=== PATIENT | female | born 1995 | race Caucasian/White ===

== ENCOUNTER 2023-02-27 15:23 | Outpatient (OUT) | payer OTHER, SELFPAY ==
[2023-02-27 17:21] LABS: HCG Quantitative 100415 mIU/mL
== END 2023-02-27 15:24 | disposition home or self-care (01) ==
LOC: LAB 15:23
PROVIDERS: Visit Provider Obstetrics & Gynecology
DX: N92.6 Irregular menstruation, unspecified (principal)
CPT/HCPCS: 36415; 84702

== ENCOUNTER 2023-03-01 12:06 | Outpatient (OUT) | payer OTHER, SELFPAY | END 2023-03-01 12:07 | disposition home or self-care (01) | PROVIDERS: Visit Provider Obstetrics & Gynecology | DX: N92.6 Irregular menstruation, unspecified (principal) | CPT/HCPCS: 36415; 84702 ==

== ENCOUNTER 2023-03-31 10:05 | Outpatient (OUT) | payer OTHER, SELFPAY ==
--- NOTE | 2023-03-31 10:06 | US_ITS ---
[address] [address] Patient Name: ALIN YOUNG MRN: [id number] date: 1995 Sex: F Assigned Patient Location: US Current Patient Location: LAB Accession/Order Number: [id number] Exam Date: 03/31/2023 10:06 Report Date: 03/31/2023 15:33 At the request of: TEAGAN KAISER Procedure: US OB transvaginal EXAMINATION: US OB transvaginal HISTORY: MISSED MENSES COMPARISON: No relevant comparison available. FINDINGS: GESTATIONAL SAC: Present and normal appearing. YOLK SAC: Present and normal appearing. POLE: Present and normal appearing. CARDIAC: Present. UTERUS: Normal size and appearance. OVARIES: Right: Not seen. Left: Not seen. CERVIX: 4.9 cm in length and closed. CUL-DE-SAC: Normal. OTHER: None. AGE BY LMP: Unknown LMP AYDE BY LMP: AGE BY US CRL: 12 weeks 0 days AYDE BY US CRL: 10/13/2023 US/US OB transvaginal IMPRESSION: 1. Single live intrauterine 12 weeks 0 days by today's ultrasound. Electronically authenticated by: CHRISTINA MIRAMONTES Date: 03/31/2023 15:33
== END 2023-03-31 10:06 | disposition home or self-care (01) ==
LOC: US 10:05
PROVIDERS: Visit Provider Obstetrics & Gynecology
DX: Z34.91 Encounter for supervision of normal pregnancy, unspecified, first trimester (principal); Z3A.12 12 weeks gestation of pregnancy
CPT/HCPCS: 36415; 76817; 83036; 84443; 85025; 86592; 86762; 86803; 86850; 86900; 86901; 87086; 87340; 87389; 87522

== ENCOUNTER 2023-03-31 11:22 | Outpatient (OUT) | payer OTHER, SELFPAY ==
[2023-03-31 12:08] LABS: Basophils Absolute Auto 0.1 10^3/uL (0.0-0.1); Basophils Percent Auto 0.7 % (0.2-2.0); Eosinophils Absolute Auto 0.1 10^3/uL (0.0-0.7); Eosinophils Percent Auto 1.9 % (0.9-7.0); Hematocrit 37.4 % (36.0-48.0); Hemoglobin 12.2 g/dL (12.0-16.0); Immature Granulocytes Abs Auto 0.02 10^3/uL (0.00-0.03); Immature Granulocytes Pct Auto 0.3 % (0.0-0.5); Lymphocytes Absolute Auto 1.7 10^3/uL (1.2-3.8); Lymphocytes Percent Auto 23.1 % (20.5-60.0); Mean Corpuscular HGB Conc 32.6 g/dL (29.9-35.2); Mean Corpuscular Hemoglobin 27.1 pg (26.7-34.0); Mean Corpuscular Volume 83.1 fL (81.0-99.0); Mean Platelet Volume 11.5 fL (9.5-13.5); Monocytes Absolute Auto 0.4 10^3/uL (0.3-0.8); Monocytes Percent Auto 5.1 % (1.7-12.0); Neutrophils Percent Auto 68.9 % (43.0-75.0); Platelet Count 202 10^3/uL (150-450); Red Cell Distribution Width 13.3 % (11.0-15.0); White Blood Count 7.2 10^3/uL (4.0-11.0)
[2023-03-31 12:29] LABS: Estimated Average Glucose 111 mg/dL; Glycohemoglobin A1C 5.5 % (4.5-6.2)
[2023-03-31 12:44] LABS: Thyroid Stimulating Hormone 2.407 uIU/mL (0.358-3.740)
[2023-04-01 06:09] LABS: HBsAg Screen Negative (Negative); Rubella Antibodies, IgG 1.83 index (Immune >0.99)
[2023-04-01 10:11] LABS: Rapid Plasma Reagin, Quant Non Reactive titer (NonRea<1:1)
[2023-04-03 14:08] LABS: HCV Ab Reactive (Non Reactive); HCV RNA (International Units) 11700000 IU/mL (.)
[2023-04-03 16:06] LABS: HIV Antigen NON-REACTIVE (NONREACTIVE)
== END 2023-03-31 11:23 | disposition home or self-care (01) ==
LOC: LAB 11:24
PROVIDERS: Visit Provider Obstetrics & Gynecology
DX: Z34.80 Encounter for supervision of other normal pregnancy, unspecified trimester (principal)
CPT/HCPCS: 36415; 83036; 84443; 85025; 86592; 86762; 86803; 86850; 86900; 86901; 87086; 87340; 87389

== ENCOUNTER 2023-06-01 10:47 | Outpatient (OUT) | payer OTHER, SELFPAY ==
--- NOTE | 2023-06-01 10:49 | US_ITS ---
[address] [address] Patient Name: ALIN YOUNG MRN: [id number] date: 1995 Sex: F Assigned Patient Location: [facility] Current Patient Location: [facility] Accession/Order Number: [id number] Exam Date: 06/01/2023 10:50 Report Date: 06/01/2023 12:33 At the request of: TEAGAN KAISER Procedure: US OB cervical length EXAMINATION: US OB anatomy, US OB cervical length HISTORY: ANATOMY COMPARISON: Ultrasound OB transvaginal 03/31/2023 TECHNIQUE: Transabdominal sonographic examination was performed for obstetrical and evaluation. FINDINGS: Number: 1 Heart Rate: 142.0 bpm H.B. /min Amniotic Fluid Volume: Subjectively normal Placental Location: ANTERIOR with lower margin 4.9 cm from os. Incidental venous dewitt within the placenta. Cervix Length: 4.1 cm; closed. ANATOMY: Normal Structures -cerebellum, choroid plexus, cisterna magna, lateral cerebral ventricles, orbits, midline falx, hard palate, four-chamber heart, RVOT, LVOT, stomach, kidneys, bladder, umbilical cord insertion into abdomen, three-vessel cord, cervical spine, thoracic spine, lumbar spine, sacral spine, right upper extremity, left upper extremity, right lower extremity, left lower extremity. SUBOPTIMALLY SEEN: None ABNORMALITIES: None BIOMETRY: BPD: 5.0 cm 21 weeks 1 days HC: 18.7 cm 21 weeks 0 days AC: 16.1 cm 21 weeks 1 days FL: 3.6 cm 21 weeks 3 days EFW:411.5 grams; 68% FL/AC: 22.3 FL/BPD: 72.3 HC/AC: 1.2 GESTATIONAL AGE: Age by EDC: 20 weeks 6 days AYDE by EDC: 10/13/2023 Age by current US: 21 weeks 1 days AYDE by current US: 10/11/2023 US/US OB cervical length IMPRESSION: 1. Single live intrauterine with growth detailed above. 2. Slightly limited examination due to maternal body habitus. Electronically authenticated by: CHRISTINA MIRAMONTES Date: 06/01/2023 12:33
--- NOTE | 2023-06-01 10:49 | US_ITS ---
[address] [address] Patient Name: ALIN YOUNG MRN: [id number] date: 1995 Sex: F Assigned Patient Location: [facility] Current Patient Location: [facility] Accession/Order Number: [id number] Exam Date: 06/01/2023 10:50 Report Date: 06/01/2023 12:33 At the request of: TEAGAN KAISER Procedure: US OB anatomy EXAMINATION: US OB anatomy, US OB cervical length HISTORY: ANATOMY COMPARISON: Ultrasound OB transvaginal 03/31/2023 TECHNIQUE: Transabdominal sonographic examination was performed for obstetrical and evaluation. FINDINGS: Number: 1 Heart Rate: 142.0 bpm H.B. /min Amniotic Fluid Volume: Subjectively normal Placental Location: ANTERIOR with lower margin 4.9 cm from os. Incidental venous dewitt within the placenta. Cervix Length: 4.1 cm; closed. ANATOMY: Normal Structures -cerebellum, choroid plexus, cisterna magna, lateral cerebral ventricles, orbits, midline falx, hard palate, four-chamber heart, RVOT, LVOT, stomach, kidneys, bladder, umbilical cord insertion into abdomen, three-vessel cord, cervical spine, thoracic spine, lumbar spine, sacral spine, right upper extremity, left upper extremity, right lower extremity, left lower extremity. SUBOPTIMALLY SEEN: None ABNORMALITIES: None BIOMETRY: BPD: 5.0 cm 21 weeks 1 days HC: 18.7 cm 21 weeks 0 days AC: 16.1 cm 21 weeks 1 days FL: 3.6 cm 21 weeks 3 days EFW:411.5 grams; 68% FL/AC: 22.3 FL/BPD: 72.3 HC/AC: 1.2 GESTATIONAL AGE: Age by EDC: 20 weeks 6 days AYDE by EDC: 10/13/2023 Age by current US: 21 weeks 1 days AYDE by current US: 10/11/2023 US/US OB anatomy IMPRESSION: 1. Single live intrauterine with growth detailed above. 2. Slightly limited examination due to maternal body habitus. Electronically authenticated by: CHRISTINA MIRAMONTES Date: 06/01/2023 12:33
== END 2023-06-01 10:48 | disposition home or self-care (01) ==
LOC: NOMS 10:47
PROVIDERS: Visit Provider Obstetrics & Gynecology
DX: Z36.89 Encounter for other specified antenatal screening (principal); Z3A.20 20 weeks gestation of pregnancy
CPT/HCPCS: 76805; 76817

== ENCOUNTER 2023-08-02 14:36 | Outpatient (OUT) | payer OTHER, SELFPAY ==
[2023-08-02 15:48] LABS: Basophils Percent Auto 0.2 % (0.2-2.0); Eosinophils Absolute Auto 0.2 10^3/uL (0.0-0.7); Hemoglobin 9.3 g/dL (12.0-16.0); Immature Granulocytes Abs Auto 0.09 10^3/uL (0.00-0.03); Lymphocytes Absolute Auto 1.2 10^3/uL (1.2-3.8); Lymphocytes Percent Auto 13.2 % (20.5-60.0); Mean Corpuscular Hemoglobin 24.3 pg (26.7-34.0); Mean Corpuscular Volume 78.3 fL (81.0-99.0); Mean Platelet Volume 12.5 fL (9.5-13.5); Monocytes Absolute Auto 0.5 10^3/uL (0.3-0.8); Monocytes Percent Auto 4.9 % (1.7-12.0); Neutrophils Absolute Auto 7.2 10^3/uL (1.4-6.5); Neutrophils Percent Auto 78.7 % (43.0-75.0); Platelet Count 185 10^3/uL (150-450); Red Blood Count 3.83 10^6/uL (4.20-5.40); Red Cell Distribution Width 15.7 % (11.0-15.0); White Blood Count 9.1 10^3/uL (4.0-11.0)
[2023-08-02 16:22] LABS: Glucose 1 Hour 136 mg/dL (<130)
== END 2023-08-02 14:37 | disposition home or self-care (01) ==
LOC: LAB 14:37
PROVIDERS: Visit Provider Obstetrics & Gynecology
DX: Z13.1 Encounter for screening for diabetes mellitus (principal)
CPT/HCPCS: 36415; 82950; 85025

== ENCOUNTER 2023-08-17 08:21 | Outpatient (OUT) | payer OTHER, SELFPAY ==
--- NOTE | 2023-08-17 08:23 | US_ITS ---
[address] [address] Patient Name: ALIN YOUNG MRN: [id number] date: 1995 Sex: F Assigned Patient Location: [facility] Current Patient Location: [facility] Accession/Order Number: [id number] Exam Date: 08/17/2023 08:24 Report Date: 08/17/2023 09:06 At the request of: TEAGAN KAISER Procedure: US OB growth EXAMINATION: US OB growth HISTORY: LGA ; large for gestational age COMPARISON: Ultrasound OB anatomy 06/01/2023 FINDINGS: Heart Rate: 141.0 bpm Number: 1.0 Position: TRANSVERSE Amniotic Fluid Volume: 16.4 cm Maximum Vertical Pocket: 5.3 cm BIOMETRY: BPD: 8.4 cm cm; 33 weeks 5 days; 88% HC: 30.4 cmcm; 33 weeks 6 days ; 67% AC: 31.0 cm cm; 34 weeks 6 days; >97% FL: 6.7 cm cm; 34 weeks 3 days; 93% EFW: 2451.6 grams; >97% FL/AC: 21.6 FL/BPD: 80.0 HC/AC: 1.0 GESTATIONAL AGE: Age by EDC: 31 weeks 6 days AYDE by EDC: 10/13/2023 Age by US: 34 weeks 2 days AYDE by US: 09/26/2023 US/US OB growth IMPRESSION: 1. Single live intrauterine with growth detailed above. 2. Estimated weight is greater than 97th percentile. Electronically authenticated by: CHRISTINA MIRAMONTES Date: 08/17/2023 09:06
== END 2023-08-17 08:22 | disposition home or self-care (01) ==
LOC: NOMS 08:21
PROVIDERS: Visit Provider Obstetrics & Gynecology
DX: O36.63X0 Maternal care for excessive fetal growth, third trimester, not applicable or unspecified (principal); Z3A.31 31 weeks gestation of pregnancy
CPT/HCPCS: 76816

== ENCOUNTER 2023-08-28 21:21 | Emergency (ER) | payer OTHER, SELFPAY ==
[2023-08-28 21:23] VITALS: BP 147/73; PULSE 116; TEMP 36.7; O2SAT 98; BMI 44.6
--- OUTSIDE RECORDS SUMMARY | 2023-08-28 21:29 | XMS_ITS | CCD ---
Author Organization [facility] Care Team Providers Care Address Change Clerk Name Role Phone Unavailable Primary Care Provider UnavailJOHN Trinidad Attending Unavailable James Rodriguez III Primary Care Physician [phone] NONE, XXXX Primary Care Physician Unavailab Aliin Lockett Primary Care Physician [phone] REQUEST, DR JJ LISTED Primary Care Unavaila ble YAMILEX, DR PINEDA Consulting Unavailable KARASIK, DR PINEDA Attending Unavailable KARASIK, DR PINEDA Admitting Unavailable AWILDA, DR CANDELARIA Consulting Unavailable MISC, DR FONSECA Primary Care Unavailable AWILDA, DR CANDELARIA Attending Unavailable AWILDA, DR CANDELARIA Admitting Unavailable MISC, DR FONSECA Primary Care Unavailable AWILDA, DR CANDELARIA Attending Unavailable AWILDA, DR CANDELARIA Admitting Unavailable MISC, DR FONSECA Primary Care Unavailable AWILDA, DR CANDELARIA Attending Unavailable AWILDA, DR CANDELARIA Admitting Unavailable AWILDA, DR CANDELARIA Consulting Unavailable MISC, DR FONSECA Primary Care Unavailable AWILDA, DR CANDELARIA Attending Unavailable AWILDA, DR CANDELARIA Admitting Unavailable KARASIK, DR PINEDA Consulting Unavailable MISC, DR FONSECA Primary Care Unavailable KARCORNELIA, DR IPNEDA Attending Unavailable YAMILEX, DR PINEDA Admitting Unavailable KARCORNELIA, DR PINEDA Consulting Unavailable MISC, DR FONSECA Primary Care Unavailable KARASILindsay, DR PINEDA Attending Unavailable KARASILindsay, DR PINEDA Admitting Unavailable KARCORNELIA, DR PINEDA Consulting Unavailable REQUEST, DR JJ LISTED Primary Care Unavaila ble AWILDA, DR CANDELARIA Attending Unavailable AWILDA, DR CANDELARIA Admitting Unavailable AWILDA, DR CANDELARIA Consulting Unavailable CHRISTINA NELSON Consulting Unavailable AWILDA, DR CANDELARIA Procedure Practitioner Unavailab le AWILDA, DR CANDELARIA Consulting Unavailable REQUEST, DR NONE LISTED Primary Care Unavaila ble AWILDA, DR CANDELARIA Attending Unavailable AWILDA, DR CANDELARIA Admitting Unavailable AWILDA, DR CANDELARIA Consulting Unavailable MISC, DR FONSECA Primary Care Unavailable AWILDA, DR CANDELARIA Attending Unavailable AWILDA, DR CANDELARIA Admitting Unavailable ZIEBER, DR CHRISTINA Webster Consulting Unavailable AWILDA, DR CANDELARIA Consulting Unavailable REQUEST, DR NONE LISTED Primary Care Unavaila ble AWILDA, DR CANDELARIA Attending Unavailable AWILDA, DR CANDELARIA Admitting Unavailable WEST, DR LEONIDES Sawyer Consulting Unavailable REQUEST, NONE LISTED Primary Care Unavaila ble AWILDA, DR CANDELARIA Attending Unavailable AWILDA, DR CANDELARIA Admitting Unavailable AWILDA, DR CANDELARIA Consulting Unavailable KARASIK, DR PINEDA Consulting Unavailable REQUEST, DR NONE LISTED Primary Care Unavaila ble KARASIK, DR PINEDA Attending Unavailable KARASIK, DR PINEDA Admitting Unavailable WEST, DR LEONIDES Sawyer Consulting Unavailable REQUEST, DR NONE LISTED Primary Care Unavaila ble AWILDA, DR CANDELARIA Attending Unavailable AWILDA, DR CANDELARIA Admitting Unavailable AWILDA, DR CANDELARIA Consulting Unavailable AWILDA, DR CANDELARIA Consulting Unavailable REQUEST, DR NONE LISTED Primary Care Unavaila ble AWILDA, DR CANDELARIA Attending Unavailable AWILDA, DR CANDELARIA Admitting Unavailable Unavailable Primary Care Provider UnavailAmie Kat DO Primary Care Provider Zbigniew La Primary Care Physician [phone] Amie Rosas DO Primary Care Provider Bronson [employer]EFIT[employer].CANDELARIO [facility] Primary Care Provider LORNA DOBSON Referring Unavailable BRONSON LORNA Primary Care Unavailable KEY CASAS Attending Unavailable BRONSON LORNA Primary Care Unavailable KELSI FREEDMAN Referring Unavailable LORNA DOBSON Attending Unavailable AMIE ROSAS Primary Care Unavailable CHRISTIAN, KELSI Attending Unavailable AMIE ROSAS Primary Care Unavailable Unavailable Primary Care Provider UnavailAMIE Kat Primary Care Unavailable PAT TEIXEIRA Attending Unavailable AMIE ROSAS Primary Care Unavailable PA CELIS Attending Unavailable PAT TEIXEIRA S Attending Unavailable PAT TEIXEIRA Attending Unavailable AMIE ROSAS Primary Care Unavailable O'MELISA, KATHERINE R Admitting Unavailable O'MELISA, KATHERINE R Attending Unavailable BOWEN, AMIE Attending Unavailable AIWLDA, CASH Attending Unavailable BOWEN, AMIE Attending Unavailable CASH BOYD Attending Unavailable BOWEN, AMIE Attending Unavailable CASH BOYD Attending Unavailable Harris Simms Attending Unavailable DO Sarita Packer Attending Unavaila DO Sarita Redmond Admitting Unavaila ble Zbigniew La Attending Unavailable Gera Nelson Attending Unavailable Gera Nelson Admitting Unavailable Gera Nelson Admitting Unavailable Gera Nelson Attending Unavailable DO Yuniel Ware Attending Unavailable Allergies Allergy Classification Reported Allergen(s) Allergy Type Date of Onset Reaction(s) Facility (8 sources) Contrast media; Translations: [Red Dye] Propensity to adverse reactions to drug 1 [facility] (20 sources) traMADol; Translations: [tramadol] Drug Allergy 1 Swelling, Other: See Comments, GI Upset, Shortness of Breath [facility] [employer] Work Phone: (8 sources) Red Dye 1 Allergy to substance [facility] Comment on above: Hives (1 source) traMADol; Translations: [Ultram] Drug Allergy [facility] Rep[facility] (1 source) Unable to obtain; Translations: [Unable to obtain] Propensity to adverse reactions (disorder) [facility] Medications Current Medications Medication Drug Class(es) Dates Sig (Normalized) Sig (Original) Tylenol (7 sources) Start: 10-20-2021 Tylenol Refill s(s) 0 Start Date: 10/20/21 Status: Ordered take 2 tablets by [facility] every six hours as needed for pain acetaminophen (TYLENOL) 325 MG tablet Ta ke 2 tablets by mouth every 6 hours as needed for Pain 0 Active acetaminophen 325 mg / HYDROcodone bitartrate 5 mg oral tablet (3 sources) Opioid Agonist Start: 09-22-2022 [place] 325 mg-5 mg oral tablet 1 tab(s), Oral, q6hr for pain, 5 tab(s), Refill(s) 0, [facility] #[id number], 162, cm, 09/22/22 21:14:00 EDT, Height/Length Dosing, 107, kg, 09/22/22 21:14:00 EDT, Weight Dosing Start Date: 09/22/22 Status: Ordered acetaminophen 325 mg / oxyCODONE hydrochloride 5 mg oral tablet (2 sources) Opioid Agonist Start: 10-24-2021 End: 10-27-2021 oxyCODONE-acetaminophen (PERCOCET) 5-325 MG per tablet Indications: Acute appendicitis, unspecified acute appendicitis type Take 1 tablet by mouth every 6 hours as needed for Pain for up to 3 days. Intended supply: 3 days. Take lowest dose possible to manage pain 12 tablet 0 10/24/2021 10/27/2021 Active Start: 10-24-2021 oxyCODONE-acet aminophen (PERCOCET) 5-325 MG per tablet 1 tablet Albuterol (Eqv-ProAir HFA) 90 mcg/inh inhalation aerosol (8 sources) Start: 04-11-2021 take 2 puff(s) by inhalation every six hours Albuterol (Eqv-ProAir HFA) 90 mcg/inh inhalation aerosol 2 puff(s), Inhalation, q6hr Cough and Congestion, 18 gm, Refill(s) 0, [facility] [facility], 163, cm, 04/11/21 13:02:00 EST, Height/Length Dosing, 95, kg, 04/11/21 13:02:00 EST, Weight Dosing Start Date: 04/11/21 Status: Ordered busPIRone hydrochloride 5 mg oral tablet (8 sources) Start: 06-17-2020 take 1 tablet by mouth twice daily busPIRone 5 mg Tab 5 mg = 1 tab(s), Oral, BID, # 60 tab(s), Refills(s) 0, [facility], 162.5, cm, 05/10/20 15:42:00 EST, Height/Length Dosing, 83.4, kg, 05/10/20 15:42:00 EST, Weight Dosing Start Date: 06/17/20 Status: Ordered cetirizine hydrochloride 10 mg oral tablet (2 sources) Histamine-1 Receptor Antagonist Start: 11-05-2022 End: 11-12-2022 take 1 tablet by mouth once daily cetirizine 10 mg Tab 10 mg = 1 tab(s), Oral, Daily, X 7 day(s), # 7 tab(s), Refills(s) 0, [facility]: [facility] #[id number], 162, cm, 11/05/22 9:56:00 EDT, Height/Length Dosing, 105, kg, 11/05/22 9:56:00 EDT, Weight Dosing Start Date: 11/05/22 Stop Date: 11/12/22 Status: Ordered citalopram 10 mg oral tablet (1 source) Serotonin Reuptake Inhibitor Start: 08-27-2021 citalopram 10 mg Tab Refills(s) 0 Start Date: 08/27/21 Status: Ordered dexamethasone 4 mg oral tablet (3 sources) Corticosteroid Start: 10-30-2022 End: 11-09-2022 take 1 tablet by mouth twice daily at mealtime dexamethasone (DECADRON) 4 MG tablet Take 1 tablet by mouth 2 times daily (with meals) for 10 days 20 tablet 0 10/30/2022 10/30/2022 Discontinued (REORDER) Start: 10-30-2022 End: 10-30-2022 dexamethasone (PF) (DECADRON ) injection 10 mg diphenhydrAMINE hydrochloride 25 mg oral capsule (4 sources) Histamine-1 Receptor Antagonist Start: 07-28-2023 End: 08-07-2023 take 1 capsule by mouth every six hours as needed diphenhydrAMINE (BENADRYL ALLERGY) 25 MG capsule Take 1 capsule by mouth every 6 hours as needed for Itching 30 capsule 0 07/28/2023 08/07/2023 Active Start: 10-30-2022 End: 11-09-2022 take 1 capsule by mouth every six hours as needed diphenhydrAMINE (BENADRYL) 25 MG capsule Take 1 capsule by mouth every 6 hours as needed for Itching 30 capsule 0 10/30/2022 10/30/2022 Discontinued (REORDER) Start: 10-30-2022 End: 10-30-2022 diphenhydrAMINE (BENADRYL) c apsule 50 mg etonogestrel 68 mg drug implant (2 sources) Progestin Start: 12-23-2013 inject 68 mg by subcutaneous injection once Implanon 68 mg subcutaneous implant 68 mg, SubCutaneous, Once, # 1 EA, Refills(s) 0 Start Date: 12/23/13 Status: Ordered famotidine 40 mg oral tablet (2 sources) Histamine-2 Receptor Antagonist Start: 11-05-2022 End: 11-12-2022 take 1 tablet by mouth once daily at bedtime Pepcid 40 mg Tab 40 mg = 1 tab(s), Oral, Once a day (at bedtime), X 7 day(s), # 7 tab(s), Refills(s) 0, [facility]: [id number], 162, cm, 11/05/22 9:56:00 EDT, Height/Length Dosing, 105, kg, 11/05/22 9:56:00 EDT, Weight Dosing Start Date: 11/05/22 Stop Date: 11/12/22 Status: Ordered ferrous sulfate (7 sources) Start: 08-26-2021 ferrous sulfate Oral, Refills(s) 0 Start Date: 08/26/21 Status: Ordered HYDROmorphone (DILAUDID) injection 0.5 mg (1 source) Start: 10-24-2021 HYDROmorphone (DILAUDID) injection 0.5 mg ibuprofen 800 mg oral tablet (3 sources) Nonsteroidal Anti-inflammatory Drug take 1 tablet by mouth every six hours as needed for pain ibuprofen (ADVIL;MOTRIN) 800 MG tablet Take 1 tablet by mouth every 6 hours as needed for Pain 0 Active Multi Vitamin+ (7 sources) Start: 08-26-2021 Multi Vitamin+ Refill(s) 0 Start Date: 08/26/21 Status: Ordered Naltrexone (2 sources) Opioid Antagonist Start: 07-21-2019 Vivitrol Refills(s) 0 Start Date: 07/21/19 Status: Ordered naproxen 500 mg oral tablet (3 sources) Nonsteroidal Anti-inflammatory Drug Start: 09-22-2022 take 1 tablet by mouth twice daily as needed for pain Naprosyn 500 mg Tab 500 mg = 1 tab(s), Oral, BID, PRN for pain, # 20 tab(s), Refills(s) 0, [facility]acy: [id number], 162, cm, 09/22/22 21:14:00 EDT, Height/Length Dosing, 107, kg, 09/22/22 21:14:00 EDT, Weight Dosing Start Date: 09/22/22 Status: Ordered piperacillin-tazob actam (ZOSYN) 3,375 mg in dextrose 5 % 50 mL IVPB (mini-bag) (1 source) Start: 10-23-2021 piperacillin-tazob actam (ZOSYN) 3,375 mg in dextrose 5 % 50 mL IVPB (mini-bag) predniSONE 20 mg oral tablet (2 sources) Start: 11-05-2022 End: 11-12-2022 take 3 tablets by mouth once daily predniSONE 20 mg Tab 3, Oral, Daily, X 7 day(s), # 21 tab(s), Refills(s) 0, Pharmacy: [facility] #[id number], 162, cm, 11/05/22 9:56:00 EDT, Height/Length Dosing, 105, kg, 11/05/22 9:56:00 EDT, Weight Dosing Start Date: 11/05/22 Stop Date: 11/12/22 Status: Ordered MV-Min-Fe Fum-FA-DHA ( 1 PO) (7 sources) MV-Min- Fe Fum-FA-DHA ( 1 PO) Take by mouth 0 Active sertraline 25 mg oral tablet (6 sources) Serotonin Reuptake Inhibitor Start: 02-17-2023 End: 03-19-2023 take 1 tablet by mouth once daily sertraline (ZOLOFT) 25 mg tablet Indications: Anxiety and depression Take 1 tablet by mouth once daily. 30 tablet 0 02/17/2023 03/19/2023 Active Comment on above: Take 1 tablet by keenan once daily. sodium chloride 0.111 meq/ml nasal solution (3 sources) Start: 08-03-2023 sodium chloride (OCEAN) 0.65 % nasal spray 1 spray by Nasal route as needed for Congestion 1 each 0 08/03/2023 Active Start: 10-23-2021 End: 10-24-2021 IntraVENous, at 50 mL/hr, CO NTINUOUS, Starting on 10/24/21 at 1215 Completed/Discontinued Medications Medication Drug Class(es) Dates Sig (Normalized) Sig (Original) amoxicillin 875 mg / clavulanate 125 mg oral tablet (2 sources) Penicillin-class Antibacterial Start: 04-25-2022 End: 04-25-2022 amoxicillin-clavu lanate (AUGMENTIN) 875-125 MG per tablet 1 tablet Start: 04-25-2022 End: 05-05-2022 take 1 tablet by mouth twice daily amoxicillin-clavulanate (AUGMENTIN) 875-125 MG per tablet Take 1 tablet by mouth 2 times daily for 10 days 20 tablet 0 04/25/2022 05/05/2022 Active escitalopram 5 mg oral tablet (16 sources) Serotonin Reuptake Inhibitor Start: 02-17-2023 take 1 tablet by mouth once daily escitalopram oxalate (LEXAPRO) 5 mg tablet Indications: Anxiety and depression Take 1 tablet by mouth once daily. 30 tablet 0 02/17/2023 Active Start: 06-02-2020 End: 02-17-2023 take 1 tablet by mouth once daily escitalopram oxalate (LEXAPRO) 10 mg tablet Indications: Anxiety and depression Take 1 tablet by mouth once daily. 30 tablet 1 01/09/2023 02/17/2023 Discontinued Comment on above: Take 1 tablet by keenan th once daily. 2 ml fentaNYL 0.05 mg/ml injection (1 source) Opioid Agonist Start: 10-24-2021 End: 10-24-2021 fentaNYL (SUBLIMAZE) injection 50 mcg gentamicin 3 mg/ml ophthalmic solution (1 source) Start: 08-19-2022 End: 08-19-2022 gentamicin (GARAMYCIN) 0.3 % ophthalmic solution 2 drop iopamidol (ISOVUE-370) 76 % injection 100 mL (1 source) Start: 10-23-2021 End: 10-23-2021 iopamidol (ISOVUE-370) 76 % injection 100 mL 1 ml ketorolac tromethamine 30 mg/ml cartridge (1 source) Nonsteroidal Anti-inflammatory Drug, Cyclooxygenase Inhibitor Start: 10-23-2021 End: 10-23-2021 ketorolac (TORADOL) injection 30 mg 2 ml ondansetron 2 mg/ml injection (10 sources) Serotonin-3 Receptor Antagonist Start: 10-23-2021 End: 10-24-2021 ondansetron (ZOFRAN) injection 4 mg take 1 tablet by keenan th every eight hours as needed for nausea ondansetron (ZOFRAN) 4 MG tablet Take 4 mg by mouth every 8 hours as needed for Nausea or Vomiting 0 Active Problems Active Problems Problem Classification Problem Date Documented Date Episodic/Chronic Anxiety disorders (17 sources) Mixed anxiety and depressive disorder; Translations: [Anxiety disorder, unspecified] Onset: 3 03-25-2019 Chronic Disorders of lipid metabolism (8 sources) Hypercholesterolemia 07-28-2018 Chronic Disorders of teeth and jaw (8 sources) Dental caries 07-12-2013 Episodic E Codes: Fall (1 source) Unspecified fall, initial encounter; Translations: [Unspecified fall, initial encounter] Onset: 4 Episodic Early or threatened labor (4 sources) False labor at or after 37 completed weeks of gestation; Translations: [FALSE LABOR AT/AFTR 37 CMPL WK GEST] Onset: 2 Episodic Endometriosis (8 sources) Endometriosis (clinical) 07-13-2014 Chronic Genitourinary symptoms and ill-defined conditions (8 sources) H/O: kidney infection 02-13-2015 Episodic Hepatitis (11 sources) Viral hepatitis C; Translations: [Unspecified viral hepatitis C without hepatic coma] Onset: 3 01-09-2023 Episodic Immunizations and screening for infectious disease (17 sources) Encounter for screening for infections with a predominantly sexual mode of transmission; Translations: [Contact with and (suspected) exposure to infections with a predominantly sexual mode of transmission] Onset: 1 Episodic Menstrual disorders (5 sources) Irregular menstruation, unspecified; Translations: [IRREGULAR MENSTRUATION UNSPECIFIED] Onset: 1 Chronic Miscellaneous mental health disorders (8 sources) Psychophysiologic insomnia; Translations: [Psychophysiologic insomnia] Onset: 3 01-09-2023 Chronic Nutritional deficiencies (2 sources) Vitamin D deficiency; Translations: [Vitamin D deficiency, unspecified] Onset: 3 01-09-2023 Chronic OB-related trauma to perineum and vulva (1 source) Second degree perineal laceration during delivery; Translations: [SECOND DEG PERINEAL LAC DUR DELIV] Onset: 2 Episodic Other complications of ; puerperium affecting management of mother (1 source) Smoking (tobacco) complicating childbirth; Translations: [SMOKING TOBACCO COMP CHILDBIRTH] Onset: 2 Episodic Other complications of (4 sources) Maternal care for excessive growth, third trimester, not applicable or unspecified; Translations: [MAT CARE EXCSS FTL GRTH 3RD TRI UNS] Onset: 2 Episodic Other complications of (4 sources) Decreased movements, third trimester, not applicable or unspecified; Translations: [DECR MOVEMENTS 3RD TRI NA/UNS] Onset: 2 Episodic Other complications of (4 sources) Other specified related conditions, third trimester; Translations: [OTH SPEC PREG RELATED COND 3RD TRI] Onset: 2 Episodic Other diseases of kidney and ureters (8 sources) Infectious disorder of kidney 03-25-2019 Chronic Other female genital disorders (5 sources) Other specified noninflammatory disorders of vagina; Translations: [OTH SPEC NONINFLAMMATORY D/O VAGINA] Onset: 2 Episodic Other hereditary and degenerative nervous system conditions (8 sources) Restless legs; Translations: [Restless legs syndrome] Onset: 3 01-09-2023 Chronic Other hereditary and degenerative nervous system conditions (2 sources) Restless legs syndrome; Translations: [Restless leg] Onset: 3 Chronic Other infections; including parasitic (1 source) Personal history of other infectious and parasitic diseases; Translations: [PERSONAL HX OTH INF AND PARASITIC DZ] Onset: 2 Episodic Other nervous system disorders (1 source) Paresthesia of skin; Translations: [PARESTHESIA OF SKIN] Onset: 2 Episodic Other nutritional; endocrine; and metabolic disorders (8 sources) Body mass index 30+ - obesity; Translations: [Obesity, unspecified] Onset: 3 01-09-2023 Chronic Other nutritional; endocrine; and metabolic disorders (1 source) Obesity, unspecified; Translations: [Obesity (BMI 30-39.9)] Onset: 3 Chronic Other and delivery including normal (14 sources) Teenage ; Translations: [Single live ] Onset: 1 05-06-2013 Episodic Other screening for suspected conditions (not mental disorders or infectious disease) (14 sources) Encounter for screening for Streptococcus B; Translations: [Encounter for screening for diabetes mellitus] Onset: 1 Episodic Other skin disorders (1 source) Localized swelling, mass and lump, unspecified lower limb; Translations: [LOC SWELL MASS LUMP UNS LOWER LIMB] Onset: 2 Episodic Other skin disorders (1 source) Localized swelling, mass and lump, unspecified upper limb; Translations: [LOC SWELL MASS LUMP UNS UPPER LIMB] Onset: 2 Episodic Other upper respiratory infections (4 sources) Acute upper respiratory infection; Translations: [Acute upper respiratory infection, unspecified] Onset: 2 Episodic Ovarian cyst (8 sources) Cyst of ovary 06-05-2016 Episodic Residual codes; unclassified (8 sources) Chronic back pain 02-19-2017 Episodic Residual codes; unclassified (1 source) 39 weeks gestation of ; Translations: [39 WEEKS GESTATION OF ] Onset: 2 Episodic Residual codes; unclassified (1 source) Personal history of other specified conditions; Translations: [PERSONAL HISTORY OTH SPEC CONDITION] Onset: 2 Episodic Residual codes; unclassified (1 source) 38 weeks gestation of ; Translations: [38 WEEKS GESTATION OF ] Onset: 2 Episodic Residual codes; unclassified (1 source) 37 weeks gestation of ; Translations: [37 WEEKS GESTATION OF ] Onset: 2 Episodic Residual codes; unclassified (1 source) 36 weeks gestation of ; Translations: [36 WEEKS GESTATION OF ] Onset: 2 Episodic Residual codes; unclassified (1 source) 28 weeks gestation of ; Translations: [28 WEEKS GESTATION OF ] Onset: 2 Episodic Residual codes; unclassified (1 source) Left against medical advice; Translations: [Procedure and treatment not carried out because of patient's decision for other reasons] 08-06-2023 Episodic Residual codes; unclassified (1 source) Procedure and treatment not carried out because of patient's decision for other reasons; Translations: [Procedure and treatment not carried out because of patient's decision for other reasons] Onset: 4 Episodic Schizophrenia and other psychotic disorders (8 sources) Schizophrenia 03-25-2019 Chronic Skin and subcutaneous tissue infections (1 source) Boils of multiple sites; Translations: [Furuncle, unspecified] 02-17-2023 Episodic Substance-related disorders (20 sources) Smoker; Translations: [Nicotine dependence, cigarettes, uncomplicated] Onset: 2 12-07-2013 Chronic Comment on above: Added secondary to d ocumentation in Social History. Suicide and intentional self-inflicted injury (8 sources) Suicidal thoughts 03-25-2019 Episodic Superficial injury; contusion (1 source) Contusion of right knee, initial encounter; Translations: [Contusion of right knee, initial encounter] Onset: 4 Episodic Umbilical cord complication (1 source) Labor and delivery complicated by cord around neck, without compression, not applicable or unspecified; Translations: [L AND D COMP CORD NECK NO COMPRS NA/UNS] Onset: 2 Episodic Unclassified (8 sources) Bipolar (qualifier value) 03-25-2019 Unclassified (16 sources) Onset: 3 Resolved: 2 11-06-2014 Unclassified (5 sources) Tobacco use during ( Confirmed ) 04-28-2013 Unclassified (3 sources) Tobacco use during 04-28-2013 Unclassified (1 source) History of intravenous drug use in remission; Translations: [History of intravenous drug use in remission] Onset: 3 Unclassified (1 source) NO SHOW 03-06-2023 Urinary tract infections (16 sources) Acute pyelonephritis; Translations: [Lower urinary tract infectious disease] 07-12-2013 Episodic Viral infection (1 source) Disease caused by 2019-nCoV; Translations: [COVID-19] Episodic Past or Other Problems Problem Classification Problem Date Documented Da te Episodic/Chronic Allergic reactions (3 sources) Urticaria; Translations: [Urticaria, unspecified] Onset: 10-30-2022 Episodic Appendicitis and other appendiceal conditions (7 sources) Acute appendicitis; Translations: [Other acute appendicitis without perforation or gangrene] Onset: 10-24-2021 Episodic Inflammation; infection of eye (except that caused by tuberculosis or sexually transmitteddisease) (2 sources) Acute infectious conjunctivitis; Translations: [Unspecified acute conjunctivitis, right eye] Onset: 08-19-2022 Episodic Results Test Name Value Interpretation Reference Range Facility Nursing Assessmenton 024 Nursing Assessment [id number] Normal [facility] Auth for Release of Medical Recordson 08-23-2023 Auth for Release of Medical Records [id number] 0TIFF Normal [facility] Consent for Treatmenton 07-31 Consent for Treatment [id number] 0TIFF Normal [facility] Discharge Instructionson Discharge Instructions [id number] 0TIFF Normal [facility] Inpatient Clinical Summaryon 08-23-2023 Inpatient Clinical Summary [place] [id number] Clinical Summary Person Information Name: CHRISTIANA YOUNG [facility] Age: 27 Years : 1995 Sex: Female PCP: NONE, XXXX Marital Status: Single Phone: [phone] Race: White Ethnicity: Non- or Language: Citizen Of [place] Visit Id: Visit Reason: ABD PAIN & BACK PAIN Speciality: Acuity: Obs Enc Type: OB Triage Med Service: Obstetrics Arrival: 08/22/2023 23:43:59 Discharge: 08/23/2023 01:08:00 Dispo Type: Home (Routine DC) Address: [address] [place] [id number] Provider Notes: Diagnosis: Problems Active (08/22/2023) Schizophrenia Anxiety depression Bipolar Chronic back pain Smoker 31-OCT-2013 12:37:00<$> Acute pyelonephritis Teenage Smoking Status: Never Smoker Functional Status: Sensory Deficits: History of Falls: Mobility Assistance Prior to Admission: ADLs: Current Level of Assistance for Self-Care/Mobility: Cognitive Status: Allergies Red Dye Ultram (nausea) (SOB) (dizziness) Laboratory or Other Results This Visit (last charted value for your 08/22/2023 visit) Urinalysis 08/23/2023 0:07 AM UA Bili: Negative mg/dL UA Color: Light-Yellow UA Glucose: Negative mg/dL UA Ketones: Negative mg/dL UA Leuk Est: Negative Giovanni/uL UA Nitrite: Negative mg/dL UA Protein: Negative mg/dL UA Urobilinogen: Negative mg/dL UA Spec Desc: Clean Catch UA Blood: Negative mg/dL UA Clarity: Clear UA pH: 6.0 -- Normal range between ( 5.0 and 9.0 ) UA Spec Grav: 1.018 -- Normal range between ( 1.005 and 1.030 ) Measurements: Height: 162.5 cm Weight: 118.2 kg Blood Pressure: 128 mmHg / 72 mmHg BMI: 44.76 kg/m2 Procedures No Procedures Documented Immunizations No Immunizations Documented This Visit Final Med List: acetaminophen (Tylenol) acetaminophen-hydrocod one ([place]ucson 325 mg-5 mg oral tablet) 1 Tablets By Mouth every 6 hours as needed for pain. Refills: 0. albuterol (Albuterol (Eqv-ProAir HFA) 90 mcg/inh inhalation aerosol) 2 Puffs Inhalation every 6 hours as needed Cough and Congestion. Refills: 0. busPIRone (busPIRone 5 mg Tab) 1 Tablets By Mouth 2 times a day. Refills: 0. escitalopram (escitalopram 10 mg Tab) 1 Tablets By Mouth every day. Refills: 0. ferrous sulfate By Mouth. multivitamin (Multi Vitamin+) naproxen (Naprosyn 500 mg Tab) 1 Tablets By Mouth 2 times a day as needed for pain. Refills: 0. Care Team Members: Attending Physician: Sarita Packer DO Consulting Physician: Referring Physician: Follow up: With: Address: When: [facility], [address] [place] [address] [place] [address] Business (1) In 8 days 08/31/2023 Comments: Appointment has already been scheduled Call for severe abdominal pain Call physician for heavy vaginal bleeding Call physician if symptoms worsen Return for contractions closer, longer, stronger Return for decreased movement Return if ruptured membranes or vaginal bleeding Patient Education Information: Normal [facility] Inpatient Patient Summaryon 08-23-2023 Inpatient Patient Summary [address] [address] Patient Discharge Instructions PERSON INFORMATION Name: CHRISTIANA YOUNG Date of : 1995 Current Date: 08/23/2023 01:35:54 PHYSICIANS Admitting Physician: Sarita Packer DO Primary Care Physician: NONE, XXXX PCP Phone Number: Comment: Discharge Diagnosis: Condition at Discharge: CHRISTIANA YOUNG has been given the following list of follow-up instructions, prescriptions, and patient education materials: PATIENT FOLLOW-UP INFORMATION Diet: Activity: Wound Care Instructions: Remove Your Dressing IN: Days Call Your Doctor For: IF UNABLE TO CONTACT YOUR PHYSICIAN AND YOU FEEL IT IS AN EMERGENCY, GO TO THE NEAREST EMERGENCY ROOM OR CALL 911 Home Treatment: Devices/Equipment: Special Services: Additional Instructions: Physician to provide the following pending test results: Follow up: With: Address: When: [facility], [address] [place] [address] , [place], [place] [id number] Business (1) In 8 days 08/31/2023 Comments: Appointment has already been scheduled Call for severe abdominal pain Call physician for heavy vaginal bleeding Call physician if symptoms worsen Return for contractions closer, longer, stronger Return for decreased movement Return if ruptured membranes or vaginal bleeding In the event that this physician does not participate in your insurance network, please consult with your insurance company to find a nearby participating provider. Comment: I, CHRISTIANA YOUNG, have received the attached patient education materials/instructions and have verbalized understanding. Patient Signature Date Clinican/Nurse Signature ___ Date MEDICATION LIST Medications to Continue with No Changes Other Medications acetaminophen (Tylenol) Last Dose: ___Next Dose: ___ acetaminophen-hydrocod one (Tucson 325 mg-5 mg oral tablet) 1 Tablets By Mouth every 6 hours as needed for pain. Refills: 0. Last Dose: ___Next Dose: ___ albuterol (Albuterol (Eqv-ProAir HFA) 90 mcg/inh inhalation aerosol) 2 Puffs Inhalation every 6 hours as needed Cough and Congestion. Refills: 0. Last Dose: ___Next Dose: ___ busPIRone (busPIRone 5 mg Tab) 1 Tablets By Mouth 2 times a day. Refills: 0. Last Dose: ___Next Dose: ___ escitalopram (escitalopram 10 mg Tab) 1 Tablets By Mouth every day. Refills: 0. Last Dose: ___Next Dose: ___ ferrous sulfate By Mouth. Last Dose: ___Next Dose: ___ multivitamin (Multi Vitamin+) Last Dose: ___Next Dose: ___ naproxen (Naprosyn 500 mg Tab) 1 Tablets By Mouth 2 times a day as needed for pain. Refills: 0. Last Dose: ___Next Dose: ___ Pharmacy Information: PATIENT EDUCATION INFORMATION Instructions: Medication Leaflets: You may receive a survey from [employer] asking you to rate your care experience. Your feedback is important and will help us understand what we do well and how we can improve the quality of care we provide to you, your loved ones and our community. It?s an honor to serve you. Patient Portal You may access all of your results and other medical record information on our secure patient portal. If you are not signed up for this yet, please contact [employer] at [phone] to get signed up today. ELVIS Award Nomination The ELVIS (Diseases Attacking the Immune SYstem) Award is an international recognition program that honors and celebrates the skillful, compassionate care nurses provide every day. Anyone who experiences or observes amazing care being provided by a nurse is encouraged to submit a nomination. To nominate your nurse, use your smart phone to scan the QR code below. Thank you for choosing [facility] Normal [facility] Insurance Correspondenceon 0 08-23-2023 Insurance Correspondence [id number]#[id number] 0TIFF Normal [facility] Recordson Records [id number]#1.0 0TIFF Normal [facility] UA with Cult Rflxon 08-23-19 24 Bilirubin Ql (U) Negative Normal Negative [facility] Comment on above: Performed By: #### 4 [id number] ####[facility] [address] [place] [address] Clarity (U) Clear Normal Clear [facility] Comment on above: Performed By: #### 4 [id number] ####[facility] [address] [facility] [place] [address] Color (U) Light-Yellow Normal Yellow [facility] Comment on above: Result Comment: Micr oscopic readings are only performed on those samples that meet specific criteria set forth by [facility]. Performed By: #### 4 [id number] ####[facility] [address] [place] [address] Glucose Ql (U) Negative Normal Negative [facility] Comment on above: Performed By: #### 4 [id number] ####[facility] [address] [place] [address] Hemoglobin Auto test strip (U) [Mass/Vol] Negative Normal Negative [facility] Comment on above: Performed By: #### 4 [id number] ####[facility] [address] [place] [address] Ketones Auto test strip Ql (U) Negative Normal Negative [facility] Comment on above: Performed By: #### 4 [id number] ####[facility] [address] [place] [address] Leukocyte esterase Auto test strip Ql (U) Negative Normal Negative [facility] Comment on above: Performed By: #### 4 [id number] ####[facility] [address] [place] [address] Nitrite Auto test strip Ql (U) Negative Normal Negative [facility] Comment on above: Performed By: #### 4 [id number] ####[facility] [address] [place] [address] pH (U) 6.0 [pH] Invalid Interpretation Code 5.0-9.0 [facility] Comment on above: Performed By: #### 4 [id number] ####[facility] [address] [facility] [place] [address] Protein Ql (U) Negative Normal Negative [facility] Comment on above: Performed By: #### 4 [id number] ####[facility] [address] [facility] [place] [address] Specific gravity (U) [Rel density] 1.018 Invalid Interpretation Code 1.005-1.030 [facility] Comment on above: Performed By: #### 4 [id number] ####[facility] [address] [place] [id number] Urobilinogen (U) [Mass/Vol] Negative Normal Negative [facility] Comment on above: Performed By: #### 4 [id number] ####[facility] [address] [place] [id number] Type of Urine collection method Clean Catch Normal [facility] Comment on above: Performed By: #### 4 [id number] ####[facility] [address] [place] [id number] URINALYSISOrdered By: SYSTEM SYSTEM on 08-23-2023 Bilirubin Ql (U) Negative Normal Negativemg/dL [facility] UA Auto SS Clarity (U) Clear (08/23/23 12:07 AM) Normal Clear [facility] UA Auto SS Color (U) Light-Yellow 1 (08/23/23 12:07 AM) Normal Yellow [facility] UA Auto SS Comment on above: Interpretive Data: M icroscopic readings are only performed on those samples that meet specific criteria set forth by [facility]. Glucose Ql (U) Negative Normal Negativemg/dL FT UA Auto SS Hemoglobin Auto test strip (U) [Mass/Vol] Negative Normal Negativemg/dL FT UA Auto SS Ketones Auto test strip Ql (U) Negative Normal Negativemg/dL FT UA Auto SS Leukocyte esterase Auto test strip Ql (U) Negative Normal NegativeLeu/u L [facility] UA Auto SS Nitrite Auto test strip Ql (U) Negative Normal Negativemg/dL [facility] UA Auto SS pH (U) 6.0 *NA* (08/23/23 12:07 AM) Invalid Interpretation Code 5.0 - 9.0 FT UA Auto SS Protein Ql (U) Negative Normal Negativemg/dL [facility] UA Auto SS Specific gravity (U) [Rel density] 1.018 *NA* (08/23/23 12:07 AM) Invalid Interpretation Code 1.005 - 1.030 [facility] UA Auto SS Urobilinogen (U) [Mass/Vol] Negative Normal Negativemg/dL [facility] UA Auto SS URINALYSISOrdered By: [place] on 08-23-2023 UA Spec Desc Clean Catch (08/23/23 12:07 AM) Normal [facility] UA Auto SS Rupture of Membraneon 08-07-2023 Placenta alpha microglobulin-1 Negative Normal Negative [facility] Comment on above: Performed By: #### R OM #### [facility] [address] [place] [address] Urinalysis with Reflex to Cu ltureon 08-06-2023 Bilirubin Ql (U) Negative Negative [facility] Clarity (U) Clear Clear [facility] Color (U) Yellow Straw/Yellow [facility] Glucose Test strip (U) [Mass/Vol] Negative Negative mg/dL [facility] Hemoglobin Ql (U) Negative Negative [facility] Ketones (U) [Mass/Vol] Trace Negat aura mg/dL [facility] Leukocyte esterase Test strip Ql (U) Negative Negative [facility] Nitrite Ql (U) Negative Negative [facility] pH (U) 5.5 [pH] 5.0 - 9.0 [facility] Protein (U) [Mass/Vol] Trace Negat aura mg/dL [facility] Specific gravity (U) [Rel density] 1.005 - 1.030 [facility] Urine Reflex to Culture Not Indicated [facility] Urobilinogen Qn (U) 0.2 NINF [facility] Urinalysis, reflex to cultur josé 08-06-2023 Bilirubin Ql (U) Negative Normal Negative [facility] Comment on above: Performed By: #### U AR #### [facility] [address] [place] [address] Clarity (U) Clear Normal Clear [facility] Comment on above: Performed By: #### U AR #### [facility] [address] [place] [address] Color (U) Yellow Normal Straw/[place] [facility] Comment on above: Performed By: #### U AR #### [facility] [address] [place] [address] Glucose Ql (U) Negative Normal Negative [facility] Comment on above: Performed By: #### U AR #### [facility] [address] [place] [address] Hemoglobin Ql (U) Negative Normal Negative [facility] Comment on above: Performed By: #### U AR #### [facility] [address] [place] [address] Ketones Ql (U) Trace Normal Negative [facility] Comment on above: Performed By: #### U AR #### [facility] [address] [place] [address] Leukocyte esterase Test strip Ql (U) Negative Normal Negative [facility] Comment on above: Performed By: #### U AR #### [facility] [address] [place] [address] Nitrite Ql (U) Negative Normal Negative [facility] Comment on above: Performed By: #### U AR #### [facility] [address] [place] [address] pH (U) 5.5 [pH] Normal 5.0-9.0 [facility] Comment on above: Performed By: #### U AR #### [facility] [address] [place] [address] Protein Ql (U) Trace Normal Negative [facility] Comment on above: Performed By: #### U AR #### [facility] [address] [place] [address] Specific gravity (U) [Rel density] >=1.030 Normal 1.005-1.03 [facility] Comment on above: Performed By: #### U AR #### [facility] [address] [place] [address] Urine Reflexed to Culture Not Indicated Normal [facility] Comment on above: Performed By: #### U AR #### [facility] [address] [place] [address] Urobilinogen Qn (U) 0.2 {Venus'U}/dL Normal < 2.0 [facility] Comment on above: Performed By: #### U AR #### [facility] [address] [place] [address] COVID-19on 08-03-2023 SARS-CoV-2 (COVID-19) RNA JAYDE+probe Ql (Unsp spec) Not detected Normal Not Detect [facility] Comment on above: Result Comment: Rapi d NAAT: Negative results should be treated as presumptive and, if inconsistent with clinical signs and symptoms or necessary for patient management, should be tested with an alternative molecular assay. Negative results do not preclude SARS-CoV-2 infection and should not be used as the sole basis for patient management decisions. This test has been authorized by the FDA under an Emergency Use Authorization (EUA) for use by authorized laboratories. Fact sheet for Healthcare Providers: https://www.fda.gov/media/376689/download Fact sheet for Patients: https://www.fda.gov/media/986704/download METHODOLOGY: Isothermal Nucleic Acid Amplification Performed By: #### C OVRG #### [facility] [address] [place] [address] Influenza A and Bon 08-03-19 Influenza A by PCR Negative Normal [facility] Comment on above: Performed By: #### F LUAB #### [facility] [address] [place] [address] Influenza B by PCR Negative Normal [facility] Comment on above: Performed By: #### F LUAB #### [facility] [address] [place] [address] Urinalysis, reflex to cultur josé 05-18-2023 Urine Reflexed to Culture Not Indicated Normal [facility] Comment on above: Performed By: #### U AR #### [facility] [address] [place] [address] Bilirubin Ql (U) Negative Normal Negative [facility] Comment on above: Performed By: #### U AR #### [facility] [address] [place] [address] Clarity (U) SLCLOUDY Normal Clear [facility] Comment on above: Performed By: #### U AR #### [facility] [address] [place] [address] Color (U) Yellow Normal [place] [facility] Comment on above: Performed By: #### U AR #### [facility] [address] [place] [address] Glucose Ql (U) Negative Normal Negative [facility] Comment on above: Performed By: #### U AR #### [facility] [address] [place] [address] Hemoglobin Ql (U) Negative Normal Negative [facility] Comment on above: Performed By: #### U AR #### [facility] [address] [place] [address] Ketones Ql (U) Trace Normal Negative [facility] Comment on above: Performed By: #### U AR #### [facility] [address] [place] [address] Leukocyte esterase Test strip Ql (U) Trace Normal Negative [facility] Comment on above: Performed By: #### U AR #### [facility] [address] [place] [address] Nitrite Ql (U) Negative Normal Negative [facility] Comment on above: Performed By: #### U AR #### [facility] [address] [place] [address] pH (U) 5.5 [pH] Normal 5.0-9.0 [facility] Comment on above: Performed By: #### U AR #### [facility] [address] [place] [address] Protein Ql (U) Trace Normal Negative [facility] Comment on above: Performed By: #### U AR #### [facility] [address] [place] [address] Specific gravity (U) [Rel density] >=1.030 Normal 1.005-1.03 [facility] Comment on above: Performed By: #### U AR #### [facility] [address] [place] [address] Urobilinogen Qn (U) 1.0 {Venus'U}/dL Normal < 2.0 [facility] Comment on above: Performed By: #### U AR #### [facility] [address] [place] [address] Urine Microscopicon 05-18-19 24 Epithelial cells LM Ql (Urine sed) 20-50 Normal [facility] Comment on above: Performed By: #### U TIGIST #### [facility] [address] [place] [address] Urine Bacteria FEW Abnormal Negative [facility] Comment on above: Performed By: #### U TIGIST #### [facility] [address] [place] [address] Urine RBC 0-2 Normal 0-2 [facility] Comment on above: Performed By: #### U TIGIST #### [facility] [address] [place] [address] Urine WBC 3-5 Normal 0-5 [facility] Comment on above: Performed By: #### U TIGIST #### [facility] [address] [place] [address] XR KNEE RIGHT (MIN 4 VIEWS)o n 05-18-2023 XR KNEE RIGHT (MIN 4 VIEWS) EXAMINATION: FOUR XRAY VIEWS OF THE RIGHT KNEE 05/18/2023 7:46 pm COMPARISON: None. HISTORY: ORDERING SYSTEM PROVIDED HISTORY: fall TECHNOLOGIST PROVIDED HISTORY: Reason for exam:->fall What reading provider will be dictating this exam?->CRC FINDINGS: No evidence of acute fracture or dislocation. No focal osseous lesion. No evidence of joint effusion. No focal soft tissue abnormality. IMPRESSION: No acute abnormality of the knee. Interpreted by: Leonides Waters MD Signed by: Leonides Waters MD 05/18/23 Final result Normal [facility] PAP [id number] 04-02-2023 Cytology report Cyto stain Doc (Cvx/Vag) Note Invalid Interpretation Code [facility] Comment on above: Result Comment: TEST S RESULT FLAG UNITS REF RANGE LAB Clinician Provided Cytology Information Source.............Endocervix No. of containers..01 ThinPrep Vial DIAGNOSIS: 01 NEGATIVE FOR INTRAEPITHELIAL LESION OR MALIGNANCY. Specimen adequacy: 01 Satisfactory for evaluation. Endocervical and/or squamous metaplastic cells (endocervical component) are present. Performed by: Leslie Porter, Tafe Registrar ([facility]) . 01 Note: Note 02 The Pap smear is a screening test designed to aid in the detection of premalignant and malignant conditions of the uterine cervix. It is not a diagnostic procedure and should not be used as the sole means of detecting cervical cancer. Both false-positive and false-negative reports do occur. Test Methodology: Note 02 This liquid based ThinPrep(R) pap test was screened with the use of an image guided system. . 01 The HPV DNA reflex criteria were not met with this specimen result therefore, no HPV testing was performed. FLAG LEGEND: L-Low Normal,H-High Normal,LL-Alert Low,HH-Alert High <-Panic Low,>-Panic High,A-Abnormal,AA-Critical Abnormal Performed at: 01 [facility] [address] [address] [place] [address] Dorian Rubin MD, 02 [facility] [place] [id number] Fernanda Marmolejo MD, Performed at: [facility] [address] [address] [place], [place] [id number] MD Caryn Alarcon Performed By: #### 3 [id number] ####[facility] [address] [place] [address] C Urineon 03-30-2023 Bacteria identified Cx Nom (U) Microbiology PROCEDURE: Urine Culture [R1] SOURCE: U CleanCatch BODY SITE: COLLECTED DATE/TIME: 03/27/2023 16:00 EST RECEIVED DATE/TIME: 03/28/2023 21:04 EST START DATE/TIME: 03/28/2023 21:04 EST FREE TEXT SOURCE: Leslie FLOYD, Gera Nelson MD, Gera Vasquez FINAL REPORTS Final Report [] Verified Date/Time: 03/30/2023 10:58 EST 2,000 cfu/ml Mixed skin contaminants Performing Locations R1: This test was performed at: [facility], [address] [place] [address], [address] , , Normal [facility] Comment on above: Performed By: #### 2 [id number] ####[facility] [address] [place] [address] HIV Screen 4th Generation wR fxon 03-29-2023 HIV 1+2 Ab+HIV1 p24 Ag IA Ql Non-Reactive Invalid Interpretation Code Non Reactive [facility] Comment on above: Result Comment: HIV Negative HIV-1/HIV-2 antibodies and HIV-1 p24 antigen were NOT detected. There is no laboratory evidence of HIV infection. Performed at: [facility] [address] [place], [place] [id number] PhD Kwaku Hartmann Performed By: #### 2 [id number], [id number], [id number], [id number], [id number], [id number] ####[facility] [address] [place] [address] Hep Bs Agon 03-29-2023 HBV surface Ag IA Ql Negative Invalid Interpretation Code Negative [facility] Comment on above: Result Comment: Perf ormed at: [address] [id number] PhD Kwaku Hartmann Performed By: #### 2 [id number], [id number], [id number], [id number], [id number], [id number] ####[facility] [address] [place] [address] RPR with Conf Rfxon 03-29-20 Reagin Ab RPR Ql (S) Non-Reactive Invalid Interpretation Code Non Reactive [facility] Comment on above: Result Comment: Perf ormed at: [address] [id number] PhD Kwaku Hartmann Performed By: #### 2 [id number], [id number], [id number], [id number], [id number], [id number] ####[facility] [address] [place] [address] Rubella IgGon 03-29-2023 Rubella virus IgG Qn (S) 1.81 [IU]/mL Invalid Interpretation Code Immune >0.99 [facility] Comment on above: Result Comment: Non- immune <0.90 Equivocal 0.90 - 0.99 Immune >0.99 Performed at: [address] [id number] PhD Kwaku Hartmann Performed By: #### 2 [id number], [id number], [id number], [id number], [id number], [id number] ####[facility] [address] [place] [address] PAP [id number] 03-28-2023 Collection Technique BRUSH-SPATULA Normal [facility] Comment on above: Performed By: #### 3 [id number] ####[place] [address] [place] [address] Gynecological Body Site ENDOCERVIX Normal [facility] Comment on above: Performed By: #### 3 [id number] ####[facility] [address] [place] [address] Physician Orderon 03-28-2023 Physician Order [id number]#1. 00TIFF Normal [facility] ABO/Rhon 03-27-2023 ABO/Rh Positive Invalid Interpretation Code [facility] Comment on above: Performed By: #### 1 [id number], [id number] ####[facility] [address] [place] [address] ABSCon 03-27-2023 ABSC Gel Interp Negative Normal [facility] Comment on above: Performed By: #### 1 6477387, 9609869 ####[facility] [address] [place] [address] CBC w/Indiceson 03-27-2023 Erythrocyte distribution width (RBC) [Ratio] 14.1 % Normal 10.9-14.2 [facility] Comment on above: Performed By: #### 2 439017, 854956106, 13294678, 089153622, 3050891, 7123723 ####[facility] [address] [place] [address] Hematocrit (Bld) [Volume fraction] 38.5 % Normal 34.0-46.0 [facility] Comment on above: Performed By: #### 2 032505, 748294606, 99820651, 168747142, 1837964, 2154986 ####[facility] [address] [place] [address] Hemoglobin (Bld) [Mass/Vol] 12.6 g/dL Normal 12.0-16.0 [facility] Comment on above: Performed By: #### 2 843062, 705235685, 10857542, 825067145, 3936105, 4087057 ####[facility] [address] [place] [address] MCH (RBC) [Entitic mass] 26.4 pg Low 27.0-34.0 [facility] Comment on above: Performed By: #### 2 914230, 258838882, 17296947, 506618262, 9251303, 6017917 ####[facility] [address] [place] [address] MCHC (RBC) [Mass/Vol] 32.6 g/dL Normal 31.4-36.0 [facility] Comment on above: Performed By: #### 2 846475, 778765071, 27963015, 910843382, 6133253, 7819203 ####[place] [place] [address] MCV (RBC) [Entitic vol] 81.1 fL Normal 80.0-100.0 F [facility] Comment on above: Performed By: #### 2 209440, 763831470, 17078076, 158941835, 5523566, 8441920 ####[address] [address] Platelet mean volume (Bld) [Entitic vol] 9.7 fL Normal 6.4-10.8 [facility] Comment on above: Performed By: #### 2 081873, 000854032, 59282271, 174104665, 8184396, 3849289 ####[address] [address] Platelets (Bld) [#/Vol] 211.0 E9/L Normal 150.0-500.0 [facility] Comment on above: Performed By: #### 2 153636, 477025059, 28923496, 137898044, 8656828, 1716483 ####[address] [place] [address] RBC (Bld) [#/Vol] 4.8 E12/L Normal 4.3-5.9 [facility] Comment on above: Performed By: #### 2 398968, 436957291, 18590461, 903668220, 7515732, 3859381 ####[address] [address] WBC corrected for nucl RBC Auto (Bld) [#/Vol] 6.5 E9/L Normal 4.0-11.0 [facility] Comment on above: Performed By: #### 2 236078, 211514522, 35130494, 980400694, 1227174, 8198606 ####[facility] [address] [place] [address] Consent for Treatmenton 03-02 Consent for Treatment [id number] [id number]#1.0 0TIFF Normal [facility] Hep Func Panelon 03-27-2023 Albumin [Mass/Vol] 3.7 g/dL Normal 3.3-5.0 [facility] Comment on above: Performed By: #### 2 528708, 353921830, 59669605, 057161154, 3095240, 3502081 ####[facility] [address] [place] [address] Albumin/Globulin (S) [Mass conc ratio] 0.8 Low 1.1-2.2 [facility] Comment on above: Performed By: #### 2 105575, 716248766, 64652579, 167386534, 3973595, 1786363 ####[facility] [address] [place] [address] ALP [Catalytic activity/Vol] 58 Int._Unit/L Normal 21-98 [facility] Comment on above: Performed By: #### 2 786059, 006627004, 62241027, 856423389, 7377277, 0506644 ####[facility] [address] [place] [address] ALT No additional P-5'-P [Catalytic activity/Vol] 148 Int._Unit/L High 6-46 [facility] Comment on above: Performed By: #### 2 992168, 134741189, 85278782, 786046180, 8114262, 1140755 ####[facility] [address] [place] [address] AST [Catalytic activity/Vol] 67 Int._Unit/L High 5-43 [facility] Comment on above: Performed By: #### 2 773375, 565680005, 46701997, 893633047, 5940132, 2782672 ####[facility] [address] [place] [address] Bilirubin [Mass/Vol] 1.0 mg/dL Normal 0.0-1.1 [facility] Comment on above: Performed By: #### 2 191979, 233067523, 33138804, 944575650, 1940246, 0166301 ####[address] [place] [address] Bilirubin.direct [Mass/Vol] 0.2 mg/dL Normal 0.1-0.4 [facility] Comment on above: Performed By: #### 2 567541, 279665783, 10021818, 623109953, 1173786, 4713690 ####[place] [address] Bilirubin.indirect [Mass or moles/Vol] 0.8 mg/dL Normal 0.1-0.9 [facility] Comment on above: Performed By: #### 2 475132, 863436595, 93159847, 465447057, 5738727, 4904589 ####[address] [place] [address] Globulin (S) [Mass/Vol] 4.6 g/dL High 1.4-4.0 F [facility] Comment on above: Performed By: #### 2 300953, 161496545, 90689431, 346177913, 6245577, 2014337 ####[address] [place] [address] Protein [Mass/Vol] 8.3 g/dL High 6.0-7.8 [facility] Comment on above: Performed By: #### 2 546013, 403947983, 15003464, 663313343, 0051504, 1419900 ####Juan C [facility] [address] [place] [address] Physician Orderon 03-27-2023 Physician Order [id number] 10 [id number]#1 .00TIFF Genny [facility] CNPNon 02-24-2023 CNPN Telephone ([facility]) CHRISTIANA YOUNG ([id number]) 1995 F Date Time Provider Department 02/24/23 LORNA DOBSON [facility] During your visit today, we recorded the following information about you: Emeli Penn MA 02/24/2023 4:29 PM Signed ----- Message from Lorna Dobson APRN.AUTOMOBILE MECHANIC sent at 02/24/2023 4:18 PM EDT ----- Vit D is low - please take 2000 units of vitamin D3 daily - available over the counter Tox screen showing cannabinoid use HCV Quant, Hep C antibody both indicating positive hep C infection - continue to follow gastroenterology recommendations for treatment Liver enzymes elevated - continue to follow with gastroenterology - most likely expected due to hep C infection HIV negative Folate normal Vitamin B12 normal Cholesterol normal Iron normal No diabetes CBC normal [facility] Allergies As of Date: 02/24/2023 Noted Allergy Reaction TRAMADOL 04/10/2021 14 - Other: See Comments 8 - GI Upset 12 - Shortness of Breath 7 - Swelling Date Reviewed: 02/17/2023 Reviewed by: Emeli Penn MA - Fully Assessed Reason for Visit: Results [95] Prescriptions as of 02/24/2023 - escitalopram oxalate (LEXAPRO) 5 mg tablet Take 1 tablet by mouth once daily. - sertraline (ZOLOFT) 25 mg tablet Take 1 tablet by mouth once daily. Problem List As Of Date 02/24/2023 Noted Resolved Obesity (BMI 30-39.9) [E66.9] 01/09/2023 Hepatitis C virus infection without hepatic com*01/09/2023 Anxiety and depression [F41.9, F32.A] 01/09/2023 Psychophysiological insomnia [F51.04] 01/09/2023 History of intravenous drug use in remission [F*01/09/2023 Restless leg [G25.81] 01/09/2023 Special screening examination for viral disease*01/09/2023 Encounter Status:Closed by EMELI PENN on 02/24/23 [facility] CNSWon 02-21-2023 [facility] Social Work (FLORI) CHRISTIANA YOUNG ([id number]) 1995 F Date Time Provider Department 02/21/23 LIEN CANDELARIA During your visit today, we recorded the following information about you: Lien Candelaria LSW 02/21/2023 9:28 AM Signed Primary Care Social Work Provider Action / FYI PCP Action Date of Service: 02/21/2023 Patient identified by name and date of : No Referral Source: Pursue Patient Outreach: Initial Mode of Out[facility] Response Time: SDOH outreach Narrative: Pt completed SDOH questionnaire indicating that there are social determinates such as food insecurity, financial concerns, or transportation issues potentially influencing the patient's healthcare. SW will be available as needed. Interventions: Advocacy Education MARY Barahona February 21, 2023 9:25 AM Allergies As of Date: 02/21/2023 Noted Allergy Reaction TRAMADOL 04/10/2021 14 - Other: See Comments 8 - GI Upset 12 - Shortness of Breath 7 - Swelling Date Reviewed: 02/17/2023 Reviewed by: Emeli Penn MA - Fully Assessed Reason for Visit: Ambulatory Social Work [4191] Cmt: SDMS Primary Visit Diagnosis:Encounter for screening involving social determinants of health (SDoH) [Z13.9] Prescriptions as of 02/21/2023 - escitalopram oxalate (LEXAPRO) 5 mg tablet Take 1 tablet by mouth once daily. - sertraline (ZOLOFT) 25 mg tablet Take 1 tablet by mouth once daily. Problem List As Of Date 02/21/2023 Noted Resolved Obesity (BMI 30-39.9) [E66.9] 01/09/2023 Hepatitis C virus infection without hepatic com*01/09/2023 Anxiety and depression [F41.9, F32.A] 01/09/2023 Psychophysiological insomnia [F51.04] 01/09/2023 History of intravenous drug use in remission [F*01/09/2023 Restless leg [G25.81] 01/09/2023 Special screening examination for viral disease*01/09/2023 Encounter Status:Closed by LIEN [facility]DELAR[facility] Telephone (PSYLME) CHRISTIANA YOUNG ([id number]) 1995 F Date Time Provider Department 02/20/23 BRIGITTE SCHAFER PSYLME During your visit today, we recorded the following information about you: Brigitte Schafer LPCC 02/20/2023 10:32 AM Signed Behavioral Health Social Work Progress Note Patient identified for [facility] from: PCP Reason for referral: Resources Behavioral Health Resources: Psychiatry med management SW encounter type: Telephone Encounter Attempts to Outreach: 1 attempt Referral made: Psychiatry - Internal Psychiatry-Internal referral type: Medication Management Final Disposition: Care established with Patient Discharged?: No Patient reported that caregiver was able to meet their needs today?: Yes therapist spoke with patient to assess needs. Patient reports that she would like to keep her providers in [facility], is ok with wait time to see psychiatry. Patient is scheduled for her [facility] assessment on 03/06 at 1:00pm. KERRIE Jensen February 20, 2023 Allergies As of Date: 02/20/2023 Noted Allergy Reaction TRAMADOL 04/10/2021 14 - Other: See Comments 8 - GI Upset 12 - Shortness of Breath 7 - Swelling Date Reviewed: 02/17/2023 Reviewed by: Emeli Penn MA - Fully Assessed Reason for Visit: consult [Other] Prescriptions as of 02/20/2023 - escitalopram oxalate (LEXAPRO) 5 mg tablet Take 1 tablet by mouth once daily. - sertraline (ZOLOFT) 25 mg tablet Take 1 tablet by mouth once daily. Problem List As Of Date 02/20/2023 Noted Resolved Obesity (BMI 30-39.9) [E66.9] 01/09/2023 Hepatitis C virus infection without hepatic com*01/09/2023 Anxiety and depression [F41.9, F32.A] 01/09/2023 Psychophysiological insomnia [F51.04] 01/09/2023 History of intravenous drug use in remission [F*01/09/2023 Restless leg [G25.81] 01/09/2023 Special screening examination for viral disease*01/09/2023 Encounter Status:Closed by BRIGITTE SCHAFER on 02/20/23 Normal [facility] 25([place])D3 [facility] 25-hydroxyvitamin D3 [Mass/Vol] 22.5 ng/mL Low 31.0-80.0 [facility] Comment on above: Order Comment: Speci men Type: BLOOD SPECIMENOrdering Facility: [facility] Address: [address] [place] [address] Result Comment: Clas sification of 25 [place] Vitamin D status: Deficiency/Insufficiency: < or = 30 ng/ml. Sufficiency/Optimal Levels: 31-80 ng/mL Toxicity: > 100 ng/mL. Test performed by chemiluminescent immunoassay. Performed By: #### 1 989-3 ####[facility] LABCLIA [id number] [facility] [id number] [place] [address] [place] CBC W Auto Differential pane l (Bld)on 02-18-2023 Basophils (Bld) [#/Vol] 0.05 10*3/uL Normal <0.11 [facility] Comment on above: Order Comment: Speci men Type: BLOOD SPECIMENOrdering Facility: [facility] Address: [address] [place] [address] Performed By: #### 5 7021-8 ####[facility] LABCL[facility] [id number] [place] [id number] [place] [facility] Basophils/100 WBC (Bld) 1.0 % Normal [facility] Comment on above: Order Comment: Speci men Type: BLOOD SPECIMENOrdering Facility: [facility] Address: [address] [place] [address] Performed By: #### 5 7021-8 ####[facility] LABCL[facility] [id number] [place] [address] [facility] Differential cell count method Nom (Bld) Auto Normal [facility] Comment on above: Order Comment: Speci men Type: BLOOD SPECIMENOrdering Facility: [facility] Address: [address] [place] [address] Performed By: #### 5 7021-8 ####[facility] LABIA [id number] [place] [address] [place] [facility] Eosinophils (Bld) [#/Vol] 0.18 10*3/uL Normal <0.46 [facility] Comment on above: Order Comment: Speci men Type: BLOOD SPECIMENOrdering Facility: [facility] Address: [address] [place] [address] Performed By: #### 5 7021-8 ####[facility] LABIA [id number] [place] [address] [place] [facility] Eosinophils/100 WBC (Bld) 3.6 % Normal [facility] Comment on above: Order Comment: Speci men Type: BLOOD SPECIMENOrdering Facility: [facility] Address: [address] [place] [address] Performed By: #### 5 7021-8 ####[facility] LABCLIA [id number] [place] [address] [place] Erythrocyte distribution width (RBC) [Ratio] 14.6 % Normal 11.5-15.0 [facility] Comment on above: Order Comment: Speci men Type: BLOOD SPECIMENOrdering Facility: [facility] Address: [address] [place] [address] Performed By: #### 5 7021-8 ####[facility] LABIA [id number] [place] [address] [place] Hematocrit (Bld) [Volume fraction] 39.7 % Normal 36.0-46.0 [facility] Comment on above: Order Comment: Speci men Type: BLOOD SPECIMENOrdering Facility: [facility] Address: [address] [place] [address] Performed By: #### 5 7021-8 ####[facility] LABIA [id number] [place] [id number] [place] Hemoglobin (Bld) [Mass/Vol] 12.9 g/dL Normal 11.5-15.5 [facility] Comment on above: Order Comment: Speci men Type: BLOOD SPECIMENOrdering Facility: [facility] Address: [address] [place] [address] Performed By: #### 5 7021-8 ####[facility] LABIA [id number] [place] [address] [place] Immature granulocytes (Bld) [#/Vol] 10*3/uL Normal <0.10 [facility] Comment on above: Order Comment: Speci men Type: BLOOD SPECIMENOrdering Facility: [facility] Address: [address] [place] [address] Performed By: #### 5 7021-8 ####[facility] LABIA [id number] [place] [address] [place] Immature granulocytes/100 WBC (Bld) 0.2 % Normal [facility] Comment on above: Order Comment: Speci men Type: BLOOD SPECIMENOrdering Facility: [facility] Address: [address] [place] [address] Performed By: #### 5 7021-8 ####[facility] LABCLIA [id number] [place] [phone] [place] Lymphocytes (Bld) [#/Vol] 1.69 10*3/uL Normal 1.00-4.00 [facility] Comment on above: Order Comment: Speci men Type: BLOOD SPECIMENOrdering Facility: [facility] Address: [address] [place] [address] Performed By: #### 5 7021-8 ####[facility] LABIA [id number] [place] [address] [place] Lymphocytes/100 WBC (Bld) 33.7 % Normal [facility] Comment on above: Order Comment: Speci men Type: BLOOD SPECIMENOrdering Facility: [facility] Address: [address] [place] [address] Performed By: #### 5 7021-8 ####[facility] LABIA [id number] [place] [address] [place] MCH (RBC) [Entitic mass] 27.3 pg Normal 26.0-34.0 [facility] Comment on above: Order Comment: Speci men Type: BLOOD SPECIMENOrdering Facility: [facility] Address: [address] [place] [address] Performed By: #### 5 7021-8 ####[facility] LABIA [id number] [place] [phone] [place] MCHC (RBC) [Mass/Vol] 32.5 g/dL Normal 30.5-36.0 [facility] Comment on above: Order Comment: Speci men Type: BLOOD SPECIMENOrdering Facility: [facility] Address: [address] [place] [address] Performed By: #### 5 7021-8 ####[facility] LABCLIA [id number] [place] [id number] [place] MCV (RBC) [Entitic vol] 84.1 fL Normal 80.0-100.0 [facility] Comment on above: Order Comment: Speci men Type: BLOOD SPECIMENOrdering Facility: [facility] Address: [address] [place] [address] Performed By: #### 5 7021-8 ####[facility] LABCLIA [id number] [place] [address] [place] Monocytes (Bld) [#/Vol] 0.31 10*3/uL Normal <0.87 [facility] Comment on above: Order Comment: Speci men Type: BLOOD SPECIMENOrdering Facility: [facility] Address: [address] [place] [address] Performed By: #### 5 7021-8 ####[facility] LABIA [id number] [place] [address] [place] Monocytes/100 WBC (Bld) 6.2 % Normal [facility] Comment on above: Order Comment: Speci men Type: BLOOD SPECIMENOrdering Facility: [facility] Address: [address] [place] [address] Performed By: #### 5 7021-8 ####[facility] LABIA [id number] [place] [address] [place] Neutrophils (Bld) [#/Vol] 2.78 10*3/uL Normal 1.45-7.50 [facility] Comment on above: Order Comment: Speci men Type: BLOOD SPECIMENOrdering Facility: [facility] Address: [address] [place] [address] Performed By: #### 5 7021-8 ####[facility]IA [id number] [place] [id number] [place] Neutrophils/100 WBC (Bld) 55.3 % Normal [facility] Comment on above: Order Comment: Speci men Type: BLOOD SPECIMENOrdering Facility: [facility] Address: [address] [place] [address] Performed By: #### 5 7021-8 ####[facility] LABCLIA [id number] [place] [address] [place] Nucleated RBC (Bld) [#/Vol] 10*3/uL Normal <0.01 [facility] Comment on above: Order Comment: Speci men Type: BLOOD SPECIMENOrdering Facility: [facility] Address: [address] [place] [address] Performed By: #### 5 7021-8 ####[facility]ERSGaye [facility] LABIA [id number] [place] [address] [place] Nucleated RBC/100 WBC (Bld) [Ratio] 0.0 /100 WBC Normal [facility] Comment on above: Order Comment: Speci men Type: BLOOD SPECIMENOrdering Facility: [facility] Address: [address] [place] [address] Performed By: #### 5 7021-8 ####[facility] LABIA [id number] [place] [id number] [place] Platelet mean volume (Bld) [Entitic vol] 11.8 fL Normal 9.0-12.7 [facility] Comment on above: Order Comment: Speci men Type: BLOOD SPECIMENOrdering Facility: [facility] Address: [address] [place] [address] Performed By: #### 5 7021-8 ####AMHERSGaye [facility] LABIA [id number] [place] [address] [place] Platelets (Bld) [#/Vol] 215 10*3/uL Normal 150-400 [facility] Comment on above: Order Comment: Speci men Type: BLOOD SPECIMENOrdering Facility: [facility] Address: [address] [place] [address] Performed By: #### 5 7021-8 ####[facility]HCROWNPOINT [facility] F[facility]ILITYT [facility] LABIA [id number] [place] [address] [place] RBC (Bld) [#/Vol] 4.72 10*6/uL Normal 3.90-5.20 [facility] Comment on above: Order Comment: Speci men Type: BLOOD SPECIMENOrdering Facility: [facility] Address: [address] [place] [address] Performed By: #### 5 7021-8 ####[facility] LABCLIA [id number] [place] [address] [place] WBC (Bld) [#/Vol] 5.02 10*3/uL Normal 3.70-11.00 [facility] Comment on above: Order Comment: Speci men Type: BLOOD SPECIMENOrdering Facility: [facility] Address: [address] [place] [address] Performed By: #### 5 7021-8 ####AMHGOSIA [facility] LABCL[facility] [id number] [place] [address] [place] [facility] Comprehensive metabolic 2000 panelon 02-18-2023 Albumin [Mass/Vol] 4.0 g/dL Normal 3.9-4.9 [facility] Comment on above: Order Comment: Speci men Type: BLOOD SPECIMENOrdering Facility: [facility] Address: [address] [place] [address] Performed By: #### 2 276-4, 00871-9, 17430-4, 72760-6 ####[facility] LABIA [id number] [place] [address] [place] ALP [Catalytic activity/Vol] 56 U/L Normal 34-123 [facility] Comment on above: Order Comment: Speci men Type: BLOOD SPECIMENOrdering Facility: [facility] Address: [address] [place] [address] Performed By: #### 2 276-4, 26168-0, 57325-4, 21627-4 ####[facility] LABCLIA [id number] [place] [address] [place] ALT [Catalytic activity/Vol] 293 U/L High 7-38 [facility] Comment on above: Order Comment: Speci men Type: BLOOD SPECIMENOrdering Facility: [facility] Address: [address] [place] [address] Performed By: #### 2 276-4, 62000-4, 27664-2, 13530-4 ####[facility] LABCLIA [id number] [place] [address] [place] Anion gap [Moles/Vol] 8 mmol/L Low 9-18 [facility] Comment on above: Order Comment: Speci men Type: BLOOD SPECIMENOrdering Facility: [facility] Address: [address] [place] [address] Performed By: #### 2 276-4, 41445-8, 55021-2, 28825-4 ####[facility] LABCLIA [id number] [place] [address] [place] AST [Catalytic activity/Vol] 120 U/L High 13-35 [facility] Comment on above: Order Comment: Speci men Type: BLOOD SPECIMENOrdering Facility: [facility] Address: [address] [place] [address] Performed By: #### 2 276-4, 58808-1, 61942-9, 40219-9 ####[facility] LABCLIA [id number] [place] [address] [place] Bilirubin [Mass/Vol] 1.2 mg/dL Normal 0.2-1.3 [facility] Comment on above: Order Comment: Speci men Type: BLOOD SPECIMENOrdering Facility: [facility] Address: [address] [place] [address] Performed By: #### 2 276-4, 31499-8, 05054-7, 41122-0 ####[facility] LABCL[facility] [id number] [place] [address] [place] Calcium [Mass/Vol] 9.3 mg/dL Normal 8.5-10.2 [facility] Comment on above: Order Comment: Speci men Type: BLOOD SPECIMENOrdering Facility: [facility] Address: [address] [place] [address] Performed By: #### 2 276-4, 71895-6, 73337-2, 33465-8 ####[facility]CL[facility] [id number] [place], [place] [address] [place] Chloride [Moles/Vol] 105 mmol/L Normal 97-105 [facility] Comment on above: Order Comment: Speci men Type: BLOOD SPECIMENOrdering Facility: [facility] Address: [address] [place] [address] Performed By: #### 2 276-4, 72797-8, 32485-0, 78495-3 ####[facility] [id number] [place] [address] [place] CO2 [Moles/Vol] 22 mmol/L Normal 22-30 [facility] Comment on above: Order Comment: Speci men Type: BLOOD SPECIMENOrdering Facility: [facility] Address: [address] [place] [address] Performed By: #### 2 276-4, 63285-3, 54814-5, 35733-9 ####[facility] [id number] [place] [address] [place] Creatinine [Mass/Vol] 0.59 mg/dL Normal 0.58-0.96 [facility] Comment on above: Order Comment: Speci men Type: BLOOD SPECIMENOrdering Facility: [facility] Address: [address] [place] [address] Performed By: #### 2 276-4, 31019-1, 16150-8, 85889-3 ####[facility] [id number] [place] [address] [place] Creatinine and Glomerular filtration rate.predicted panel (S/P/Bld) 127 mL/min/1.73m??? Normal >=60 [facility] Comment on above: Order Comment: Speci men Type: BLOOD SPECIMENOrdering Facility: [facility] Address: [address] [place] [address] Result Comment: Queenie mated Glomerular Filtration Rate (eGFR) is calculated using the 2020 CKD-EPI creatinine equation. This equation utilizes serum creatinine, sex, and age as parameters. The creatinine assay has traceable calibration to isotope dilution-mass spectrometry. Refer to KDIGO guidelines for clinical interpretation. In patients with unstable renal function, e.g. those with acute kidney injury, the eGFR may not accurately reflect actual GFR. Performed By: #### 2 276-4, 37440-5, 66332-8, 20008-6 ####[facility] [id number] [place] [address] [place] Glucose [Mass/Vol] 90 mg/dL Normal 74-99 [facility] Comment on above: Order Comment: Speci men Type: BLOOD SPECIMENOrdering Facility: [facility] Address: [address] [place] [address] Result Comment: The [place] Diabetes Association (ADA) provides guidance for cutoff values for fasting glucose and random glucose. The ADA defines fasting as no caloric intake for at least 8 hours. Fasting plasma glucose results between 100 to 125 mg/dL indicate increased risk for diabetes (prediabetes). Fasting plasma glucose results greater than or equal to 126 mg/dL meet the criteria for diagnosis of diabetes. In the absence of unequivocal hyperglycemia, results should be confirmed by repeat testing. In a patient with classic symptoms of hyperglycemia or hyperglycemic crisis, random plasma glucose results greater than or equal to 200 mg/dL meet the criteria for diagnosis of diabetes. Reference: Standards of Medical Care in Diabetes 2016, [place] Diabetes Association. Diabetes Care. 2016.39(Suppl 1). Performed By: #### 2 276-4, 85770-7, 63562-7, ####[facility] [id number] [place] [address] [place] Potassium [Moles/Vol] 3.9 mmol/L Normal 3.7-5.1 [facility] Comment on above: Order Comment: [place] men Type: BLOOD SPECIMENOrdering Facility: [facility] Address: [address] [place] [address] Performed By: #### 2 276-4, 90575-8, 80682-6, 77526-3 ####[facility] [id number] [place] [address] [place] Protein [Mass/Vol] 7.5 g/dL Normal 6.3-8.0 [facility] Comment on above: Order Comment: Speci men Type: BLOOD SPECIMENOrdering Facility: [facility] Address: [address] [place] [address] Performed By: #### 2 276-4, 58505-2, 45138-4, 43243-7 ####[facility] [id number] [place] [address] [place] Sodium [Moles/Vol] 135 mmol/L Low 136-144 [facility] Comment on above: Order Comment: Speci men Type: BLOOD SPECIMENOrdering Facility: [facility] Address: [address] [place] [address] Performed By: #### 2 276-4, 49966-6, 98884-5, 35371-2 ####[facility] [id number] [place] [address] [place] Urea nitrogen [Mass/Vol] 6 mg/dL Low 7-21 [facility] Comment on above: Order Comment: Speci men Type: BLOOD SPECIMENOrdering Facility: [facility] Address: [address] [place] [address] Performed By: #### 2 276-4, 97277-9, 26081-6, 40314-1 ####[facility] [id number] [place] [address] [place] Ferritin SerPl-mCncon 2022 Ferritin [Mass/Vol] 19.0 ng/mL Normal 14.7-205.1 [facility] Comment on above: Order Comment: Speci men Type: BLOOD SPECIMENOrdering Facility: [facility] Address: [address] [place] [address] Performed By: #### 2 276-4, 48869-9, 36148-3, 27241-3 ####[facility] [id number] [place] [address] [place] Folate SerPl-mCncon 02-19-20 23 Folate [Mass/Vol] 13.9 ng/mL Normal >4.7 [facility] [place] Comment on above: Order Comment: Speci men Type: BLOOD SPECIMENOrdering Facility: [facility] Address: [address] [place] [address] Performed By: #### 2 284-8, 2132-9 ####[facility] [id number] [place] [address] [place] HCV Ab Ser Qlon 02-18-2023 HCV Ab Ql (S) Positive Abnormal Negative [facility] Comment on above: Order Comment: Speci men Type: BLOOD SPECIMENOrdering Facility: [facility] Address: [address] [place] [address] Performed By: #### 1 6128-1, 26912-7 ####[facility] [id number] [place] [address] [place] HCV RNA SerPl JAYDE+probe-aCnc on 02-18-2023 HCV RNA JAYDE+probe Qn Abnormal HCV RNA not detected by PCR. [facility] Comment on above: Order Comment: Speci men Type: BLOOD SPECIMENOrdering Facility: [facility] Address: [address] [place] [address] Result Comment: HCV RNA detected by PCR. [id number] 6.46 Performed By: #### 1 6128-1, 66853-9 ####[facility] [id number] [place] [address] [place] HIV 1+2 Ab IA Qlon 3 HIV 1 and 2 Ab IA.rapid Nom Normal [facility] Comment on above: Order Comment: Speci men Type: BLOOD SPECIMENOrdering Facility: [facility] Address: [address] [place] [address] Result Comment: Test not indicated. Performed By: #### 3 1201-7 ####[facility] [id number] [place] [address] [place] HIV 1+2 Ab+HIV1 p24 Ag IA Ql Non-Reactive Normal Nonreactive [facility] Comment on above: Order Comment: Speci men Type: BLOOD SPECIMENOrdering Facility: [facility] Address: [address] [place] [address] Performed By: #### 3 1201-7 ####[facility] [id number] [place] [address] [place] HIV immunoassay testing algorithm interpretation (S/P/Bld) [Interp] Normal [facility] Comment on above: Order Comment: Speci men Type: BLOOD SPECIMENOrdering Facility: [facility] Address: [address] [place] [address] Result Comment: No e vidence of HIV-1 or HIV-2 infection. Should recent infection be suspected, repeat testing may be considered 2-3 weeks after this draw. [place] Rev. Code 3701.243(E): This information has been disclosed to you from confidential records protected from disclosure by state law. ???You shall make no further disclosure of this information without the specific, written, and informed release of the individual to whom it pertains or as otherwise permitted by state law. A general authorization for the release of medical or other information is not sufficient for the purpose of the release of HIV test results or diagnoses. Performed By: #### 3 1201-7 ####[facility] [id number] [place] [address] [place] HbA1c (Bld)on 02-18-2023 Average glucose Estimated from glycated hemoglobin (Bld) [Mass/Vol] 103 mg/dL Normal [facility] Comment on above: Order Comment: Speci men Type: BLOOD SPECIMENOrdering Facility: [facility] Address: [address] [place] [address] Result Comment: eAG: (Estimated average glucose) is a calculated value from HgbA1c and is district representative of the average blood glucose level in the last 2-3 month period. Performed By: #### 5 5454-3 ####[facility] [id number] [place] [address] [place] HbA1c (Bld) [Mass fraction] 5.2 % Normal 4.3-5.6 [facility] Comment on above: Order Comment: Speci men Type: BLOOD SPECIMENOrdering Facility: [facility] Address: [address] [place] [address] Result Comment: Amer [place] Diabetes Association guidelines indicate that patients with HgbA1c in the range 5.7-6.4% are at increased risk for development of diabetes, and intervention by lifestyle modification may be beneficial. HgbA1c greater or equal to 6.5% is considered diagnostic of diabetes. Performed By: #### 5 5454-3 ####[facility] [id number] [place] [address] [place] Iron and Iron binding capaci ty panelon 02-18-2023 Iron [Mass/Vol] 88 ug/dL Normal 41-186 [facility] Comment on above: Order Comment: Speci men Type: BLOOD SPECIMENOrdering Facility: [facility] Address: [address] [place] [address] Performed By: #### 2 276-4, 00684-4, 51638-5, 23078-7 ####[facility] [id number] [place] [address] [place] Iron binding capacity [Mass/Vol] 569 ug/dL High 232-386 [facility] Comment on above: Order Comment: Speci men Type: BLOOD SPECIMENOrdering Facility: [facility] Address: [address] [place] [address] Performed By: #### 2 276-4, 65160-5, 74126-3, 82836-5 ####[facility] [id number] [place] [address] [place] Iron/TIBC [Molar ratio] 15.5 % Normal 15.0-57.0 [facility] Comment on above: Order Comment: Speci men Type: BLOOD SPECIMENOrdering Facility: [facility] Address: [address] [place] [address] Performed By: #### 2 276-4, 29664-9, 80277-0, ####[facility] [id number] [place] [address] [place] [facility] [place] Lipid 1996 panelon 3 Cholesterol [Mass/Vol] 172 mg/dL Normal <200 [facility] Comment on above: Order Comment: Speci men Type: BLOOD SPECIMENOrdering Facility: [facility] Address: [address] [place] [address] Result Comment: <200 mg/dL, Desirable 200-239 mg/dL, Borderline high >239 mg/dL, High Performed By: #### 2 276-4, 80565-2, 22459-1, ####[facility] [id number] [place] [address] [facility] Cholesterol in HDL [Mass/Vol] 55 mg/dL Normal >39 [facility] Comment on above: Order Comment: Speci men Type: BLOOD SPECIMENOrdering Facility: [facility] Address: [address] [place] [address] Result Comment: 40-5 9 mg/dL, Acceptable >59 mg/dL, High: Negative risk factor for coronary heart disease <40 mg/dL, Low: Positive risk factor for coronary heart disease Performed By: #### 2 276-4, 86880-2, 17507-4, ####[facility] [id number] [place] [address] [facility] Cholesterol in LDL [Mass/Vol] 94 mg/dL Normal <100 [facility] Comment on above: Order Comment: Speci men Type: BLOOD SPECIMENOrdering Facility: [facility] Address: [address] [place] [address] Result Comment: <100 mg/dL, Optimal 100-129 mg/dL, Near optimal/above optimal 130-159 mg/dL, Borderline high 160-189 mg/dL, High >189 mg/dL, Very high Secondary prevention optimal LDL Cholesterol levels are recommended to be < 70 mg/dL Performed By: #### 2 276-4, 92018-7, 31965-5, ####[facility] [id number] [place] [address] [facility] Cholesterol in LDL/Cholesterol in HDL [Mass ratio] 1.71 {ratio} Normal <2.54 [facility] Comment on above: Order Comment: Speci men Type: BLOOD SPECIMENOrdering Facility: [facility] Address: [address] [place] [address] Result Comment: Refe rence: 1. National Cholesterol Education Program ATP III Guideline At-A-Glance Quick Desk Reference: National Heart, Lung, and Blood [place]. National Institutes of Health. 2001: NIH Publication No. 01-3305. 2. An International Atherosclerosis Society position paper: global recommendations for the management of dyslipidemia: executive summary, Atherosclerosis. 2014: 232(2):410-413. Performed By: #### 2 276-4, 39064-2, 50943-2, ####[facility] [id number] [place] [address] [place] [facility] Cholesterol in VLDL [Mass/Vol] 23 mg/dL Normal <30 [facility] Comment on above: Order Comment: Speci men Type: BLOOD SPECIMENOrdering Facility: [facility] Address: [address] [place] [address] Performed By: #### 2 276-4, 26053-5, 94149-0, 70904-8 ####[facility] [id number] [place] [address] [place] Cholesterol non HDL [Mass/Vol] 117 mg/dL Normal <130 [facility] Comment on above: Order Comment: Speci men Type: BLOOD SPECIMENOrdering Facility: [facility] Address: [address] [place] [address] Result Comment: <130 mg/dL, Optimal 130-159 mg/dL, Near optimal/above optimal 160-189 mg/dL, Borderline high 190-219 mg/dL, High >219 mg/dL, Very high Secondary prevention optimal non HDL Cholesterol levels are recommended to be <100 mg/dL Performed By: #### 2 276-4, 90338-7, 48419-3, 34101-4 ####[facility] [id number] [place] [address] [place] [facility] Cholesterol.total/Rosie sterol in HDL [Mass ratio] 3.13 {ratio} Normal <5.10 [facility] Comment on above: Order Comment: Speci men Type: BLOOD SPECIMENOrdering Facility: [facility] Address: [address] [place] [address] Performed By: #### 2 276-4, 62756-6, 73619-5, 69352-1 ####[facility] [id number] [place] [id number] [facility] FASTING TIME 10 hrs Normal [facility] Comment on above: Order Comment: Speci men Type: BLOOD SPECIMENOrdering Facility: [facility] Address: [address] [place] [address] Performed By: #### 2 276-4, 15644-0, 74974-7, 03172-1 ####[facility] [id number] [place] [address] [place] Triglyceride [Mass/Vol] 113 mg/dL Normal <150 [facility] Comment on above: Order Comment: Speci men Type: BLOOD SPECIMENOrdering Facility: [facility] Address: [address] [place] [address] Result Comment: <150 mg/dL, Normal 150-199 mg/dL, Borderline high 200-499 mg/dL, High >499 mg/dL, Very high Performed By: #### 2 276-4, 63508-5, 38216-0, 40936-3 ####[facility] [id number] [place] [address] [place] TOX SCREEN ROUT URon 10-21-2 023 Amphetamines Confirm (U) [Mass/Vol] Negative Normal Negative [facility] Comment on above: Order Comment: Speci men Type: URINE SPECIMENOrdering Facility: [facility] Address: [address] [place] [address] Result Comment: Cuto ff threshold at 1000 ng/mL. Performed By: #### U TOX2 ####[facility]IA [id number] [place] [address] [place] BARBITURATES, URINE Negative Normal Negative [facility] Comment on above: Order Comment: Speci men Type: URINE SPECIMENOrdering Facility: [facility] Address: [address] [place] [address] Result Comment: Cuto ff threshold at 200 ng/mL. Performed By: #### U TOX2 ####[facility] [id number] [place] [address] [place] BENZODIAZEPINES, UR Negative Normal Negative [facility] Comment on above: Order Comment: Speci men Type: URINE SPECIMENOrdering Facility: [facility] Address: [address] [place] [address] Result Comment: Cuto ff threshold at 200 ng/mL. Performed By: #### U TOX2 ####[facility] [id number] [place] [address] [place] Cannabinoids Screen Ql (U) Positive Abnormal Negative [facility] Comment on above: Order Comment: Speci men Type: URINE SPECIMENOrdering Facility: [facility] Address: [address] [place] [address] Result Comment: Cuto ff threshold at 50 ng/mL. Performed By: #### U TOX2 ####[facility] [id number] [place] [address] [place] Cocaine Ql (U) Negative Normal Negative [facility] Comment on above: Order Comment: Speci men Type: URINE SPECIMENOrdering Facility: [facility] Address: [address] [place] [address] Result Comment: Cuto ff threshold at 300 ng/mL. Performed By: #### U TOX2 ####[facility] [id number] [place] [address] [place] Ethanol (U) [Mass/Vol] <11 Normal <11 [facility] Comment on above: Order Comment: Speci men Type: URINE SPECIMENOrdering Facility: [facility] Address: [address] [place] [address] Performed By: #### U TOX2 ####[facility] [id number] [place] [address] [place] Opiates Screen Ql (U) Negative Normal Negative [facility] Comment on above: Order Comment: Speci men Type: URINE SPECIMENOrdering Facility: [facility] Address: [address] [place] [address] Result Comment: Cuto ff threshold at 300 ng/mL. Performed By: #### U TOX2 ####[facility]IA [id number] [place] [address] [place] oxyCODONE cutoff Screen (U) [Mass/Vol] Negative Normal Negative [facility] Comment on above: Order Comment: Speci men Type: URINE SPECIMENOrdering Facility: [facility] Address: [address] [place] [address] Result Comment: Cuto ff threshold at 100 ng/mL. Performed By: #### U TOX2 ####[facility]IA [id number] [place] [address] [place] Phencyclidine Ql (U) Negative Normal Negative [facility] Comment on above: Order Comment: Speci men Type: URINE SPECIMENOrdering Facility: [facility] Address: [address] [place] [address] Result Comment: Cuto ff threshold at 25 ng/mL. Performed By: #### U TOX2 ####[facility] [id number] [place] [address] [place] Vit B12 SerPl-mCncon 10-21-2 023 Cobalamin (Vitamin B12) [Mass/Vol] 644 pg/mL Normal 232-1245 [facility] Comment on above: Order Comment: Speci men Type: BLOOD SPECIMEN [facility] Address: [address] [place] [address] Performed By: #### 2 284-8, 2132-9 #### [facility] CLIA [id number] [address] [facility] [address] [id number] [id number] [place] CNOVon 02-17-2023 CNOV Office Visit ([facility] ) CHRISTIANA YOUNG ([id number]) 1995 F Date Time Provider Department 02/17/23 3:00 PM LORNA DOBSON [facility] During your visit today, we recorded the following information about you: Pulse Blood pressure Weight Height 97/minute 127/82 111 kg 1.676 m Lorna Dobson APRN.[employer] 02/17/2023 4:15 PM Signed This note was created using [employer]OCKIter. Subjective Christiana Young is a 27 year old female. HPI 27 year old female presents to clinic today to establish care. PMH: Hep C virus - waiting for lab results and will consult GI Obese - BMI 39.5 - reports she struggles with her weight - has an appointment with endo weight management coming up Anxiety and depression - did not like the 10 mg of lexapro - she got a euphoric feeling and felt like it was too much. She is only taking 5 mg of lexapro daily. She's vivid dreams. Still worrying all the time. She feels like the lexapro is not doing anything, or making things worse. She feels she is not on top of things as much anymore. 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 Respiratory: Negative for cough and shortness of breath. Cardiovascular: Negative for chest pain and palpitations. Musculoskeletal: Negative for gait problem. Psychiatric/Behavioral : Negative for suicidal ideas. The patient is nervous/anxious. Objective LMP 12/19/2022 Physical Exam Constitutional: Appearance: Normal appearance. HENT: Head: Normocephalic. Eyes: Extraocular Movements: Extraocular movements intact. Cardiovascular: Rate and Rhythm: Normal rate and regular rhythm. Heart sounds: Normal heart sounds. Pulmonary: Effort: Pulmonary effort is normal. Breath sounds: Normal breath sounds. Musculoskeletal: General: Normal range of motion. Cervical back: Normal range of motion. Skin: General: Skin is warm. Neurological: Mental Status: She is alert and oriented to person, place, and time. Psychiatric: Mood and Affect: Mood normal. Behavior: Behavior normal. Assessment and Plan ASSESSMENT/PLAN: 1. Anxiety and depression - ICD9: 300.00, 311, ICD10: F41.9, F32.A (primary diagnosis) - Stop lexapro and start zoloft 25 mg daily - When you have been zoloft consitently for 1 month please follow up with me - Make appt with psych - ESCITALOPRAM 5 MG TABLET - SERTRALINE 25 MG TABLET - CONSULT TO PSYCHIATRY - CONSULT TO [facility] 2. History of substance abuse (HCC) - ICD9: 305.93, ICD10: F19.11 Has a strong support group - getting her life in order - Psych appt - CONSULT TO PSYCHIATRY - CONSULT TO [facility] - CONSULT TO GASTROENTEROLOGY 3. Hepatitis C virus infection without hepatic coma, unspecified chronicity - ICD9: 070.70, ICD10: B19.20 - Needs to complete labs - Make an appt with GI - CONSULT TO GASTROENTEROLOGY 4. Boils of multiple sites - ICD9: 680.9, ICD10: L02.92 Possible HS - CONSULT TO DERMATOLOGY Follow up after 1 month of zoloft I spent a total of 30 minutes on the date of the service which included preparing to see the patient, [id number] patient care, completing clinical documentation, obtaining and/or reviewing separately obtained history, performing a medically appropriate examination, counseling and educating the patient/family/caregiv er, and ordering medications, tests, or procedures. ENRICO Edge Meaghan, APRN.CNP 02/17/2023 3:52 PM Addendum Slowly taper off lexapro - once off, start 25 mg of zoloft Make an appt with psych Make an appt with GI Make appt with derm Get labs done Follow up 1 month after starting zoloft to let me know how it's going - can be virtual Allergies As of Date: 02/17/2023 Noted Allergy Reaction TRAMADOL 04/10/2021 14 - Other: See Comments 8 - GI Upset 12 - Shortness of Breath 7 - Swelling Date Reviewed: 02/17/2023 Reviewed by: Emeli Penn MA - Fully Assessed Reason for Visit: Establish Care [42] Primary Visit Diagnosis:Anxiety and depression [F41.9, F32.A] Other Visit Diagnoses:History of substance abuse (HCC) [F19.11] Hepatitis C virus infection without hepatic coma, unspecified chronicity [B19.20] Boils of multiple sites [L02.92] Order(s):escitalopram oxalate (LEXAPRO) 5 mg tabletTake 1 tablet by mouth once daily.Disp: 30 tabletRfl: 0 sertraline (ZOLO (more content not included)... Normal [facility] CNOVon 01-09-2023 CNOV Office Visit ([facility] ) CHRISTIANA YOUNG ([id number]) 1995 F Date Time Provider Department 01/09/23 2:20 PM KELSI FREEDMAN [facility] During your visit today, we recorded the following information about you: Pulse Blood pressure Weight Height 83/minute 117/80 110.7 kg 1.676 m Last Period 12/19/22 Kelsi Freedman, MARINE PIPEFITTER HELPER.AUTOMOBILE MECHANIC 01/09/2023 4:04 PM Signed This note was created using NoteWriter. Subjective Christiana Young is a 27 year old female. 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 Some PPD in past. GI: hepatitis C-not treated, found out when incarcerated. Will need tx. Will order test to confirm. DRUG USE: Former IV use of heroin and meth. Sober x 3 years after going through treatment program. Pt congratulated and encouraged for continued cessation. -admits to still using marijuana SLEEP: has a hard time sleeping -uses marijuana to help sleep -tried melatonin -feels her legs have a rhythm and can't turn mind off MH: took buspar and lexapro for anxiety and depression in past. Took herself off it during WEIGHT: unhappy with weight. Took adipex in past with good results. She wants to use an injectable and states he sister buys it from a compound pharmacy for cheap and she could qualify for it if she has HLD. She feels she has HLD because she has HAs sometimes. Will obtain labs and meet with endo weight management. SOC: partner son's father Son age 1 First born son is with her mother. Denies chest pain, pressure, palpitations, SOB, WILL, dizziness, syncope, dependent edema. Denies changes to bowel or bladder or blood in stool. Denies si/hi/plans. HISTORIES No family history on file. No past medical history on file. No past surgical history on file. Social History Tobacco Use Smoking status: Every Day Types: Cigarettes Smokeless tobacco: Never Review of Systems Objective BP 117/80 Pulse 83 Ht 167.6 cm (5' 6 ) Wt 110.7 kg (244 lb) LMP 12/19/2022 SpO2 100% BMI 39.38 kg/m? Physical Exam Assessment and Plan ASSESSMENT/PLAN: 1. Obesity (BMI 30-39.9) - ICD9: 278.00, ICD10: E66.9 (primary diagnosis) Newly diagnosed-discussed in detail lifestyle changes to assist in weight loss. - Behavioral intervention - ENDOCRINE MEDICAL WEIGHT MANAGEMENT - HGB A1C - COMP METABOLIC PANEL 2. Hepatitis C virus infection without hepatic coma, unspecified chronicity - ICD9: 070.70, ICD10: B19.20 Will obtain lab to confirm-will need tx. 3. Anxiety and depression - ICD9: 300.00, 311, ICD10: F41.9, F32.A Denies si/hi/plans. - DEPRESSION SCREENING/ASSESSMENT - ESCITALOPRAM 10 MG TABLET 4. Psychophysiological insomnia - ICD9: 307.42, ICD10: F51.04 Obtain labs; tx anxiety; f/up 1 mo 5. History of intravenous drug use in remission - ICD9: 305.93, ICD10: F19.91 - TOX SCREEN ROUT UR - ENDOCRINE MEDICAL WEIGHT MANAGEMENT 6. Restless leg - ICD9: 333.94, ICD10: G25.81 - VITAMIN B12 BLOOD - FOLATE SERUM - IRON + TIBC - FERRITIN BLD - CBC + DIFF 7. Special screening examination for viral disease - ICD9: V73.99, ICD10: Z11.59 - HEPATITIS C ANTIBODY IA WITH CONFIRMATION 8. Screening for HIV (human immunodeficiency virus) - ICD9: V73.89, ICD10: Z11.4 - HIV 1 2 COMBO(AG/AB),WITH REFLEX TO DIFFERENTIATION 9. Lipid screening - ICD9: V77.91, ICD10: Z13.220 - LIPID PANEL BASIC 10. Vitamin D deficiency - ICD9: 268.9, ICD10: E55.9 - VITAMIN D 25 HYDROXY 11. Encounter for immunization - ICD9: V03.89, ICD10: Z23 - INFLUENZA VACCINE, AGE 6 MO - 64 YR, QUADRIVALENT (AFLURIA, FLULAVAL, FLUZONE) Kelsi Freedman APRN.AUTOMOBILE MECHANIC Referring Provider: SELF [200] Allergies As of Date: 01/09/2023 (Not on File) Date Reviewed: 01/09/2023 Reviewed by: Rosalee Solomon MA - Fully Assessed Reason for Visit: Physical [83] Weight Problem [121] Primary Visit Diagnosis:Obesity (BMI 30-39.9) [E66.9] Other Visit Diagnoses:Hepatitis C virus infection without hepatic coma, unspecified chronicity [B19.20] Anxiety and depression [F41.9, F32.A] Psychophysiological insomnia [F51.04] History of intravenous drug use in remission [F19.91] Restless leg [G25.81] Special screening examination for viral disease [Z11.59] Screening for HIV (human immunodeficiency virus) [Z11.4] Lipid screening [Z13.220] Vitamin D deficiency [E55.9] Encounter for immunization [Z23] Order(s):DEPRESSION SCREENING/ASSESSMENT [1239527] Order #: [id number]: 1 INFLUENZA VACCINE, AGE 6 MO - 64 YR, QUADRIVALENT (AFLURIA, FLULAVAL, FLUZONE) [[id number]] Order #: [id number] HEPATITIS C ANTIBODY IA WITH CONFIRMATION [KNZHJH2Z] Order #: [id number] FUTURE TOX SCREEN ROUT UR [SQUTOX2] Order #: [id number] FUTURE HIV 1 2 COMBO(AG/AB),WITH REFLEX TO DIFFERENTIATION [SQHIV12] Order #: [id number] FUTURE VITAMIN B12 BLOOD [SQB12] Order #: [id number] FUTURE FOLATE SER (more content not included)... Normal [facility] Consent for Treatmenton Consent for Treatment [id number] 0CD:127 Normal [facility] Discharge Instructionson Discharge Instructions [id number]. 00CD:127 Normal [facility] ED Clinical Summaryon 2022 ED Clinical Summary [place] [id number] ED Clinical Summary Person Information Name: CHRISTIANA YOUNG [facility] Age: 27 Years : 1995 Sex: Female Language: Citizen Of [place] PCP: Zbigniew La MD Marital Status: Single Phone: [phone] Visit Id: Visit Reason: Allergic reaction - minor; HIVES OVER BODY, SORE THROAT Speciality: Acuity: 3 Enc Type: Emergency Med Service: Emergency Arrival: 11/05/2022 09:48:45 Discharge: 11/05/2022 11:18:54 LOS: 000 01:30 Checkin: 11/05/2022 09:48:45 Checkout: 11/05/2022 11:18:54 Dispo Type: Home (Routine DC) EVENTS: Event Name Event Status Request Date/Time Start Date/Time Complete Date/Time Arrive Complete 11/05/2022 09:48:45 11/05/2022 09:48:45 11/05/2022 09:48:45 Document Home Meds Request 11/05/2022 09:48:45 Triage Complete 11/05/2022 09:48:45 11/05/2022 09:56:34 11/05/2022 09:56:34 Bed Assign Complete 11/05/2022 09:50:54 11/05/2022 09:50:54 11/05/2022 09:50:54 Dr Exam Complete 11/05/2022 09:50:54 11/05/2022 09:54:17 11/05/2022 09:54:17 RN Exam Complete 11/05/2022 09:50:54 11/05/2022 10:37:49 11/05/2022 10:37:49 Registration Complete 11/05/2022 09:54:17 11/05/2022 10:16:48 11/05/2022 10:16:48 Pending Labs Complete 11/05/2022 10:02:39 11/05/2022 10:54:36 Lab Complete 11/05/2022 10:02:39 11/05/2022 10:54:36 Urine Collect Complete 11/05/2022 10:02:39 11/05/2022 10:43:15 Reg Complete Request 11/05/2022 10:16:48 Reg Bed Request Complete 11/05/2022 10:16:48 11/05/2022 10:16:48 11/05/2022 10:16:48 Pending Labs Inlab 11/05/2022 10:48:13 11/05/2022 10:48:13 Discharge Complete 11/05/2022 11:00:26 11/05/2022 11:26:05 11/05/2022 11:26:05 Transfer Complete 11/05/2022 11:26:05 11/05/2022 11:26:05 11/05/2022 11:26:05 ADDRESS: [address] [place] [address] [address] [facility] [phone] PHYS DOC NOTES: MEDICAL INFORMATION: Prescriptions Given: New Medications [id number], [address] [place], [place] [id number], [phone] cetirizine (cetirizine 10 mg Tab) 1 Tablets By Mouth every day for 7 Days. Refills: 0. famotidine (Pepcid 40 mg Tab) 1 Tablets By Mouth once a day (at bedtime) for 7 Days. Refills: 0. predniSONE (predniSONE 20 mg Tab) 3 By Mouth every day for 7 Days. Refills: 0. Medications to Continue with No Changes Other Medications acetaminophen (Tylenol) acetaminophen-hydrocod one ([place] 325 mg-5 mg oral tablet) 1 Tablets By Mouth every 6 hours as needed for pain. Refills: 0. albuterol (Albuterol (Eqv-ProAir HFA) 90 mcg/inh inhalation aerosol) 2 Puffs Inhalation every 6 hours as needed Cough and Congestion. Refills: 0. busPIRone (busPIRone 5 mg Tab) 1 Tablets By Mouth 2 times a day. Refills: 0. escitalopram (escitalopram 10 mg Tab) 1 Tablets By Mouth every day. Refills: 0. ferrous sulfate By Mouth. multivitamin (Multi Vitamin+) naproxen (Naprosyn 500 mg Tab) 1 Tablets By Mouth 2 times a day as needed for pain. Refills: 0. PATIENT EDUCATION INFORMATION: Instructions: Follow up: With: Address: When: Zbigniew La [address] [place], [place] [phone] Business (1) In 3 days DIAGNOSIS: Acute URI; Urticaria Normal [facility] ED Note-Physicianon 11-06-19 ED Note-Physician Basic Information Time Seen: Harris Simms DO 11/05/2022 09:54 History of Present Illness 27 female presents emergency department with hives and sore throat. Patient states that she has been dealing with hives for the last week. On October 30 she was seen at another hospital and believes that she received injection of steroids also received steroid and Benadryl. She states the symptoms improved but never really went away. She continues to have the symptoms. Patient also states that over the last 24 hours she has developed a cough and body aches as well as a sore throat. She has a family member with very similar symptoms. She denies any shortness of breath no abdominal pain nausea vomiting or diarrhea. She cannot identify anything that may be new that is causing the urticaria. She does state there is chance of although she took a test 1 week ago that was negative. She did wonder if her symptoms were related to stress that she has been under a lot of stress recently. She has follow-up appointment on Monday for her urticaria. No other aggravating or relieving factors no other associated symptoms no other prior treatments or complaints. Family: Reviewed and noncontributory Social: lives at home Review of systems negative unless otherwise specified in the HPI. Physical Exam Vitals & Measurements T: 36.9 ?C(Oral) HR: 89(Peripheral) RR: 18 BP: 113/60 SpO2: 99% HT: 162 cm WT: 105 kg BMI: 40.01 General: The patient appears well and in no apparent distress. Patient is resting comfortably on cart. Skin: Diffuse urticarial type rash located over the entire body consistent with urticaria. Head: Normocephalic, atraumatic Neck: No JVD Eye: PERRLA, EOMI ENT: Moist mucus membranes minimal posterior pharyngeal erythema no asymmetry uvula is midline there is no swelling shift or mass no trismus no stridor. Tympanic membranes are unremarkable bilaterally. Cardiovascular: Regular rate normal peripheral perfusion Respiratory: No respiratory distress no accessory muscle use no obvious audible wheezing Chest Wall: no deformity Musculoskeletal: normal ROM, no deformity, no swelling GI: Soft no obvious distention. No rebound or rigidity. No guarding. No tenderness. Neurological: A&O moves all extremities equal strength and symmetry Psychiatric: Cooperative and appropriate Medical Decision Making MEDICAL DECISION MAKING Number and Complexity of Problems Differential Diagnosis: MDM Data External documents reviewed: My EKG interpretation: in chart if applicable My CT interpretation: in chart if applicable My X-ray interpretation: in chart if applicable My Ultrasound interpretation: Decision rules/scores evaluated: Discussed with: Treatment and Disposition ED Course: Initial swabs are negative test per her request is negative as well. Patient is encouraged to discontinue the Decadron we will start her on 60 mg of prednisone for 7 days for stronger dosage. She will also be given Claritin daily Benadryl to be used as needed and started on Pepcid as well. She has follow-up on Monday and she was educated she may need to see an manager risk. Shared decision making: Code status: [ x] The patient was diagnosed with upper respiratory infection and was not prescribed an antibiotic. [SATISFIES MIPS PERFORMANCE] [ ] The patient has competing comorbid condition within the last 12 months. The comorbid condition was [] (e.g., neutropenia, cystic fibrosis, chronic bronchitis, pulmonary edema, respiratory failure, rheumatoid lung disease). [MIPS PERFORMANCE EXCEPTION/EXCLUSION [ ] The patient is already on antibiotics, or has taken them within the last 30 days. [MIPS PERFORMANCE EXCEPTION/EXCLUSION] [ ] The patient had a competing diagnosis of [] (e.g. acute otitis media, chronic sinusitis, UTI, etc.) [MIPS PERFORMANCE EXCEPTION/EXCLUSION] [ ] The patient was diagnosed with upper respiratory infection and was prescribed or dispensed an antibiotic. [DOES NOT SATISFY MIPS PERFORMANCE] Assessment/Plan Acute URI (J06.9: Acute upper respiratory infection, unspecified) Urticaria (L50.9: Urticaria, unspecified) Orders: cetirizine, 10 mg = 1 tab(s), Oral, Daily, X 7 day(s), # 7 tab(s), Refills(s) 0, Pharmacy: [id number], 162, cm, 11/05/22 9:56:00 EDT, Height/Length Dosing, 105, kg, 11/05/22 9:56:00 EDT, Weight Dosing famotidine, 40 mg = 1 tab(s), Oral, Once a day (at bedtime), X 7 day(s), # 7 tab(s), Refills(s) 0, Pharmacy: [id number], 162, cm, 11/05/22 9:56:00 EDT, Height/Length Dosing, 105, kg, 11/05/22 9:56:00 EDT, Weight Dosing predniSONE, 3, Oral, Daily, X 7 day(s), # 21 tab(s), Refills(s) 0, Pharmacy: [facility] #[id number], 162, cm, 11/05/22 9:56:00 EDT, Height/Length Dosing, 105, kg, 11/05/22 9:56:00 EDT, Weight Dosing Group A Strep by PCR Rapid COVID Antigen ([facility]) Rapid Strep w/rfx U Beta Hcg Qual Disposition Plan Discharge Prescription List Prescriptions cetirizine 10 mg Tab, 10 mg= 1 tab(s), Oral, D (more content not included)... Normal [facility] Comment on above: Result Comment: Elec tronically Signed By: Harris Simms DO\.br\Date and Time Signed: 11/05/22 11:00 EDT ED Patient Education Noteon 11-05-2022 ED Patient Education Note Normal [facility] ED Patient Summaryon 023 ED Patient Summary [place] [id number] Patient Discharge Instructions Person Information Name: CHRISTIANA YOUNG Age: 27 Years Arrival Date: 11/05/2022 09:48:45 Discharge Diagnosis: Acute URI; Urticaria Primary Care Physician: Zbigniew La MD Provider Information Primary Provider: Harris Simms DO Advanced Wave Soldering Machine Operator:None The exam and treatment you received in the Emergency Department were for an urgent problem and are not intended as complete care. It is important that you follow up with a doctor, nurse practitioner, or physician?s certified surgical first assistant for ongoing care. If your symptoms become worse or you do not improve as expected and you are unable to reach your usual health care provider, you should return to the Emergency Department. We are available 24 hours a day. CHRISTIANA YOUNG has been given the following list of patient education materials, prescriptions and follow-up instructions: Follow-up Instructions: With: Address: When: Zbigniew La [address] [place], [place] [id number] [phone] Business (1) In 3 days In the event that this physician does not participate in your insurance network, please consult with your insurance company to find a nearby participating provider. Patient Education Materials: A MESSAGE TO ALL PATIENTS REGARDING OPIOIDS PRESCRIPTION OPIOIDS: WHAT YOU NEED TO KNOW Prescription opioids can be used to help relieve ecrshpwp-bh-qmhkzv pain and are often prescribed following a surgery or injury, or for certain health conditions. These medications can be an important part of the treatment but also come with serious risks. It is important to work with your healthcare provider to make sure you are getting the safest, most effective care. WHAT ARE THE RISKS AND SIDE EFFECTS OF OPIOID USE? Prescription opioids carry serious risks of addiction and overdose, especially with prolonged use. An opioid overdose, often marked by slowed breathing, can cause sudden . The use of prescription opioids can have a number of side effects as well, even when taken as directed: ? Tolerance?meaning you might need to take more of the medication for the same pain relief ? Physical dependence?meaning you have symptoms of withdrawal when a medication is stopped ? Increased sensitivity to pain ? Constipation ? Nausea, vomiting, and dry mouth ? Sleepiness and dizziness ? Confusion ? Depression ? Low levels of testosterone that can result in lower sex drive, energy, and strength ? Itching and sweating RISKS ARE GREATER WITH: ? History of drug misuse, substance use disorder, or overdose ? Mental health conditions (such as depression or anxiety) ? Sleep apnea ? Older age (65 years and older) ? Avoid alcohol while taking prescription opioids. Also, unless specifically advised by your health care provider, medications to avoid include: ? Benzodiazepines (such as Xanax or Valium) ? Muscle relaxants (such as Soma or Flexeril) ? Hypnotics (such as Ambien or Lunesta) ? Other prescription opioids KNOW YOUR OPTIONS Talk to your health care provider about ways to manage your pain that don?t involve prescription opioids. Some of these options may actually work better and have fewer risks and side effects. Options may include: ? Pain relievers such as acetaminophen, ibuprofen, and naproxen ? Some medication that are also used for depression or seizures ? Physical therapy and exercise ? Cognitive behavioral therapy, a psychological, goal-directed approach, in which patients learn how to modify physical, behavioral, and emotional triggers of pain and stress. IF YOU ARE PRESCRIBED OPIOIDS FOR PAIN: ? Never take opioids in greater amounts or more often than prescribed. ? Follow up with your primary health care provider. o Work together to create a plan on how to manage your pain. o Talk about ways to help manage your pain that don?t involve prescription opioids. o Talk about any and all concerns and side effects. ? Help prevent misuse and abuse o Never sell or share prescription opioids. o Never use another person?s prescription opioids. ? Store prescription opioids in a secure place and out of reach of others (this may include visitors, children, friends, and family). ? Safely dispose of unused prescription opioids: Find your community drug take-back program or your pharmacy mail-back program, or flush them down the toilet, following guidance from the Food and Drug Administration (www.fda.gov/Drugs/Res ourcesForYou). ? Visit www.cdc.gov/drugoverdo se to learn about the risks of opioids abuse and overdose. ? If you believe you may be struggling with addiction, tell your health healthcare receptionist and ask for guidance or call [facility]?S National Helpline at 9-254-447-ZEZY. m Source: US Department of Health and Human Services/Center for Disease Control (more content not included)... Normal [facility] Grp A Strp PCRon 11-05-2022 Group A Strep Negative Normal [facility] Comment on above: Order Comment: Order Added on by Discern Rule. Result Comment: Test ing performed using DNA amplification. Performed By: #### 2 [id number], [id number] ####[facility] [address] [place] [address] Grp A Strp Intrl Ctrl Pass Normal [facility] Comment on above: Order Comment: Order Added on by Discern Rule. Performed By: #### 2 [id number] ####[facility] [address] [place] [address] MICRO OTHER TESTSOrdered By: Nyla Simpson on 11-05-2022 Rapid COV Int NEG Ctl Pass (11/05/22 10:21 AM) Normal [facility] Man Sero Rapid COV Int POS Ctl Pass (11/05/22 10:21 AM) Normal [facility] Sero S. pyogenes Ag IA.rapid Ql (Throat) Negative (11/05/22 10:21 AM) Normal Negative [facility] Sero SARS-CoV+SARS-CoV-2 (COVID-19) Ag IA.rapid Ql (Resp) Not Detected (11/05/22 10:21 AM) Normal Not Detected FT Man Sero Rapid COVID Antigen ([facility])on 11-05-2022 Rapid COV Int NEG Ctl Pass Normal [facility] Comment on above: Performed By: #### 2 [id number] ####[facility] [address] [place] [address] Rapid COV Int POS Ctl Pass Normal Fis her [facility] Comment on above: Performed By: #### 2 [id number] ####Juan C [facility] [address] [place] [address] SARS-CoV+SARS-CoV-2 (COVID-19) Ag IA.rapid Ql (Resp) Not detected Normal Not Detected [facility] Comment on above: Result Comment: [employer]? System for Rapid Detection of SARS-CoV-2 is a chromatographic digital immunoassay intended for the direct and qualitative detection of SARS-CoV-2 nucleocapsid antigens in nasal swabs from individuals who are suspected of COVID-19 by their healthcare provider within the first five days of the onset of symptoms. Negative results should be treated as presumptive, do not rule out SARS-CoV-2 infection and should not be used as the sole basis for treatment or patient management decisions, including infection control decisions. Negative results should be considered in the context of a patient?s recent exposures, history and the presence of clinical signs and symptoms consistent with COVID-19, and confirmed with a molecular assay, if necessary, for patient management. For in vitro diagnostic use. In the [place], only for use under an Emergency Use Authorization. In the [place], this test has not been FDA cleared or approved; this test has been authorized by FDA under an EUA for use by authorized laboratories; use by laboratories certified under the CLIA, 42 U.S.C. ?263a, that meet requirements to perform moderate, high, or waived complexity tests and at the Point of Care (POC), i.e., in patient care settings operating under a CLIA Certificate of Waiver, Certificate of Compliance, or Certificate of Accreditation. This test has been authorized only for the detection of proteins from SARS-CoV-2, not for any other viruses or pathogens; and, in the [place], this test is only authorized for the duration of the declaration that circumstances exist justifying the authorization of emergency use of in vitro diagnostics for detection and/or diagnosis of the virus that causes COVID-19 under Section 564(b)(1) of the Act, 21 U.S.C. ? 360bbb-3(b)(1), unless the authorization is terminated or revoked sooner. Performed By: #### 2 [id number], [id number], [id number] ####[place] [address] ADMITTED TO INTENSIVE CARE UNIT FOR CONDITION OF INTEREST:FIND:PT: NO Normal [facility] Comment on above: Performed By: #### 2 [id number], [id number], [id number] ####[place] [address] EMPLOYED IN A HEALTHCARE SETTING:FIND:PT: NO Normal [facility] Comment on above: Performed By: #### 2 [id number], [id number], [id number] ####[place] [address] FIRST TEST FOR CONDITION OF INTEREST:FIND:PT: NO Normal [facility] Comment on above: Performed By: #### 2 [id number], [id number], [id number] ####[place] [address] HAS SYMPTOMS RELATED TO CONDITION OF INTEREST:FIND:PT: YES Normal [facility] Comment on above: Performed By: #### 2 [id number], [id number], [id number] ####[place] [address] HOSPITALIZED FOR CONDITION OF INTEREST:FIND:PT: NO Normal [facility] Comment on above: Performed By: #### 2 [id number], [id number], [id number] ####[place] [address] STATUS:FIND:PT: NO Normal [facility] Comment on above: Performed By: #### 2 [id number], [id number], [id number] ####[place] [address] [facility]:FIND:PT: NO Normal [facility] Comment on above: Performed By: #### 2 [id number], [id number], [id number] ####[place] [address] [place] [address] Rapid Strep w/rfxon 11-06-19 23 S. pyogenes Ag IA.rapid Ql (Throat) Negative Normal Negative [facility] Comment on above: Performed By: #### 2 [id number], [id number], [id number] ####[id number] [place] [address] SEROLOGYOrdered By: yNla Simpson on 11-05-2022 HCG.beta subunit (U) [Moles/Vol] Negative Normal [facility] Man Sero U BetaHcg Qualon 11-05-2022 HCG.beta subunit (U) [Moles/Vol] Negative Normal [facility] Comment on above: Performed By: #### 2 [id number] ####[facility] [address] [place] [address] Discharge Instructionson Discharge Instructions [id number]:127 Normal [facility] ED Clinical Summaryon 2022 ED Clinical Summary [address] [address] ED Clinical Summary Person Information Name: CHRISTIANA YOUNG [facility] Age: 26 Years : 1995 Sex: Female Language: Citizen Of [place] PCP: Dimitry MONTES MD Marital Status: Single Phone: [phone] Visit Id: Visit Reason: Dental pain; Mouth pain; CONTINUED PAIN FROM TOOTH SURGERY Speciality: Acuity: 4 Enc Type: Emergency Med Service: Emergency Arrival: 09/22/2022 21:04:05 Discharge: 09/22/2022 22:38:56 LOS: 000 01:34 Checkin: 09/22/2022 21:04:05 Checkout: 09/22/2022 22:38:56 Dispo Type: Home (Routine DC) EVENTS: Event Name Event Status Request Date/Time Start Date/Time Complete Date/Time Arrive Complete 09/22/2022 21:04:05 09/22/2022 21:04:05 09/22/2022 21:04:05 Document Home Meds Request 09/22/2022 21:04:05 Triage Complete 09/22/2022 21:04:05 09/22/2022 21:14:15 09/22/2022 21:14:15 Registration Complete 09/22/2022 21:09:39 09/22/2022 21:09:39 09/22/2022 21:09:39 Reg Complete Request 09/22/2022 21:09:39 Reg Bed Request Complete 09/22/2022 21:09:39 09/22/2022 21:09:39 09/22/2022 21:09:39 Bed Assign Complete 09/22/2022 21:14:25 09/22/2022 21:14:25 09/22/2022 21:14:25 Dr Exam Complete 09/22/2022 21:14:25 09/22/2022 21:26:31 09/22/2022 21:26:31 RN Exam Complete 09/22/2022 21:14:25 09/22/2022 21:22:56 09/22/2022 21:22:56 Registration Request 09/22/2022 21:26:31 Meds Admin Complete 09/22/2022 22:24:20 09/22/2022 22:38:15 Meds Admin Complete 09/22/2022 22:25:08 09/22/2022 22:38:15 Discharge Complete 09/22/2022 22:27:04 09/22/2022 22:39:00 09/22/2022 22:39:00 Transfer Complete 09/22/2022 22:39:00 09/22/2022 22:39:00 09/22/2022 22:39:00 ADDRESS: [address] [place] [address] [address] [facility] [id number] [facility] DOC NOTES: MEDICAL INFORMATION: Prescriptions Given: New Medications [id number], [address] [place], [place] [id number], [phone] acetaminophen-hydrocod one ([place] 325 mg-5 mg oral tablet) 1 Tablets By Mouth every 6 hours as needed for pain. Refills: 0. naproxen (Naprosyn 500 mg Tab) 1 Tablets By Mouth 2 times a day as needed for pain. Refills: 0. Medications to Continue with No Changes Other Medications acetaminophen (Tylenol) albuterol (Albuterol (Eqv-ProAir HFA) 90 mcg/inh inhalation aerosol) 2 Puffs Inhalation every 6 hours as needed Cough and Congestion. Refills: 0. ferrous sulfate By Mouth. multivitamin (Multi Vitamin+) PATIENT EDUCATION INFORMATION: Instructions: Dental Pain, Qzxl-qn-Rood Follow up: With: Address: When: Dental: [facility] [phone] In 3 days 09/25/2022 Comments: You can use the pain medication every 6 hours as needed for pain. Continue taking your antibiotics as prescribed. Please follow-up with your primary care doctor in the next 2 to 3 days. Please return return to your dentist for further evaluation and management With: Address: When: Dental: [facility] [phone] In 3 days 09/25/2022 With: Address: When: Dental: [place] [facility] [phone] In 3 days 09/25/2022 With: Address: When: Dimitry MONTES [address] [place], [place] [id number] [facility] () In 3 days 09/25/2022 DIAGNOSIS: Pain, dental Normal [facility] ED Note-Physicianon 09-24-19 ED Note-Physician Basic Information Time Seen: Yuniel Ware DO 09/22/2022 21:26 Chief Complaint pt complains of increasing mouth pain since having upper and lower teeth removed 3 days ago History of Present Illness Patient is a 26-year-old female presenting to the ED for evaluation of dental pain and mouth pain. Patient had her upper and lower teeth removed 3 days ago at a dental clinic in [place]. Patient states she is not taking her antibiotics in addition to her pain medication, Tylenol as prescribed however has been having increasing pain. Patient denies any fevers, chills, nausea or vomiting. Review of Systems A 10 point review of systems is negative except as noted above. Medical and Surgical History: Reviewed and noted Social history: Lives at home Tobacco: Denies Physical Exam Vitals & Measurements T: 37 ?C(Oral) HR: 74(Peripheral) RR: 20 BP: 117/59 SpO2: 99% HT: 162 cm WT: 107 kg BMI: 40.77 General: Well developed, non toxic appearing, no acute distress HEENT: Head atraumatic, Mucosa moist, hearing grossly normal, edentulous in the upper gumline, no signs of infection, sutures are in place extensive dental caries noted along the lower teeth Neck: No JVD, tracheal deviation Cardiac: Regular rate, rhythm, no murmurs, or gallops, 2+ radial pulses Respiratory: Lungs clear to auscultation B/L, normal respiratory effort Extremities: No edema noted in the LE B/L, no tenderness to palpation Neurologic: Alert and oriented, speech clear Skin: No rashes or lesions Psych: Appropriate mood and behavior Medical Decision Making MEDICAL DECISION MAKING Number and Complexity of Problems Differential Diagnosis: [] [facility] Data External documents reviewed: [] My EKG interpretation: [] My CT interpretation: [] My X-ray interpretation: [] My Ultrasound interpretation: [] Decision rules/scores evaluated: [] Discussed with: [] Treatment and Disposition ED Course: Patient is a 26-year-old female presenting to the ED for evaluation of mouth pain after extensive dental extractions. Patient nontoxic-appearing on arrival, no acute distress. Multiple dental extractions noted on examination. No signs of infection. Topical benzocaine is a given patient is also given naproxen, short course of pain medication. She is to follow-up with her primary care doctor in addition to her dentist. Should return to the ED for any new or worsening symptoms. Shared decision making: [] Code status: [] Assessment/Plan Pain, dental (K08.89: Other specified disorders of teeth and supporting structures) Orders: acetaminophen-hydrocod one, 1 EA, Tab, Oral, Once, Stop date 09/22/22 22:24:00 EDT, STAT, Start date 09/22/22 22:24:00 EDT acetaminophen-hydrocod one, 1 tab(s), Oral, q6hr for pain, 5 tab(s), Refill(s) 0, [id number], 162, cm, 09/22/22 21:14:00 EDT, Height/Length Dosing, 107, kg, 09/22/22 21:14:00 EDT, Weight Dosing acetaminophen-hydrocod one, 1 tab(s), Tab, Oral, Once, Stop date 09/22/22 22:23:00 EDT, STAT, Start date 09/22/22 22:23:00 EDT benzocaine topical, 1 doc, Gel, Topical, Once, Stop date 09/22/22 22:24:00 EDT, STAT, Start date 09/22/22 22:24:00 EDT naproxen, 500 mg = 2 tab(s), Tab, Oral, Once, Stop date 09/22/22 22:23:00 EDT, STAT, Start date 09/22/22 22:23:00 EDT, 09/22/22 22:23:00 EDT naproxen, 500 mg = 1 tab(s), Oral, BID, PRN for pain, # 20 tab(s), Refills(s) 0, Pharmacy: [facility] #[id number], 162, cm, 09/22/22 21:14:00 EDT, Height/Length Dosing, 107, kg, 09/22/22 21:14:00 EDT, Weight Dosing Medications Administered Given benzocaine topical 20% gel, 1 doc, Topical naproxen 250 mg Tab, 500 mg, Oral [place] 5/325 Tab, 1 tab(s), Oral TO GO acetaminophen-hydrocod one 325 mg - 5 mg, 1 EA, Oral Disposition Plan Discharge Prescription List Prescriptions Naprosyn 500 mg Tab, 500 mg= 1 tab(s), Oral, BID, PRN [place] 325 mg-5 mg oral tablet, 1 tab(s), Oral, q6hr, PRN Follow-up With When Contact Information Dental: [facility] [phone] In 3 days 09/25/2022 EDT Additional Instructions: You can use the pain medication every 6 hours as needed for pain. Continue taking your antibiotics as prescribed. Please follow-up with your primary care doctor in the next 2 to 3 days. Please return return to your dentist for further evaluation and management Dental: [facility] [phone] In 3 days 09/25/2022 EDT Additional Instructions: Dental: [place] [facility] [phone] In 3 days 09/25/2022 EDT Additional Instructions: Dimitry MONTES In 3 days 09/25/2022 EDT [address] [place] [id number] [facility] (1) Additional Instructions: Patient Education Dental Pain, Osmi-hn-Uwrf Problem List/Past Medical History Ongoing Acute pyelonephritis Anxiety depression Bipolar Chronic back pain Schizophrenia Smoker 31-OCT-2013 12:37:00<$> Suicidal thoughts Teenage Historical Dental caries Endometriosis History (more content not included)... Normal [facility] Comment on above: Result Comment: Elec tronically Signed By: Yuniel Ware DO\.br\Date and Time Signed: 09/23/22 01:16 EDT ED Patient Education Noteon 09-23-2022 ED Patient Education Note Dentistry Dental Pain Dental pain is often a sign that something is wrong with your teeth or gums. You can also have pain after a dental treatment. If you have dental pain, it is important to contact your dentist, especially if the cause of the pain is not known. Dental pain may hurt a lot or a little and can be caused by many things, including: ? Tooth decay (cavities or caries). ? Infection. ? The inner part of the tooth being filled with pus (an abscess). ? Injury. ? A crack in the tooth. ? Gums that move back and expose the root of a tooth. ? Gum disease. ? Abnormal grinding or clenching of teeth. ? Not taking good care of your teeth. Sometimes the cause of pain is not known. You may have pain all the time, or it may happen only when you are: ? Chewing. ? Exposed to hot or cold temperatures. ? Eating or drinking foods or drinks that have a lot of sugar in them, such as soda or candy. Follow these instructions at home: Medicines ? Take zznt-ugn-zrgmrrq and prescription medicines only as told by your dentist. ? If you were prescribed an antibiotic medicine, take it as told by your dentist. Do not stop taking it even if you start to feel better. Eating and drinking Do not eat foods or drinks that cause you pain. These include: ? Very hot or very cold foods or drinks. ? Sweet or sugary foods or drinks. Managing pain and swelling ? If told, put ice on the painful area of your face. To do this: ? Put ice in a plastic bag. ? Place a towel between your skin and the bag. ? Leave the ice on for 20 minutes, 2?3 times a day. ? Take off the ice if your skin turns bright red. This is very important. If you cannot feel pain, heat, or cold, you have a greater risk of damage to the area. Brushing your teeth ? [place] your teeth twice a day using a fluoride toothpaste. ? Use a toothpaste made for sensitive teeth as told by your dentist. ? Use a soft toothbrush. General instructions ? Floss your teeth at least once a day. ? Do not put heat on the outside of your face. ? Rinse your mouth often with salt water. To make salt water, dissolve ??1 tsp (3?6 g) of salt in 1 cup (237 mL) of warm water. ? Watch your dental pain. Let your dentist know if there are any changes. ? Keep all follow-up visits. Contact a dentist if: ? You have dental pain and you do not know why. ? Medicine does not help your pain. ? Your symptoms get worse. ? You have new symptoms. Get help right away if: ? You cannot open your mouth. ? You are having trouble breathing or swallowing. ? You have a fever. ? Your face, neck, or jaw is swollen. These symptoms may be an emergency. Get help right away. Call your local emergency services (911 in the [place] ? Do not wait to see if the symptoms will go away. ? Do not drive yourself to the hospital. Summary ? Dental pain may be caused by many things, including tooth decay, injury, or infection. In some cases, the cause is not known. ? Dental pain may hurt a lot or very little. You may have pain all the time, or you may have it only when you eat or drink. ? Take nayo-ese-epgloul and prescription medicines only as told by your dentist. ? Watch your dental pain for any changes. Let your dentist know if symptoms get worse. This information is not intended to replace advice given to you by your health care provider. Make sure you discuss any questions you have with your health care provider. Document Revised: 01/20/2021 Document Reviewed: 01/20/2021 Elsevier Patient Education ? 2022 [employer] Normal [facility] ED Patient Summaryon 023 ED Patient Summary [address] [address] Patient Discharge Instructions Person Information Name: CHRISTIANA YOUNG Age: 26 Years Arrival Date: 09/22/2022 21:04:05 Discharge Diagnosis: Pain, dental Primary Care Physician: Dimitry MONTES MD Provider Information Primary Provider: Yuniel Ware DO Advanced Wave Soldering Machine Operator:None The exam and treatment you received in the Emergency Department were for an urgent problem and are not intended as complete care. It is important that you follow up with a doctor, nurse practitioner, or physician?s certified surgical first assistant for ongoing care. If your symptoms become worse or you do not improve as expected and you are unable to reach your usual health care provider, you should return to the Emergency Department. We are available 24 hours a day. CHRISTIANA YOUNG has been given the following list of patient education materials, prescriptions and follow-up instructions: Follow-up Instructions: With: Address: When: Dental: [facility] [phone] In 3 days 09/25/2022 Comments: You can use the pain medication every 6 hours as needed for pain. Continue taking your antibiotics as prescribed. Please follow-up with your primary care doctor in the next 2 to 3 days. Please return return to your dentist for further evaluation and management With: Address: When: Dental: [facility] [phone] In 3 days 09/25/2022 With: Address: When: Dental: [facility] [phone] In 3 days 09/25/2022 With: Address: When: Dimitry MONTES [address] [place], [place] [id number] [facility] () In 3 days 09/25/2022 In the event that this physician does not participate in your insurance network, please consult with your insurance company to find a nearby participating provider. Patient Education Materials: Dental Pain, Qmbh-ex-Ccaj A MESSAGE TO ALL PATIENTS REGARDING OPIOIDS PRESCRIPTION OPIOIDS: WHAT YOU NEED TO KNOW Prescription opioids can be used to help relieve jpgwfkjm-zh-rkxcfy pain and are often prescribed following a surgery or injury, or for certain health conditions. These medications can be an important part of the treatment but also come with serious risks. It is important to work with your healthcare provider to make sure you are getting the safest, most effective care. WHAT ARE THE RISKS AND SIDE EFFECTS OF OPIOID USE? Prescription opioids carry serious risks of addiction and overdose, especially with prolonged use. An opioid overdose, often marked by slowed breathing, can cause sudden . The use of prescription opioids can have a number of side effects as well, even when taken as directed: ? Tolerance?meaning you might need to take more of the medication for the same pain relief ? Physical dependence?meaning you have symptoms of withdrawal when a medication is stopped ? Increased sensitivity to pain ? Constipation ? Nausea, vomiting, and dry mouth ? Sleepiness and dizziness ? Confusion ? Depression ? Low levels of testosterone that can result in lower sex drive, energy, and strength ? Itching and sweating RISKS ARE GREATER WITH: ? History of drug misuse, substance use disorder, or overdose ? Mental health conditions (such as depression or anxiety) ? Sleep apnea ? Older age (65 years and older) ? Avoid alcohol while taking prescription opioids. Also, unless specifically advised by your health care provider, medications to avoid include: ? Benzodiazepines (such as Xanax or Valium) ? Muscle relaxants (such as Soma or Flexeril) ? Hypnotics (such as Ambien or Lunesta) ? Other prescription opioids KNOW YOUR OPTIONS Talk to your health care provider about ways to manage your pain that don?t involve prescription opioids. Some of these options may actually work better and have fewer risks and side effects. Options may include: ? Pain relievers such as acetaminophen, ibuprofen, and naproxen ? Some medication that are also used for depression or seizures ? Physical therapy and exercise ? Cognitive behavioral therapy, a psychological, goal-directed approach, in which patients learn how to modify physical, behavioral, and emotional triggers of pain and stress. IF YOU ARE PRESCRIBED OPIOIDS FOR PAIN: ? Never take opioids in greater amounts or more often than prescribed. ? Follow up with your primary health care provider. o Work together to create a plan on how to manage your pain. o Talk about ways to help manage your pain that don?t involve prescription opioids. o Talk about any and all concerns and side effects. ? Help prevent misuse and abuse o Never sell or share prescription opioids. o Never use another person?s prescription opioids. ? Store prescription opioids in a secure place and out of reach of others (this may include visitors, children, friends, and family (more content not included)... Normal [facility] Consent for Treatmenton 08-30 Consent for Treatment [id number] 0CD:127 Normal [facility] COVID-19, Rapidon 04-25-2022 SARS-CoV-2 (COVID-19) RNA JAYDE+probe Ql (Unsp spec) Not detected Not Detected [facility] Comment on above: Rapid NAAT: Negative results should be treated as presumptive and, if inconsistent with clinical signs and symptoms or necessary for patient management, should be tested with an alternative molecular assay. Negative results do not preclude SARS-CoV-2 infection and should not be used as the sole basis for patient management decisions. This test has been authorized by the FDA under an Emergency Use Authorization (EUA) for use by authorized laboratories. Fact sheet for Healthcare Providers: https://www.fda.gov/media/815168/download Fact sheet for Patients: https://www.fda.gov/media/946400/download METHODOLOGY: Isothermal Nucleic Acid Amplification [facility] Rapid Influenza A/B Antigens on 04-25-2022 Influenza A by PCR Negative [facility] Influenza B by PCR Negative [facility] Rapid Strep Screenon 022 Strep Grp A PCR Negative [facility] Comment on above: Negative for Strep A nucleic acid. [facility] CBC with Auto Differentialon 10-23-2021 Basophils (Bld) [#/Vol] 0.1 10*3/uL 0.0 - 0.1 K/uL [facility] Basophils/100 WBC (Bld) 0.4 % 0.1 - 1.2 % [facility] Eosinophils (Bld) [#/Vol] 0.2 10*3/uL 0.0 - 0.4 K/uL [facility] Eosinophils/100 WBC (Bld) 1.2 % 0.7 - 5.8 % [facility] Hematocrit (Bld) [Volume fraction] 30.5 % Low 37.0 - 47.0 % [facility] Hemoglobin (Bld) [Mass/Vol] 9.2 g/dL Low 11.2 - 15.7 g/dL [facility] Immature granulocytes (Bld) [#/Vol] 0.2 10*3/uL [facility] Immature granulocytes/100 WBC (Bld) 1.3 % [facility] Interpretation and review of laboratory results Abnormal [facility] Lymphocytes (Bld) [#/Vol] 1.3 10*3/uL 1.2 - 3.7 K/uL [facility] Lymphocytes/100 WBC (Bld) 8.4 % [facility] MCH (RBC) [Entitic mass] 23.0 pg Low 25.6 - 32.2 pg [facility] MCHC (RBC) [Mass/Vol] 30.2 % Low 32.2 - 35.5 % [facility] MCV (RBC) [Entitic vol] 76.3 fL Low 79.4 - 94.8 fL [facility] Monocytes (Bld) [#/Vol] 0.6 10*3/uL 0.2 - 0.9 K/uL [facility] Monocytes/100 WBC (Bld) 3.9 % Low 4.7 - 12.5 % [facility] Neutrophils Absolute 12.7 K/uL High 1.6 - 6 .1 K/uL [facility] Neutrophils/100 WBC (Bld) 84.8 % High 34.0 - 71.1 % [facility] Platelet distribution width (Bld) [Ratio] 16.8 % High 11.7 - 14.4 % [facility] Platelets (Bld) [#/Vol] 405 10*3/uL High 182 - 369 K/uL [facility] RBC (Bld) [#/Vol] 4.00 10*6/uL [facility] WBC (Bld) [#/Vol] 15.0 10*3/uL High 4.0 - 10.0 K/uL [facility] CT ABDOMEN PELVIS W IV CONTR AST Additional Contrast? Noneon 06-25-2022 MILDLY DILATED APPENDIX WITH QUESTIONABLE SURROUNDING INFLAMMATION, WHICH MAY BE EARLY UNCOMPLICATED APPENDICITIS. ENLARGED UTERUS CONSISTENT WITH RECENT STATE. [facility] RADIOLOGY CT ABDOMEN PELVIS W IV CONTRAST: 10/23/2021 CLINICAL HISTORY: Right lower quadrant abdominal pain, nausea, vomiting, s/p normal vaginal delivery 1 week ago . COMPARISON: None available. TECHNIQUE: Spiral images were obtained of the abdomen and pelvis after the uneventful intravenous administration of approximately 100 mL of Isovue-[address] scans at this facility use dose modulation, iterative reconstruction, and/or weight based dosing when appropriate to reduce radiation dose to as low as reasonably achievable. FINDINGS: The appendix measures approximately 1 cm in caliber, with questionable mild surrounding inflammation. There is no other abnormal bowel or biliary dilatation, abscess, ascites, significant lymphadenopathy, hernias, or other acute findings identified elsewhere. The uterus is moderately enlarged, consistent with a recent state. The liver, gallbladder, spleen, pancreas, adrenal glands, kidneys, great vessels, unopacified bowel loops, adnexa, urinary bladder, and additional images of the pelvis are unremarkable. [facility] RADIOLOGY Christina Skinner MD - 10/23/2021 CT ABDOMEN PELVIS W IV CONTRAST: 10/23/2021 CLINICAL HISTORY: Right lower quadrant abdominal pain, nausea, vomiting, s/p normal vaginal delivery 1 week ago . COMPARISON: None available. TECHNIQUE: Spiral images were obtained of the abdomen and pelvis after the uneventful intravenous administration of approximately 100 mL of Isovue-[address] scans at this facility use dose modulation, iterative reconstruction, and/or weight based dosing when appropriate to reduce radiation dose to as low as reasonably achievable. FINDINGS: The appendix measures approximately 1 cm in caliber, with questionable mild surrounding inflammation. There is no other abnormal bowel or biliary dilatation, abscess, ascites, significant lymphadenopathy, hernias, or other acute findings identified elsewhere. The uterus is moderately enlarged, consistent with a recent state. The liver, gallbladder, spleen, pancreas, adrenal glands, kidneys, great vessels, unopacified bowel loops, adnexa, urinary bladder, and additional images of the pelvis are unremarkable. IMPRESSION: MILDLY DILATED APPENDIX WITH QUESTIONABLE SURROUNDING INFLAMMATION, WHICH MAY BE EARLY UNCOMPLICATED APPENDICITIS. ENLARGED UTERUS CONSISTENT WITH RECENT STATE. [facility] [email or web address] Work Phone: Radiology Study observation (narrative) JUSTIN THOMAS [employer] Work Phone: CT ABDOMEN PELVIS W IV CONTR AST Additional Contrast? NoneOrdered By: Christina Skinner on 10-23-2021 [facility] [employer] ([email or web address] Work Phone: Comprehensive Metabolic Pane epifanio 10-23-2021 Albumin [Mass/Vol] 3.8 g/dL 3.5 - 4.6 g/dL [facility] [employer] ALP (Bld) [Catalytic activity/Vol] 127 U/L 40 - 130 U/L [facility] [employer] ALT [Catalytic activity/Vol] 28 U/L 0 - 33 U/L [facility] [employer] Anion gap [Moles/Vol] 12 mmol/L [facility] [employer] AST [Catalytic activity/Vol] 23 U/L 0 - 35 U/L [facility] [facility] [employer] Bilirubin [Mass/Vol] 0.6 mg/dL 0.2 - 0 .7 mg/dL [facility] [employer] Calcium [Mass/Vol] 9.3 mg/dL 8.5 - 9.9 mg/dL [facility] [employer] Chloride [Moles/Vol] 102 mmol/L [facility] [employer] CO2 [Moles/Vol] 23 mmol/L [facility] [employer] Creatinine [Mass/Vol] 0.6 mg/dL 0.50 - 0.90 mg/dL [facility] [employer] Free PSA/Total PSA [Mass fraction] 7.8 g/dL 6.3 - 8.0 g/dL [facility] [employer] GFR >60.0 >60 [facility] [employer] Comment on above: >60 mL/min/1.73m2 EG FR, calc. for ages 18 and older using the MDRD formula (not corrected for weight), is valid for stable renal function. GFR Non- >60.0 >60 [facility] [email or web address] Comment on above: >60 mL/min/1.73m2 EG FR, calc. for ages 18 and older using the MDRD formula (not corrected for weight), is valid for stable renal function. Globulin (S) [Mass/Vol] 4 g/dL High 2.3 - 3.5 g/dL [facility] Glucose [Mass/Vol] 116 mg/dL High 70 - 99 mg/dL [facility] Interpretation and review of laboratory results Abnormal [facility] Potassium [Moles/Vol] 4.1 mmol/L [facility] Sodium [Moles/Vol] 137 mmol/L [facility] Urea nitrogen (BldV) [Mass/Vol] 14 mg/dL 6 - 20 mg/dL [facility] Lipaseon 10-23-2021 Lipase [Catalytic activity/Vol] 14 U/L 12 - 95 U/L [facility] Magnesiumon 10-23-2021 Magnesium [Mass/Vol] 1.8 mg/dL 1.7 - 2 .4 mg/dL [facility] Microscopic Urinalysison Bacteria, UA FEW Abnormal Negative /HPF [facility] Epithelial Cells, UA 0-2 /HPF [facility] RBC, UA 10-20 Abnormal [facility] WBC, UA 6-9 [facility] No Panel Informationon 10-23 Interpretation and review of laboratory results Abnormal [facility] Urinalysis with Reflex to Cu ltureon 10-23-2021 Bilirubin Urine Negative Negative [facility] Blood, Urine LARGE Abnormal Negative [facility] Clarity, UA Clear Clear [facility] Color, UA Yellow Straw/Yellow [facility] Glucose, Ur Negative Negative mg/dL [facility] Ketones Ql (U) Negative Negative mg/dL [facility] Leukocyte esterase Test strip Ql (U) MODERATE Abnormal Negative [facility] Nitrite, Urine Negative Negative [facility] pH, UA 6.5 [facility] Protein, UA TRACE Abnormal Negative mg/dL [facility] Specific [place], UA 1.010 [facility] Urine Reflex to Culture Not Indicated [facility] Urobilinogen, Urine 0.2 <2.0 E.U./dL [facility] URINALYSISOrdered By: Marcelo perez on 10-20-2021 Bacteria LM Ql (Urine sed) 1+ /HPF Invalid Interpretation Code Trace/HPF [facility] UA Auto SS Bilirubin Ql (U) Negative (10/20/21 9:00 PM) Normal Negative [facility] UA Auto SS Clarity (U) SL CLOUDY Invalid Interpretation Code [facility] UA Auto SS Color (U) [place] *ABN* (10/20/21 9:00 PM) Invalid Interpretation Code Yellow [facility] UA Auto SS Crystals LM Ql (Urine sed) Present (10/20/21 9:00 PM) Normal [facility] UA Auto SS Epithelial cells.squamous LM.HPF (Urine sed) [#/Area] 3-4 /HPF Normal 0-2/HPF [facility] UA Auto SS Glucose Test strip (U) [Mass/Vol] Negative (10/20/21 9:00 PM) Normal Negative [facility] UA Auto SS Hemoglobin Ql (U) 3+ *ABN* (10/20/21 9:00 PM) Invalid Interpretation Code Negative [facility] UA Auto SS Ketones (U) [Mass/Vol] Negative (10/20/21 9:00 PM) Normal Negative [facility] UA Auto SS Hoople.plasma/[place]. RBC (Bld) [Mass ratio] >30 /HPF Invalid Interpretation Code 0-3/HPF [facility] UA Auto SS Mucus Ql (Urine sed) 1+ (10/20/21 9:00 PM) Normal [facility] UA Auto SS Nitrite Ql (U) Negative (10/20/21 9:00 PM) Normal Negative [facility] UA Auto SS pH (U) 6.0 *NA* (10/20/21 9:00 PM) Invalid Interpretation Code 5.0 - 9.0 [facility] UA Auto SS Protein (U) [Mass/Vol] 1+ *ABN* (10/20/21 9:00 PM) Invalid Interpretation Code Negative [facility] UA Auto SS Specific gravity (U) [Rel density] 1.020 *NA* (10/20/21 9:00 PM) Invalid Interpretation Code 1.005 - 1.030 [facility] UA Auto SS UA Spec Desc Clean Catch (10/20/21 9:00 PM) Normal [facility] UA Auto SS Urobilinogen Qn (U) [id number] {Venus'U}/dL Normal 0.0 - 1.0 EU/dL [facility] UA Auto SS WBC Auto Ql (U) 1+ *ABN* (10/20/21 9:00 PM) Invalid Interpretation Code Negative [facility] UA Auto SS WBC LM.HPF (Urine sed) [#/Area] 6-15 /HPF Invalid Interpretation Code 0-5/HPF [facility] UA Auto SS CBC AUTO DIFFon 10-17-2021 BASO # 0.1 103/ul Normal 0.0-0.1 [facility] Comment on above: Performed By: #### N BOX #### [facility] [address] [place] [address] Dr. Dillan Power Basophils/100 WBC (Bld) 0.5 % Normal 0.2-2.0 [facility] Comment on above: Performed By: #### N BOX #### [facility] [address] [place] [address] Dr. Dillan Power EO # 0.2 103/ul Normal 0.0-0.7 [facility] Comment on above: Performed By: #### N BOX #### [facility] [address] [place] [address] Dr. Dillan Power Eosinophils/100 WBC (Bld) 1.9 % Normal 0.9-7.0 [facility] Comment on above: Performed By: #### N BOX #### [facility] [address] [place] [address] Dr. Dillan Power Erythrocyte distribution width (RBC) [Ratio] 16.8 % Critically high 11.0-15.0 [facility] Comment on above: Performed By: #### N BOX #### [facility] [address] [place] [address] Dr. Dillan Power Hematocrit (Bld) [Volume fraction] 24.7 % Critically low 36.0-48.0 [facility] Comment on above: Performed By: #### N BOX #### [facility] [address] [place] [address] Dr. Dillan Power Hemoglobin (Bld) [Mass/Vol] 7.4 g/dL Critically low 12.0-16.0 [facility] Comment on above: Performed By: #### N BOX #### [facility] [address] [place] [address] Dr. Dillan Power IG # 0.15 10e3/ul Critically high 0.00-0.03 [facility] Comment on above: Performed By: #### N BOX #### [facility] [address] [place] [address] Dr. Dillan Power IG % 1.4 % Critically high 0.0-0.5 [facility] Comment on above: Performed By: #### N BOX #### [facility] [address] [place] [address] Dr. Dillan Power LYMPH # 2.2 103/ul Normal 1.2-3.8 [facility] Comment on above: Performed By: #### N BOX #### [facility] [address] [place] [address] Dr. Dillan Power Lymphocytes/100 WBC (Bld) 20.7 % Normal 20.5-60.0 [facility] Comment on above: Performed By: #### N BOX #### [facility] [address] [place] [address] Dr. Dillan Power MANUAL DIFF REQ NO Normal [facility] Comment on above: Performed By: #### N BOX #### [facility] [address] [place] [address] Dr. Dillan Power MCH (RBC) [Entitic mass] 23.2 pg Critically low 26.7-34.0 [facility] Comment on above: Performed By: #### N BOX #### [facility] [address] [place] [address] Dr. Dillan Power MCHC (RBC) [Mass/Vol] 30.0 g/dL Normal 29.9-35.2 [facility] Comment on above: Performed By: #### N BOX #### [facility] [address] [place] [address] Dr. Dillan Power MCV (RBC) [Entitic vol] 77.4 fL Critically low 81.0-99. 0 [facility] Comment on above: Performed By: #### N BOX #### [facility] [address] [place] [address] Dr. Dillan Power MONO # 0.5 103/ul Normal 0.3-0.8 [facility] Comment on above: Performed By: #### N BOX #### [facility] [address] [address] [address] Dillan Power Monocytes/100 WBC (Bld) 4.6 % Normal 1.7-12.0 [facility] Comment on above: Performed By: #### N BOX #### [facility] [address] [address] [address] Dillan Power NEUT # 7.4 103/ul Critically high 1.4-6.5 [facility] Comment on above: Performed By: #### N BOX #### [facility] [address] [place] [address] Dr. Dillan Power Neutrophils/100 WBC (Bld) 70.9 % Normal 43.0-75.0 [facility] Comment on above: Performed By: #### N BOX #### [facility] [address] [place] [address] Dr. Dillan Power Platelet mean volume (Bld) [Entitic vol] 13.2 fL Normal 9.5-13.5 [facility] Comment on above: Performed By: #### N BOX #### [facility] [address] [place] [address] Dr. Dillan Power PLT 169 103/ul Normal 150-450 [facility] Comment on above: Performed By: #### N BOX #### [facility] [address] [place] [address] Dr. Dillan Power RBC 3.19 106/ul Critically low 4.20-5.40 [facility] Comment on above: Performed By: #### N BOX #### [facility] [address] [place] [address] Dr. Dillan Power WBC 10.4 103/ul Normal 4.0-11.0 [facility] Comment on above: Performed By: #### N BOX #### [facility] [address] [place] [address] Dr. Dillan Power CBC AUTO DIFFon 10-15-2021 BASO # 0.0 103/ul Normal 0.0-0.1 [facility] Comment on above: Performed By: #### R PRQ #### [facility] [address] [place] [address] Dr. Dillan Power Basophils/100 WBC (Bld) 0.4 % Normal 0.2-2.0 [facility] Comment on above: Performed By: #### R PRQ #### [facility] [address] [place] [address] Dr. Dillan Poewr EO # 0.1 103/ul Normal 0.0-0.7 [facility] Comment on above: Performed By: #### R PRQ #### [facility] [address] [place] [address] Dr. Dillan Power Eosinophils/100 WBC (Bld) 1.3 % Normal 0.9-7.0 [facility] Comment on above: Performed By: #### R PRQ #### [facility] [address] [place] [address] Dr. Dillan Power Erythrocyte distribution width (RBC) [Ratio] 16.4 % Critically high 11.0-15.0 [facility] Comment on above: Performed By: #### R PRQ #### [facility] [address] [place] [address] Dr. Dillan Power Hematocrit (Bld) [Volume fraction] 30.7 % Critically low 36.0-48.0 [facility] Comment on above: Performed By: #### R PRQ #### [facility] [address] [place] [address] Dr. Dillan Power Hemoglobin (Bld) [Mass/Vol] 9.4 g/dL Critically low 12.0-16.0 [facility] Comment on above: Performed By: #### R PRQ #### [facility] [address] [place] [address] Dr. Dillan Power IG # 0.17 10e3/ul Critically high 0.00-0.03 [facility] Comment on above: Performed By: #### R PRQ #### [facility] [address] [place] [address] Dr. Dillan Power IG % 1.7 % Critically high 0.0-0.5 [facility] Comment on above: Performed By: #### R PRQ #### [facility] [address] [place] [address] Dr. Dillan Power LYMPH # 1.6 103/ul Normal 1.2-3.8 [facility] Comment on above: Performed By: #### R PRQ #### [facility] [address] [place] [address] Dr. Dillan Power Lymphocytes/100 WBC (Bld) 15.4 % Critically low 20.5-60.0 [facility] Comment on above: Performed By: #### R PRQ #### [facility] [address] [place] [address] Dr. Dillan oPwer MANUAL DIFF REQ NO Normal [facility] Comment on above: Performed By: #### R PRQ #### [facility] [address] [place] [address] Dr. Dillan Power MCH (RBC) [Entitic mass] 23.2 pg Critically low 26.7-34.0 [facility] Comment on above: Performed By: #### R PRQ #### [facility] [address] [place] [address] Dr. Dillan Power MCHC (RBC) [Mass/Vol] 30.6 g/dL Normal 29.9-35.2 [facility] Comment on above: Performed By: #### R PRQ #### [facility] [address] [place] [address] Dr. Dillan Power MCV (RBC) [Entitic vol] 75.6 fL Critically low 81.0-99. 0 [facility] Comment on above: Performed By: #### R PRQ #### [facility] [address] [place] [address] Dr. Dillan Power MONO # 0.5 103/ul Normal 0.3-0.8 [facility] Comment on above: Performed By: #### R PRQ #### [facility] [address] [place] [address] Dr. Dillan Power Monocytes/100 WBC (Bld) 5.1 % Normal 1.7-12.0 [facility] Comment on above: Performed By: #### R PRQ #### [facility] [address] [place] [address] Dr. Dillan Power NEUT # 7.7 103/ul Critically high 1.4-6.5 [facility] Comment on above: Performed By: #### R PRQ #### [facility] [address] [place] [address] Dr. Dillan Power Neutrophils/100 WBC (Bld) 76.1 % Critically high 43.0-75.0 [facility] Comment on above: Performed By: #### R PRQ #### [facility] [address] [place] [address] Dr. Dillan Power Platelet mean volume (Bld) [Entitic vol] 12.4 fL Normal 9.5-13.5 [facility] Comment on above: Performed By: #### R PRQ #### [facility] [address] [place] [address] Dr. Dillan Power PLT 172 103/ul Normal 150-450 [facility] Comment on above: Performed By: #### R PRQ #### [facility] [address] [place] [address] Dr. Dillan Power RBC 4.06 106/ul Critically low 4.20-5.40 [facility] Comment on above: Performed By: #### R PRQ #### [facility] [address] [place] [address] Dr. Dillan Power WBC 10.1 103/ul Normal 4.0-11.0 [facility] Comment on above: Performed By: #### R PRQ #### [facility] [address] [place] [address] Dr. Dillan Power Covid-19 PCR ([facility])on 09-29 SARS-CoV-2 (COVID-19) RNA JAYDE+probe Ql (Unsp spec) Not detected Normal NOT DETECTED [facility] Comment on above: Result Comment: When diagnostic testing is negative, the possibility of a false negative should be considered in the context of a patient's recent exposures and the presence of clinical signs and symptoms consistent with SARS-CoV-2. This test is not yet approved or cleared by the [place] FDA. When there are no FDA-approved or cleared tests available, and other criteria are met, FDA can make tests available under an emergency access mechanism called an Emergency Use Authorization (EUA). The EUA for this test is supported by the Pattern Technician of Health and Human Service's declaration that circumstances exist to justify the emergency use of in vitro diagnostics for the detection and/or diagnosis of the virus that causes COVID-19. This EUA will remain in effect for the duration of the COVID-19 declaration justifying emergency of IVDs, unless it is terminated or revoked by the FDA (after which the test may no longer be used). Performed By: #### C VDTBH #### [facility] [address] [place] [address] Dr. Dillan Power DRUG SCREEN RAPID (URINE)on 10-15-2021 AMP Negative Normal NEGATIVE [facility] Comment on above: Performed By: #### R PRQ #### [facility] [address] [place] [address] Dr. Dillan Power BAR Negative Normal NEGATIVE [facility] Comment on above: Performed By: #### R PRQ #### [facility] [address] [place] [address] Dr. Dillan Power BUP Negative Normal NEGATIVE [facility] Comment on above: Performed By: #### R PRQ #### [facility] [address] [place] [address] Dr. Dillan Power BZO Negative Normal NEGATIVE [facility] Comment on above: Performed By: #### R PRQ #### [facility] [address] [place] [address] Dr. Dillan Power DAVE Negative Normal NEGATIVE [facility] Comment on above: Performed By: #### R PRQ #### [facility] [address] [place] [address] Dr. Dillan Power CUT-OFFS SEE BELOW Normal [facility] Comment on above: Result Comment: AMP (Amphetamine): 500ng/mL, BAR (Barbituates): 200 ng/mL, BZO (Benzodiazepines): 150 ng/mL, BUP (Buprenorphine): 10 ng/mL, DAVE (Cocaine): 150 ng/mL, mAMP (Methamphetamine): 500 ng/mL, MTD (Methadone): 200 ng/mL, OPI (Opiates): 100 ng/mL, OXY (Oxycodone): 100 ng/mL, PCP (Phencyclidine): 25 ng/mL, PPX (Propoxyphene): 300 ng/mL, THC (Cannabinoids): 50 ng/mL, TCA (Trycyclic Antidepressants): 300 ng/mL Performed By: #### R PRQ #### [facility] [address] [place] [address] Dr. Dillan Power DRUG CUT HEADER DRUG CLASS TEST SYST EM CUT-OFF CONCENTRATIONS ARE FOLLOWS: Normal [facility] Comment on above: Performed By: #### R PRQ #### [facility] [address] [place] [address] Dr. Dillan Power mAMP Negative Normal NEGATIVE [facility] Comment on above: Performed By: #### R PRQ #### [facility] [address] [place] [address] Dr. Dillan Power MTD Negative Normal NEGATIVE [facility] Comment on above: Performed By: #### R PRQ #### [facility] [address] [place] [address] Dr. Dillan Power OPI Negative Normal NEGATIVE [facility] Comment on above: Performed By: #### R PRQ #### [facility] [address] [place] [address] Dr. Dillan Power OXY Negative Normal NEGATIVE [facility] Comment on above: Performed By: #### R PRQ #### [facility] [address] [place] [address] Dr. Dillan Power PCP Negative Normal NEGATIVE [facility] Comment on above: Performed By: #### R PRQ #### [facility] [address] [place] [address] Dr. Dillan Power PPX Negative Normal NEGATIVE [facility] Comment on above: Performed By: #### R PRQ #### [facility] [address] [place] [address] Dr. Dillan Power TCA Negative Normal NEGATIVE [facility] Comment on above: Performed By: #### R PRQ #### [facility] [address] [place] [address] Dr. Dillan Power THC Negative Normal NEGATIVE [facility] Comment on above: Performed By: #### R PRQ #### [facility] [address] [place] [address] Dr. Dillan Power TYPE AND SCREENon 10-15-2021 TYPE AND SCREEN Negative Normal [facility] Comment on above: Performed By: #### N BOX #### [facility] [address] [place] [address] Dr. Dillan Power UA (CLEAN/CATCH) DIRECTOR HOSPICE OPERATIONS/MICRO I F IND.on 10-12-2021 Bilirubin Ql (U) Negative Normal NEGATIVE [facility] Comment on above: Performed By: #### R PRQ #### [facility] [address] [place] [address] Dr. Dillan Power Clarity (U) CLEAR Normal CLEAR [facility] Comment on above: Performed By: #### R PRQ #### [facility] [address] [place] [address] Dr. Dillan Power Color (U) LT. YELLOW Normal YELLOW [facility] Comment on above: Performed By: #### R PRQ #### [facility] [address] [place] [address] Dr. Dillan Power Glucose Ql (U) Negative Normal NEGATIVE [facility] Comment on above: Performed By: #### R PRQ #### [facility] [address] [place] [address] Dr. Dillan Power Hemoglobin Ql (U) Negative Normal NEGATIVE [facility] Comment on above: Performed By: #### R PRQ #### [facility] [address] [place] [address] Dr. Dillan Power Ketones Ql (U) Negative Normal NEGATIVE [facility] Comment on above: Performed By: #### R PRQ #### [facility] [address] [place] [address] Dr. Dillan Power LEUKOCYTES Negative Normal NEGATIVE [facility] Comment on above: Performed By: #### R PRQ #### [facility] [address] [place] [address] Dr. Dillan Power Nitrite Ql (U) Negative Normal NEGATIVE [facility] Comment on above: Performed By: #### R PRQ #### [facility] [address] [place] [address] Dr. Dillan Power pH (U) 6.5 [pH] Normal 5-9 [facility] Comment on above: Performed By: #### R PRQ #### [facility] [address] [place] [address] Dr. Dillan Power SPEC GRAVITY 1.010 Normal 1.005-<=1.025 [facility] Comment on above: Performed By: #### R PRQ #### [facility] [address] [place] [address] Dr. Dillan Power UA PROTEIN Negative Normal NEGATIVE/ TRACE [facility] Comment on above: Performed By: #### R PRQ #### [facility] [address] [place] [address] Dr. Dillan Power UR MICRO IND NOT INDICATED Normal [facility] Comment on above: Performed By: #### R PRQ #### [facility] [address] [place] [address] Dr. Dillan Power Urobilinogen Qn (U) 0.2 {Venus'U}/dL Normal 0.2 - 1. 0 [facility] Comment on above: Performed By: #### R PRQ #### [facility] [address] [place] [address] Dr. Dillan Power UA (CLEAN/CATCH) DIRECTOR HOSPICE OPERATIONS/MICRO I F IND.on 10-04-2021 Bilirubin Ql (U) Negative Normal NEGATIVE [facility] Comment on above: Performed By: #### N BOX #### [facility] [address] [place] [address] Dr. Dillan Power Clarity (U) SL CLOUDY Abnormal CLEAR [facility] Comment on above: Performed By: #### N BOX #### [facility] [address] [place] [address] Dr. Dillan Power Color (U) YELLOW Normal YELLOW [facility] Comment on above: Performed By: #### N BOX #### [facility] [address] [place] [address] Dr. Dillan Power Glucose Ql (U) Negative Normal NEGATIVE [facility] Comment on above: Performed By: #### N BOX #### [facility] [address] [place] [address] Dr. Dillan Power Hemoglobin Ql (U) Negative Normal NEGATIVE [facility] Comment on above: Performed By: #### N BOX #### [facility] [facility] [address] [place] [address] Dr. Dillan Power Ketones Ql (U) Negative Normal NEGATIVE [facility] Comment on above: Performed By: #### N BOX #### [facility] [address] [place] [address] Dr. Dillan Power LEUKOCYTES Negative Normal NEGATIVE [facility] Comment on above: Performed By: #### N BOX #### [facility] [address] [place] [address] Dr. Dillan Power Nitrite Ql (U) Negative Normal NEGATIVE [facility] Comment on above: Performed By: #### N BOX #### [facility] [address] [place] [address] Dr. Dillan Power pH (U) 6.0 [pH] Normal 5-9 [facility] Comment on above: Performed By: #### N BOX #### [facility] [address] [place] [address] Dr. Dillan Power SPEC GRAVITY >=1.030 Abnormal 1.005-<=1.025 [facility] Comment on above: Performed By: #### N BOX #### [facility] [address] [place] [address] Dr. Dillan Power UA PROTEIN Negative Normal NEGATIVE/ TRACE [facility] Comment on above: Performed By: #### N BOX #### [facility] [address] [place] [address] Dr. Dillan Power UR MICRO IND NOT INDICATED Normal [facility] Comment on above: Performed By: #### N BOX #### [facility] [address] [place] [address] Dr. Dillan Power Urobilinogen Qn (U) 0.2 {Venus'U}/dL Normal 0.2 - 1. 0 [facility] Comment on above: Performed By: #### N BOX #### [facility] [address] [place] [address] Dr. Dillan Power CHLAMYDIA/GONOCOCCUS JAYDE ( AB/URINE/PAPon 10-03-2021 Chlamydia trachomatis, JAYDE Negative Normal Negative [facility] Comment on above: Performed By: #### C T/NGNA #### [facility] [address] [place] [address] Dr. Dillan Power Neisseria gonorrhoeae, JAYDE Negative Normal Negative [facility] Comment on above: Performed By: #### C T/NGNA #### [facility] [address] [place] [address] Dr. Dillan Power VAGINITIS/VAGINOSIS DNA PROB José 10-03-2021 Kailee species Negative Normal Negative [facility] Comment on above: Performed By: #### V AGINT #### [facility] [address] [place] [address] Dr. Dillan Power Gardnerella vaginalis Positive Abnormal Negative [facility] Comment on above: Performed By: #### V AGINT #### [facility] [address] [place] [address] Dr. Dillan Power Trichomonas vaginalis Negative Normal Negative [facility] Comment on above: Performed By: #### V AGINT #### [facility] [address] [place] [address] Dr. Dillan Power GROUP B STREP CULTUREon S. agalactiae Ag Ql (Unsp spec) Culture Observations: NEGATIVE FOR GROUP B STREPTOCOCCUS. Normal [facility] Comment on above: Performed By: #### N BOX #### [facility] [address] [place] [address] Dr. Dillan Power US PREG GROWTHon 09-30-2021 US PREG GROWTH EXAMINATION: US PREG GROWTH HISTORY: Excessive growth affecting management of mother COMPARISON: Ultrasound growth 08/05/2021 FINDINGS: Heart Rate: 133.0 bpm Number: 1.0 Position: Cephalic Amniotic Fluid Volume: 21.1 cm Maximum Vertical Pocket: 9.0 cm BIOMETRY: BPD: 9.6 cm cm; 39 weeks 2 days; > 97% HC: 34.0 cmcm; 39 weeks 1 days; 77% AC: 34.0 cm cm; 37 weeks 6 days; 87% FL: 7.1 cm cm; 36 weeks 4 days; 39% EFW: 3335.6 grams; 81% FL/AC: 21.0 FL/BPD: 74.2 HC/AC: 1.0 GESTATIONAL AGE: Age by EDC: 36 weeks 6 days AYDE by EDC: 10/22/2021 Age by US: 38 weeks, 2 days AYDE by US: 10/12/2021 IMPRESSION: 1. Single live intrauterine with growth detailed above. 2. Biparietal diameter is greater than 97th percentile. Electronically authenticated by: CHRISTINA MIRAMONTES Date: 2021-09-30 17:17 Normal [facility] CULTURE URINEon 09-25-2021 CULTURE URINE Culture Observations : MODERATE GROWTH OF MIXED GENITAL LAUREANO. NO POTENTIAL PATHOGENS SEEN. Normal [facility] Comment on above: Performed By: #### U RCX #### [facility] [address] [place] [address] Dr. Dillan Power UA (CLEAN/CATCH) DIRECTOR HOSPICE OPERATIONS/MICRO I F IND.on 09-25-2021 Bilirubin Ql (U) Negative Normal NEGATIVE [facility] Comment on above: Performed By: #### U ACSWILL UMICRO #### [facility] [address] [place] [address] Dr. Dillan Power Clarity (U) CLEAR Normal CLEAR [facility] Comment on above: Performed By: #### U ACSWILL UMICRO #### [facility] [address] [place] [address] Dr. Dillan Power Color (U) YELLOW Normal YELLOW [facility] Comment on above: Performed By: #### U ACSIND UMICRO #### [facility] [address] [place] [address] Dr. Dillan Power Glucose Ql (U) Negative Normal NEGATIVE [facility] Comment on above: Performed By: #### U ACSIND, UMICRO #### [facility] [address] [address] [address] Dillan Power Hemoglobin Ql (U) Negative Normal NEGATIVE [facility] Comment on above: Performed By: #### U ACSIND, UMICRO #### [facility] [address] [address] [address] Dillan Power Ketones Ql (U) TRACE Abnormal NEGATIVE [facility] Comment on above: Performed By: #### U ACSIND, UMICRO #### [facility] [address] [address] [address] Dillan Power LEUKOCYTES Negative Normal NEGATIVE [facility] Comment on above: Performed By: #### U ACSIND, UMICRO #### [facility] [address] [place] [address] Dr. Dillan Power Nitrite Ql (U) Negative Normal NEGATIVE [facility] Comment on above: Performed By: #### U ACSIND, ICRO #### [facility] [address] [place] [address] Dr. Dlilan Power pH (U) 6.0 [pH] Normal 5-9 [facility] Comment on above: Performed By: #### U ACSIND, ICRO #### [facility] [address] [place] [address] Dr. Dillan Power SPEC GRAVITY >=1.030 Abnormal 1.005-<=1.025 [facility] Comment on above: Performed By: #### U ACSIND, UMICRO #### [facility] [address] [place] [address] Dr. Dillan Power UA PROTEIN TRACE Normal NEGATIVE/ TRACE [facility] Comment on above: Performed By: #### U ACSIND, UMICRO #### [facility] [address] [place] [address] Dr. Dillan Power UR MICRO IND INDICATED Normal [facility] Comment on above: Performed By: #### U ACSIND, UMICRO #### [facility] [address] [place] [address] Dr. Dillan Power Urobilinogen Qn (U) 0.2 {Venus'U}/dL Normal 0.2 - 1. 0 [facility] Comment on above: Performed By: #### U ACSWILL, UMICRO #### [facility] [address] [place] [address] Dr. Dillan Power URINE MICROSCOPIC ONLYon BACTERIA TRACE Abnormal NONE SEEN [facility] Comment on above: Performed By: #### U ACSWILL, UMICRO #### [facility] [address] [place] [address] Dr. Dillan Power Bacteria identified Cx Nom (U) INDICATED Normal [facility] Comment on above: Performed By: #### U ACSWILL, UMICRO #### [facility] [address] [place] [address] Dr. Dillan Power CAST NONE SEEN Normal NONE SEEN [facility] Comment on above: Performed By: #### U ACSWILL, UMICRO #### [facility] [address] [place] [address] Dr. Dillan Power Crystals LM Nom (Urine sed) NONE SEEN Normal NONE SEEN [facility] Comment on above: Performed By: #### U ACSWILL, UMICRO #### [facility] [address] [place] [address] Dr. Dillan Power Epithelial cells LM Ql (Urine sed) MODERATE Abnormal NONE SEEN /RARE [facility] Comment on above: Performed By: #### U ACSWILL UMICRO #### [facility] [address] [place] [address] Dr. Dillan Power MUCOUS MODERATE Abnormal NONE SEEN [facility] Comment on above: Performed By: #### U ACSWILL, UMICRO #### [facility] [address] [place] [address] Dr. Dillan Power RBC 0-2 Normal 0-2 [facility] Comment on above: Performed By: #### U ACSWILL, UMICRO #### [facility] [address] [place] [address] Dr. Dillan Power WBC 0-2 Abnormal NONE SEEN [facility] Comment on above: Performed By: #### U ACSIND, UMICRO #### [facility] [address] [place] [address] Dr. Dillan Power URINALYSISOrdered By: Wale Maynard on 09-17-2021 Bacteria LM Ql (Urine sed) 1+ /HPF Invalid Interpretation Code Trace/HPF [facility] UA Auto SS Bilirubin Ql (U) Negative (09/17/21 11:29 PM) Normal Negative [facility] UA Auto SS Clarity (U) Slightly Cloudy *ABN* (09/17/21 11:29 PM) Invalid Interpretation Code Clear [facility] UA Auto SS Color (U) Yellow (09/17/21 11:29 PM) Normal Yellow [facility] UA Auto SS Epithelial cells.squamous LM.HPF (Urine sed) [#/Area] 9-10 /HPF Normal 0-2/HPF [facility] UA Auto SS Glucose Test strip (U) [Mass/Vol] Negative (09/17/21 11:29 PM) Normal Negative [facility] UA Auto SS Hemoglobin Ql (U) Negative (09/17/21 11:29 PM) Normal Negative [facility] UA Auto SS Ketones (U) [Mass/Vol] Trace *ABN* (09/17/21 11:29 PM) Invalid Interpretation Code Negative [facility] UA Auto SS Hoople.plasma/Hoople. RBC (Bld) [Mass ratio] 0-3 /HPF Normal 0-3/HPF [facility] UA Auto SS Nitrite Ql (U) Negative (09/17/21 11:29 PM) Normal Negative [facility] UA Auto SS pH (U) 6.0 *NA* (09/17/21 11:29 PM) Invalid Interpretation Code 5.0 - 9.0 [facility] UA Auto SS Protein (U) [Mass/Vol] Trace *ABN* (09/17/21 11:29 PM) Invalid Interpretation Code Negative [facility] UA Auto SS Specific gravity (U) [Rel density] >=1.030 *NA* (09/17/21 11:29 PM) Invalid Interpretation Code 1.005 - 1.030 [facility] UA Auto SS UA Spec Desc Clean Catch (09/17/21 11:29 PM) Normal [facility] UA Auto SS Urobilinogen Qn (U) 0.3237461 {Venus'U}/dL Normal 0.0 - 1.0 EU/dL [facility] UA Auto SS WBC Auto Ql (U) Negative (09/17/21 11:29 PM) Normal Negative [facility] UA Auto SS WBC LM.HPF (Urine sed) [#/Area] 0-5 /HPF Normal 0-5/HPF [facility] UA Auto SS CHEMISTRYOrdered By: SYSTEM SYSTEM on 08-26-2021 Amphetamines Screen method >1000 ng/mL Ql (U) Negative (08/26/21 11:00 PM) Normal Negative [facility] Remisol Barbiturates Screen Ql (U) Negative (08/26/21 11:00 PM) Normal Negative [facility]isol Benzodiazepines Ql (U) Negative (08/26/21 11:00 PM) Normal Negative [facility] Buprenorphine Ql (U) Negative (08/26/21 11:00 PM) Normal Negative [facility] Cocaine Ql (U) Negative (08/26/21 11:00 PM) Normal Negative [facility] Opiates Screen Ql (U) Negative (08/26/21 11:00 PM) Normal Negative [facility] Phencyclidine Screen method >25 ng/mL Ql (U) Negative (08/26/21 11:00 PM) Normal Negative [facility]isol Tetrahydrocannabinol Screen method >50 ng/mL Ql (U) Negative (08/26/21 11:00 PM) Normal Negative [facility] Remisol URINALYSISOrdered By: Summer drake on 08-26-2021 Bacteria LM Ql (Urine sed) Trace /HPF Normal Trace/HPF [facility] UA Auto SS Bilirubin Ql (U) Negative (08/26/21 11:00 PM) Normal Negative [facility] UA Auto SS Clarity (U) Clear (08/26/21 11:00 PM) Normal Clear [facility] UA Auto SS Color (U) Yellow (08/26/21 11:00 PM) Normal Yellow [facility] UA Auto SS Epithelial cells.squamous LM.HPF (Urine sed) [#/Area] 3-4 /HPF Normal 0-2/HPF [facility] UA Auto SS Glucose Test strip (U) [Mass/Vol] Negative (08/26/21 11:00 PM) Normal Negative [facility] UA Auto SS Hemoglobin Ql (U) Negative (08/26/21 11:00 PM) Normal Negative [facility] UA Auto SS Ketones (U) [Mass/Vol] Negative (08/26/21 11:00 PM) Normal Negative [facility] UA Auto SS Hoople.plasma/Hoople. RBC (Bld) [Mass ratio] 0-3 /HPF Normal 0-3/HPF [facility] UA Auto SS Nitrite Ql (U) Negative (08/26/21 11:00 PM) Normal Negative [facility] UA Auto SS pH (U) 6.0 *NA* (08/26/21 11:00 PM) Invalid Interpretation Code 5.0 - 9.0 [facility] UA Auto SS Protein (U) [Mass/Vol] Negative (08/26/21 11:00 PM) Normal Negative [facility] UA Auto SS Specific gravity (U) [Rel density] 1.020 *NA* (08/26/21 11:00 PM) Invalid Interpretation Code 1.005 - 1.030 [facility] UA Auto SS UA Spec Desc Clean Catch (08/26/21 11:00 PM) Normal [facility] UA Auto SS Urobilinogen Qn (U) 0.6323633 {Venus'U}/dL Normal 0.0 - 1.0 EU/dL [facility] UA Auto SS WBC Auto Ql (U) Negative (08/26/21 11:00 PM) Normal Negative [facility] UA Auto SS WBC LM.HPF (Urine sed) [#/Area] 0-5 /HPF Normal 0-5/HPF [facility] UA Auto SS US PREG GROWTHon 08-05-2021 US PREG GROWTH EXAMINATION: US PREG GROWTH HISTORY: Large for gestation age fetus COMPARISON: No relevant comparison available. FINDINGS: Heart Rate: 138.0 bpm Amniotic Fluid Volume: 20.4 cm Number: 1.0 Position: Cephalic presentation, longitudinal lie Maximum Vertical Pocket: 5.2 cm cm 5.6 cm cm 6.4 cm cm 3.3 cm cm BIOMETRY: BPD: 7.7 cm cm; 31 weeks 0 days; 93% HC: 28.9 cmcm; 31 weeks 5 days, 93% AC: 27.6 cm cm; 31 weeks 5 days, greater than 97% FL: 5.7 cm cm; 30 weeks 1 days; 70.3 % % EFW: 1708.0 grams, 3 lbs. 12 oz., greater than 97% FL/AC: 20.8 FL/BPD: 74.3 HC/AC: 1.1 GESTATIONAL AGE: Age by EDC: 28 weeks 6 days AYDE by EDC: 10/22/2021 Age by US: 31 weeks 1 day AYDE by US: 10/06/2021 IMPRESSION: Large for gestational age. Estimated weight greater than the 97th percentile Electronically authenticated by: LEONIDES SWARTZ Date: 2021-08-05 12:05 Normal [facility] HEMOGRAM AND PLATELon 2021 Hematocrit (Bld) [Volume fraction] 31.4 % Critically low 36.0-48.0 [facility] Comment on above: Performed By: #### N BOX #### [facility] [address] [place] [address] Dr. Dillan Power Hemoglobin (Bld) [Mass/Vol] 10.0 g/dL Critically low 12.0-16.0 [facility] Comment on above: Performed By: #### N BOX #### [facility] [address] [place] [address] Dr. Dillan Power MCH (RBC) [Entitic mass] 26.0 pg Critically low 26.7-34.0 [facility] Comment on above: Performed By: #### N BOX #### [facility] [address] [place] [address] Dr. Dillan Power MCHC (RBC) [Mass/Vol] 31.8 g/dL Normal 29.9-35.2 [facility] Comment on above: Performed By: #### N BOX #### [facility] [address] [place] [address] Dr. Dillan Power MCV (RBC) [Entitic vol] 81.8 fL Normal 81.0-99.0 [facility] Comment on above: Performed By: #### N BOX #### [facility] [address] [place] [address] Dr. Dillan Power PLT 226 103/ul Normal 150-450 [facility] Comment on above: Performed By: #### N BOX #### [facility] [address] [place] [address] Dr. Dillan Power RBC 3.84 106/ul Critically low 4.20-5.40 [facility] Comment on above: Performed By: #### N BOX #### [facility] [address] [address] [address] Dillan Power WBC 9.8 103/ul Normal 4.0-11.0 [facility] Comment on above: Performed By: #### N BOX #### [facility] [address] [address] [address] Dillan Power MICRO OTHER TESTSOrdered By: Wale Maynard on 07-24-2021 Influenzae A Ag Negative (07/24/21 1:25 AM) Normal Negative [facility] S[facility] Influenzae B Ag Negative (07/24/21 1:25 AM) Normal Negative [facility] Rapid COV Int NEG [place] (07/24/21 1:25 AM) Normal [facility] Rapid COV Int POS [place] (07/24/21 1:25 AM) Normal [facility] SARS-CoV+SARS-CoV-2 (COVID-19) Ag IA.rapid Ql (Resp) Not Detected (07/24/21 1:25 AM) Normal Not Detected [facility] COVID-19, Rapidon 04-10-2021 Interpretation and review of laboratory results Abnormal [facility] SARS-CoV-2 (COVID-19) RNA JAYDE+probe Ql (Unsp spec) Detected Abnormal Not Detected [facility] Comment on above: Rapid NAAT: The specimen is POSITIVE for SARS-Cov-2, the novel coronavirus associated with COVID-19. This test has been authorized by the FDA under an Emergency Use Authorization (EUA) for use by authorized laboratories. The ID NOW COVID-19 assay is designed to detect the virus that causes COVID-19 in patients with signs and symptoms of infection who are suspected of COVID-19. An individual without symptoms of COVID-19 and who is not shedding SARS-CoV-2 virus would expect to have a negative (not detected) result in this assay. Fact sheet for Healthcare Providers: https://www.fda.gov/media/411015/download Fact sheet for Patients: https://www.fda.gov/media/946343/download Methodology: Isothermal Nucleic Acid Amplification Results reported to the appropriate Health Department Specimen Description .NASOPHARYNGEAL SWAB [facility] [id number] 04-10-2021 SARS-CoV-2 (COVID-19) RNA JAYDE+probe Ql (Unsp spec) Detected Abnormal NOTDET [facility] Comment on above: Result Comment: Rapid NAAT: The specimen is POSITIVE for SARS-Cov-2, the novel coronavirus associated with COVID-19. This test has been authorized by the FDA under an Emergency Use Authorization (EUA) for use by authorized laboratories. The ID NOW COVID-19 assay is designed to detect the virus that causes COVID-19 in patients with signs and symptoms of infection who are suspected of COVID-19. An individual without symptoms of COVID-19 and who is not shedding SARS-CoV-2 virus would expect to have a negative (not detected) result in this assay. Fact sheet for Healthcare Providers: https://www.fda.gov/media/799178/download Fact sheet for Patients: https://www.fda.gov/media/711591/download Methodology: Isothermal Nucleic Acid Amplification Results reported to the appropriate Health Department Performed By: #### C OVRB #### [facility] [address] [place] [address] Productivity Engineer: Leonides Rodrigues MD Strep Gr A Direct Agon 04-10 Strep Gr A Direct Ag Specimen Descriptio n .THROAT Special Requests NOT REPORTED Direct Exam Rapid Strep A negative. A negative Rapid Group A Strep Screen result does not rule out the possibility of Group A Streptococci in the specimen. A Group A Strep DNA test is available upon request. Report Status FINAL 04/10/2021 Normal [facility] Comment on above: Performed By: #### S GPA #### [facility] [address] [place] [address] Productivity Engineer: Leonides Rodrigues MD Strep Screen Group A Throato n 04-10-2021 S. pyogenes Ag IA Ql (Unsp spec) Rapid Strep A negative. A negative Rapid Group A Strep Screen result does not rule out the possibility of Group A Streptococci in the specimen. A Group A Strep DNA test is available upon request. [facility] Special Requests NOT REPORTED [facility] Specimen Description .THROAT [facility][note 2] HEPATITIS C VIRUS AB W/ REFL EX QUANTon 04-06-2021 HCV AB >11.0 Critically high 0.0-0.9 [facility] Comment on above: Result Comment: . Performed By: #### R PRQ #### [facility] [address] [place] [address] Dr. Dillan Power HCV log10 6.777 log10 IU/mL Normal [facility] Comment on above: Performed By: #### R PRQ #### [facility] [address] [place] [address] Dr. Dillan Power Hep C Quantitation [id number] IU/mL Normal [facility] Comment on above: Performed By: #### R PRQ #### [facility] [address] [place] [address] Dr. Dillan Power Interpretation Comment Normal [facility] Comment on above: Result Comment: Posi tive HCV antibody screen with the presence of HCV RNA is consistent with active infection. Performed By: #### R PRQ #### [facility] [address] [place] [address] Dr. Dillan Power Test Information: Comment Normal [facility] Comment on above: Result Comment: The quantitative range of this assay is 15 IU/mL to 100 million IU/mL. Performed By: #### R PRQ #### [facility] [address] [place] [address] Dr. Dillan Power RUBELLA AB IGGon 04-05-2021 Rubella Antibodies, IgG 1.46 index Normal Immune >0.99 [facility] Comment on above: Result Comment: Non- immune <0.90 Equivocal 0.90 - 0.99 Immune >0.99 Performed By: #### R UBIGG #### [facility] [address] [place] [address] Dr. Dillan Power HEP B SURFACE ANTIGEN SCREEN on 04-04-2021 HBsAg Screen Negative Normal Negative [facility] Comment on above: Performed By: #### R PRQ #### [facility] [address] [place] [address] Dr. Dillan Power HIV 1 AND 2 WITH REFLEXon HIV Screen 4th Generation wRfx Non-Reactive Normal Non Reactive [facility] Comment on above: Performed By: #### R PRQ #### [facility] [address] [place] [address] Dr. Dillan Power RPR QUANTon 04-04-2021 Rapid Plasma Reagin, Quant Non-Reactive Normal NonRea<1:1 [facility] Comment on above: Performed By: #### R PRQ #### [facility] [address] [place] [address] Dr. Dillan Power CBC AUTO DIFFon 04-02-2021 BASO # 0.0 103/ul Normal 0.0-0.1 [facility] Comment on above: Performed By: #### R PRQ #### [facility] [address] [place] [address] Dr. Dillan Power Basophils/100 WBC (Bld) 0.4 % Normal 0.2-2.0 [facility] Comment on above: Performed By: #### R PRQ #### [facility] [address] [place] [address] Dr. Dillan Power EO # 0.2 103/ul Normal 0.0-0.7 [facility] Comment on above: Performed By: #### R PRQ #### [facility] [address] [place] [address] Dr. Dillan Power Eosinophils/100 WBC (Bld) 2.8 % Normal 0.9-7.0 [facility] Comment on above: Performed By: #### R PRQ #### [facility] [address] [place] [address] Dr. Dillan Power Erythrocyte distribution width (RBC) [Ratio] 13.2 % Normal 11.0-15.0 [facility] Comment on above: Performed By: #### R PRQ #### [facility] [address] [place] [address] Dr. Dillan Power Hematocrit (Bld) [Volume fraction] 36.3 % Normal 36.0-48.0 [facility] Comment on above: Performed By: #### R PRQ #### [facility] [address] [place] [address] Dr. Dillan Power Hemoglobin (Bld) [Mass/Vol] 11.6 g/dL Critically low 12.0-16.0 [facility] Comment on above: Performed By: #### R PRQ #### [facility] [address] [place] [address] Dr. Dillan Power IG # 0.01 10e3/ul Normal 0.00-0.03 [facility] Comment on above: Performed By: #### R PRQ #### [facility] [address] [place] [address] Dr. Dillan Power IG % 0.1 % Normal 0.0-0.5 [facility] Comment on above: Performed By: #### R PRQ #### [facility] [address] [place] [address] Dr. Dillan Power LYMPH # 1.9 103/ul Normal 1.2-3.8 [facility] Comment on above: Performed By: #### R PRQ #### [facility] [address] [place] [address] Dr. Dillan Power Lymphocytes/100 WBC (Bld) 25.9 % Normal 20.5-60.0 [facility] Comment on above: Performed By: #### R PRQ #### [facility] [address] [place] [address] Dr. Dillan Power MANUAL DIFF REQ NO Normal [facility] Comment on above: Performed By: #### R PRQ #### [facility] [address] [place] [address] Dr. Dillan Power MCH (RBC) [Entitic mass] 27.3 pg Normal 26.7-34.0 [facility] Comment on above: Performed By: #### R PRQ #### [facility] [address] [place] [address] Dr. Dillan Power MCHC (RBC) [Mass/Vol] 32.0 g/dL Normal 29.9-35.2 [facility] Comment on above: Performed By: #### R PRQ #### [facility] [address] [place] [address] Dr. Dillan Power MCV (RBC) [Entitic vol] 85.4 fL Normal 81.0-99.0 [facility] Comment on above: Performed By: #### R PRQ #### [facility] [address] [place] [address] Dr. Dillan Power MONO # 0.4 103/ul Normal 0.3-0.8 [facility] Comment on above: Performed By: #### R PRQ #### [facility] [address] [place] [address] Dr. Dillan Power Monocytes/100 WBC (Bld) 5.7 % Normal 1.7-12.0 [facility] Comment on above: Performed By: #### R PRQ #### [facility] [address] [place] [address] Dr. Dillan Power NEUT # 4.7 103/ul Normal 1.4-6.5 [facility] Comment on above: Performed By: #### R PRQ #### [facility] [address] [place] [address] Dr. Dillan Power Neutrophils/100 WBC (Bld) 65.1 % Normal 43.0-75.0 [facility] Comment on above: Performed By: #### R PRQ #### [facility] [address] [place] [address] Dr. Dillan Power Platelet mean volume (Bld) [Entitic vol] 11.0 fL Normal 9.5-13.5 [facility] Comment on above: Performed By: #### R PRQ #### [facility] [address] [place] [address] Dr. Dillan Power PLT 264 103/ul Normal 150-450 [facility] Comment on above: Performed By: #### R PRQ #### [facility] [address] [place] [address] Dr. Dillan Power RBC 4.25 106/ul Normal 4.20-5.40 [facility] Comment on above: Performed By: #### R PRQ #### [facility] [address] [place] [address] Dr. Dillan Power WBC 7.3 103/ul Normal 4.0-11.0 [facility] Comment on above: Performed By: #### R PRQ #### [facility] [address] [place] [address] Dr. Dillan Power CULTURE URINEon 04-02-2021 CULTURE URINE Culture Observations : MODERATE GROWTH OF MIXED GENITAL LAUREANO. NO POTENTIAL PATHOGENS SEEN. Normal [facility] Comment on above: Performed By: #### U RCX #### [facility] [address] [place] [address] Dr. Dillan Power GLYCOHEMOGLOBIN A1Con 2020 ADA RECOMMENDATION ADA THERAPEUTIC TARG ET 6.0 - 7.0 ACTION SUGGESTED > 7.0 Normal [facility] Comment on above: Performed By: #### N BOX #### [facility] [address] [place] [address] Dr. Dillan Power Glucose [Mass/Vol] 111 mg/dL Normal [facility] Comment on above: Performed By: #### N BOX #### [facility] [address] [place] [address] Dr. Dillan Power HbA1c (Bld) [Mass fraction] 5.5 % Normal <=6.0 [facility] Comment on above: Performed By: #### N BOX #### [facility] [address] [place] [address] Dr. Dillan Power TONY BOX TEST PT SEND OUTo n 04-02-2021 SENT TO REF LAB 04/02/2021 Normal [facility] Comment on above: Performed By: #### N BOX #### [facility] [address] [place] [address] Dr. Dillan Power TYPE AND SCREENon 04-02-2021 TYPE AND SCREEN Negative Normal [facility] Comment on above: Performed By: #### N BOX #### [facility] [address] [place] [address] Dr. Dillan Power US PREG TVon 03-19-2021 US PREG TV EXAMINATION: US PREG TV HISTORY: Missed period COMPARISON: No relevant comparison available. FINDINGS: Transvaginal images Christianson intrauterine gestation MSD: 4.51 cm, 10 weeks 1 day CRL: 2.2 cm, 9 weeks 0 days Yolk sac: 0.363 cm Heart rate: 162 bpm Cervix: Closed, 4.2 cm The uterus is normal in appearance, anteverted, anteflexed The right ovary is normal in appearance measuring 4.2 x 2.3 x 2.3 cm. Left ovary is not visualized Clinical age: 8 weeks 1 day Clinical AYDE: 10/28/2021 Ultrasound age: 9 weeks 0 days Ultrasound AYDE: 10/22/2021 IMPRESSION: Viable christianson intrauterine gestation measuring 9 weeks 0 days Electronically authenticated by: LEONIDES SWARTZ Date: 2021-03-19 17:08 Normal [facility] PREG QUANT HCGon 02-23-2021 HCG QUANT 07074 mIU/mL [facility] Comment on above: Performed By: #### R PRQ #### [facility] [address] [place] [address] Dr. Dillan Power HCG RANGE SEE BELOW [facility] Comment on above: Result Comment: 5-50 0-1 WEEK 40-300 1-2 WEEKS 100-1,000 2-3 WEEKS 500-6,000 3-4 WEEKS 5,000-200,000 1-2 MONTHS 10,000-100,000 2-3 MONTHS 3,000-50,000 2ND TRIMESTER 1,000-50,000 3RD TRIMESTER Performed By: #### R PRQ #### [facility] [address] [place] [address] Dr. Dillan Power PAP ACOG PANEL 2: 21 to 29on 02-09-2021 . . [facility] Comment on above: Performed By: #### R PRQ #### [facility] [address] [place] [address] Dr. Dillan Power Age Gdln ACOG Testing 21-29 Normal [facility] Comment on above: Performed By: #### R PRQ #### [facility] [address] [place] [address] Dr. Dillan Power DIAGNOSIS: Comment [facility] Comment on above: Result Comment: NEGA TIVE FOR INTRAEPITHELIAL LESION OR MALIGNANCY. Performed By: #### R PRQ #### [facility] [address] [place] [address] Dr. Dillan Power Methodology: Comment Normal [facility] Comment on above: Result Comment: This liquid based ThinPrep(R) pap test was screened with the use of an image guided system. Performed By: #### R PRQ #### [facility] [address] [place] [address] Dr. Dillan Power Note: Comment Normal [facility] Comment on above: Result Comment: The Pap smear is a screening test designed to aid in the detection of premalignant and malignant conditions of the uterine cervix. It is not a diagnostic procedure and should not be used as the sole means of detecting cervical cancer. Both false-positive and false-negative reports do occur. . Performed By: #### R PRQ #### [facility] [address] [place] [address] Dr. Dillan Power Performed by: Comment Normal [facility] Comment on above: Result Comment: Claudia Portillo, Tafe Registrar (ASCP) Performed By: #### R PRQ #### [facility] [address] [place] [address] Dr. Dillan Power Reflex Criteria: Comment Normal [facility] Comment on above: Result Comment: The HPV DNA reflex criteria were not met with this specimen result therefore, no HPV testing was performed. . Performed By: #### R PRQ #### [facility] [address] [place] [address] Dr. Dillan Power Specimen adequacy: Comment Normal [facility] Comment on above: Result Comment: Sati sfactory for evaluation. Endocervical and/or squamous metaplastic cells (endocervical component) are present. Performed By: #### R PRQ #### [facility] [address] [place] [address] Dr. Dillan Power Vital Signs Date Time Vital Sign Value Performing Clinician Facility 08-23-2023 01:08-0400 Hourly Rounding Sarita Packer [facility] Comment on above: Result Comment: Patient discharged to pr ivate vehicle. No s/s of distress at the time of discharge. 08-23-2023 01:01-0400 Hourly Rounding Sarita Packer [facility] Comment on above: Result Comment: Discharge instructions rosanna pacheco. Appropriate questions answered. patient up to the bathroom to change. 08-23-2023 00:50-0400 Hourly Rounding Sarita Proctorra [facility] Comment on above: Result Comment: Patient state she isnt h aving any more abdominal pain but still has some right sided back pain. 08-23-2023 00:13-0400 Blood Pressure Location Sarita Nataprawira [facility] 08-23-2023 00:13-0400 Body temperature 98.06 [degF] Sarita Nataprawira [facility] 08-23-2023 00:13-0400 Diastolic blood pressure 72 mm[Hg] Sarita Nataprawira [facility] 08-23-2023 00:13-0400 Heart rate 96 /min Sarita Nataprawira [facility] 08-23-2023 00:13-0400 Mean blood pressure 91 mm[Hg] Sarita Nataprawira [facility] 08-23-2023 00:13-0400 Respiratory rate 16 /min Sarita Nataprawira [facility] 08-23-2023 00:13-0400 Systolic blood pressure 128 mm[Hg] Sarita Nataprawira [facility] 08-06-2023 20:45-0400 Body height 162.6 cm Pat Teixeira DO [facility] [employer] [facility] 08-06-2023 20:45-0400 Body mass index (BMI) [Ratio] 42.91 kg/m2 Pat [facility] 08-06-2023 20:45-0400 Body temperature 98.01 [degF] Pat Teixeira DO [facility] [employer] [facility] 08-06-2023 20:45-0400 Body weight 113.4 kg Pat Teixeira DO [facility] 08-06-2023 20:45-0400 Diastolic blood pressure 87 mm[Hg] Pat Teixeira DO [facility] 08-06-2023 20:45-0400 Heart rate 115 /min Pat Teixeira DO [facility] 08-06-2023 20:45-0400 Respiratory rate 18 /min Pat Teixeira DO [facility] 08-06-2023 20:45-0400 SaO2% (BldA) [Mass fraction] 98 % Pat Teixeira DO [facility] 08-06-2023 20:45-0400 Systolic blood pressure 160 mm[Hg] Pat Teixeira DO [facility] 02-17-2023 15:04-0400 Body height 167.6 cm Lorna Dobson MARINE PIPEFITTER HELPER.AUTOMOBILE MECHANIC Work Phone: [facility] 02-17-2023 15:04-0400 Body weight 111.04 kg Lorna Dobson MARINE PIPEFITTER HELPER.AUTOMOBILE MECHANIC Work Phone: [facility] 02-17-2023 15:04-0400 Diastolic blood pressure 82 mm[Hg] Lorna Dobson MARINE PIPEFITTER HELPER.AUTOMOBILE MECHANIC Work Phone: [facility] 02-17-2023 15:04-0400 Heart rate 97 /min Lorna Dobson MARINE PIPEFITTER HELPER.AUTOMOBILE MECHANIC Work Phone: [facility] 02-17-2023 15:04-0400 SaO2% (BldA) [Mass fraction] 96 % Lorna Dobson APRN.AUTOMOBILE MECHANIC Work Phone: [facility] 02-17-2023 15:04-0400 Systolic blood pressure 127 mm[Hg] Lorna Dobson MARINE PIPEFITTER HELPER.AUTOMOBILE MECHANIC Work Phone: [facility] 01-09-2023 14:08-0400 Body height 167.6 cm Kelsi Freedman MARINE PIPEFITTER HELPER.AUTOMOBILE MECHANIC Work Phone: [facility] 01-09-2023 14:08-0400 Body weight 110.68 kg Kelsi Freedman MARINE PIPEFITTER HELPER.AUTOMOBILE MECHANIC Work Phone: [facility] 01-09-2023 14:08-0400 Diastolic blood pressure 80 mm[Hg] Kelsi Freedman MARINE PIPEFITTER HELPER.AUTOMOBILE MECHANIC Work Phone: [facility] 01-09-2023 14:08-0400 Heart rate 83 /min Kelsi Freedman MARINE PIPEFITTER HELPER.AUTOMOBILE MECHANIC Work Phone: [facility] 01-09-2023 14:08-0400 SaO2% (BldA) [Mass fraction] 100 % Kelsi Freedman MARINE PIPEFITTER HELPER.AUTOMOBILE MECHANIC Work Phone: [facility] 01-09-2023 14:08-0400 Systolic blood pressure 117 mm[Hg] Kelsi Freedman MARINE PIPEFITTER HELPER.AUTOMOBILE MECHANIC Work Phone: [facility] 11-05-2022 09:53-0400 Body temperature 98.42 [degF] Harris Simms [facility] 11-05-2022 09:53-0400 Diastolic blood pressure 60 mm[Hg] Harris Simms [facility] 11-05-2022 09:53-0400 Heart rate 89 /min Harris Simms [facility] 11-05-2022 09:53-0400 Respiratory rate 18 /min Harris Simms [facility] 11-05-2022 09:53-0400 SaO2% (BldA) [Mass fraction] 99 % Harris Simms [facility] 11-05-2022 09:53-0400 Systolic blood pressure 113 mm[Hg] Harris Simms [facility] 10-30-2022 03:40-0400 Body height 162.6 cm Pa Celis MD [facility] 10-30-2022 03:40-0400 Body mass index (BMI) [Ratio] 37.76 kg/m2 Pa Celis MD [facility] Phone[facility] 10-30-2022 03:40-0400 Body temperature 97 [degF] Pa Celis MD [facility] Phone[facility] [employer] 10-30-2022 03:40-0400 Body weight 99.79 kg Pa Celis MD Work Phone: [facility] 10-30-2022 03:40-0400 Diastolic blood pressure 83 mm[Hg] Pa Celis MD [facility] Phone[facility] 10-30-2022 03:40-0400 Heart rate 90 /min Pa Celis MD Work Phone[facility] [employer] 10-30-2022 03:40-0400 Respiratory rate 16 /min Pa Celis MD Work Phone: [facility] 10-30-2022 03:40-0400 SaO2% (BldA) [Mass fraction] 97 % Pa Celis MD Work Phone[facility] 10-30-2022 03:40-0400 Systolic blood pressure 133 mm[Hg] Pa Celis MD Work Phone: [facility] 08-19-2022 21:16-0400 Body mass index (BMI) [Ratio] 37.76 kg/m2 Pat Teixeira DO [facility] 08-19-2022 21:16-0400 Body weight 99.79 kg Pat Teixeira DO [facility] 08-19-2022 21:10-0400 Body height 162.6 cm Pat Teixeira DO [facility] 08-19-2022 21:10-0400 Body temperature 97.59 [degF] Pat [facility] [employer] 08-19-2022 21:10-0400 Diastolic blood pressure 88 mm[Hg] Pat Teixeira DO [facility] 08-19-2022 21:10-0400 Heart rate 89 /min Pat Teixeira DO [facility] [employer] 08-19-2022 21:10-0400 Respiratory rate 16 /min Pat Teixeira DO [facility] 08-19-2022 21:10-0400 SaO2% (BldA) [Mass fraction] 98 % Pat Teixeira DO [facility] 08-19-2022 21:10-0400 Systolic blood pressure 145 mm[Hg] Pat Teixeira DO [facility] 04-25-2022 19:39-0500 Body height 162.6 cm Pa Celis MD Work Phone: [facility] 04-25-2022 19:39-0500 Body mass index (BMI) [Ratio] 37.76 kg/m2 Pa Celis MD Work Phone: [facility] 04-25-2022 19:39-0500 Body temperature 98.8 [degF] Pa Celis MD Work Phone: [facility] 04-25-2022 19:39-0500 Body weight 99.79 kg Pa Celis MD Work Phone: [facility] 04-25-2022 19:39-0500 Diastolic blood pressure 93 mm[Hg] Pa Celis MD Work Phone: [facility] 04-25-2022 19:39-0500 Heart rate 94 /min Pa Celis MD Work Phone: [facility] 04-25-2022 19:39-0500 Respiratory rate 17 /min Pa Celis MD Work Phone: [facility] 04-25-2022 19:39-0500 SaO2% (BldA) [Mass fraction] 96 % Pa Celis MD Work Phone: [facility] 04-25-2022 19:39-0500 Systolic blood pressure 140 mm[Hg] Pa Celis MD Work Phone: [facility] 10-24-2021 17:29-0400 Heart rate 78 /min Cisco Stallings MD Work Phone: [facility] [email or web address] 10-24-2021 12:30-0400 Diastolic blood pressure 56 mm[Hg] Cisco Stallings MD Work Phone: [facility] [email or web address] 10-24-2021 12:30-0400 Respiratory rate 13 /min Cisco Stallings MD Work Phone: [facility] [email or web address] 10-24-2021 12:30-0400 SaO2% (BldA) [Mass fraction] 96 % Cisco Stallings MD Work Phone: [facility] [email or web address] 10-24-2021 12:30-0400 Systolic blood pressure 113 mm[Hg] Cisco Stallings MD Work Phone: [facility] [email or web address] 10-24-2021 11:25-0400 Body temperature 98.29 [degF] Cisco Stallings MD Work Phone: [facility] [email or web address] 10-23-2021 18:33-0400 Body temperature 99 [degF] Pa Celis MD Work Phone: [facility] [email or web address] 10-23-2021 18:33-0400 Diastolic blood pressure 51 mm[Hg] Pa Celis MD Work Phone: [facility] [email or web address] 10-23-2021 18:33-0400 Heart rate 86 /min Pa Celis MD Work Phone: [facility] [email or web address] 10-23-2021 18:33-0400 Respiratory rate 16 /min Pa Celis MD Work Phone: [facility] [email or web address] 10-23-2021 18:33-0400 SaO2% (BldA) [Mass fraction] 97 % Pa Cleis MD Work Phone: [facility] [email or web address] 10-23-2021 18:33-0400 Systolic blood pressure 126 mm[Hg] Pa Celis MD Work Phone: [facility] [email or web address] 10-23-2021 15:55-0400 Body height 162.6 cm Pa Celis MD Work Phone: [facility] 10-23-2021 15:55-0400 Body mass index (BMI) [Ratio] 39.99 kg/m2 Pa Celis MD Work Phone: [facility] 10-23-2021 15:55-0400 Body weight 105.69 kg Pa Celis MD Work Phone: [facility] 10-20-2021 22:08-0400 Hourly Rounding [facility] Comment on above: Result Comment: Nurse gives d/c instruct ions to pt with significant other present. Both state understanding. Pt encouraged to pump frequently q2-3 hours, use warm compresses, breast massage, increase fluid intake and rest as much as possible. If no improvement to breast by tomorrow pt encouraged to call Dr. Boyd's office. All needs met. Pt request to feed prior to d/c. 10-20-2021 21:54-0400 Blood Pressure Location [facility] 10-20-2021 21:54-0400 Diastolic blood pressure 68 mm[Hg] [facility] 10-20-2021 21:54-0400 Heart rate 102 /min [facility] 10-20-2021 21:54-0400 Hourly Rounding Roscoe Han [facility] Comment on above: Result Comment: pt only pumped less than 2 oz of breastmilk. sent home w ith pt for next feeding. pts breast softer and pain lessened. red spot still noted wiht warness. encouraged to call dr boyd tomorrow if pain/redness/warmed does not improve or any fever. verb understanding. 10-20-2021 21:54-0400 Mean blood pressure 86 mm[Hg] [facility] 10-20-2021 21:54-0400 Respiratory rate 18 /min [facility] 10-20-2021 21:54-0400 SaO2% (BldA) [Mass fraction] 97 % [facility] [employer] [facility] 10-20-2021 21:54-0400 Systolic blood pressure 122 mm[Hg] [facility] [employer] [facility] 10-20-2021 21:30-0400 Hourly Rounding [facility] Comment on above: Result Comment: staff @ [facility]. pump set up and assisted with breast massage while hot washcloth applied. pt had only been pumping 2x a day since delivery on 10/15 and supplementing with formula. set up pumping and feeding scheduled POC and pt and sig ot her both agree. answered all questoins/concerns. pt has appt with WI[facility]/lact configuration management consultant on monday and encouraged to keep appt. or schedule with our lact configuration management consultant if that works better. 10-20-2021 21:16-0400 Heart rate 100 /min [facility] [employer] [facility] 10-20-2021 21:16-0400 SaO2% (BldA) [Mass fraction] 97 % [facility] 10-20-2021 21:08-0400 Blood Pressure Location [facility] [employer] [facility] 10-20-2021 21:08-0400 Diastolic blood pressure 63 mm[Hg] Ros[facility] [employer] [facility] 10-20-2021 21:08-0400 Heart rate 97 /min Roscoe [employer] [facility] 10-20-2021 21:08-0400 Mean blood pressure 81 mm[Hg] Roscoe [employer] [facility] 10-20-2021 21:08-0400 Respiratory rate 18 /min Ros[facility] Han [facility] 10-20-2021 21:08-0400 SaO2% (BldA) [Mass fraction] 96 % Ros[facility] [employer] [facility] 10-20-2021 21:08-0400 Systolic blood pressure 117 mm[Hg] [facility]coenarayan [employer] [facility] 10-20-2021 20:51-0400 Blood Pressure Location [facility] 10-20-2021 20:51-0400 Body temperature 98.42 [degF] [facility] [employer] [facility] 10-20-2021 20:51-0400 Diastolic blood pressure 76 mm[Hg] Roscoenarayan [employer] 10-20-2021 20:51-0400 Mean blood pressure 94 mm[Hg] Ros[facility] Han [facility] 10-20-2021 20:51-0400 Respiratory rate 18 /min [facility] Han [facility] 10-20-2021 20:51-0400 Systolic blood pressure 131 mm[Hg] [facility] Han [facility] 09-18-2021 00:15-0400 Hourly Rounding Gera Nelson [facility] Comment on above: Result Comment: pt walks off unit w/ lasha reynaldo gait. 09-18-2021 00:10-0400 Hourly Rounding Gera Nelson [facility] Comment on above: Result Comment: discharge instructions g iven to pt at this time. this nurse educates pt on premature labor signs/symtpoms and includes material regarding preeclampsia d/t pt concerns reagrding this. pt asks appropriate questions and answers provided by this nurse. 09-17-2021 23:58-0400 Hourly Rounding Gera Nelson [facility] Comment on above: Result Comment: pt updated on POC and fam linda 09-17-2021 23:46-0400 Blood Pressure Location Gera Parmarten [facility] 09-17-2021 23:46-0400 Diastolic blood pressure 59 mm[Hg] Gera Parmarten [facility] 09-17-2021 23:46-0400 Heart rate 91 /min Gera Parmarten [facility] 09-17-2021 23:46-0400 Mean blood pressure 76 mm[Hg] Gera Parmarten [facility] 09-17-2021 23:46-0400 Respiratory rate 18 /min Gera Parmarten [facility] 09-17-2021 23:46-0400 Systolic blood pressure 109 mm[Hg] Gera Leslie [facility] 09-17-2021 23:19-0400 Blood Pressure Location Gera Parmarten [facility] 09-17-2021 23:19-0400 Diastolic blood pressure 67 mm[Hg] Gera Parmarten [facility] 09-17-2021 23:19-0400 Heart rate 101 /min Gera Parmarten [facility] 09-17-2021 23:19-0400 Mean blood pressure 89 mm[Hg] Gera Leslie [facility] 09-17-2021 23:19-0400 Respiratory rate 20 /min Gera Parmarten [facility] 09-17-2021 23:19-0400 Systolic blood pressure 134 mm[Hg] Gera Leslie [facility] 09-17-2021 23:01-0400 Blood Pressure Location Gera Nelson [facility] 09-17-2021 23:01-0400 Body temperature 98.24 [degF] Gera Nelson [facility] 09-17-2021 23:01-0400 Diastolic blood pressure 79 mm[Hg] Gera Nelson [facility] 09-17-2021 23:01-0400 Heart rate 102 /min Gera Nelson [facility] 09-17-2021 23:01-0400 Mean blood pressure 98 mm[Hg] Gera Nelson [facility] 09-17-2021 23:01-0400 Respiratory rate 20 /min Gera Nelson [facility] 09-17-2021 23:01-0400 Systolic blood pressure 137 mm[Hg] Gera Nelson [facility] 08-27-2021 03:08-0400 Hourly Rounding Gera Nelson [facility] Comment on above: Result Comment: Patient sleeping in bed. Call light within reach. Result Comment: Pt d ischarged to private vehicle. No s/s of distress. Pt ambulatory. 08-27-2021 01:45-0400 Blood Pressure Location Gera Nelson [facility] 08-27-2021 01:45-0400 Diastolic blood pressure 51 mm[Hg] Gera Nelson [facility] 08-27-2021 01:45-0400 Heart rate 109 /min Gera Nelson [facility] 08-27-2021 01:45-0400 Mean blood pressure 72 mm[Hg] Gera Nelson [facility] 08-27-2021 01:45-0400 Respiratory rate 16 /min Gera Nelson [facility] 08-27-2021 01:45-0400 Systolic blood pressure 114 mm[Hg] Gera Nelson [facility] 08-27-2021 00:01-0400 Hourly Rounding Gera Nelson [facility] Comment on above: Result Comment: SVE performed. Pt denied any additional needs. Call light within reach. 08-26-2021 23:15-0400 Blood Pressure Location Gera Nelson [facility] [facility] 08-26-2021 23:15-0400 Diastolic blood pressure 76 mm[Hg] [facility] 08-26-2021 23:15-0400 Heart rate 88 /min [facility] 08-26-2021 23:15-0400 Mean blood pressure 90 mm[Hg] [facility] 08-26-2021 23:15-0400 Respiratory rate 18 /min [facility] 08-26-2021 23:15-0400 Systolic blood pressure 117 mm[Hg] [facility] 08-26-2021 23:08-0400 Body temperature 98.06 [degF] [facility] 07-24-2021 02:12-0400 Diastolic blood pressure 71 mm[Hg] [facility] 07-24-2021 02:12-0400 Heart rate 78 /min [facility] 07-24-2021 02:12-0400 Mean blood pressure 90 mm[Hg] [facility] 07-24-2021 02:12-0400 Respiratory rate 18 /min [facility] 07-24-2021 02:12-0400 SaO2% (BldA) [Mass fraction] 97 % [facility] 07-24-2021 02:12-0400 Systolic blood pressure 127 mm[Hg] [facility] 07-24-2021 00:35-0400 Body temperature 98.06 [degF] [facility] 07-24-2021 00:35-0400 Diastolic blood pressure 84 mm[Hg] [facility] 07-24-2021 00:35-0400 Heart rate 98 /min [facility] 07-24-2021 00:35-0400 Respiratory rate 16 /min [facility] 07-24-2021 00:35-0400 SaO2% (BldA) [Mass fraction] 98 % [facility] 07-24-2021 00:35-0400 Systolic blood pressure 133 mm[Hg] [facility] 04-10-2021 00:50-0500 Body height 162.6 cm John Fernandes MD Work Phone: [facility] 04-10-2021 00:50-0500 Body mass index (BMI) [Ratio] 40.42 kg/m2 John Fernandes MD Work Phone: [facility] 04-10-2021 00:50-0500 Body temperature 98.8 [degF] John Fernandes MD Work Phone: [facility] 04-10-2021 00:50-0500 Body weight 106.82 kg John Fernandes MD Work Phone: [facility] 04-10-2021 00:50-0500 Diastolic blood pressure 60 mm[Hg] John Fernandes MD Work Phone: [facility] 12-11-2021 00:50-0500 Heart rate 105 /min John Fernandes MD Work Phone: [facility] 04-10-2021 00:50-0500 Respiratory rate 20 /min John Fernandes MD Work Phone: [facility] 04-10-2021 00:50-0500 SaO2% (BldA) [Mass fraction] 97 % John Fernandes MD Work Phone: [facility] 04-10-2021 00:50-0500 Systolic blood pressure 111 mm[Hg] John Fernandes MD Work Phone: [facility] Encounters Encounter Date Encounter Type Care Provider Facility Start: 08-23-2023 End: 08-23-2023 ambulatory DO Sarita Packer Facility:[facility] Start: 08-22-2023 End: 08-23-2023 OB Triage Sarita [facility] Start: 08-17-2023 End: 08-17-2023 ambulatory AMIE WISEMAN Not Available Start: 08-07-2023 End: 08-07-2023 ambulatory [facility] Start: 08-06-2023 End: 08-06-2023 Emergency department patient visit [facility] Start: 08-06-2023 End: 08-06-2023 Emergency department patient visit [facility] ED Comment on above: Left against medical advice (Primary Dx) Start: 08-03-2023 End: 08-03-2023 Emergency department patient visit [facility] Start: 08-02-2023 End: 08-02-2023 ambulatory CASH AWILDA Not Available Start: 07-28-2023 End: 07-28-2023 Emergency department patient visit [facility] Start: 07-19-2023 End: 07-19-2023 ambulatory AMIE WISEMAN Not Available Start: 06-22-2023 End: 06-22-2023 ambulatory CASH AWILDA Not Available Start: 05-25-2023 End: 05-25-2023 ambulatory AMIE WISEMAN Not Available Start: 05-18-2023 End: 05-18-2023 Emergency department patient visit AMIE ROSAS [facility] Start: 04-20-2023 End: 04-20-2023 ambulatory CASH BOYD Not Available Start: 03-31-2023 End: 03-31-2023 ambulatory AMIE WISEMAN Not Available Start: 03-27-2023 End: 03-28-2023 ambulatory Gera Vasquez Leslie Facility:[facility] Start: 03-27-2023 End: 03-28-2023 ambulatory Gera Vasquez Leslie Facility:[facility] Start: 03-06-2023 End: 03-06-2023 ambulatory Brigitte Jaydalindsay [facility] Work Phone: Psychology Comment on above: NO SHOW (Primary Dx) Start: 03-06-2023 End: 03-06-2023 Telemedicine consultation with patient Brigitte Schafer [facility] Work Phone: [facility] Start: 02-24-2023 Telephone encounter Lorna womack MARINE PIPEFITTER HELPER.AUTOMOBILE MECHANIC Work Phone: [facility] [place] Comment on above: Results Start: 02-24-2023 End: 02-24-2023 ambulatory Key Dariusz MARINE PIPEFITTER HELPER.AUTOMOBILE MECHANIC Work Phone: Gastroenterology Comment on above: Hepatitis C virus in fection without hepatic coma, unspecified chronicity (Primary Dx); History of substance abuse (HCC) Start: 02-24-2023 End: 02-24-2023 Telemedicine consultation with patient Key Casas MARINE PIPEFITTER HELPER.AUTOMOBILE MECHANIC Work Phone: [facility] Start: 02-21-2023 Social Work Lien Candelaria [employer] [facility] Social Work Comment on above: Encounter for screen ing involving social determinants of health (SDoH) (Primary Dx) Start: 02-20-2023 Telephone encounter Brigitte martinez [facility] Work Phone: Psychology Comment on above: bh consult Start: 02-18-2023 End: 02-19-2023 ambulatory LORNA DOBSON Facility:[facility] Start: 02-17-2023 End: 02-17-2023 ambulatory LORNA DOBSON Facility:[facility] Start: 02-17-2023 End: 02-17-2023 Patient encounter procedure Lorna Dobson SUSU.AUTOMOBILE MECHANIC Work Phone: [facility] [place] Comment on above: Anxiety and depressi on (Primary Dx); History of substance abuse (HCC); Hepatitis C virus infection without hepatic coma, unspecified chronicity; Boils of multiple sites Start: 01-09-2023 End: 01-09-2023 ambulatory KELSI FREEDMAN Facility:[facility] Start: 01-09-2023 End: 01-09-2023 Patient encounter procedure Kelsi Freedman MARINE PIPEFITTER HELPER.AUTOMOBILE MECHANIC Work Phone: [facility] [place] Comment on above: Obesity (BMI 30-39.9 ) (Primary Dx); Hepatitis C virus infection without hepatic coma, unspecified chronicity; Anxiety and depression; Psychophysiological insomnia; History of intravenous drug use in remission; Restless leg; Special screening examination for viral disease; Screening for HIV (human immunodeficiency virus); Lipid screening; Vitamin D deficiency; Encounter for immunization Start: 11-09-2022 End: 11-10-2022 ambulatory Zbigniew La Facility:[facility] Start: 11-09-2022 End: 11-09-2022 Patient encounter procedure Zbigniewgal La [facility] Start: 11-05-2022 End: 11-05-2022 Emergency department patient visit Harris Simms Facility:[facility] Start: 11-05-2022 End: 11-05-2022 Emergency department patient visit Harris Simms [facility] Start: 11-02-2022 ambulatory Harris Simms Facility:[facility] Start: 10-30-2022 End: 10-30-2022 Emergency department patient visit AMIE ROSAS [facility] Start: 10-30-2022 End: 10-30-2022 Emergency department patient visit Pa Celis MD Work Phone: [facility] Comment on above: Urticaria (Primary D x) Start: 09-22-2022 End: 09-23-2022 Emergency department patient visit DO Yuniel Ware Facility:[facility] Start: 08-19-2022 End: 08-20-2022 Emergency department patient visit PAT Triplett TEIXEIRA [facility] Start: 08-19-2022 End: 08-19-2022 Emergency department patient visit [facility] ED Comment on above: Acute bacterial conj unctivitis of right eye (Primary Dx) Start: 04-25-2022 End: 04-25-2022 Emergency department patient visit Pa Celis MD Work Phone: [facility] ED Comment on above: Acute pharyngitis, u nspecified etiology (Primary Dx) Start: 10-23-2021 End: 10-24-2021 Evaluation and management of inpatient Cisco Stallings MD Work Phone: [facility] Comment on above: Acute appendicitis, unspecified acute appendicitis type Start: 10-23-2021 End: 10-23-2021 Emergency department patient visit Pa Cleis MD Work Phone: [facility] ED Comment on above: Other acute appendic itis (Primary Dx) Start: 10-20-2021 End: 10-20-2021 OB Triage Roscoe [facility] Start: 10-20-[address] DOCTOR LEONARD Facility :[facility] Start: 10-15-2021 End: 10-18-2021 Evaluation and management of inpatient DR EDWIN KAMINSKI Facility:[facility] Start: 10-12-2021 End: 10-12-[address] CASH BOYD Facility:[facility] Start: 10-04-2021 End: 10-05-[address] EDWIN KAMINSKI Facility:[facility] Start: 10-04-2021 Evaluation and management of inpatient DR DOCTOR LEONADR Facility:[facility] Start: 09-30-2021 End: 09-30-[address] CASH BOYD Facility:[facility] Start: 09-30-2021 End: 10-01-[address] CASH BOYD Facility:[facility] Start: 09-25-2021 End: 09-26-[address] EDWIN KAMINSKI Facility:[facility] Start: 09-17-2021 End: 09-18-2021 OB Triage [facility] Start: 08-28-2021 End: 09-29-2021 Pre-admission assessment [facility] Start: 08-26-2021 End: 08-27-2021 OB Triage [facility] Start: 08-05-2021 End: 08-06-[address] LEONIDES SWARTZ Facility:[facility] Start: 07-29-2021 End: 07-30-[address] CASH BOYD Facility:[facility] Start: 07-24-2021 End: 07-24-2021 Emergency department patient visit Hayley [facility] Start: 04-10-2021 Emergency department patient visit [facility] Start: 04-10-2021 End: 04-10-2021 Emergency department patient visit John Fernandes MD Work Phone: [facility] ED Comment on above: COVID-19 (Primary Dx ) Start: 04-02-2021 End: 04-03-[address] CASH BOYD Facility:[facility] Start: 03-19-2021 End: 03-20-[address] LEONIDES SWARTZ Facility:[facility] Start: 02-23-2021 End: 02-24-[address] EDWIN KAMINSKI Facility:[facility] Start: 02-04-2021 End: 02-04-[address] JJ LISTED REQUEST Facility:[facility] Procedures Date Procedure Procedure Detail Performing Clinician Start: 08-06-2023 Urnls dip stick/tabl et rgnt auto w/o microscopy Pat S Puneet DO Start: 01-09-2023 INFLUENZA VACCINE, A GE 6 MO - 64 YR, QUADRIVALENT (AFLURIA, FLULAVAL, FLUZONE) Kelsi Freedman AUTOMOBILE MECHANIC Work Phone: Start: 04-25-2022 COVID-19, RAPID Pa Celis MD Work Phone: Start: 04-25-2022 End: 04-25-2022 Iaad ia streptococcus group a Shamika Abreu FOLDING MACHINE OPERATOR-C Work Phone: Start: 10-23-2021 Urinalysis microscopic only Pa Celis MD Work Phone: Start: 10-23-2021 Urnls dip stick/tabl et rgnt auto w/o microscopy Pa Celis MD Work Phone: Start: 10-23-2021 Ct abdomen & pelvis w/contrast material Pa Celis MD Work Phone: Start: 10-23-2021 Comprehensive metabo lic panel Pa Celis MD Work Phone: Start: 10-15-2021 Delivery of Products of Conception, External Approach NONE LISTED REQUEST Start: 10-15-2021 Drainage of Amniotic Fluid, Therapeutic from Products of Conception, Via Natural or Artificial Opening NONE LISTED REQUEST Start: 10-15-2021 Introduction of Othe r Hormone into Peripheral Vein, Percutaneous Approach NONE LISTED REQUEST Start: 10-15-2021 Repair Perineum Musc le, Open Approach NONE LISTED REQUEST Start: 04-10-2021 COVID-19, RAPID John mcclure MD Work Phone: Start: 04-10-2021 Iaadiadoo streptococ cus group a John Fernandes MD Work Phone: Root canal obturation Hayley [facility] Plan of Treatment Date Care Activity Detail Author Start: 07-14-2023 Tdap Vaccine during Tdap Vaccine during [facility] Start: 02-24-2023 End: 05-26-2023 ADENOVIRUS ANTIBODY ADENOVIRUS ANTIBODY Lab Routine Hepatitis C virus infection without hepatic coma, unspecified chronicity Expected: 02/24/2023, Expires: 05/26/2023 [facility] Work Phone: Comment on above: Expected: 02/24/2023, Expires: Start: 02-24-2023 End: 05-26-2023 Alpha 1 antitrypsin [Mass/volume] in Serum or Plasma [id number]-ATGHYELIT BL Lab Routine Hepatitis C virus infection without hepatic coma, unspecified chronicity Expected: 02/24/2023, Expires: 05/26/2023 [facility] Work Phone: Comment on above: Expected: 02/24/2023, Expires: Start: 02-24-2023 End: 05-26-2023 Hyrex-5-Omctmygerck [Mass/volume] in Serum or Plasma ALPHA FETOPROTEIN BL Lab Routine Hepatitis C virus infection without hepatic coma, unspecified chronicity Expected: 02/24/2023, Expires: 05/26/2023 [facility] Work Phone: Comment on above: Expected: 02/24/2023, Expires: 4 Start: 02-24-2023 End: 05-26-2023 Basic metabolic 2000 panel - Serum or Plasma BASIC METABOLIC PNL Lab Routine Hepatitis C virus infection without hepatic coma, unspecified chronicity Expected: 02/24/2023, Expires: 05/26/2023 [facility] Work Phone: Comment on above: Expected: 02/24/2023, Expires: Start: 02-24-2023 End: 05-26-2023 Ceruloplasmin [Mass/volume] in Serum or Plasma CERULOPLASMIN BLD Lab Routine Hepatitis C virus infection without hepatic coma, unspecified chronicity Expected: 02/24/2023, Expires: 05/26/2023 [facility] Work Phone: Comment on above: Expected: 02/24/2023, Expires: Start: 02-24-2023 End: 05-26-2023 CYTOMEGALOVIRUS (CMV) DNA, QUANTITATIVE PCR, PLASMA CYTOMEGALOVIRUS (CMV) DNA, QUANTITATIVE PCR, PLASMA Lab Routine Hepatitis C virus infection without hepatic coma, unspecified chronicity Expected: 02/24/2023, Expires: 05/26/2023 [facility] Work Phone: Comment on above: Expected: 02/24/2023, Expires: Start: 02-24-2023 End: 05-26-2023 Cytomegalovirus IgG Ab [Units/volume] in Serum or Plasma CMV IGG ANTIBODY BL Lab Routine Hepatitis C virus infection without hepatic coma, unspecified chronicity Expected: 02/24/2023, Expires: 05/26/2023 [facility] Work Phone: Comment on above: Expected: 02/24/2023, Expires: Start: 02-24-2023 End: 05-26-2023 Cytomegalovirus IgM Ab [Units/volume] in Serum or Plasma CMV IGM AB Lab Routine Hepatitis C virus infection without hepatic coma, unspecified chronicity Expected: 02/24/2023, Expires: 05/26/2023 [facility] Work Phone: Comment on above: Expected: 02/24/2023, Expires: Start: 02-24-2023 End: 05-26-2023 Sotero Rosas virus capsid IgM Ab [Units/volume] in Serum SOTERO-ROSAS VCA IGM Lab Routine Hepatitis C virus infection without hepatic coma, unspecified chronicity Expected: 02/24/2023, Expires: 05/26/2023 [facility] Work Phone: Comment on above: Expected: 02/24/2023, Expires: 4 Start: 02-24-2023 End: 05-26-2023 Sotero Rosas virus DNA [#/volume] (viral load) in Blood by JAYDE with probe detection SOTERO-ROSAS DNA QNT Lab Routine Hepatitis C virus infection without hepatic coma, unspecified chronicity Expected: 02/24/2023, Expires: 05/26/2023 [facility] Work Phone: Comment on above: Expected: 02/24/2023, Expires: Start: 02-24-2023 End: 05-26-2023 Ferritin [Mass/volume] in Serum or Plasma FERRITIN BLD Lab Routine Hepatitis C virus infection without hepatic coma, unspecified chronicity Expected: 02/24/2023, Expires: 05/26/2023 [facility] Work Phone: Comment on above: Expected: 02/24/2023, Expires: Start: 02-24-2023 End: 05-26-2023 Hepatic function 2000 panel - Serum or Plasma HEPATIC FUNCTION PNL Lab Routine Hepatitis C virus infection without hepatic coma, unspecified chronicity Expected: 02/24/2023, Expires: 05/26/2023 [facility] Work Phone: Comment on above: Expected: 02/24/2023, Expires: Start: 02-24-2023 End: 05-26-2023 HEPATITIS A ANTIBODY, IGG HEPATITIS A ANTIBODY, IGG Lab Routine Hepatitis C virus infection without hepatic coma, unspecified chronicity Expected: 02/24/2023, Expires: 05/26/2023 [facility] Work Phone: Comment on above: Expected: 02/24/2023, Expires: Start: 02-24-2023 End: 05-26-2023 Hepatitis B virus core Ab [Presence] in Serum HEP B CORE AB TOTAL Lab Routine Hepatitis C virus infection without hepatic coma, unspecified chronicity Expected: 02/24/2023, Expires: 05/26/2023 [facility] Work Phone: Comment on above: Expected: 02/24/2023, Expires: Start: 02-24-2023 End: 05-26-2023 Hepatitis B virus surface Ab [Presence] in Serum HEP B SURF AB Lab Routine Hepatitis C virus infection without hepatic coma, unspecified chronicity Expected: 02/24/2023, Expires: 05/26/2023 [facility] Work Phone: Comment on above: Expected: 02/24/2023, Expires: Start: 02-24-2023 End: 05-26-2023 Hepatitis B virus surface Ag [Presence] in Serum HEP B SURF AG SCRN Lab Routine Hepatitis C virus infection without hepatic coma, unspecified chronicity Expected: 02/24/2023, Expires: 05/26/2023 [facility] Work Phone: Comment on above: Expected: 02/24/2023, Expires: 4 Start: 02-24-2023 End: 05-26-2023 Hepatitis C virus genotype [Identifier] in Serum or Plasma by JAYDE with probe detection HEPATITIS C GENOTYPE Lab Routine Hepatitis C virus infection without hepatic coma, unspecified chronicity Expected: 02/24/2023, Expires: 05/26/2023 [facility] Work Phone: Comment on above: Expected: 02/24/2023, Expires: 4 Start: 02-24-2023 End: 05-26-2023 HFE gene targeted mutation analysis in Blood or Tissue by Molecular genetics method HFE (HEMOCHROMATOSIS) Lab Routine Hepatitis C virus infection without hepatic coma, unspecified chronicity Expected: 02/24/2023, Expires: 05/26/2023 [facility] Work Phone: Comment on above: Expected: 02/24/2023, Expires: 4 Start: 02-24-2023 End: 05-26-2023 HIV 1+2 Ab [Presence] in Serum or Plasma by Immunoassay HIV 1 2 COMBO(AG/AB),WITH REFLEX TO DIFFERENTIATION Lab Routine Hepatitis C virus infection without hepatic coma, unspecified chronicity Expected: 02/24/2023, Expires: 05/26/2023 [facility] Work Phone: Comment on above: Expected: 02/24/2023, Expires: 4 Start: 02-24-2023 End: 05-26-2023 IgG [Mass/volume] in Serum or Plasma IGG Lab Routine Hepatitis C virus infection without hepatic coma, unspecified chronicity Expected: 02/24/2023, Expires: 05/26/2023 [facility] Work Phone: Comment on above: Expected: 02/24/2023, Expires: 4 Start: 02-24-2023 End: 05-26-2023 IgM [Mass/volume] in Serum or Plasma IGM Lab Routine Hepatitis C virus infection without hepatic coma, unspecified chronicity Expected: 02/24/2023, Expires: 05/26/2023 [facility] Work Phone: Comment on above: Expected: 02/24/2023, Expires: Start: 02-24-2023 End: 05-26-2023 Iron and Iron binding capacity panel - Serum or Plasma IRON + TIBC Lab Routine Hepatitis C virus infection without hepatic coma, unspecified chronicity Expected: 02/24/2023, Expires: 05/26/2023 [facility] Work Phone: Comment on above: Expected: 02/24/2023, Expires: Start: 02-24-2023 End: 05-26-2023 Liver kidney microsomal Ab [Titer] in Serum by Immunofluorescence LKM AB Lab Routine Hepatitis C virus infection without hepatic coma, unspecified chronicity Expected: 02/24/2023, Expires: 05/26/2023 [facility] Work Phone: Comment on above: Expected: 02/24/2023, Expires: 4 Start: 02-24-2023 End: 05-26-2023 Mitochondria Ab [Presence] in Serum by Immunofluorescence MITOCHONDRIAL M2 IGG SERUM Lab Routine Hepatitis C virus infection without hepatic coma, unspecified chronicity Expected: 02/24/2023, Expires: 05/26/2023 [facility] Work Phone: Comment on above: Expected: 02/24/2023, Expires: 4 Start: 02-24-2023 End: 05-26-2023 Nuclear Ab [Presence] in Serum by Immunoassay MORE BLOOD Lab Routine Hepatitis C virus infection without hepatic coma, unspecified chronicity Expected: 02/24/2023, Expires: 05/26/2023 [facility] Work Phone: Comment on above: Expected: 02/24/2023, Expires: 4 Start: 02-24-2023 End: 05-26-2023 PT panel - Platelet poor plasma by Coagulation assay PROTHROMBIN TIME/PT Lab Routine Hepatitis C virus infection without hepatic coma, unspecified chronicity Expected: 02/24/2023, Expires: 05/26/2023 [facility] Work Phone: Comment on above: Expected: 02/24/2023, Expires: 4 Start: 02-24-2023 End: 05-26-2023 Smooth muscle Ab [Presence] in Serum SMOOTH MUSCLE AB SCR Lab Routine Hepatitis C virus infection without hepatic coma, unspecified chronicity Expected: 02/24/2023, Expires: 05/26/2023 [facility] Work Phone: Comment on above: Expected: 02/24/2023, Expires: 4 Start: 01-09-2023 End: 03-11-2023 25-hydroxyvitamin D3 [Mass/volume] in Serum or Plasma VITAMIN D 25 HYDROXY Lab Routine Vitamin D deficiency Expected: 01/09/2023, Expires: 03/11/2023 [facility] Work Phone: Comment on above: Expected: 01/09/2023, Expires: 3 Start: 01-09-2023 End: 03-11-2023 CBC W Auto Differential panel - Blood CBC + DIFF Lab Routine Restless leg Expected: 01/09/2023, Expires: 03/11/2023 [facility] Work Phone: Comment on above: Expected: 01/09/2023, Expires: 3 Start: 01-09-2023 End: 03-11-2023 Cobalamin (Vitamin B12) [Mass/volume] in Serum or Plasma VITAMIN B12 BLOOD Lab Routine Restless leg Expected: 01/09/2023, Expires: 03/11/2023 [facility] Work Phone: Comment on above: Expected: 01/09/2023, Expires: 3 Start: 01-09-2023 End: 03-11-2023 Comprehensive metabolic 2000 panel - Serum or Plasma COMP METABOLIC PANEL Lab Routine Obesity (BMI 30-39.9) Expected: 01/09/2023, Expires: 03/11/2023 [facility] Work Phone: Comment on above: Expected: 01/09/2023, Expires: 3 Start: 01-09-2023 End: 03-11-2023 Ferritin [Mass/volume] in Serum or Plasma FERRITIN BLD Lab Routine Restless leg Expected: 01/09/2023, Expires: 03/11/2023 [facility] Work Phone: Comment on above: Expected: 01/09/2023, Expires: 3 Start: 01-09-2023 End: 03-11-2023 Folate [Mass/volume] in Serum or Plasma FOLATE SERUM Lab Routine Restless leg Expected: 01/09/2023, Expires: 03/11/2023 [facility] Work Phone: Comment on above: Expected: 01/09/2023, Expires: 3 Start: 01-09-2023 End: 03-11-2023 Hemoglobin A1c in Blood HGB A1C Lab Routine Obesity (BMI 30-39.9) Expected: 01/09/2023, Expires: 03/11/2023 [facility] Work Phone: Comment on above: Expected: 01/09/2023, Expires: 3 Start: 01-09-2023 End: 03-11-2023 Hepatitis C virus Ab [Presence] in Serum HEPATITIS C ANTIBODY IA WITH CONFIRMATION Lab Routine Special screening examination for viral disease Expected: 01/09/2023, Expires: 03/11/2023 [facility] Work Phone: Comment on above: Expected: 01/09/2023, Expires: 3 Start: 01-09-2023 End: 03-11-2023 HIV 1+2 Ab [Presence] in Serum or Plasma by Immunoassay HIV 1 2 COMBO(AG/AB),WITH REFLEX TO DIFFERENTIATION Lab Routine Screening for HIV (human immunodeficiency virus) Expected: 01/09/2023, Expires: 03/11/2023 [facility] Work Phone: Comment on above: Expected: 01/09/2023, Expires: 3 Start: 01-09-2023 End: 03-11-2023 Iron and Iron binding capacity panel - Serum or Plasma IRON + TIBC Lab Routine Restless leg Expected: 01/09/2023, Expires: 03/11/2023 [facility] Work Phone: Comment on above: Expected: 01/09/2023, Expires: 3 Start: 01-09-2023 End: 03-11-2023 Lipid 1996 panel - Serum or Plasma LIPID PANEL BASIC Lab Routine Lipid screening Expected: 01/09/2023, Expires: 03/11/2023 [facility] Work Phone: Comment on above: Expected: 01/09/2023, Expires: 3 Start: 01-09-2023 End: 03-11-2023 TOX SCREEN ROUT UR TOX SCREEN ROUT UR Lab Routine History of intravenous drug use in remission Expected: 01/09/2023 (Approximate), Expires: 03/11/2023 [facility] Work Phone: Comment on above: Expected: 01/09/2023 (Approximate), Expi res: 03/11/2023 Start: 12-30-2022 Covid-19 Vaccine ( season) Covid-19 Vaccine ( season) [place] [facility] Start: 11-29-2022 Influenza vaccination [facility] Start: 12-30-2021 Influenza vaccination Flu vaccine (Season Ended) [facility] Start: 11-29-2021 Influenza vaccination Flu vaccine (#1) [facility] Start: 10-24-2021 End: 10-24-2021 Laparoscopic appendectomy APPENDECTOMY LAPAROSCOPIC Acute appendicitis, unspecified acute appendicitis type 10/24/2021 10:30 AM EDT [facility] Start: 12-30-2020 Influenza vaccination Flu vaccine (#1) [facility] Start: 10-10-2020 COVID-19 VACCINE (3 - Moderna series) COVID-19 VACCINE (3 - Moderna series) [facility] Start: 06-03-2020 DTaP/Tdap/Td vaccine (6 - Td or Tdap) DTaP/Tdap/Td vaccine (6 - Td or Tdap) [facility] Start: 06-03-2020 Urine microalbumin profile DTaP,Tdap,Td Vaccine (6 - Td or Tdap) [facility] Start: 10-06-2016 PAP TESTING PAP TESTING [facility] Start: 10-06-2016 Screening for malignant neoplasm of cervix Pap smear [facility] Start: 10-06-2014 DTaP/Tdap/Td vaccine (1 - Tdap) DTaP/Tdap/Td vaccine (1 - Tdap) [facility] Start: 10-06-2014 Urine microalbumin profile DTAP,TDAP,TD (1 - Tdap) [facility] Start: 10-06-2013 Hepatitis C screening Hepatitis C screen [facility] Start: 10-06-2013 HIV SCREENING HIV SCREENING [facility] Start: 12-01-2010 HPV Vaccine (2 - 2-dose series) HPV Vaccine (2 - 2-dose series) [facility] Start: 10-06-2010 HIV screening HIV screen [facility] Start: 2007 COVID-19 Vaccine (1) COVID-19 Vaccine (1) [facility] Start: 2007 Depression Screen Depression Screen [facility] Start: 10-06-2006 HPV vaccine (1 - 2-dose series) HPV vaccine (1 - 2-dose series) [facility] Start: 10-06-2001 PNEUMOCOCCAL (1 - PCV) PNEUMOCOCCAL (1 - PCV) [facility] Start: 10-06-2001 Pneumococcal vaccination Pneumococcal Vaccine (1 - PCV) [facility] Start: 12-13-2000 Polio vaccine (2 of 3 - 4-dose series) Polio vaccine (2 of 3 - 4-dose series) [facility] Start: 10-06-2000 COVID-19 Vaccine (1) COVID-19 Vaccine (1) [facility] Start: 10-06-1996 Varicella vaccine (1 of 2 - 2-dose childhood series) Varicella vaccine (1 of 2 - 2-dose childhood series) [facility] Start: 04-07-1996 COVID-19 Vaccine (#1) COVID-19 Vaccine (#1) [facility] Start: 1995 HEPATITIS B (1 of 3 - 3-dose series) HEPATITIS B (1 of 3 - 3-dose series) [facility] Start: 1995 Hepatitis B vaccine (1 of 3 - 3-dose series) Hepatitis B vaccine (1 of 3 - 3-dose series) [facility] DDI VIBRATION CONTRO LLED TRANSIENT ELASTOGRAPHY (VCTE) DDI VIBRATION CONTROLLED TRANSIENT ELASTOGRAPHY (VCTE) Endoscopy Routine Hepatitis C virus infection without hepatic coma, unspecified chronicity Ordered: 02/24/2023 [facility] Work Phone: Comment on above: Ordered: 02/24/2023 Surgical Pathology Surgical Path ology Lab Routine Acute appendicitis, unspecified acute appendicitis type Release Upon Ordering for 1 Occurrences starting 10/24/2021 [facility] Work Phone: Comment on above: Release Upon Ordering for 1 Occurrences starting 10/24/2021 End: 03-25-2024 US ABD RIGHT UPPER QUADRANT US ABD RIGHT UPPER QUADRANT Radiology Routine Hepatitis C virus infection without hepatic coma, unspecified chronicity 1 Occurrences starting 02/24/2023 until 03/25/2024 [facility] Work Phone: Comment on above: 1 Occurrences starting 02/24/2023 until 03/25/2024 End: 03-25-2024 Us abdominal real time w/image limited US ABD SPLEEN Radiology Routine Hepatitis C virus infection without hepatic coma, unspecified chronicity 1 Occurrences starting 02/24/2023 until 03/25/2024 [facility] Work Phone: Comment on above: 1 Occurrences starting 02/24/2023 until 03/25/2024 [facility] Immunizations Immunization Date Immunization Notes Care Provider Salbador moore 01-09-2023 influenza, injectabl e, quadrivalent, contains preservative Kelsi Freedman APRN.CNP Work Phone: [facility] 06-03-2010 HPV, unspecified formulation Lorna Dobson APRN.CNP Work Phone: [facility] 06-03-2010 influenza, seasonal, injectable Lorna Bronson MARINE PIPEFITTER HELPER.AUTOMOBILE MECHANIC Work Phone: [facility] 06-03-2010 meningococcal polysaccharide (groups A, C, Y and W-135) diphtheria toxoid conjugate vaccine (MCV4P) Lorna Bronson MARINE PIPEFITTER HELPER.AUTOMOBILE MECHANIC Work Phone: [facility] 06-03-2010 tetanus toxoid, redu radha diphtheria toxoid, and acellular pertussis vaccine, adsorbed Lorna Bronson MARINE PIPEFITTER HELPER.AUTOMOBILE MECHANIC Work Phone: [facility] 11-15-2000 diphtheria, tetanus toxoids and acellular pertussis vaccine, unspecified formulation Lorna Bronson MARINE PIPEFITTER HELPER.AUTOMOBILE MECHANIC Work Phone: [facility] 11-15-2000 measles, mumps and rubella virus vaccine Lorna Bronson MARINE PIPEFITTER HELPER.AUTOMOBILE MECHANIC Work Phone: [facility] 11-15-2000 poliovirus vaccine, inactivated Lorna Bronson MARINE PIPEFITTER HELPER.AUTOMOBILE MECHANIC Work Phone: [facility] 08-04-1999 diphtheria, tetanus toxoids and acellular pertussis vaccine, unspecified formulation Lorna Bronson MARINE PIPEFITTER HELPER.AUTOMOBILE MECHANIC Work Phone: [facility] 08-04-1999 trivalent poliovirus vaccine, live, oral Lorna Bronson MARINE PIPEFITTER HELPER.AUTOMOBILE MECHANIC Work Phone: [facility] 07-07-1999 diphtheria, tetanus toxoids and acellular pertussis vaccine, unspecified formulation Lorna Bronson MARINE PIPEFITTER HELPER.AUTOMOBILE MECHANIC Work Phone: [facility] 07-07-1999 hepatitis B vaccine, pediatric or pediatric/adolescent dosage Lorna Bronson MARINE PIPEFITTER HELPER.AUTOMOBILE MECHANIC Work Phone: [facility] 07-07-1999 trivalent poliovirus vaccine, live, oral Lorna Bronson MARINE PIPEFITTER HELPER.AUTOMOBILE MECHANIC Work Phone: [facility] 02-19-1997 diphtheria, tetanus toxoids and acellular pertussis vaccine, unspecified formulation Lorna Bronson MARINE PIPEFITTER HELPER.AUTOMOBILE MECHANIC Work Phone: [facility] 02-19-1997 haemophilus influenz ae type b vaccine, conjugate unspecified formulation Lorna Bronson MARINE PIPEFITTER HELPER.AUTOMOBILE MECHANIC Work Phone: [facility] 02-19-1997 hepatitis B vaccine, pediatric or pediatric/adolescent dosage oLrna Bronson MARINE PIPEFITTER HELPER.AUTOMOBILE MECHANIC Work Phone: [facility] 02-19-1997 measles, mumps and rubella virus vaccine Lorna Bronson MARINE PIPEFITTER HELPER.AUTOMOBILE MECHANIC Work Phone: [facility] 02-19-1997 trivalent poliovirus vaccine, live, oral Lorna Bronson MARINE PIPEFITTER HELPER.AUTOMOBILE MECHANIC Work Phone: [facility] 1995 hepatitis B vaccine, pediatric or pediatric/adolescent dosage Lorna Bronson MARINE PIPEFITTER HELPER.AUTOMOBILE MECHANIC Work Phone: [facility] Payers Date Payer Category Payer Medicaid [employer] [facility] MEDICA[facility] [id number] 2022-Present [phone] [address] [place] [address] Medicaid [id number] 2014 Unknown [id number] [id number].3. [id number] 1995 Unknown [id number] 2.840.1.647692.3.579.2.174 1995 Unknown [id number] 2.840.1.774745.3.579.2.593 1995 Unknown [id number] 2.840.1.840498.3.579.2.593 1995 Unknown [id number] 2.16.840.1.754786.3.579.2.593 1995 Unknown [id number] 2.16.840.1.624937.3.579.2.593 1995 Unknown [id number] 2.16840.1.985041.3.579.2.593 1995 Unknown [id number] 2.16.840.1.512399.3.579.2.593 1995 Unknown [id number] 2.16.840.1.135016.3.579.2.593 1995 Unknown [id number] 2.16.840.1.547116.3.579.2.593 1995 Unknown [id number] 2.16.840.1.274302.3.579.2.593 1995 Unknown [id number] 2.16.840.1.844217.3.579.2.593 1995 Unknown [id number] 2.16.840.1.605477.3.579.2.593 1995 Unknown [id number] 2.16.840.1.942616.3.579.2.593 1995 Unknown [id number] 2.16840.1.243094.3.579.2.593 1995 Unknown [id number] 2.16840.1.328531.3.579.2.593 1995 Unknown [id number] 2.16.840.1.870816.3.579.2.185 1995 Unknown [id number] 2.16.840.1.307401.3.579.2.185 1995 Unknown [id number] 2.16840.1.748536.3.579.2.185 1995 Unknown [id number] 2.16840.1.368566.3.579.2.185 1995 Unknown [id number] 2.16.840.1.496307.3.579.2.185 1995 Unknown [id number] 2.16.840.1.121610.3.579.2.185 1995 Unknown [id number] 2.16.840.1.170157.3.579.2.182 1995 Unknown [id number] 2.16.840.1.307328.3.579.2.1259 1995 Unknown [id number] 2.16.840.1.024064.3.579.2.1259 1995 Unknown [id number] 2.16.840.1.512708.3.579.2.9 1995 Unknown [id number] 2.16.840.1.009689.3.579.2.1259 1995 Unknown [id number] 2.16.840.1.508996.3.579.2.9 1995 Unknown [id number] 2.16.840.1.804489.3.579.2.1259 1995 Unknown [id number] 2.16.840.1.770104.3.579.2.9 1995 Unknown [id number] 2.16.840.1.832647.3.579.2.7 1995 Unknown [id number] 2.16.840.1.079945.3.579.2.7 1995 Unknown [id number] 2.16.840.1.237896.3.579.2.727 1995 Unknown [id number] 2.16.840.1.556997.3.579.2. 1995 Unknown [id number] 2.16.840.1.187858.3.579.2.7 1995 Unknown [id number] 2.16.840.1.880904.3.579.2. 1995 Unknown [id number] 2.16.840.1.576466.3.579.2.727 1959 Self-pay 1959 Unknown [id number] 1.2.840.323320.1.13.239.2.7.3. [id number] Unknown [id number] 2.16.840.1.545059.3.579.2.593 Social History Date Type Detail Facility Start: 04-10-2021 Tobacco smoking status PRIS Ex-smoker [employer] Work Phone: Start: 04-10-2021 End: 01-09-2023 Tobacco use and exposure Smokeless tobacco non-user [employer] Phone: Start: 1995 Sex Assigned At Not on file [employer] Phone: Start: 10-13-2021 End: 08-19-2022 Exposure to SARS-CoV-2 (event) Not sure [employer] Phone: Start: 04-11-2021 Tobacco smoking status Former smokeless tobacco user, quit more than 30 days ago [facility] Start: 01-09-2023 End: 08-03-2023 Sex Assigned At Female [facility] Start: 10-23-2021 End: 08-06-2023 Alcohol intake Ex-drinker (finding) [employer] Phone: Start: 10-23-2021 End: 08-20-2022 History SDOH Alcohol Frequency 1 [employer] Phone: History of tobacco use Current smoker [employer] Phone: Start: 08-20-2022 History SDOH Alcohol Std Drinks 0 [employer] Phone: Start: 01-09-2023 Tobacco smoking status PRIS Smokes tobacco daily [facility] History of tobacco use Cigarette Smoker C [facility] Start: 01-09-2023 End: 08-03-2023 History of Social function [facility] Work Phone: Has the [facility], or [facility] threatened to shut off services in your home in past 12Mo Yes [facility] Do you belong to any clubs or organizations such as adventist groups, unions, fraternal or athletic groups, or school groups? No [facility] Are you now , , , , never or living with a partner? Never [facility] How often to you hav e a drink containing alcohol? Never [facility] Do you feel stress - tense, restless, nervous, or anxious, or unable to sleep at night because your mind is troubled all the time - these days [OSQ] Very much [facility] (I/We) worried yuki er (my/our) food would run out before (I/we) got money to buy more. Sometimes true [facility] The food that (I/we) bought just didn't last, and (I/we) didn't have money to get more. Never true [facility] Start: 1995 Sex Assigned At Female [facility] Start: 02-16-2023 Gender identity Identifies as female gender (finding) [facility] Start: 02-16-2023 Sexual orientation Heterosexual (finding) [facility] Start: 01-20-2023 [facility] Functional Status Date Assessment Result Facility 08-23-2023 Functional Status N/A [facility] 11-05-2022 Functional Status N/A [facility] 10-20-2021 Functional Status N/A [facility] Clinical Notes 07-24-2021 to 08-23-2023 Brigitte Schafer LPCC - 03/06/2023 3:20 PM ESTTelephone Encounter - Emeli Penn MA - 02/24/2023 4:29 PM EDTPatient Key Benedict APRN.CNP - 02/24/2023 1:10 PM EDT Note Date & Type Note Facility 08-23-2023 Note The following Patien t Education Materials have been given to the patient: EducationMaterial [facility] 08-23-2023 Hospital Discharge instructions Follow Up Care 08/22/2023 23:46:41 With:Cash BOYD Address: [address] , [place] [address]- Business (1) When:08/31/2023 Comments:Appointment has already been scheduledCall for severe abdominal painCall physician for heavy vaginal bleedingCall physician if symptoms worsenReturn for contractions closer, longer, strongerReturn for decreased movementReturn if ruptured membranes or vaginal bleeding [facility] 03-06-2023 Note HNO ID: [id number] Author: Brigitte Schafer LPCC Service: ? Author Type: Therapist Type: Progress Notes Filed: 03/06/2023 3:23 PM Note Text: BEHAVIORAL HEALTH SOCIAL WORK QUICK NOTE Provider Action/FYI No show Patient identified for [facility] from: PCP Reason for referral: [facility] Assessment Behavioral Health Resources: Psychiatry med management [facility] encounter type: Office Visit, Virtual Visit Attempts to Outreach: 2 attempts Referral made: Psychiatry - Internal Psychiatry-Internal referral type: Medication Management Final Disposition: Care established with Patient Discharged?: Yes Patient reported that caregiver was able to meet their needs today?: N/A Pt identified by name and . Patient no showed, no called to her initial assessment. DANNY Jensen-S [facility] 03-06-2023 History of Present illness Narrative BEHAVIORAL HEALTH SOCIAL WORK QUICK NOTE Provider Action/FYI No show Patient identified for [facility] from: PCP Reason for referral: [facility] Assessment Behavioral Health Resources: Psychiatry med management [facility] encounter type: Office Visit, Virtual Visit Attempts to Outreach: 2 attempts Referral made: Psychiatry - Internal Psychiatry-Internal referral type: Medication Management Final Disposition: Care established with Patient Discharged?: Yes Patient reported that caregiver was able to meet their needs today?: N/A Pt identified by name and . Patient no showed, no called to her initial assessment. KERRIE Jensen documented in this encounter [facility] 02-24-2023 Miscellaneous Notes ----- Message from Lorna Dobson APRN.AUTOMOBILE MECHANIC sent at 02/24/2023 4:18 PM EDT ----- Vit D is low - please take 2000 units of vitamin D3 daily - available over the counter Tox screen showing cannabinoid use HCV Quant, Hep C antibody both indicating positive hep C infection - continue to follow gastroenterology recommendations for treatment Liver enzymes elevated - continue to follow with gastroenterology - most likely expected due to hep C infection HIV negative Folate normal Vitamin B12 normal Cholesterol normal Iron normal No diabetes CBC normal Lorna documented in this encounter [facility] 02-24-2023 Note HNO ID: [id number] Author: Key Casas APRN.AUTOMOBILE MECHANIC Service: ? Author Type: Nurse Practitioner Type: Progress Notes Filed: 02/24/2023 2:24 PM Note Text: VIRTUAL VISIT PROGRESS NOTE This is a virtual visit using [employer] Video Visit. It required patient-provider interaction for the medical decision making as documented below. I have communicated my name and active licensure. The patient's identity and physical location were verified at the time of this visit. Either the patient or their legal district representative has been informed of the risks and benefits of -- and alternatives to -- treatment through a remote evaluation and consents to proceed with the evaluation remotely. Christiana Young is a 27 year old female seen for chronic hepatitis C. Last Quant on 02/18 noted to be 2,890,000, treatment naive. She is doing well No issue or complaints States that she was diagnosed around 4 years ago. Previous IVDU, sober for almost 3 years Feels bloated at times Liver enzymes AST 120 and ALT 293 Started lexapro about a month ago Pt currently denies jaundice, confusion/disorientation, ascites, hematemesis, dark/tarry stools, suad colored stools, or dark urine. All other systems reviewed and are negative Metabolic Syndrome Risk factors: 05/05 1) Diabetes/ Abnormal FBS >100mg/dL: no 2) Hypertension : no 3)Triglycerides more then 150 : no 4) HDL (<50 female and <40 male): no 5) Central obesity ( Waist >102 men and >88 female) - Yes, Body mass index is 39.51 kg/(m2) Risk Factors for Liver Disease: 1. Blood transfusions before 1991: NA 2. IVDA: Yes, previously 3. Intranasal coccaine use: No 4. Tattoos: Not professionally done 5. Service: No 6. High risk sexual behavior: No 7. Alcohol: No 8. Obesity: No 9. Hyperlipidemia: Yes 10. Prolonged exposure to hepatotoxic meds: No 11. Other autoimmune disorders No HISTORY REVIEWED (electronic chart updated): No past medical history on file. No past surgical history on file. No family history on file. Social History Tobacco Use Smoking status: Every Day Types: Cigarettes Smokeless tobacco: Never Current Outpatient Medications Medication Sig escitalopram oxalate (LEXAPRO) 5 mg tablet Take 1 tablet by mouth once daily. sertraline (ZOLOFT) 25 mg tablet Take 1 tablet by mouth once daily. No current facility-administered medications for this visit. ALLERGIES Allergen Reactions Tramadol Other: See Comments, GI Upset, Shortness of Breath, Swelling REVIEW OF SYSTEMS: GENERAL: feeling well without fatigue, no recent change in weight PHYSICAL EXAMINATION: VIDEO EXAM: (if completed, performed via video enabled technology) GENERAL: alert and appropriate, in no distress, well-hydrated, well nourished, and happy, smiling, interactive ASSESSMENT: (B19.20) Hepatitis C virus infection without hepatic coma, unspecified chronicity (primary encounter diagnosis) (F19.11) History of substance abuse (HCC) Christiana Young is a very pleasant 27 year old female seen for chronic hepatitis C 2/ to IVDU (sober for almost 3 years). Last Quant on 02/18 noted to be 2,890,000, treatment naive. No other known liver disease but labs show AST 120 and ALT 293; will evaluate for chronic liver disease as well as viral etiology as labs had been normal last year. -Discussed liver disease and it's progression -Discussed personal risk factors for the development of liver disease/cirrhosis -Discussed sx of worsening liver disease -Discussed need to avoid alcohol intake -Discussed maintaining a healthy, Mediterranean diet PLAN: HIV, HCV Genotype, Serological evaluation: A1AT, MORE, AMA, Ceruloplasmin, Smooth Muscle, Iron/TIBC, Ferritin, Hep Remote, HFE, IgM, IgG, LKM Viral panel: EBV, CMV, Fibroscan for noninvasive fibrosis/steatosis assessment RUQ US same day as fibroscan Check immunity to HAV/HBV HFP, INR, CBC, BMP Follow up in 4 months Key Casas APRN.AUTOMOBILE MECHANIC Patient Instructions Blood work to be completed at [facility] Schedule ultrasound and Fibroscan in office today: [phone] Once all testing completed, I will submit prescription to our specialty pharmacy who will work with your insurance company. Once approved through insurance, medication will be mailed to your house (this may take a few weeks); Call office to notify us when you start medication I spent a total of 30 minutes on the date of the service which included preparing to see the patient, [id number] patient care, completing clinical documentation, obtaining and/or reviewing separately obtained history, counseling and educating the patient/family/caregiver, ordering medications, tests, or procedures, and communicating results to the patient/family/caregiver Key Casas APRN.CNP [facility] 02-24-2023 Instructions Key Casas APRN.CNP - 02/24/2023 1:20 PM EDT Blood work to be completed at [facility] Schedule ultrasound and Fibroscan in office today: [phone] Once all testing completed, I will submit prescription to our specialty pharmacy who will work with your insurance company. Once approved through insurance, medication will be mailed to your house (this may take a few weeks); Call office to notify us when you start medication documented in this encounter [facility] 02-24-2023 History of Present illness Narrative VIRTUAL VISIT PROGRESS NOTE This is a virtual visit using [employer] Video Visit. It required patient-provider interaction for the medical decision making as documented below. I have communicated my name and active licensure. The patient's identity and physical location were verified at the time of this visit. Either the patient or their legal district representative has been informed of the risks and benefits of -- and alternatives to -- treatment through a remote evaluation and consents to proceed with the evaluation remotely. Christiana Young is a 27 year old female seen for chronic hepatitis C. Last Quant on 02/18 noted to be 2,890,000, treatment naive. She is doing well No issue or complaints States that she was diagnosed around 4 years ago. Previous IVDU, sober for almost 3 years Feels bloated at times Liver enzymes AST 120 and ALT 293 Started lexapro about a month ago Pt currently denies jaundice, confusion/disorientation, ascites, hematemesis, dark/tarry stools, suad colored stools, or dark urine. All other systems reviewed and are negative Metabolic Syndrome Risk factors: 05/05 1) Diabetes/ Abnormal FBS >100mg/dL: no 2) Hypertension : no 3)Triglycerides more then 150 : no 4) HDL (<50 female and <40 male): no 5) Central obesity ( Waist >102 men and >88 female) - Yes, Body mass index is 39.51 kg/(m^2) Risk Factors for Liver Disease: 1. Blood transfusions before 1991: NA 2. IVDA: Yes, previously 3. Intranasal coccaine use: No 4. Tattoos: Not professionally done 5. Service: No 6. High risk sexual behavior: No 7. Alcohol: No 8. Obesity: No 9. Hyperlipidemia: Yes 10. Prolonged exposure to hepatotoxic meds: No 11. Other autoimmune disorders No HISTORY REVIEWED (electronic chart updated): No past medical history on file. No past surgical history on file. No family history on file. Social History Tobacco Use Smoking status: Every Day Types: Cigarettes Smokeless tobacco: Never Current Outpatient Medications Medication Sig escitalopram oxalate (LEXAPRO) 5 mg tablet Take 1 tablet by mouth once daily. sertraline (ZOLOFT) 25 mg tablet Take 1 tablet by mouth once daily. No current facility-administered medications for this visit. ALLERGIES Allergen Reactions Tramadol Other: See Comments, GI Upset, Shortness of Breath, Swelling REVIEW OF SYSTEMS: GENERAL: feeling well without fatigue, no recent change in weight PHYSICAL EXAMINATION: VIDEO EXAM: (if completed, performed via video enabled technology) GENERAL: alert and appropriate, in no distress, well-hydrated, well nourished, and happy, smiling, interactive ASSESSMENT: (B19.20) Hepatitis C virus infection without hepatic coma, unspecified chronicity (primary encounter diagnosis) (F19.11) History of substance abuse (HCC) Christiana Young is a very pleasant 27 year old female seen for chronic hepatitis C 2/2 to IVDU (sober for almost 3 years). Last Quant on 02/18 noted to be 2,890,000, treatment naive. No other known liver disease but labs show AST 120 and ALT 293; will evaluate for chronic liver disease as well as viral etiology as labs had been normal last year. -Discussed liver disease and it's progression -Discussed personal risk factors for the development of liver disease/cirrhosis -Discussed sx of worsening liver disease -Discussed need to avoid alcohol intake -Discussed maintaining a healthy, Mediterranean diet PLAN: HIV, HCV Genotype, Serological evaluation: A1AT, MORE, AMA, Ceruloplasmin, Smooth Muscle, Iron/TIBC, Ferritin, Hep Remote, HFE, IgM, IgG, LKM Viral panel: EBV, CMV, Fibroscan for noninvasive fibrosis/steatosis assessment RUQ US same day as fibroscan Check immunity to HAV/HBV HFP, INR, CBC, BMP Follow up in 4 months Key Casas APRN.CANDELARIO Patient Instructions Blood work to be completed at [facility] Schedule ultrasound and Fibroscan in office today: [phone] Once all testing completed, I will submit prescription to our specialty pharmacy who will work with your insurance company. Once approved through insurance, medication will be mailed to your house (this may take a few weeks); Call office to notify us when you start medication I spent a total of 30 minutes on the date of the service which included preparing to see the patient, [id number] patient care, completing clinical documentation, obtaining and/or reviewing separately obtained history, counseling and educating the patient/family/caregiver, ordering medications, tests, or procedures, and communicating results to the patient/family/caregiver Key Casas APRN.AUTOMOBILE MECHANIC documented in this encounter [facility] 02-21-2023 Note HNO ID: [id number] Author: Lien Candelaria LSW Service: ? Author Type: Reports Analyst Type: Progress Notes Filed: 02/21/2023 9:28 AM Note Text: Primary Care Social Work Provider Action / FYI PCP Action Date of Service: 02/21/2023 Patient identified by name and date of : No Referral Source: Pursue Patient Outreach: Initial Mode of Outreach: MyChart Response Time: SDOH outreach Narrative: Pt completed SDOH questionnaire indicating that there are social determinates such as food insecurity, financial concerns, or transportation issues potentially influencing the patient's healthcare. SW will be available as needed. Interventions: Advocacy Education MARY Barahona February 21, 2023 9:25 AM [facility] 02-21-2023 History of Present illness Narrative Primary Care Social Work Provider Action / FYI PCP Action Date of Service: 02/21/2023 Patient identified by name and date of : No Referral Source: Pursue Patient Outreach: Initial Mode of Outreach: MyChart Response Time: SDOH outreach Narrative: Pt completed SDOH questionnaire indicating that there are social determinates such as food insecurity, financial concerns, or transportation issues potentially influencing the patient's healthcare. SW will be available as needed. Interventions: Advocacy Education MARY Barahona February 21, 2023 9:25 AM documented in this encounter [facility] 02-20-2023 Miscellaneous Notes Behavioral Health Social Work Progress Note Patient identified for [facility] from: PCP Reason for referral: Resources Behavioral Health Resources: Psychiatry med management [facility] encounter type: Telephone Encounter Attempts to Outreach: 1 attempt Referral made: Psychiatry - Internal Psychiatry-Internal referral type: Medication Management Final Disposition: Care established with Patient Discharged?: No Patient reported that caregiver was able to meet their needs today?: Yes therapist spoke with patient to assess needs. Patient reports that she would like to keep her providers in [facility], is ok with wait time to see psychiatry. Patient is scheduled for her [facility] assessment on 03/06 at 1:00pm. KERRIE Jensen February 20, 2023 documented in this encounter [facility] 02-17-2023 Note HNO ID: [id number] Author: Lorna Dobson APRN.AUTOMOBILE MECHANIC Service: ? Author Type: Nurse Practitioner Type: Progress Notes Filed: 02/17/2023 4:15 PM Note Text: This note was created using NoteWriter. Subjective Christiana Young is a 27 year old female. HPI 27 year old female presents to clinic today to establish care. PMH: Hep C virus - waiting for lab results and will consult GI Obese - BMI 39.5 - reports she struggles with her weight - has an appointment with endo weight management coming up Anxiety and depression - did not like the 10 mg of lexapro - she got a euphoric feeling and felt like it was too much. She is only taking 5 mg of lexapro daily. She's vivid dreams. Still worrying all the time. She feels like the lexapro is not doing anything, or making things worse. She feels she is not on top of things as much anymore. 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 Respiratory: Negative for cough and shortness of breath. Cardiovascular: Negative for chest pain and palpitations. Musculoskeletal: Negative for gait problem. Psychiatric/Behavioral: Negative for suicidal ideas. The patient is nervous/anxious. Objective LMP 12/19/2022 Physical Exam Constitutional: Appearance: Normal appearance. HENT: Head: Normocephalic. Eyes: Extraocular Movements: Extraocular movements intact. Cardiovascular: Rate and Rhythm: Normal rate and regular rhythm. Heart sounds: Normal heart sounds. Pulmonary: Effort: Pulmonary effort is normal. Breath sounds: Normal breath sounds. Musculoskeletal: General: Normal range of motion. Cervical back: Normal range of motion. Skin: General: Skin is warm. Neurological: Mental Status: She is alert and oriented to person, place, and time. Psychiatric: Mood and Affect: Mood normal. Behavior: Behavior normal. Assessment and Plan ASSESSMENT/PLAN: 1. Anxiety and depression - ICD9: 300.00, 311, ICD10: F41.9, F32.A (primary diagnosis) - Stop lexapro and start zoloft 25 mg daily - When you have been zoloft consitently for 1 month please follow up with me - Make appt with psych - ESCITALOPRAM 5 MG TABLET - SERTRALINE 25 MG TABLET - CONSULT TO PSYCHIATRY - CONSULT TO PRIMARY CARE BEHAVIORAL HEALTH ADULT 2. History of substance abuse (HCC) - ICD9: 305.93, ICD10: F19.11 Has a strong support group - getting her life in order - Psych appt - CONSULT TO PSYCHIATRY - CONSULT TO PRIMARY CARE BEHAVIORAL HEALTH ADULT - CONSULT TO GASTROENTEROLOGY 3. Hepatitis C virus infection without hepatic coma, unspecified chronicity - ICD9: 070.70, ICD10: B19.20 - Needs to complete labs - Make an appt with GI - CONSULT TO GASTROENTEROLOGY 4. Boils of multiple sites - ICD9: 680.9, ICD10: L02.92 Possible HS - CONSULT TO DERMATOLOGY Follow up after 1 month of zoloft I spent a total of 30 minutes on the date of the service which included preparing to see the patient, [id number] patient care, completing clinical documentation, obtaining and/or reviewing separately obtained history, performing a medically appropriate examination, counseling and educating the patient/family/caregiver, and ordering medications, tests, or procedures. Lorna Dobson APRN.CNP [facility] 02-17-2023 Instructions Lorna Dobson APRN.CNP - 02/17/2023 3:52 PM EDT Slowly taper off lexapro - once off, start 25 mg of zoloft Make an appt with psych Make an appt with GI Make appt with derm Get labs done Follow up 1 month after starting zoloft to let me know how it's going - can be virtual documented in this encounter [facility] 02-17-2023 History of Present illness Narrative This note was created using [employer]. Subjective Christiana Young is a 27 year old female. HPI 27 year old female presents to clinic today to establish care. PMH: Hep C virus - waiting for lab results and will consult GI Obese - BMI 39.5 - reports she struggles with her weight - has an appointment with endo weight management coming up Anxiety and depression - did not like the 10 mg of lexapro - she got a euphoric feeling and felt like it was too much. She is only taking 5 mg of lexapro daily. She's vivid dreams. Still worrying all the time. She feels like the lexapro is not doing anything, or making things worse. She feels she is not on top of things as much anymore. 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 Respiratory: Negative for cough and shortness of breath. Cardiovascular: Negative for chest pain and palpitations. Musculoskeletal: Negative for gait problem. Psychiatric/Behavioral: Negative for suicidal ideas. The patient is nervous/anxious. Objective LMP 12/19/2022 Physical Exam Constitutional: Appearance: Normal appearance. HENT: Head: Normocephalic. Eyes: Extraocular Movements: Extraocular movements intact. Cardiovascular: Rate and Rhythm: Normal rate and regular rhythm. Heart sounds: Normal heart sounds. Pulmonary: Effort: Pulmonary effort is normal. Breath sounds: Normal breath sounds. Musculoskeletal: General: Normal range of motion. Cervical back: Normal range of motion. Skin: General: Skin is warm. Neurological: Mental Status: She is alert and oriented to person, place, and time. Psychiatric: Mood and Affect: Mood normal. Behavior: Behavior normal. Assessment and Plan ASSESSMENT/PLAN: 1. Anxiety and depression - ICD9: 300.00, 311, ICD10: F41.9, F32.A (primary diagnosis) - Stop lexapro and start zoloft 25 mg daily - When you have been zoloft consitently for 1 month please follow up with me - Make appt with psych - ESCITALOPRAM 5 MG TABLET - SERTRALINE 25 MG TABLET - CONSULT TO PSYCHIATRY - CONSULT TO PRIMARY [facility]ARE BE[facility]IORAL [facility] ADULT 2. History of substance abuse (HCC) - ICD9: 305.93, ICD10: F19.11 Has a strong support group - getting her life in order - Psych appt - CONSULT TO PSYCHIATRY - CONSULT TO PRIMARY CARE BEHAVIORAL HEALTH ADULT - CONSULT TO GASTROENTEROLOGY 3. Hepatitis C virus infection without hepatic coma, unspecified chronicity - ICD9: 070.70, ICD10: B19.20 - Needs to complete labs - Make an appt with GI - CONSULT TO GASTROENTEROLOGY 4. Boils of multiple sites - ICD9: 680.9, ICD10: L02.92 Possible HS - CONSULT TO DERMATOLOGY Follow up after 1 month of zoloft I spent a total of 30 minutes on the date of the service which included preparing to see the patient, [id number] patient care, completing clinical documentation, obtaining and/or reviewing separately obtained history, performing a medically appropriate examination, counseling and educating the patient/family/caregiver, and ordering medications, tests, or procedures. Lorna Dobson APRN.CANDELARIO documented in this encounter [facility] 01-09-2023 Note HNO ID: [id number] Author: Kelsi Freedman APRN.CANDELARIO Service: ? Author Type: Nurse Practitioner Type: Progress Notes Filed: 01/09/2023 4:04 PM Note Text: This note was created using [employer]. Subjective Christiana Young is a 27 year old female. 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 Some PPD in past. GI: hepatitis C-not treated, found out when incarcerated. Will need tx. Will order test to confirm. DRUG USE: Former IV use of heroin and meth. Sober x 3 years after going through treatment program. Pt congratulated and encouraged for continued cessation. -admits to still using marijuana SLEEP: has a hard time sleeping -uses marijuana to help sleep -tried melatonin -feels her legs have a rhythm and can't turn mind off MH: took buspar and lexapro for anxiety and depression in past. Took herself off it during WEIGHT: unhappy with weight. Took adipex in past with good results. She wants to use an injectable and states he sister buys it from a compound pharmacy for cheap and she could qualify for it if she has HLD. She feels she has HLD because she has HAs sometimes. Will obtain labs and meet with endo weight management. SOC: partner son's father Son age 1 First born son is with her mother. Denies chest pain, pressure, palpitations, SOB, WILL, dizziness, syncope, dependent edema. Denies changes to bowel or bladder or blood in stool. Denies si/hi/plans. HISTORIES No family history on file. No past medical history on file. No past surgical history on file. Social History Tobacco Use Smoking status: Every Day Types: Cigarettes Smokeless tobacco: Never Review of Systems Objective BP 117/80 Pulse 83 Ht 167.6 cm (5' 6 ) Wt 110.7 kg (244 lb) LMP 12/19/2022 SpO2 100% BMI 39.38 kg/m? Physical Exam Assessment and Plan ASSESSMENT/PLAN: 1. Obesity (BMI 30-39.9) - ICD9: 278.00, ICD10: E66.9 (primary diagnosis) Newly diagnosed-discussed in detail lifestyle changes to assist in weight loss. - Behavioral intervention - ENDOCRINE MEDICAL WEIGHT MANAGEMENT - HGB A1C - COMP METABOLIC PANEL 2. Hepatitis C virus infection without hepatic coma, unspecified chronicity - ICD9: 070.70, ICD10: B19.20 Will obtain lab to confirm-will need tx. 3. Anxiety and depression - ICD9: 300.00, 311, ICD10: F41.9, F32.A Denies si/hi/plans. - DEPRESSION SCREENING/ASSESSMENT - ESCITALOPRAM 10 MG TABLET 4. Psychophysiological insomnia - ICD9: 307.42, ICD10: F51.04 Obtain labs; tx anxiety; f/up 1 mo 5. History of intravenous drug use in remission - ICD9: 305.93, ICD10: F19.91 - TOX SCREEN ROUT UR - ENDOCRINE MEDICAL WEIGHT MANAGEMENT 6. Restless leg - ICD9: 333.94, ICD10: G25.81 - VITAMIN B12 BLOOD - FOLATE SERUM - IRON + TIBC - FERRITIN BLD - CBC + DIFF 7. Special screening examination for viral disease - ICD9: V73.99, ICD10: Z11.59 - HEPATITIS C ANTIBODY IA WITH CONFIRMATION 8. Screening for HIV (human immunodeficiency virus) - ICD9: V73.89, ICD10: Z11.4 - HIV 1 2 COMBO(AG/AB),WITH REFLEX TO DIFFERENTIATION 9. Lipid screening - ICD9: V77.91, ICD10: Z13.220 - LIPID PANEL BASIC 10. Vitamin D deficiency - ICD9: 268.9, ICD10: E55.9 - VITAMIN D 25 HYDROXY 11. Encounter for immunization - ICD9: V03.89, ICD10: Z23 - INFLUENZA VACCINE, AGE 6 MO - 64 YR, QUADRIVALENT (AFLURIA, FLULAVAL, FLUZONE) Kelsi Freedman APRN.AUTOMOBILE MECHANIC [facility] 01-09-2023 History of Present illness Narrative This note was created using NoteWriter. Subjective Christiana Young is a 27 year old female. 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 Some PPD in past. GI: hepatitis C-not treated, found out when incarcerated. Will need tx. Will order test to confirm. DRUG USE: Former IV use of heroin and meth. Sober x 3 years after going through treatment program. Pt congratulated and encouraged for continued cessation. -admits to still using marijuana SLEEP: has a hard time sleeping -uses marijuana to help sleep -tried melatonin -feels her legs have a rhythm and can't turn mind off MH: took buspar and lexapro for anxiety and depression in past. Took herself off it during WEIGHT: unhappy with weight. Took adipex in past with good results. She wants to use an injectable and states he sister buys it from a [email or web address] pharmacy for cheap and she could qualify for it if she has HLD. She feels she has HLD because she has HAs sometimes. Will obtain labs and meet with endo weight management. SOC: partner son's father Son age 1 First born son is with her mother. Denies chest pain, pressure, palpitations, SOB, WILL, dizziness, syncope, dependent edema. Denies changes to bowel or bladder or blood in stool. Denies si/hi/plans. HISTORIES No family history on file. No past medical history on file. No past surgical history on file. Social History Tobacco Use Smoking status: Every Day Types: Cigarettes Smokeless tobacco: Never Review of Systems Objective BP 117/80 Pulse 83 Ht 167.6 cm (5' 6 ) Wt 110.7 kg (244 lb) LMP 12/19/2022 SpO2 100% BMI 39.38 kg/m Physical Exam Assessment and Plan ASSESSMENT/PLAN: 1. Obesity (BMI 30-39.9) - ICD9: 278.00, ICD10: E66.9 (primary diagnosis) Newly diagnosed-discussed in detail lifestyle changes to assist in weight loss. - Behavioral intervention - ENDOCRINE MEDICAL WEIGHT MANAGEMENT - HGB A1C - COMP METABOLIC PANEL 2. Hepatitis C virus infection without hepatic coma, unspecified chronicity - ICD9: 070.70, ICD10: B19.20 Will obtain lab to confirm-will need tx. 3. Anxiety and depression - ICD9: 300.00, 311, ICD10: F41.9, F32.A Denies si/hi/plans. - DEPRESSION SCREENING/ASSESSMENT - ESCITALOPRAM 10 MG TABLET 4. Psychophysiological insomnia - ICD9: 307.42, ICD10: F51.04 Obtain labs; tx anxiety; f/up 1 mo 5. History of intravenous drug use in remission - ICD9: 305.93, ICD10: F19.91 - TOX SCREEN ROUT UR - ENDOCRINE MEDICAL WEIGHT MANAGEMENT 6. Restless leg - ICD9: 333.94, ICD10: G25.81 - VITAMIN B12 BLOOD - FOLATE SERUM - IRON + TIBC - FERRITIN BLD - CBC + DIFF 7. Special screening examination for viral disease - ICD9: V73.99, ICD10: Z11.59 - HEPATITIS C ANTIBODY IA WITH CONFIRMATION 8. Screening for HIV (human immunodeficiency virus) - ICD9: V73.89, ICD10: Z11.4 - HIV 1 2 COMBO(AG/AB),WITH REFLEX TO DIFFERENTIATION 9. Lipid screening - ICD9: V77.91, ICD10: Z13.220 - LIPID PANEL BASIC 10. Vitamin D deficiency - ICD9: 268.9, ICD10: E55.9 - VITAMIN D 25 HYDROXY 11. Encounter for immunization - ICD9: V03.89, ICD10: Z23 - INFLUENZA VACCINE, AGE 6 MO - 64 YR, QUADRIVALENT (AFLURIA, FLULAVAL, FLUZONE) Kelsi Freedman APRN.AUTOMOBILE MECHANIC documented in this encounter [facility] 11-05-2022 Evaluation + Plan note Extrac oral from: Title:ED Note Author:Harris Simms DO Date:11/05 Acute URI (J06.9: Acute uppe r respiratory infection, unspecified) Urticaria (L50.9: Urticaria, unspecified) Orders: cetirizine, 10 mg = 1 tab(s), Oral, Daily, X 7 day(s), # 7 tab(s), Refills(s) 0, Pharmacy: [facility] #[id number], 162, cm, 11/05/22 9:56:00 EDT, Height/Length Dosing, 105, kg, 11/05/22 9:56:00 EDT, Weight Dosing famotidine, 40 mg = 1 tab(s), Oral, Once a day (at bedtime), X 7 day(s), # 7 tab(s), Refills(s) 0, Pharmacy: [facility] #[id number], 162, cm, 11/05/22 9:56:00 EDT, Height/Length Dosing, 105, kg, 11/05/22 9:56:00 EDT, Weight Dosing predniSONE, 3, Oral, Daily, X 7 day(s), # 21 tab(s), Refills(s) 0, Pharmacy: [facility] #[id number], 162, cm, 11/05/22 9:56:00 EDT, Height/Length Dosing, 105, kg, 11/05/22 9:56:00 EDT, Weight Dosing Group A Strep by PCR Rapid COVID Antigen ([facility]) Rapid Strep w/rfx U Beta Hcg Qual Future Appointments Appointment Date:11/09/2022 01:00:00 PM Scheduled Provider:Zbigniew La MD Location:[facility] Appointment Type: New Patient - Adult [facility]07-08-2023 Hospital Discharge instructions Follow Up Care 11/05/2022 09:50:08 With:Zbigniew La Address: [address] [place] [phone]- [phone] Business (1) When:Within 3 Day(s) [facility]06-26-2022 History of Present illness Narrative* Gisela Tolentino RN - 10/24/2021 5:58 PM EDT Pt A&Ox4. Pt stated she had pain of 7, Morphine was given. Assessment completed and VSS. Pt anticipating her appendectomy today. Pt denied any further needs and will continue to monitor. 1245- Pt retutned from surgery VSS and assessment completed. Pt having pain of 7, percocet was given for pain at 1320. Will continue to monitor. 1725- Patient stating she is feeling good enough to be discharged. Dr. Cox was perfect served at 1747 to review some medications for DC, he gave Zain (RN) permission to review them for the patients DC. * Suad Bond RN - 10/24/2021 3:30 PM EDT 26 YO FEMALE ADMITTED UNDER OBSERVATION. HAD AN APPENDECTOMY TODAY 10/24. * Gabrielle Puentes RN - 10/24/2021 6:05 AM EDT Spoke with Dr. Stallings, orders obtained for pain an nausea. tenitive time for surgery according to physician is 0900. Surgical bath complete and consent for laprosocpic appendectomy signed and in chart. No order for surgery yet only verbal conformation. Pt has been NPO since midnight and receivedtwo rounds of antibiotics last morphine given at 0337 2mg. Pt resting in bed. VS stable and call light in reach. * Gabrielle Puentes RN - 10/23/2021 8:16 PM EDT Pt received from [place] via transport. VS stable family at bedside. [facility] Phone: [phone]) 820-706106-26-2022 Hospital Discharge instructions* Instructions* Cisco Stallings MD - 10/24/2021 Bandaids X 48 hours May shower 48 hours Analgesia prescription given if needed No driving while on pain meds No lifting > 10 lbs for next week documented in this encounterB[facility] Phone: 1(576) 845-518106-22-2022 Hospital Discharge instructions Patient Education 10/20/2021 21:59:57 Choosing to breastfeed is one of the best decisions you can make for yourself and your baby. A change in hormones during causes your breasts to make breast milk in your milk-producing glands. Hormones prevent breast milk from being released before your baby is born. They also prompt milk flow after . Once has begun, thoughts of your baby, as well as his or her suckingor crying, can stimulate the release of milk from your milk-producing glands. Benefits of Research shows that offers many health benefits for infants and mothers. It also offers a cost-free and convenient way to feed your baby. For your baby Your first milk (colostrum) helps your baby's digestive system to function better. Special cells in your milk (antibodies) help your baby to fight off infections. Breastfed babies are less likely to develop asthma, allergies, obesity, or type 2 diabetes. They are also at lower risk for sudden infant syndrome (SIDS). Nutrients in breast milk are better able to meet your baby s needs compared to formula. Breast milk improves your baby's brain development. For you helps to create a very special dubose between you and your baby. is convenient. Breast milk costs nothing and is always available at the correct temperature. helps to burn calories. It helps you to lose the weight that you gained during . makes your uterus return faster to its size before . It also slows bleeding (lochia) after you give . helps to lower your risk of developing type 2 diabetes, osteoporosis, rheumatoid arthritis, cardiovascular disease, and breast, ovarian, uterine, and endometrial cancer later in life. basics Starting Find a comfortable place to sit or lie down, with your neck and back well-supported. Place a pillow or a rolled-up blanket under your baby to bring him or her to the level of your breast (if you are seated). Nursing pillows are specially designed to help support your arms and your baby while you breastfeed. Make sure that your baby's tummy (abdomen) is facing your abdomen. Gently massage your breast. With your fingertips, massage from the outer edges of your breast inward toward the nipple. This encourages milk flow. If your milk flows slowly, you may need to continue this action during the feeding. Support your breast with 4 fingers underneath and your thumb above your nipple (make the letter C with your hand). Make sure your fingers are well away from your nipple and your baby s mouth. Stroke your baby's lips gently with your finger or nipple. When your baby's mouth is open wide enough, quickly bring your baby to your breast, placing your entire nipple and as much of the areola as possible into your baby's mouth. The areola is the colored area around your nipple. ?More areola should be visible above your baby's upper lip than below the lower lip. ?Your baby's lips should be opened and extended outward (flanged) to ensure an adequate, comfortable latch. ?Your baby's tongue should be between his or her lower gum and your breast. Make sure that your baby's mouth is correctly positioned around your nipple (latched). Your baby's lips should create a seal on your breast and be turned out (everted). It is common for your baby to suck about 2 3 minutes in order to start the flow of breast milk. Latching Teaching your baby how to latch onto your breast properly is very important. An improper latch can cause nipple pain, decreased milk supply, and poor weight gain in your baby. Also, if your baby is not latched onto your nipple properly, he or she may swallow some air during feeding. This can make your baby fussy. Burping your baby when you switch breasts during the feeding can help to get rid of the air. However, teaching your baby to latch on properly is still the best way to prevent fussinessfrom swallowing air while . Signs that your baby has successfully latched onto your nipple Silent tugging or silent sucking, without causing you pain. Infant's lips should be extended outward (flanged). Swallowing heard between every 3 4 sucks once your milk has started to flow (after your let-down milk reflex occurs). Muscle movement above and in front of his or her ears while sucking. Signs that your baby has not successfully latched onto your nipple Sucking sounds or smacking sounds from your baby while . Nipple pain. If you think your baby has not latched on correctly, slip your finger into the corner of your baby s mouth to break the suction and place it between your baby's gums. Attempt to start again. Signs of successful Signs from your baby Your baby will gradually decrease the number of sucks or will completely stop sucking. Your baby will fall asleep. Your baby's body will relax. Your baby will retain a small amount of milk in his or her mouth. Your baby will let go of your breast by himself or herself. Signs from you Breasts that have increased in firmness, weight, and size 1 3 hours after feeding. Breasts that are softer immediately after . Increased milk volume, as well as a change in milk consistency and color by the fifth day of . Nipples that are not sore, cracked, or bleeding. Signs that your baby is getting enough milk Wetting at least 1 2 diapers during the first 24 hours after . Wetting at least 5 6 diapers every 24 hours for the first week after . The urine should be clear or pale yellow by the age of 5 days. Wetting 6 8 diapers every 24 hours as your baby continues to grow and develop. At least 3 stools in a 24-hour period by the age of 5 days. The stool should be soft and yellow. At least 3 stools in a 24-hour period by the age of 7 days. The stool should be seedy and yellow. No loss of weight greater than 10% of weight during the first 3 days of life. Average weight gain of 4 7 oz (113 198 g) per week after the age of 4 days. Consistent daily weight gain by the age of 5 days, without weight loss after the age of 2 weeks. After a feeding, your baby may spit up a small amount of milk. This is normal. frequency and duration Frequent feeding will help you make more milk and can prevent sore nipples and extremely full breasts (breast engorgement). Breastfeed when you feel the need to reduce the fullness of your breasts orwhen your baby shows signs of hunger. This is called on demand. Signs that your baby is hungry include: Increased alertness, activity, or restlessness. Movement of the head from side to side. Opening of the mouth when the corner of the mouth or cheek is stroked (rooting). Increased sucking sounds, smacking lips, cooing, sighing, or squeaking. Khub-iq-frfki movements and sucking on fingers or hands. Fussing or crying. Avoid introducing a pacifier to your baby in the first 4-6 weeks after your baby is born. After this time, you may choose to use a pacifier. Research has shown that pacifier use during the first yearof a baby's life decreases the risk of sudden infant syndrome (SIDS). Allow your baby to feed on each breast as long as he or she wants. When your baby unlatches or falls asleep while feeding from the first breast, offer the second breast. Because newborns are often sleepy in the first few weeks of life, you may need to awaken your baby to get him or her to feed. times will vary from baby to baby. However, the following rules can serve as a guide to help you make sure that your baby is properly fed: Newborns (babies 4 weeks of age or younger) may breastfeed every 1 3 hours. Newborns should not go without for longer than 3 hours during the day or 5 hours during the night. You should breastfeed your baby a minimum of 8 times in a 24-hour period. Breast milk pumping Pumping and storing breast milk allows you to make sure that your baby is exclusively fed your breast milk, even at times when you are unable to breastfeed. This is especially important if you go back to work while you are still , or if you are not able to be present during feedings. Your solutions sales consultant can help you find a method of pumping that works best for you and give you guidelines about how long it is safe to store breast milk. Caring for your breasts while you breastfeed Nipples can become dry, cracked, and sore while . The following recommendations can help keep your breasts moisturized and healthy: Avoid using soap on your nipples. Wear a supportive bra designed especially for nursing. Avoid wearing underwire- style bras or extremely tight bras (sports bras). Air-dry your nipples for 3 4 minutes after each feeding. Use only cotton bra pads to absorb leaked breast milk. Leaking of breast milk between feedings is normal. Use lanolin on your nipples after . Lanolin helps to maintain your skin's normal moisture barrier. Pure lanolin is not harmful (not toxic) to your baby. You may also hand express a few drops of breast milk and gently massage that milk into your nipples and allow the milk to air-dry. In the first few weeks after giving , some women experience breast engorgement. Engorgement can make your breasts feel heavy, warm, and tender to the touch. Engorgement peaks within 3 5 days after you give . The following recommendations can help to ease engorgement: Completely empty your breasts while or pumping. You may want to start by applying warm, moist heat (in the shower or with warm, water-soaked hand towels) just before feeding or pumping.This increases circulation and helps the milk flow. If your baby does not completely empty your breasts while , pump any extra milk after he or she is finished. Apply ice packs to your breasts immediately after or pumping, unless this is too uncomfortable for you. To do this: ?Put ice in a plastic bag. ?Place a towel between your skin and the bag. ?Leave the ice on for 20 minutes, 2 3 times a day. Make sure that your baby is latched on and positioned properly while . If engorgement persists after 48 hours of following these recommendations, contact your health careprovider or a solutions sales consultant. Overall health care recommendations while Eat 3 healthy meals and 3 snacks every day. Well-nourished mothers who are need an additional 450 500 calories a day. You can meet this requirement by increasing the amount of a balanced diet that you eat. Drink enough water to keep your urine pale yellow or clear. Rest often, relax, and continue to take your vitamins to prevent fatigue, stress, and low vitamin and mineral levels in your body (nutrient deficiencies). Do not use any products that contain nicotine or tobacco, such as cigarettes and e-cigarettes. Yourbaby may be harmed by chemicals from cigarettes that pass into breast milk and exposure to secondhand smoke. If you need help quitting, ask your health care provider. Avoid alcohol. Do not use illegal drugs or marijuana. Talk with your health care provider before taking any medicines. These include qgbd-yng-yzowxut andprescription medicines as well as vitamins and herbal supplements. Some medicines that may be harmful to your baby can pass through breast milk. It is possible to become while . If control is desired, ask your healthcare provider about options that will be safe while your baby. Where to find more information: [employer]: www.llli.org Contact a health care provider if: You feel like you want to stop or have become frustrated with . Your nipples are cracked or bleeding. Your breasts are red, tender, or warm. You have: ?Painful breasts or nipples. ?A swollen area on either breast. ?A fever or chills. ?Nausea or vomiting. ?Drainage other than breast milk from your nipples. Your breasts do not become full before feedings by the fifth day after you give . You feel sad and depressed. Your baby is: ?Too sleepy to eat well. ?Having trouble sleeping. ?More than 1 week old and wetting fewer than 6 diapers in a 24-hour period. ?Not gaining weight by 5 days of age. Your baby has fewer than 3 stools in a 24-hour period. Your baby's skin or the white parts of his or her eyes become yellow. Get help right away if: Your baby is overly tired (lethargic) and does not want to wake up and feed. Your baby develops an unexplained fever. Summary offers many health benefits for infant and mothers. Try to breastfeed your infant when he or she shows early signs of hunger. Gently tickle or stroke your baby's lips with your finger or nipple to allow the baby to open his or her mouth. Bring the baby to your breast. Make sure that much of the areola is in your baby's mouth. Offer one side and burp the baby before you offer the other side. Talk with your health care provider or solutions sales consultant if you have questions or you face problems as you breastfeed. This information is not intended to replace advice given to you by your health care provider. Make sure you discuss any questions you have with your health care provider. Document Released: 04/17/2006 Document Revised: 07/12/2018 Document Reviewed: 05/19/2017 [employer] Patient Education 2020 [employer] Follow Up Care 10/20/2021 21:07:31 With:[facility] Address:Unknown When:10/22/2021 Comments:Appointment has already been scheduled. Keep scheduled appointment for Monday With:Dr. Boyd Address:Unknown When:1 to 2 days Comments:IF SYMPTOMS CONTINUE TOMORROW PLEASE CALL DR. BOYD'S OFFICE.Call Dr if fever>100.5 F, heavy bleedingCall for any problems.Call physician if symptoms worsenLactation Support Group first Monday month [facility]06[facility] Evaluation + Plan note Diagnostic Tests Pending * Urine Culture 10/20/21 [facility]05-21-2022 Hospital Discharge instructions Patient Education 09/18/2021 00:02:46 Preeclampsia and Eclampsia Preeclampsia and Eclampsia Preeclampsia is a serious condition that may develop during . This condition causes high blood pressure and increased protein in your urine along with other symptoms, such as headaches and vision changes. These symptoms may develop as the condition gets worse. Preeclampsia may occur at 20 weeks of or later. Diagnosing and treating preeclampsia early is very important. If not treated early, it can cause serious problems for you and your baby. One problem it can lead to is eclampsia. Eclampsia is a condition that causes muscle jerking or shaking (convulsions or seizures) and other serious problems for the mother. During , delivering your baby may be the best treatment for preeclampsia or eclampsia. For most women, preeclampsia and eclampsia symptoms go away after giving . In rare cases, a woman may develop preeclampsia after giving ( preeclampsia). This usually occurs within 48 hours after childbirth but may occur up to 6 weeks after giving . What are the causes? The cause of preeclampsia is not known. What increases the risk? The following risk factors make you more likely to develop preeclampsia: Being for the first time. Having had preeclampsia during a past . Having a family history of preeclampsia. Having high blood pressure. Being with more than one baby. Being 35 or older. Being -Cypriot. Having kidney disease or diabetes. Having medical conditions such as lupus or blood diseases. Being very overweight (obese). What are the signs or symptoms? The most common symptoms are: Severe headaches. Vision problems, such as blurred or double vision. Abdominal pain, especially upper abdominal pain. Other symptoms that may develop as the condition gets worse include: Sudden weight gain. Sudden swelling of the hands, face, legs, and feet. Severe nausea and vomiting. Numbness in the face, arms, legs, and feet. Dizziness. Urinating less than usual. Slurred speech. Convulsions or seizures. How is this diagnosed? There are no screening tests for preeclampsia. Your health care provider will ask you about symptoms and check for signs of preeclampsia during your visits. You may also have tests that include: Checking your blood pressure. Urine tests to check for protein. Your health care provider will check for this at every visit. Blood tests. Monitoring your baby's heart rate. Ultrasound. How is this treated? You and your health care provider will determine the treatment approach that is best for you. Treatment may include: Having more frequent exams to check for signs of preeclampsia, if you have an increased risk for preeclampsia. Medicine to lower your blood pressure. Staying in the hospital, if your condition is severe. There, treatment will focus on controlling your blood pressure and the amount of fluids in your body (fluid retention). Taking medicine (magnesium sulfate) to prevent seizures. This may be given as an injection or through an IV. Taking a low-dose aspirin during your . Delivering your baby early. You may have your labor started with medicine (induced), or you may have a delivery. Follow these instructions at home: Eating and drinking Drink enough fluid to keep your urine pale yellow. Avoid caffeine. Lifestyle Do not use any products that contain nicotine or tobacco, such as cigarettes and e-cigarettes. If you need help quitting, ask your health care provider. Do not use alcohol or drugs. Avoid stress as much as possible. Rest and get plenty of sleep. General instructions Take ldoq-odq-xdmblyi and prescription medicines only as told by your health care provider. When lying down, lie on your left side. This keeps pressure off your major blood vessels. When sitting or lying down, raise (elevate) your feet. Try putting some pillows underneath your lower legs. Exercise regularly. Ask your health care provider what kinds of exercise are best for you. Keep all follow-up and visits as told by your health care provider. This is important. How is this prevented? There is no known way of preventing preeclampsia or eclampsia from developing. However, to lower your risk of complications and detect problems early: Get regular care. Your health care provider may be able to diagnose and treat the condition early. Maintain a healthy weight. Ask your health care provider for help managing weight gain during . Work with your health care provider to manage any long-term (chronic) health conditions you have, such as diabetes or kidney problems. You may have tests of your blood pressure and kidney function after giving . Your health care provider may have you take low-dose aspirin during your next . Contact a health care provider if: You have symptoms that your health care provider told you may require more treatment or monitoring,such as: ?Headaches. ?Nausea or vomiting. ?Abdominal pain. ?Dizziness. ?Light-headedness. Get help right away if: You have severe: ?Abdominal pain. ?Headaches that do not get better. ?Dizziness. ?Vision problems. ?Confusion. ?Nausea or vomiting. You have any of the following: ?A seizure. ?Sudden, rapid weight gain. ?Sudden swelling in your hands, ankles, or face. ?Trouble moving any part of your body. ?Numbness in any part of your body. ?Trouble speaking. ?Abnormal bleeding. You faint. Summary Preeclampsia is a serious condition that may develop during . This condition causes high blood pressure and increased protein in your urine along with other symptoms, such as headaches and vision changes. Diagnosing and treating preeclampsia early is very important. If not treated early, it can cause serious problems for you and your baby. Get help right away if you have symptoms that your health care provider told you to watch for. This information is not intended to replace advice given to you by your health care provider. Make sure you discuss any questions you have with your health care provider. Document Released: 04/14/2001 Document Revised: 12/18/2018 Document Reviewed: 11/21/2016 [employer] Patient Education 2020 [employer]. 09/18/2021 00:02:46 Third Trimester of , [id number] Third Trimester of The third trimester is from week 28 through week 40 (months 7 through 9). This trimester is when your unborn baby (fetus) is growing very fast. At the end of the ninth month, the unborn baby is about20 inches in length. It weighs about 6 10 pounds. Follow these instructions at home: Medicines Take aoni-oxc-xowyonh and prescription medicines only as told by your doctor. Some medicines are safe and some medicines are not safe during . Take a vitamin that contains at least 600 micrograms (mcg) of folic acid. If you have trouble pooping (constipation), take medicine that will make your stool soft (stool softener) if your doctor approves. Eating and drinking Eat regular, healthy meals. Avoid raw meat and uncooked cheese. If you get low calcium from the food you eat, talk to your doctor about taking a daily calcium supplement. Eat four or five small meals rather than three large meals a day. Avoid foods that are high in fat and sugars, such as fried and sweet foods. To prevent constipation: ?Eat foods that are high in fiber, like fresh fruits and vegetables, whole grains, and beans. ?Drink enough fluids to keep your pee (urine) clear or pale yellow. Activity Exercise only as told by your doctor. Stop exercising if you start to have cramps. Avoid heavy lifting, wear low heels, and sit up straight. Do not exercise if it is too hot, too humid, or if you are in a place of great height (high altitude). You may continue to have sex unless your doctor tells you not to. Relieving pain and discomfort Wear a good support bra if your breasts are tender. Take frequent breaks and rest with your legs raised if you have leg cramps or low back pain. Take warm water baths (sitz baths) to soothe pain or discomfort caused by hemorrhoids. Use hemorrhoid cream if your doctor approves. If you develop puffy, bulging veins (varicose veins) in your legs: ?Wear support hose or compression stockings as told by your doctor. ?Raise (elevate) your feet for 15 minutes, 3 4 times a day. ?Limit salt in your food. Safety Wear your seat belt when driving. Make a list of emergency phone numbers, including numbers for family, friends, the hospital, and police and fire departments. Preparing for your baby's arrival To prepare for the arrival of your baby: Take classes. Practice driving to the hospital. Visit the hospital and tour the maternity area. Talk to your work about taking leave once the baby comes. Pack your hospital bag. Prepare the baby's room. Go to your doctor visits. Buy a rear-facing car seat. Learn how to install it in your car. General instructions Do not use hot tubs, steam rooms, or saunas. Do not use any products that contain nicotine or tobacco, such as cigarettes and e-cigarettes. If you need help quitting, ask your doctor. Do not drink alcohol. Do not douche or use tampons or scented sanitary pads. Do not cross your legs for long periods of time. Do not travel for long distances unless you must. Only do so if your doctor says it is okay. Visit your dentist if you have not gone during your . Use a soft toothbrush to brush your teeth. Be gentle when you floss. Avoid cat litter boxes and soil used by cats. These carry germs that can cause defects in thebaby and can cause a loss of your baby (miscarriage) or stillbirth. Keep all your visits as told by your doctor. This is important. Contact a doctor if: You are not sure if you are in labor or if your water has broken. You are dizzy. You have mild cramps or pressure in your lower belly. You have a nagging pain in your belly area. You continue to feel sick to your stomach, you throw up, or you have watery poop. You have bad smelling fluid coming from your vagina. You have pain when you pee. Get help right away if: You have a fever. You are leaking fluid from your vagina. You are spotting or bleeding from your vagina. You have severe belly cramps or pain. You lose or gain weight quickly. You have trouble catching your breath and have chest pain. You notice sudden or extreme puffiness (swelling) of your face, hands, ankles, feet, or legs. You have not felt the baby move in over an hour. You have severe headaches that do not go away with medicine. You have trouble seeing. You are leaking, or you are having a gush of fluid, from your vagina before you are 37 weeks. You have regular belly spasms (contractions) before you are 37 weeks. Summary The third trimester is from week 28 through week 40 (months 7 through 9). This time is when your unborn baby is growing very fast. Follow your doctor's advice about medicine, food, and activity. Get ready for the arrival of your baby by taking classes, getting all the baby items ready, preparing the baby's room, and visiting your doctor to be checked. Get help right away if you are bleeding from your vagina, or you have chest pain and trouble catching your breath, or if you have not felt your baby move in over an hour. This information is not intended to replace advice given to you by your health care provider. Make sure you discuss any questions you have with your health care provider. Document Released: 07/12/2010 Document Revised: 08/08/2019 Document Reviewed: 05/23/2017 [employer] Patient Education 2019 [employer]. Follow Up Care 09/17/2021 22:45:27 With:Cash BOYD Address: [address] [place] [address]- Business (1) When:2 weeks Comments:Call for any problems.Call physician if symptoms worsenReturn for contractions closer, longer, harderReturn for decreased movementReturn if ruptured membranes or vaginal bleeding [facility]04-29-2022 Hospital Discharge instructions Patient Education 08/27/2021 03:01:30 Third Trimester of , [id number]-[id number] Third Trimester of The third trimester is from week 28 through week 40 (months 7 through 9). This trimester is when your unborn baby (fetus) is growing very fast. At the end of the ninth month, the unborn baby is about20 inches in length. It weighs about 6 10 pounds. Follow these instructions at home: Medicines Take zyoq-fgs-cpazope and prescription medicines only as told by your doctor. Some medicines are safe and some medicines are not safe during . Take a vitamin that contains at least 600 micrograms (mcg) of folic acid. If you have trouble pooping (constipation), take medicine that will make your stool soft (stool softener) if your doctor approves. Eating and drinking Eat regular, healthy meals. Avoid raw meat and uncooked cheese. If you get low calcium from the food you eat, talk to your doctor about taking a daily calcium supplement. Eat four or five small meals rather than three large meals a day. Avoid foods that are high in fat and sugars, such as fried and sweet foods. To prevent constipation: ?Eat foods that are high in fiber, like fresh fruits and vegetables, whole grains, and beans. ?Drink enough fluids to keep your pee (urine) clear or pale yellow. Activity Exercise only as told by your doctor. Stop exercising if you start to have cramps. Avoid heavy lifting, wear low heels, and sit up straight. Do not exercise if it is too hot, too humid, or if you are in a place of great height (high altitude). You may continue to have sex unless your doctor tells you not to. Relieving pain and discomfort Wear a good support bra if your breasts are tender. Take frequent breaks and rest with your legs raised if you have leg cramps or low back pain. Take warm water baths (sitz baths) to soothe pain or discomfort caused by hemorrhoids. Use hemorrhoid cream if your doctor approves. If you develop puffy, bulging veins (varicose veins) in your legs: ?Wear support hose or compression stockings as told by your doctor. ?Raise (elevate) your feet for 15 minutes, 3 4 times a day. ?Limit salt in your food. Safety Wear your seat belt when driving. Make a list of emergency phone numbers, including numbers for family, friends, the hospital, and police and fire departments. Preparing for your baby's arrival To prepare for the arrival of your baby: Take classes. Practice driving to the hospital. Visit the hospital and tour the maternity area. Talk to your work about taking leave once the baby comes. Pack your hospital bag. Prepare the baby's room. Go to your doctor visits. Buy a rear-facing car seat. Learn how to install it in your car. General instructions Do not use hot tubs, steam rooms, or saunas. Do not use any products that contain nicotine or tobacco, such as cigarettes and e-cigarettes. If you need help quitting, ask your doctor. Do not drink alcohol. Do not douche or use tampons or scented sanitary pads. Do not cross your legs for long periods of time. Do not travel for long distances unless you must. Only do so if your doctor says it is okay. Visit your dentist if you have not gone during your . Use a soft toothbrush to brush your teeth. Be gentle when you floss. Avoid cat litter boxes and soil used by cats. These carry germs that can cause defects in thebaby and can cause a loss of your baby (miscarriage) or stillbirth. Keep all your visits as told by your doctor. This is important. Contact a doctor if: You are not sure if you are in labor or if your water has broken. You are dizzy. You have mild cramps or pressure in your lower belly. You have a nagging pain in your belly area. You continue to feel sick to your stomach, you throw up, or you have watery poop. You have bad smelling fluid coming from your vagina. You have pain when you pee. Get help right away if: You have a fever. You are leaking fluid from your vagina. You are spotting or bleeding from your vagina. You have severe belly cramps or pain. You lose or gain weight quickly. You have trouble catching your breath and have chest pain. You notice sudden or extreme puffiness (swelling) of your face, hands, ankles, feet, or legs. You have not felt the baby move in over an hour. You have severe headaches that do not go away with medicine. You have trouble seeing. You are leaking, or you are having a gush of fluid, from your vagina before you are 37 weeks. You have regular belly spasms (contractions) before you are 37 weeks. Summary The third trimester is from week 28 through week 40 (months 7 through 9). This time is when your unborn baby is growing very fast. Follow your doctor's advice about medicine, food, and activity. Get ready for the arrival of your baby by taking classes, getting all the baby items ready, preparing the baby's room, and visiting your doctor to be checked. Get help right away if you are bleeding from your vagina, or you have chest pain and trouble catching your breath, or if you have not felt your baby move in over an hour. This information is not intended to replace advice given to you by your health care provider. Make sure you discuss any questions you have with your health care provider. Document Released: 07/12/2010 Document Revised: 08/08/2019 Document Reviewed: 05/23/2017 [employer] Patient Education 2020 Couple. 08/27/2021 03:01:30 Back Pain in Back Pain in Back pain during is common. Back pain may be caused by several factors that are related to changes during your . Follow these instructions at home: Managing pain, stiffness, and swelling If directed, for sudden (acute) back pain, put ice on the painful area. ?Put ice in a plastic bag. ?Place a towel between your skin and the bag. ?Leave the ice on for 20 minutes, 2 3 times per day. If directed, apply heat to the affected area before you exercise. Use the heat source that your health care provider recommends, such as a moist heat pack or a heating pad. ?Place a towel between your skin and the heat source. ?Leave the heat on for 20 30 minutes. ?Remove the heat if your skin turns bright red. This is especially important if you are unable to feel pain, heat, or cold. You may have a greater risk of getting burned. If directed, massage the affected area. Activity Exercise as told by your health care provider. Gentle exercise is the best way to prevent or manageback pain. Listen to your body when lifting. If lifting hurts, ask for help or bend your knees. This uses yourleg muscles instead of your back muscles. Squat down when picking up something from the floor. Do not bend over. Only use bed rest for short periods as told by your health care provider. Bed rest should only be used for the most severe episodes of back pain. Standing, sitting, and lying down Do not merchandise for resale purchasing agent one place for long periods of time. Use good posture when sitting. Make sure your head rests over your shoulders and is not hanging forward. Use a pillow on your lower back if necessary. Try sleeping on your side, preferably the left side, with a support pillow or 1 2 regularpillows between your legs. ?If you have back pain after a night's rest, your bed may be too soft. ?A firm mattress may provide more support for your back during . General instructions Do not wear high heels. Eat a healthy diet. Try to gain weight within your health care provider's recommendations. Use a maternity girdle, elastic sling, or back brace as told by your health care provider. Take mykp-mkq-dhzzlty and prescription medicines only as told by your health care provider. Work with a physical therapist or massage therapist to find ways to manage back pain. Acupuncture or massage therapy may be helpful. Keep all follow-up visits as told by your health care provider. This is important. Contact a health care provider if: Your back pain interferes with your daily activities. You have increasing pain in other parts of your body. Get help right away if: You develop numbness, tingling, weakness, or problems with the use of your arms or legs. You develop severe back pain that is not controlled with medicine. You have a change in bowel or bladder control. You develop shortness of breath, dizziness, or you faint. You develop nausea, vomiting, or sweating. You have back pain that is a rhythmic, cramping pain similar to labor pains. Labor pain is usually 1 2 minutes apart, lasts for about 1 minute, and involves a bearing down feeling or pressure in yourpelvis. You have back pain and your water breaks or you have vaginal bleeding. You have back pain or numbness that travels down your leg. Your back pain developed after you fell. You develop pain on one side of your back. You see blood in your urine. You develop skin blisters in the area of your back pain. Summary Back pain may be caused by several factors that are related to changes during your . Follow instructions as told by your health care provider for managing pain, stiffness, and swelling. Exercise as told by your health care provider. Gentle exercise is the best way to prevent or manageback pain. Take dlwi-ugj-ylgsrhl and prescription medicines only as told by your health care provider. Keep all follow-up visits as told by your health care provider. This is important. This information is not intended to replace advice given to you by your health care provider. Make sure you discuss any questions you have with your health care provider. Document Released: 07/26/2006 Document Revised: 08/06/2019 Document Reviewed: 10/03/2018 [employer] Patient Education 2020 Couple. Follow Up Care 08/26/2021 22:44:30 With:Cash BOYD Address: [address] [place] [address] [facility] (1) When:08/31/2021 Comments:Call Dr. BOYD office in morning Call for any problems.Call for severe abdominal painCall physicianfor heavy vaginal bleedinCall for fever > 100.5 FCall physician if symptoms worsenReturn for decreased movementReturn if ruptured membranes or vaginal [facility]03[facility] Evaluation + Plan noteExtracted from: Title:ED Note Author:Alan Jelly HOWARD III Date:07/24/21 1. Upper respiratory infecti on (J06.9: Acute upper respiratory infection, unspecified) Orders: Influenza A&B Ag Rapid COVID Antigen ([facility]) [facility]03-26[facility]22 Hospital Discharge instructions Patient Education 07/24/2021 02:14:42 Upper Respiratory Infection, Adult Upper Respiratory Infection, Adult An upper respiratory infection (URI) is a common viral infection of the nose, throat, and upper airpassages that lead to the lungs. The most common type of URI is the common cold. URIs usually get better on their own, without medical treatment. What are the causes? A URI is caused by a virus. You may catch a virus by: Breathing in droplets from an infected person's cough or sneeze. Touching something that has been exposed to the virus (contaminated) and then touching your mouth, nose, or eyes. What increases the risk? You are more likely to get a URI if: You are very young or very old. It is jeanne or winter. You have close contact with others, such as at a daycare, school, or health care facility. You smoke. You have long-term (chronic) heart or lung disease. You have a weakened disease-fighting (immune) system. You have nasal allergies or asthma. You are experiencing a lot of stress. You work in an area that has poor air circulation. You have poor nutrition. What are the signs or symptoms? A URI usually involves some of the following symptoms: Runny or stuffy (congested) nose. Sneezing. Cough. Sore throat. Headache. Fatigue. Fever. Loss of appetite. Pain in your forehead, behind your eyes, and over your cheekbones (sinus pain). Muscle aches. Redness or irritation of the eyes. Pressure in the ears or face. How is this diagnosed? This condition may be diagnosed based on your medical history and symptoms, and a physical exam. Your health care provider may use a cotton swab to take a mucus sample from your nose (nasal swab). This sample can be tested to determine what virus is causing the illness. How is this treated? URIs usually get better on their own within 7 10 days. You can take steps at home to relieve your symptoms. Medicines cannot cure URIs, but your health care provider may recommend certain medicines to help relieve symptoms, such as: Swdj-dhe-unnvypl cold medicines. Cough suppressants. Coughing is a type of defense against infection that helps to clear the respiratory system, so take these medicines only as recommended by your health care provider. Fever-reducing medicines. Follow these instructions at home: Activity Rest as needed. If you have a fever, stay home from work or school until your fever is gone or until your health care provider says you are no longer contagious. Your health care provider may have you wear a face mask to prevent your infection from spreading. Relieving symptoms Gargle with a salt-water mixture 3 4 times a day or as needed. To make a salt- water mixture, completely dissolve 1 tsp of salt in 1 cup of warm water. Use a cool-mist humidifier to add moisture to the air. This can help you breathe more easily. Eating and drinking Drink enough fluid to keep your urine pale yellow. Eat soups and other clear broths. General instructions Take oaee-spo-uydxcfj and prescription medicines only as told by your health care provider. These include cold medicines, fever reducers, and cough suppressants. Do not use any products that contain nicotine or tobacco, such as cigarettes and e-cigarettes. If you need help quitting, ask your health care provider. Stay away from secondhand smoke. Stay up to date on all immunizations, including the yearly (annual) flu vaccine. Keep all follow-up visits as told by your health care provider. This is important. How to prevent the spread of infection to others URIs can be passed from person to person (are contagious). To prevent the infection from spreading: ?Wash your hands often with soap and water. If soap and water are not available, use hand molasses feed mixer. ?Avoid touching your mouth, face, eyes, or nose. ?Cough or sneeze into a tissue or your sleeve or elbow instead of into your hand or into the air. Contact a health care provider if: You are getting worse instead of better. You have a fever or chills. Your mucus is brown or red. You have yellow or brown discharge coming from your nose. You have pain in your face, especially when you bend forward. You have swollen neck glands. You have pain while swallowing. You have white areas in the back of your throat. Get help right away if: You have shortness of breath that gets worse. You have severe or persistent: ?Headache. ?Ear pain. ?Sinus pain. ?Chest pain. You have chronic lung disease along with any of the following: ?Wheezing. ?Prolonged cough. ?Coughing up blood. ?A change in your usual mucus. You have a stiff neck. You have changes in your: ?Vision. ?Hearing. ?Thinking. ?Mood. Summary An upper respiratory infection (URI) is a common infection of the nose, throat, and upper air passages that lead to the lungs. A URI is caused by a virus. URIs usually get better on their own within 7 10 days. Medicines cannot cure URIs, but your health care provider may recommend certain medicines to help relieve symptoms. This information is not intended to replace advice given to you by your health care provider. Make sure you discuss any questions you have with your health care provider. Document Released: 10/11/2001 Document Revised: 04/25/2019 Document Reviewed: 12/01/2017 [employer] Patient Education [employer]. Follow Up Care 07/24/2021 00:30:11 With:James Rodriguez Address: [address] [place] [address] [place] [address] Business (1) When:07/27/2021 Comments:Return to the emergency room if your symptoms get worse or any new symptoms. [facility] Diagnosis COVID-19- Primary documented in this encounter [employer] Phone: evaluation note* Diagnosis Other acute appendicitis- Primary documented in this encounter [employer] Phone: evaluation note* Diagnosis Acute appendicitis, unspecified acute appendicitis type documented in this encounter [employer] Phone: evaluation note* Diagnosis Acute pharyngitis, unspecified etiology- Primary documented in this encounter [employer] Phone: evaluation note* Diagnosis Acute bacterial conjunctivitis of right eye- Primary documented in this encounter [employer] Phone: evalufndiw note* Diagnosis Urticaria- Primary Urticaria, unspecified documented in this encounter [employer] note* Diagnosis Obesity (BMI 30-39.9)- Primary Obesity, unspecified Hepatitis C virus infection without hepatic coma, unspecified chronicity Anxiety and depression Dysthymic disorder Psychophysiological insomnia Persistent disorder of initiating or maintaining sleep 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, mixed, or unspecified nondependent drug abuse, in remission Restless leg Restless legs syndrome (RLS) Special screening examination for viral disease Special screening examination for unspecified viral disease Screening for HIV (human immunodeficiency virus) Special screening examination for other specified viral diseases Lipid screening Screening for lipoid disorders Vitamin D deficiency Unspecified vitamin D deficiency Encounter for immunization Need for other specified prophylactic vaccination against single bacterial disease [facility]* Diagnosis Anxiety and depression- Primary Dysthymic disorder History of substance abuse (HCC) Other, mixed, or unspecified nondependent drug abuse, unspecified Hepatitis C virus infection without hepatic coma, unspecified chronicity Boils of multiple sites documented in this encounter [facility]* Diagnosis Encounter for screening involving social determinants of health (SDoH)- Primary documented in this encounter [facility]* Diagnosis Hepatitis C virus infection without hepatic coma, unspecified chronicity- Primary History of substance abuse (HCC) Other, mixed, or unspecified nondependent drug abuse, unspecified documented in this encounter [facility] note* Diagnosis NO SHOW- Primary documented in this encounter [facility] note* Diagnosis Left against medical advice- Primary Surgical or other procedure not carried out because of patient's decision documented in this encounter [facility] course Narrative No data available for this section [facility] Discharge instructions* Attachments The following attachments cannot be sent through Care Everywhere. * Coronavirus Disease (COVID-19): General Info (Citizen Of [place]) [facility] Discharge instructions No data available for this section [facility] Discharge instructions* Attachments The following attachments cannot be sent through Care Everywhere. * Sore Throat (Citizen Of [place]) [facility] Phone: [facility] Discharge instructions* Attachments The following attachments cannot be sent through Care Everywhere. * Conjunctivitis (Citizen Of [place]) documented [facility] Phone: [facility] Discharge instructions* Attachments The following attachments cannot be sent through Care Everywhere. * Urticaria (Citizen Of [place]) [facility] No data available for this section [facility])* Diagnostic Procedure Only (Routine) - Pending Review Specialty Diagnoses / Procedures Referred By Contac t Referred To Contact [facility] Diagnoses Hepatitis C virus infection without hepatic coma, unspecified chronicity Procedures US ABD SPLEEN US ABDOMINAL REAL TIME W/IMAGE LIMITED Key Casas APRN.AUTOMOBILE MECHANIC [address] [id number] Us Imaging [facility] Referral ID Status Reason Start Date Expiration Date Visits Requested Visits Authorized [id number] Pending Review Auto-Generat ed Referral 3 03/25/2024 1 1 * Diagnostic Procedure Only (Routine) - Pending Review Specialty Diagnoses / Procedures Referred By Sarah chua Referred To Contact [facility] Diagnoses Hepatitis C virus infection without hepatic coma, unspecified chronicity Procedures US ABD RIGHT UPPER QUADRANT US ABDOMINAL REAL TIME W/IMAGE LIMITED Key Casas APRN.AUTOMOBILE MECHANIC [address] [place] [address] Us Imaging [id number] Referral ID Status Reason Start Date Expiration Date Visits Requested Visits Authorized [id number] Pending Review Auto-Generat ed Referral 3 03/25/2024 1 1 * Outpatient Procedure (Routine) - Pending Review Specialty Diagnoses / Procedures Referred By Contac t Referred To Contact [facility] Diagnoses Hepatitis C virus infection without hepatic coma, unspecified chronicity Procedures DDI VIBRATION CONTROLLED TRANSIENT ELASTOGRAPHY (VCTE) LIVER ELASTOGRAPHY W/O IMAG W/I&R Key Casas APRN.AUTOMOBILE MECHANIC [address] [place] [address] [facility] [address] [place] [address] Referral ID Status Reason Start Date Expiration Date Visits Requested Visits Authorized [id number] Pending Review Auto-Generat ed Referral 3 02/25/2024 1 1 [facility] Advance Directives No Advanced Directives Records FoundDocuments on File Type Date Recorded 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 60-74 MINUTES Lorna Dobson APRN.CANDELARIO [address] [place] [address] Referral ID Status Reason Start Date Expiration Date Visits Requested Visits Authorized [id number] Authorized PCP Requested Referral 3 02/17/2024 1 1 Specialty Diagnoses / Procedures Referred By Contac t Referred To Contact Gastroenterology Diagnoses History of substance abuse (HCC) Hepatitis C virus infection without hepatic coma, unspecified chronicity Procedures CONSULT TO GASTROENTEROLOGY OFFICE/OUTPATIENT [facility] 60-74 MINUTES Lorna Dobson APRN.CNP [address] [place] [address] Referral ID Status Reason Start Date Expiration Date Visits Requested Visits Authorized [id number] Authorized PCP Requested Referral 3 02/17/2024 1 1 Specialty Diagnoses / Procedures Referred By Contac t Referred To Contact Diagnoses Anxiety and depression History of substance abuse (HCC) Procedures CONSULT TO PSYCHIATRY OFFICE/OUTPATIENT [facility] 60-74 MINUTES Lorna Dobson APRN.CNP [address] [place] [address] Referral ID Status Reason Start Date Expiration Date Visits Requested Visits Authorized [id number] Pending Review PCP Requested Referral 3 02/17/2024 1 1 Specialty Diagnoses / Procedures Referred By Contac t Referred To Contact Diagnoses Obesity (BMI 30-39.9) History of intravenous drug use in remission Procedures ENDOCRINE MEDICAL WEIGHT MANAGEMENT OFFICE/OUTPATIENT [facility] 60-74 MINUTES Kelsi Freedman APRN.CANDELARIO [address] [place] [address] Referral ID Status Reason Start Date Expiration Date Visits Requested Visits Authorized [id number] Authorized PCP Requested Referral 01/09/2023 01/09/2024 1 1 Additional Source Comments Reason for Visit (unrecogniz ed section and content) Reason Comments Cough Pt reports productiv e cough with clear phlegm and congestion that started yesterday. Nasal Congestion Reason Comments Abdominal Pain LLQ, RLQ Emesis Reason Comments Cough Generalized Body Aches Reason Comments Eye Injury Right eye injury, af ter being hit by a baby bottle, also possibly scratched in the eye by [place] fingernail, clear drainage in eye and nose. Reason Comments Pruritis Itching all over her body; has bumps all over body; states she is covered all over with welts Reason Comments Physical Weight Problem Reason Comments Establish Care Reason Comments bh consult Reason Comments Ambulatory Social Work SDOH Reason Comments hepatitis C Specialty Diagnoses / Procedures Referred By Sarah chua Referred To Contact Gastroenterology Diagnoses History of substance abuse (HCC) Hepatitis C virus infection without hepatic coma, unspecified chronicity Procedures CONSULT TO GASTROENTEROLOGY OFFICE/OUTPATIENT [facility] 60-74 MINUTES Lorna Dobson, MARINE PIPEFITTER HELPER.AUTOMOBILE MECHANIC [address] [place] [address] Referral ID Status Reason Start Date Expiration Date V isits Requested Visits Authorized [id number] Closed PCP Requested Referral 02/17/2023 02/17/2024 1 1 Reason Comments Results Reason Comments depression Reason Comments Cough 30 weeks ; 3 rd ; OB told patient to go to the ER; denies water breaking; denies urge to push; denies contractions; when she coughs fluid comes out thinks it might just be urine Back Pain INFORMATION SOURCE (unrecogn ized section and content) DATE CREATED AUTHOR 04/11/2021 Xiomara sanderson DATE CREATED AUTHOR AUTHOR'S ORGANIZ ATION 10/27/2021 [facility] DATE CREATED AUTHOR AUTHOR'S ORGANIZ ATION 03/07/2023 [facility] DATE CREATED AUTHOR AUTHOR'S ORGANIZ ATION 08/06/2023 Xiomara Menchaca [facility] DATE CREATED AUTHOR AUTHOR'S ORGANIZ ATION 08/06/2023 [facility] DATE CREATED AUTHOR AUTHOR'S ORGANIZ ATION 08/18/2023 [facility] EPIC DATE CREATED AUTHOR AUTHOR'S ORGANIZ ATION 08/26/2023 Juan C Mejia [facility] Care Team (unrecognized sect ion and content) Address Change Clerk Relationship Specialty Start Date End Date Amie Rosas, [address] [place] [address] PCP - General Family Medicine 08/23/22 Address Change Clerk Relationship Specialty Start Date End Date Amie Rosas, [address] Tim [place], [place] [id number] PCP - General Family Medicine 05/02/16 Address Change Clerk Relationship Specialty Start Date End Date Lorna Dobson, MARINE PIPEFITTER HELPER.AUTOMOBILE MECHANIC [address] [place] [address] PCP - General 02/17/23 Address Change Clerk Relationship Specialty Start Date End Date Lorna Dobson, MARINE PIPEFITTER HELPER.AUTOMOBILE MECHANIC [address] [facility] [place] [address] PCP - General 02/17/23 Address Change Clerk Relationship Specialty Start Date End Date Lorna Dobson, MARINE PIPEFITTER HELPER.AUTOMOBILE MECHANIC [address] [place] [address] PCP - General 02/17/23 Address Change Clerk Relationship Specialty Start Date End Date Lorna Dobson, MARINE PIPEFITTER HELPER.AUTOMOBILE MECHANIC [address] [place] [address] PCP - General 02/17/23 Address Change Clerk Relationship Specialty Start Date End Date Lorna Dobson, MARINE PIPEFITTER HELPER.AUTOMOBILE MECHANIC [address] [place] [address] PCP - General 02/17/23 Scheduled Active and Recently Administ ered Medications (unrecognized section and content) Medication Order 10/21/2021 10/22/2021 10/23/2021 0.9 % sodium chloride bolus 1,000 mL (9.46 mL/kg), IntraVENous, at 983.6 mL/hr, Administer over 61 Minutes, ONCE, On 10/23/21 at 1614, For 1 dose 1633 (Patient Transf erred to Other Facility - Provider: Janelle Brewer, RN) ketorolac (TORADOL) injection 30 mg (COMPLETED) Ketorolac is contraindicated in patients with advanced renal impairment and in patients at risk of renal failure due to volume depletion. For 65 years of age and older OR weight less than 50 kg, use 15 mg IV every 6 hours; MAX dose: 60 mg/day. Dose greater than 30 mg must be administered via intramuscular route. Do not administer for more than 5 days., 30 mg, IntraVENous, ONCE, 1 dose, On 10/23/21 at 1614, Do not administer for more than 5 days. 1633 (Given - Provid er: Melyssa Roman RN) ondansetron (ZOFRAN) injection 4 mg (COMPLETED) 4 mg, IntraVENous, ONCE, 1 dose, On 10/23/21 at 1618 1633 (Given - Provid er: Melyssa Roman RN) PRN Medication Order 10/21/2021 10/22/2021 10/23/2021 iopamidol (ISOVUE-370) 76 % injection 100 mL (COMPLETED) 100 mL, IntraVENous, IMG ONCE PRN, 1 dose, Starting on 10/23/21 at 1702, Until 10/23/21 at 1710, Other 1710 (Given - Provid er: Lesley Castillo) Scheduled Medication Order 10/22/2021 10/23/2021 10/24/2021 piperacillin-tazobactam (ZOSYN) 3,375 mg in dextrose 5 % 50 mL IVPB (mini-bag) 3,375 mg, IntraVENous, EVERY 6 HOURS, First dose on 10/23/21 at 2115, Until Discontinued, Antimicrobial Indications: Intra-Abdominal Infection 8156 (New Bag - Provider: Gabrielle Puentes RN) 0046 (Stopped - Provider: Gabrielle Puentes RN)0623 (New Bag - Provider: Gabrielle Puentes RN)0653 (Due: Stopped - Provider: Gabrielle Puentes RN)1354 (New Bag - Provider: Gisela Tolentino RN)1424 (Stopped - Provider: Gisela Tolentino RN)2000 (Due - Provider: Gabriella Sanchez [facility]) Continuous Medication Order 10/22/2021 10/23/2021 10/24/2021 0.9 % sodium chloride infusion IntraVENous, at 50 mL/hr, CONTINUOUS, Starting on 10/24/21 at 1215 1350 (New Bag - Provider: Gisela Tolentino RN)1823 (Stopped - Provider: Gisela Tolentino RN) 0.9 % sodium chloride infusion (CANCELED) IntraVENous, at 100 mL/hr, CONTINUOUS, Starting on 10/23/21 at 2115 2354 (New Bag - Provider: Gabrielle Puentes RN) 1830 (Stopped - Provider: Gisela Tolentino RN) PRN Medication Order 10/22/2021 10/23/2021 10/24/2021 fentaNYL (SUBLIMAZE) injection 50 mcg (CANCELED) 50 mcg, IntraVENous, EVERY 10 MIN PRN, 4 doses, Starting on 10/24/21 at 1154, Until 10/24/21 at 1257, Pain Moderate (4-6), Phase I - Initial therapy for moderate pain., PACU only 1207 (Given - Provid er: Lien Shah RN)1219 (Given - Provider: Lien Shah RN) HYDROmorphone (DILAUDID) injection 0.5 mg(Linked Group 1) HYDROmorphone (DILAUDID) 1.5mg IV is equivalent to morphine 10mg IV, 0.5 mg, IntraVENous, EVERY 3 HOURS PRN, 20 doses, Starting on 10/24/21 at 1157, Until Discontinued, Pain Moderate (4-6), pain, If oral and IV narcotics ordered, use oral first and only use IV if oral is ineffective or cannot take oral. Do Not give oral and IV within 1 hour of each other unless specifically ordered. HYDROmorphone (DILAUDID) injection 1 mg(Linked Group 1) HYDROmorphone (DILAUDID) 1.5mg IV is equivalent to morphine 10mg IV, 1 mg, IntraVENous, EVERY 3 HOURS PRN, 20 doses, Starting on 10/24/21 at 1157, Until Discontinued, Pain Severe (7-10), pain, If oral and IV narcotics ordered, use oral first and only use IV if oral is ineffective or cannot take oral. Do Not give oral and IV within 1 hour of each other unless specifically ordered. morphine (PF) injection 1 mg (CANCELED) 1 mg, IntraVENous, EVERY 2 HOURS PRN, 10 doses, Starting on 10/23/21 at 2050, Until 10/24/21 at 1157, Pain Moderate (4-6), pain, If oral and IV narcotics ordered, use oral first and only use IV if oral is ineffective or cannot take oral. Do Not give oral and IV within 1 hour of each other unless specifically ordered. 2354 (Given - Provider: Gabrielle Puentes RN) 336 (See Alternative - Provider: Gabrielle Puentes RN)07 (See Alternative - Provider: Gisela Tolentino, RN) morphine (PF) injection 2 mg (CANCELED) 2 mg, IntraVENous, EVERY 2 HOURS PRN, 10 doses, Starting on 10/23/21 at 2050, Until 10/24/21 at 1157, Pain Severe (7-10), pain, If oral and IV narcotics ordered, use oral first and only use IV if oral is ineffective or cannot take oral. Do Not give oral and IV within 1 hour of each other unless specifically ordered. 2354 (See Alternative - Provider: Gabrielle Puentes RN) 336 (Given - Provider: Gabrielle Puentes RN)07 (Given - Provider: Gisela Tolentino, RN) ondansetron (ZOFRAN) injection 4 mg (COMPLETED) 4 mg, IntraVENous, ONCE PRN, 1 dose, Starting on 10/24/21 at 1154, Until 10/24/21 at 1205, Nausea, Initial antiemetic therapy., PACU only 1205 (Given - Provid er: Lien Shah RN) ondansetron (ZOFRAN) injection 4 mg 4 mg, IntraVENous, EVERY 6 HOURS PRN, Starting on 10/23/21 at 2048, Until Discontinued, Nausea, Vomiting 2356 (Given - Provider: Gabrielle Puentes, EEMLY) oxyCODONE-acetaminophen (PERCOCET) 5-325 MG per tablet 1 tablet(Linked Group 2) Mg/kg dosing is based on the oxycodone component., 1 tablet, Oral, EVERY 4 HOURS PRN, 20 doses, Starting on 10/24/21 at 1157, Until Discontinued, Pain Moderate (4-6), Maximum dose of acetaminophen is 4000 mg from all sources in 24 hours. 1320 (See Alternativ e - Provider: Gisela Tolentino RN) oxyCODONE-acetaminophen (PERCOCET) 5-325 MG per tablet 2 tablet(Linked Group 2) Mg/kg dosing is based on the oxycodone component., 2 tablet, Oral, EVERY 4 HOURS PRN, 20 doses, Starting on 10/24/21 at 1157, Until Discontinued, Pain Severe (7-10), Maximum dose of acetaminophen is 4000 mg from all sources in 24 hours. 1320 (Given - Provid er: Gisela Tolentnio RN) sodium chloride 0.9 % irrigation (CANCELED) CONTINUOUS PRN, Starting on 10/24/21 at 1050, Intra-op 1050 (New Bag - Provider: Cisco Stallings MD)1830 (Stopped - Provider: Gisela Tolentino RN) No Frequency Medication Order 10/22/2021 10/23/2021 10/24/2021 lactated ringers infusion Starting on 10/24/21 at 1233, For 1 dose, Lien Gutierrez: cabinet override 1245 (Due) Linked Groups Order Group 1: HYDROmorphone (DILAUDID) injection 0.5 mgJump to med HYDROmorphone (DILAUDID) 1.5mg IV is equivalent to morphine 10mg IV
0.5 mg, IntraVENous, EVERY 3 HOURS PRN, 20 doses, Starting on 10/24/21 at 1157, Until Discontinued, Pain Moderate (4-6), pain
If oral and IV narcotics ordered, use oral first and only use IV if oral is ineffective or cannot take oral. Do Not give oral and IV within 1 hour of each other unless specifically ordered.
Or HYDROmorphone (DILAUDID) injection 1 mgJump to med HYDROmorphone (DILAUDID) 1.5mg IV is equivalent to morphine 10mg IV
1 mg, IntraVENous, EVERY 3 HOURS PRN, 20 doses, Starting on 10/24/21 at 1157, Until Discontinued, Pain Severe (7-10), pain
If oral and IV narcotics ordered, use oral first and only use IV if oral is ineffective or cannot take oral. Do Not give oral and IV within 1 hour of each other unless specifically ordered.
Group 2: oxyCODONE-acetaminophen (PERCOCET) 5-325 MG per tablet 1 tabletJump to med Mg/kg dosing is based on the oxycodone component.
1 tablet, Oral, EVERY 4 HOURS PRN, 20 doses, Starting on 10/24/21 at 1157, Until Discontinued, Pain Moderate (4-6)
Maximum dose of acetaminophen is 4000 mg from all sources in 24 hours.
Or oxyCODONE-acetaminophen (PERCOCET) 5-325 MG per tablet 2 tabletJump to med Mg/kg dosing is based on the oxycodone component.
2 tablet, Oral, EVERY 4 HOURS PRN, 20 doses, Starting on 10/24/21 at 1157, Until Discontinued, Pain Severe (7-10)
Maximum dose of acetaminophen is 4000 mg from all sources in 24 hours.
Scheduled Medication Order 04/23/2022 04/24/2022 04/25/2022 amoxicillin-clavulanate (AUGMENTIN) 875-125 MG per tablet 1 tablet (COMPLETED) 1 tablet, Oral, ONCE, 1 dose, On 04/25/22 at 2052, Antimicrobial Indications: Head and Neck Infection 2056 (Given - Provid er: Jo Banegas RN) Scheduled Medication Order 08/17/2022 08/18/2022 08/19/2022 gentamicin (GARAMYCIN) 0.3 % ophthalmic solution 2 drop (COMPLETED) 2 drop, Right Eye, ONCE, 1 dose, On Mon08/19/22 at 2156 2213 (Given - Provid er: Gabrielle Espinoza RN) Scheduled Medication Order 10/28/2022 10/29/2022 10/30/2022 dexamethasone (PF) (DECADRON) injection 10 mg (COMPLETED) 10 mg, IntraMUSCular, ONCE, On 10/30/22 at 0355, For 1 dose 0405 (Given - Provid er: Lorene Sanabria RN) PRN Medication Order 10/28/2022 10/29/2022 10/30/2022 diphenhydrAMINE (BENADRYL) capsule 50 mg (COMPLETED) 50 mg, Oral, ONCE PRN, 1 dose, Starting on 10/30/22 at 0354, Until Mon10/31/22 at 0354, Itching 0405 (Given - Provid er: Lorene Sanabria RN) Ordered Prescriptions (unrec ognized section and content) Prescription Sig Dispensed Refills Start Date End Da te oxyCODONE-acetaminophen (PERCOCET) 5-325 MG per tabletIndications:Acute appendicitis, unspecified acute appendicitis type Take 1 tablet by mouth every 6 hours as needed for Pain for up to 3 days. Intended supply: 3 days. Take lowest dose possible to manage pain 12 tablet 0 10/24/2021 10/27/2021 Prescription Sig Dispensed Refills Start Date End Da te amoxicillin-clavulanate (AUGMENTIN) 875-125 MG per tablet Take 1 tablet by mouth 2 times daily for 10 days 20 tablet 0 04/25/2022 05/05/2022 Prescription Sig Dispensed Refills Start Date End Da te diphenhydrAMINE (BENADRYL) 25 MG capsule Take 1 capsule by mouth every 6 hours as needed for Itching 30 capsule 0 10/30/2022 11/09/2022 dexamethasone (DECADRON) 4 MG tablet Take 1 tablet by mouth 2 times daily (with meals) for 10 days 20 tablet 0 10/30/2022 11/09/2022 diphenhydrAMINE (BENADRYL) 25 MG capsule Take 1 capsule by mouth every 6 hours as needed for Itching 30 capsule 0 10/30/2022 10/30/2022 dexamethasone (DECADRON) 4 MG tablet Take 1 tablet by mouth 2 times daily (with meals) for 10 days 20 tablet 0 10/30/2022 10/30/2022 Source Comments (unrecognize d section and content) In the event this informatio n is protected by the Federal Confidentiality of Alcohol and Drug Abuse Patient Records regulations: The Federal rules restrict any use of the information to criminally investigate or prosecute any alcohol or drug abuse patient.[facility] the event this information is protected by the Federal Confidentiality of Alcohol and Drug Abuse Patient Records regulations: The Federal rules restrict any use of the information to criminally investigate or prosecute any alcohol or drug abuse patient.[facility] the event this information is protected by the Federal Confidentiality of Alcohol and Drug Abuse Patient Records regulations: The Federal rules restrict any use of the information to criminally investigate or prosecute any alcohol or drug abuse patient.[facility] the event this information is protected by the Federal Confidentiality of Alcohol and Drug Abuse Patient Records regulations: The Federal rules restrict any use of the information to criminally investigate or prosecute any alcohol or drug abuse patient.[facility] the event this information is protected by the Federal Confidentiality of Alcohol and Drug Abuse Patient Records regulations: The Federal rules restrict any use of the information to criminally investigate or prosecute any alcohol or drug abuse patient.[facility] the event this information is protected by the Federal Confidentiality of Alcohol and Drug Abuse Patient Records regulations: The Federal rules restrict any use of the information to criminally investigate or prosecute any alcohol or drug abuse patient.[facility] the event this information is protected by the Federal Confidentiality of Alcohol and Drug Abuse Patient Records regulations: The Federal rules restrict any use of the information to criminally investigate or prosecute any alcohol or drug abuse patient.[facility] FOR RECORDS PERTAINING TO PATIENTS WHO ARE OR HAVE BEEN ENROLLED IN A CHEMICAL DEPENDENCY/SUBSTANCEABUSE PROGRAM, SOME INFORMATION MAY BE OMITTED. This clinical summary was aggregated from multiple sources. Caution should be exercised in using it in the provision of clinical care. This summary normalizes information from multiple sources, and as a consequence, information in this document may materially change the coding, format and clinical context of patient data. In addition, data may be omitted in some cases. CLINICAL DECISIONS SHOULD BE BASED ON THE PRIMARY CLINICAL RECORDS. [facility] provides no warranty or guarantee of the accuracy or completeness of information in this document.
--- NOTE | 2023-08-29 02:18 | ED_ITS ---
HPI HPI - General Adult General Chief complaint: Back Pain/Injury Stated complaint: back pain, cyst 33 weeks Time Seen by Provider: 08/28/23 21:26 Source: patient Mode of arrival: walk-in Limitations: no limitations Related Data Home Medications ?Medication ?Instructions ?Recorded ?Confirmed promethazine 12.5 mg tablet 12.5 mg PO Q6H PRN nausea and 08/28/23 08/28/23 vomiting Allergies Allergy/AdvReac Type Severity Reaction Status Date / Time red (food color) AdvReac Intermediate Hives Verified 08/28/23 21:29 tramadol AdvReac Intermediate Hives Verified 08/28/23 21:29 Opioid HPI Opioid Management Most Recent Opioid Data: No Data to Display Exam Constitutional Vital Signs, click to edit/add: Last Vital Signs Temp 98.1 F 08/28/23 21:23 Pulse 116 H 08/28/23 21:23 Resp 22 H 08/28/23 21:23 BP 147/73 H 08/28/23 21:23 Pulse Ox 98 08/28/23 21:23 O2 Del Method Room Air 08/28/23 21:23 Course Vital Signs Vital signs: Vital Signs Temperature 98.1 F 08/28/23 21:23 Pulse Rate 116 H 08/28/23 21:23 Respiratory Rate 22 H 08/28/23 21:23 Blood Pressure 147/73 H 08/28/23 21:23 Pulse Oximetry 98 08/28/23 21:23 Oxygen Delivery Method Room Air 08/28/23 21:23 Temperature 98.1 F 08/28/23 21:23 Pulse Rate 116 H 08/28/23 21:23 Respiratory Rate 22 H 08/28/23 21:23 Blood Pressure 147/73 H 08/28/23 21:23 Pulse Oximetry 98 08/28/23 21:23 Oxygen Delivery Method Room Air 08/28/23 21:23 Medical Decision Making MDM Narrative Medical decision making narrative: PATIENT NOT SEEN IN ED. WAS TAKEN TO OB. Discharge Plan Discharge Chief Complaint: Back Pain/Injury Clinical Impression: Encounter for triage in patient Patient Disposition: Home, Self-Care Prescriptions / Home Meds: No Action promethazine 12.5 mg tablet 12.5 mg PO Q6H PRN (Reason: nausea and vomiting) Print Language: Solomon Islander Referrals: Physician,Non-Staff, MD [Primary Care Provider] - 1 week Discharge Date/Time: 08/28/23 21:50
== END 2023-08-28 21:50 | disposition home or self-care (01) ==
LOC: ER 21:24
PROVIDERS: Emergency Provider Student in an Organized Health Care Education/Training Program
DX: Z53.8 Procedure and treatment not carried out for other reasons (principal)

== ENCOUNTER 2023-08-28 21:50 | Observation (INO) | payer OTHER, SELFPAY ==
--- OUTSIDE RECORDS SUMMARY | 2023-08-28 21:56 | XMS_ITS | CCD ---
Author Organization [facility] Care Team Providers Care Psychology Assistant Name Role Phone Unavailable Primary Care Provider UnavailJOHN Trinidad Attending Unavailable James Rodriguez III Primary Care Physician NONE, XXXX Primary Care Physician Unavailab Ailin Lockett Primary Care Physician REQUEST, DR JJ LISTED Primary Care Unavaila [...] DR FONSECA Primary Care Unavailable KARCORNELIA, DR PINEDA Attending Unavailable YAMILEX, DR PINEDA Admitting Unavailable [...] Provider UnavailAmie Kat DO Primary Care Provider [phone] Zbigniew La Primary Care Physician Amie Rosas DO Primary Care Provider [phone] Bronson PIGGYBACK CLERK.CANDELARIO [facility] Primary Care Provider LORNA DOBSON Referring [...] R Attending Unavailable BOWEN, AMIE Attending Unavailable AWILDA, CASH Attending Unavailable BOWEN, AMIE Attending Unavailable [...] Propensity to adverse reactions to drug 1 [facility] (20 sources) traMADol; Translations: [tramadol] Drug Allergy 1 Swelling, Other: See Comments, GI Upset, Shortness of Breath [facility] [employer] Work Phone: (8 sources) Red Dye 1 Allergy to substance [facility] Comment on above: Hives (1 source) traMADol; Translations: [Ultram] Drug Allergy [facility] (1 source) Unable to obtain; Translations: [Unable to obtain] Propensity to adverse reactions (disorder) [facility] Medications Current Medications Medication Drug Class(es) Dates Sig (Normalized) Sig (Original) Tylenol (7 sources) Start: 10-20-2021 Tylenol Refill s(s) 0 Start Date: 10/20/21 Status: Ordered take 2 tablets by [facility] every six hours as needed for pain acetaminophen (TYLENOL) 325 MG tablet Ta ke 2 tablets by mouth every 6 hours as needed for Pain 0 Active acetaminophen 325 mg / HYDROcodone bitartrate 5 mg oral tablet (3 sources) Opioid Agonist Start: 09-22-2022 Genesee 325 mg-5 mg oral tablet 1 tab(s), Oral, q6hr for pain, 5 tab(s), Refill(s) 0, [id number], 162, cm, 09/22/22 21:14:00 EDT, Height/Length Dosing, [...] BID, # 60 tab(s), Refills(s) 0, [facility], 162.5, cm, 05/10/20 15:42:00 EST, Height/Length Dosing, 83.4, kg, 05/10/20 15:42:00 EST, Weight Dosing Start Date: 06/17/20 Status: Ordered cetirizine hydrochloride 10 mg oral tablet (2 sources) Histamine-1 Receptor Antagonist Start: 11-05-2022 End: 11-12-2022 take 1 tablet by mouth once daily cetirizine 10 mg Tab 10 mg = 1 tab(s), Oral, Daily, X 7 day(s), # 7 tab(s), Refills(s) 0, [facility]: [id number], 162, cm, 11/05/22 9:56:00 EDT, Height/Length Dosing, [...] day(s), # 7 tab(s), Refills(s) 0, [facility]acy: [facility] #[id number], 162, cm, 11/05/22 9:56:00 EDT, Height/Length Dosing, [...] pain, # 20 tab(s), Refills(s) 0, [id number], 162, cm, 09/22/22 21:14:00 EDT, Height/Length Dosing, [...] day(s), # 21 tab(s), Refills(s) 0, Pharmacy: [facility] #[id number], 162, cm, 11/05/22 9:56:00 EDT, Height/Length Dosing, [...] Range Facility Nursing Assessmenton 024 Nursing Assessment [id number]#1. 00TIFF [facility] Auth for Release of Medical Recordson 08-23-2023 Auth for Release of Medical Records [id number]#1.0 0TIFF Normal [facility] Consent for Treatmenton 07-31 Consent for Treatment [id number]#1.0 0TIFF Normal [facility] Discharge Instructionson Discharge Instructions [id number]#1.0 0TIFF Normal [facility] Inpatient Clinical Summaryon 08-23-2023 Inpatient Clinical Summary [place] [id number] Clinical Summary Person Information Name: CHRISTIANA YOUNG [facility] Age: 27 Years : 1995 Sex: Female PCP: NONE, XXXX Marital Status: Single Phone: [phone] Race: White Ethnicity: Non- or Language: Malawian Visit Id: Visit Reason: ABD PAIN & BACK PAIN Speciality: Acuity: Obs Enc Type: OB Triage Med Service: Obstetrics Arrival: 08/22/2023 23:43:59 Discharge: 08/23/2023 01:08:00 Dispo Type: Home (Routine DC) Address: [address] [place] [address] [id number] Provider Notes: Diagnosis: Problems Active (08/22/2023) Schizophrenia [...] Final Med List: acetaminophen (Tylenol) acetaminophen-hydrocod one (Genesee 325 mg-5 mg oral tablet) 1 Tablets [...] Referring Physician: Follow up: With: Address: When: [facility], [address] [place] [address] [place] [address] Business (1) In 8 days 08/31/2023 Comments: Appointment has already been scheduled Call for severe abdominal pain Call physician for heavy vaginal bleeding Call physician if symptoms worsen Return for contractions closer, longer, stronger Return for decreased movement Return if ruptured membranes or vaginal bleeding Patient Education Information: Normal [facility] Inpatient Patient Summaryon 08-23-2023 Inpatient Patient Summary [address] [address] Patient Discharge Instructions PERSON INFORMATION [...] test results: Follow up: With: Address: When: [facility], [address] [place] [address] , [place], [place] [id number] Business (1) In 8 days 08/31/2023 Comments: [...] Last Dose: ___Next Dose: ___ acetaminophen-hydrocod one (Genesee 325 mg-5 mg oral tablet) 1 Tablets [...] signed up for this yet, please contact Fillm at [phone] to get signed up today. ELVIS Award [...] QR code below. Thank you for choosing [facility] Normal [facility] Insurance Correspondenceon 0 08-23-2023 Insurance Correspondence [id number] 0TIFF Normal [facility] Recordson Records [id number]#1.0 0TIFF [facility] UA with Cult Rflxon 08-23-19 24 Bilirubin Ql (U) Negative Normal Negative [facility] Comment on above: Performed By: #### 4 [id number] ####[facility] [address] [place] [address] Clarity (U) Clear Normal Clear [facility] Comment on above: Performed By: #### 4 [id number] ####[facility] [address] [facility] [place] [address] Color (U) Light-Yellow Normal Yellow [facility] Comment on above: Result Comment: Micr oscopic readings are only performed on those samples that meet specific criteria set forth by [facility]. Performed By: #### 4 [id number] ####[facility] [address] [facility] [place] [address] Glucose Ql (U) Negative Normal Negative [facility] Comment on above: Performed By: #### 4 [id number] ####[facility] [address] [facility] [place] [address] Hemoglobin Auto test strip (U) [Mass/Vol] Negative Normal Negative [facility] Comment on above: Performed By: #### 4 [id number] ####[facility] [address] [facility] [place] [address] Ketones Auto test strip Ql (U) Negative Normal Negative [facility] Comment on above: Performed By: #### 4 [id number] ####[facility] [address] [facility] [place] [address] Leukocyte esterase Auto test strip Ql (U) Negative Normal Negative [facility] Comment on above: Performed By: #### 4 [id number] ####[facility] [address] [facility] [place] [address] Nitrite Auto test strip Ql (U) Negative Normal Negative [facility] Comment on above: Performed By: #### 4 [id number] ####[facility] [address] [place] [address] pH (U) 6.0 [pH] Invalid Interpretation Code 5.0-9.0 [facility] Comment on above: Performed By: #### 4 [id number] ####[facility] [address] [facility] [place] [address] Protein Ql (U) Negative Normal Negative [facility] Comment on above: Performed By: #### 4 [id number] ####[facility] [address] [facility] [place] [facility] [place] [address] Specific gravity (U) [Rel density] 1.018 Invalid Interpretation Code 1.005-1.030 [facility] Comment on above: Performed By: #### 4 [id number] ####[facility] [address] [place] [id number] Urobilinogen (U) [Mass/Vol] Negative Normal Negative [facility] Comment on above: Performed By: #### 4 [id number] ####[facility] [address] [place] [id number] Type of Urine collection method Clean Catch Normal [facility] Comment on above: Performed By: #### 4 [id number] ####[facility] [address] [place] [id number] URINALYSISOrdered By: SYSTEM SYSTEM on 08-23-2023 Bilirubin Ql (U) Negative Normal Negativemg/dL [facility] UA Auto SS Clarity (U) Clear (08/23/23 12:07 AM) Normal Clear [facility] UA Auto SS Color (U) Light-Yellow 1 (08/23/23 12:07 AM) Normal Yellow [facility] UA Auto SS Comment on above: Interpretive Data: M icroscopic readings are only performed on those samples that meet specific criteria set forth by [facility]. Glucose Ql (U) Negative Normal Negativemg/dL [facility] UA Auto SS Hemoglobin Auto test strip (U) [Mass/Vol] Negative Normal Negativemg/dL [facility] UA Auto SS Ketones Auto test strip Ql (U) Negative Normal Negativemg/dL [facility] UA Auto SS Leukocyte esterase Auto test strip Ql (U) Negative Normal NegativeLeu/u L [facility] UA Auto SS Nitrite Auto test strip Ql (U) Negative Normal Negativemg/dL [facility] UA Auto SS pH (U) 6.0 *NA* (08/23/23 12:07 AM) Invalid Interpretation Code 5.0 - 9.0 [facility] UA Auto SS Protein Ql (U) Negative Normal Negativemg/dL [facility] UA Auto SS Specific gravity (U) [Rel density] 1.018 *NA* (08/23/23 12:07 AM) Invalid Interpretation Code 1.005 - 1.030 [facility] UA Auto SS Urobilinogen (U) [Mass/Vol] Negative Normal Negativemg/dL [facility] UA Auto SS URINALYSISOrdered By: [place] on 08-23-2023 UA Spec Desc Clean Catch (08/23/23 12:07 AM) Normal [facility] UA Auto SS Rupture of Membraneon 08-07-2023 Placenta alpha microglobulin-1 Negative Normal Negative [facility] Comment on above: Performed By: #### R OM #### [facility] [address] [place] [address] Urinalysis with Reflex to Cu ltureon 08-06-2023 Bilirubin Ql (U) Negative Negative [facility] Clarity (U) Clear Clear [facility] Color (U) Yellow Straw/Yellow [facility] Glucose Test strip (U) [Mass/Vol] Negative Negative mg/dL [facility] Hemoglobin Ql (U) Negative Negative [facility] Ketones (U) [Mass/Vol] Trace Negat aura mg/dL [facility] Leukocyte esterase Test strip Ql (U) Negative Negative [facility] Nitrite Ql (U) Negative Negative [facility] pH (U) 5.5 [pH] 5.0 - 9.0 [facility] Protein (U) [Mass/Vol] Trace Negat aura mg/dL [facility] Specific gravity (U) [Rel density] 1.005 - 1.030 [facility] Urine Reflex to Culture Not Indicated [facility] Urobilinogen Qn (U) 0.2 [facility] Urinalysis, reflex to cultur josé 08-06-2023 Bilirubin Ql (U) Negative Normal Negative [facility] Comment on above: Performed By: #### U AR #### [facility] [address] [place] [address] Clarity (U) Clear Normal Clear [facility] Comment on above: Performed By: #### U AR #### [facility] [address] [place] [address] Color (U) Yellow Normal Straw/Converse [facility] Comment on above: Performed By: #### U AR #### [facility] [address] [place] [address] Glucose Ql (U) Negative Normal Negative [facility] Comment on above: Performed By: #### U AR #### [facility] [address] [place] [address] Hemoglobin Ql (U) Negative Normal Negative [facility] Comment on above: Performed By: #### U AR #### [facility] [address] [place] [address] Ketones Ql (U) Trace Normal Negative [facility] Comment on above: Performed By: #### U AR #### [facility] [address] [place] [address] Leukocyte esterase Test strip Ql (U) Negative Normal Negative [facility] Comment on above: Performed By: #### U AR #### [facility] [address] [place] [address] Nitrite Ql (U) Negative Normal Negative [facility] Comment on above: Performed By: #### U AR #### [facility] [address] [place] [address] pH (U) 5.5 [pH] Normal 5.0-9.0 [facility] Comment on above: Performed By: #### U AR #### [facility] [address] [place] [address] Protein Ql (U) Trace Normal Negative [facility] Comment on above: Performed By: #### U AR #### [facility] [address] [place] [address] Specific gravity (U) [Rel density] >=1.030 Normal 1.005-1.03 [facility] Comment on above: Performed By: #### U AR #### [facility] [address] [place] [address] Urine Reflexed to Culture Not Indicated Normal [facility] Comment on above: Performed By: #### U AR #### [facility] [address] [place] [address] Urobilinogen Qn (U) 0.2 {Venus'U}/dL Normal < 2.0 [facility] Comment on above: Performed By: #### U AR #### [facility] [address] [place] [address] COVID-19on 08-03-2023 SARS-CoV-2 (COVID-19) RNA JAYDE+probe Ql (Unsp spec) Not detected Normal Not Detect [facility] Comment on above: Result Comment: Rapi d [...] authorized laboratories. Fact sheet for Healthcare Providers: https://www.fda.gov/media/201089/download Fact sheet for Patients: https://www.fda.gov/media/517246/download METHODOLOGY: Isothermal Nucleic Acid Amplification Performed By: #### C OVRG #### [facility] [address] [place] [address] Influenza A and Bon 08-03-19 Influenza A by PCR Negative Normal [facility] Comment on above: Performed By: #### F LUAB #### [facility] [address] [place] [address] Influenza B by PCR Negative Normal [facility] Comment on above: Performed By: #### F LUAB #### [facility] [address] [place] [address] Urinalysis, reflex to cultur josé 05-18-2023 Urine Reflexed to Culture Not Indicated Normal [facility] Comment on above: Performed By: #### U AR #### [facility] [address] [place] [address] Bilirubin Ql (U) Negative Normal Negative [facility] Comment on above: Performed By: #### U AR #### [facility] [address] [place] [address] Clarity (U) SLCLOUDY Normal Clear [facility] Comment on above: Performed By: #### U AR #### [facility] [address] [place] [address] Color (U) Yellow Normal Straw/Converse [facility] Comment on above: Performed By: #### U AR #### [facility] [address] [place] [address] Glucose Ql (U) Negative Normal Negative [facility] Comment on above: Performed By: #### U AR #### [facility] [address] [place] [address] Hemoglobin Ql (U) Negative Normal Negative [facility] Comment on above: Performed By: #### U AR #### [facility] [address] [place] [address] Ketones Ql (U) Trace Normal Negative [facility] Comment on above: Performed By: #### U AR #### [facility] [address] [place] [address] Leukocyte esterase Test strip Ql (U) Trace Normal Negative [facility] Comment on above: Performed By: #### U AR #### [facility] [address] [place] [address] Nitrite Ql (U) Negative Normal Negative [facility] Comment on above: Performed By: #### U AR #### [facility] [address] [place] [address] pH (U) 5.5 [pH] Normal 5.0-9.0 [facility] Comment on above: Performed By: #### U AR #### [facility] [address] [place] [address] Protein Ql (U) Trace Normal Negative [facility] Comment on above: Performed By: #### U AR #### [facility] [address] [place] [address] Specific gravity (U) [Rel density] >=1.030 Normal 1.005-1.03 [facility] Comment on above: Performed By: #### U AR #### [facility] [address] [place] [address] Urobilinogen Qn (U) 1.0 {Venus'U}/dL Normal < 2.0 [facility] Comment on above: Performed By: #### U AR #### [facility] [address] [place] [address] Urine Microscopicon 05-18-19 24 Epithelial cells LM Ql (Urine sed) 20-50 Normal [facility] Comment on above: Performed By: #### U TIGIST #### [facility] [address] [place] [address] Urine Bacteria FEW Abnormal Negative [facility] Comment on above: Performed By: #### U TIGIST #### [facility] [address] [place] [address] Urine RBC 0-2 Normal 0-2 [facility] Comment on above: Performed By: #### U TIGIST #### [facility] [address] [place] [address] Urine WBC 3-5 Normal 0-5 [facility] Comment on above: Performed By: #### U TIGIST #### [facility] [address] [place] [address] XR KNEE RIGHT (MIN 4 VIEWS)o n [...] Leonides Waters MD 05/18/23 Final result Normal [facility] PAP [id number] 04-02-2023 Cytology report Cyto stain Doc (Cvx/Vag) Note Invalid Interpretation Code [facility] Comment on above: Result Comment: TEST S RESULT FLAG UNITS REF RANGE LAB Clinician Provided Cytology Information Source.............Endocervix No. of containers..01 ThinPrep Vial DIAGNOSIS: 01 NEGATIVE FOR INTRAEPITHELIAL LESION OR MALIGNANCY. Specimen adequacy: 01 Satisfactory for evaluation. Endocervical and/or squamous metaplastic cells (endocervical component) are present. Performed by: Leslie Porter, Claim Review Medical Director ([facility]) . 01 Note: Note 02 The [...] High,A-Abnormal,AA-Critical Abnormal Performed at: 01 [facility] Cyto Histo [address] [place] [address] Dorian Rubin MD, 02 [facility] [place] [id number] Fernanda Marmolejo MD, Performed at: [facility] [address] [place], [place] [id number] MD Caryn Alarcon Performed By: #### 3 [id number] ####[facility] [address] [place] [address] C Urineon 03-30-2023 Bacteria identified Cx Nom [...] Locations R1: This test was performed at: [facility], [address] [place] [address], [address] , , Normal [facility] Comment on above: Performed By: #### 2 [id number] ####[facility] [address] [place] [address] HIV Screen 4th Generation wR fxon 03-29-2023 HIV 1+2 Ab+HIV1 p24 Ag IA Ql Non-Reactive Invalid Interpretation Code Non Reactive [facility] Comment on above: Result Comment: HIV Negative HIV-1/HIV-2 antibodies and HIV-1 p24 antigen were NOT detected. There is no laboratory evidence of HIV infection. Performed at: [facility] [address] [place], [place] [id number] PhD Kwaku Hartmann Performed By: #### 2 789862, [id number], [id number], [id number], [id number], [id number] ####[facility] [address] [place] [address] Hep Bs Agon 03-29-2023 HBV surface Ag IA Ql Negative Invalid Interpretation Code Negative [facility] Comment on above: Result Comment: Perf ormed at: [address] [id number] PhD Kwaku Hartmann Performed By: #### 2 538910, [id number], [id number], [id number], 4249837, [id number] ####[facility] [address] [place] [address] RPR with Conf Rfxon 03-29-20 Reagin Ab RPR Ql (S) Non-Reactive Invalid Interpretation Code Non Reactive [facility] Comment on above: Result Comment: Perf ormed at: [address] [id number] PhD Kwaku Hartmann Performed By: #### 2 797315, [id number], [id number], [id number], 7788406, 8024912 ####[facility] [address] [place] [address] Rubella IgGon 03-29-2023 Rubella virus IgG Qn (S) 1.81 [IU]/mL Invalid Interpretation Code Immune >0.99 [facility] Comment on above: Result Comment: Non- immune <0.90 Equivocal 0.90 - 0.99 Immune >0.99 Performed at: [address] [id number] PhD Kwaku Hartmann Performed By: #### 2 968540, [id number], [id number], [id number], 3047187, 0545860 ####[facility] [address] [place] [address] PAP [id number] 03-28-2023 Collection Technique BRUSH-SPATULA [facility] Comment on above: Performed By: #### 3 [id number] ####[place] [address] [place] [address] Gynecological Body Site ENDOCERVIX [facility] Comment on above: Performed By: #### 3 [id number] ####[facility] [address] [place] [address] Physician Orderon 03-28-2023 Physician Order [id number]#1. 00TIFF [facility] ABO/Rhon 03-27-2023 ABO/Rh Positive Invalid Interpretation Code [facility] Comment on above: Performed By: #### 1 [id number], [id number] ####[facility] [address] [place] [address] ABSCon 03-27-2023 ABSC Gel Interp Negative Normal [facility] Comment on above: Performed By: #### 1 [id number], [id number] ####[facility] [address] [place] [address] CBC w/Indiceson 03-27-2023 Erythrocyte distribution width (RBC) [Ratio] 14.1 % Normal 10.9-14.2 [facility] Comment on above: Performed By: #### 2 418725, [id number], [id number], 099116182, 8309651, 8783012 ####[facility] [address] [place] [address] Hematocrit (Bld) [Volume fraction] 38.5 % Normal 34.0-46.0 [facility] Comment on above: Performed By: #### 2 805844, 039549844, 83596783, 308443661, 7627072, 4469015 ####[facility] [address] [place] [address] Hemoglobin (Bld) [Mass/Vol] 12.6 g/dL Normal 12.0-16.0 [facility] Comment on above: Performed By: #### 2 706286, [id number], 84722464, 703943817, 6452179, 7577915 ####[facility] [address] [place] [address] MCH (RBC) [Entitic mass] 26.4 pg Low 27.0-34.0 [facility] Comment on above: Performed By: #### 2 528312, 404910323, 39430992, 217837293, 4965434, 8270595 ####[facility] [address] [place] [address] MCHC (RBC) [Mass/Vol] 32.6 g/dL Normal 31.4-36.0 [facility] Comment on above: Performed By: #### 2 447608, [id number], 78041986, 001826306, 1414422, 7267866 ####[place] [address] [place] [address] MCV (RBC) [Entitic vol] 81.1 fL Normal 80.0-100.0 F [facility] Comment on above: Performed By: #### 2 167387, 056740815, 70402016, 344475809, 6949675, 0585758 ####[address] [address] Platelet mean volume (Bld) [Entitic vol] 9.7 fL Normal 6.4-10.8 [facility] Comment on above: Performed By: #### 2 996574, 877010760, 87227347, 977461673, 4617584, 5066779 ####[address] [address] Platelets (Bld) [#/Vol] 211.0 E9/L Normal 150.0-500.0 [facility] Comment on above: Performed By: #### 2 624232, 301121750, 47483602, 880078811, 7432683, 1950423 ####[place] [address] [place] [address] RBC (Bld) [#/Vol] 4.8 E12/L Normal 4.3-5.9 [facility] Comment on above: Performed By: #### 2 881693, 069757956, 69822101, 161897920, 5901010, 7624994 ####[address] [address] WBC corrected for nucl RBC Auto (Bld) [#/Vol] 6.5 E9/L Normal 4.0-11.0 [facility] Comment on above: Performed By: #### 2 712851, 961640352, 93591475, 279539610, 1556002, 5673278 ####[facility] [address] [place] [address] Consent for Treatmenton 03-02 Consent for Treatment [id number] 0TIFF Normal [facility] Hep Func Panelon 03-27-2023 Albumin [Mass/Vol] 3.7 g/dL Normal 3.3-5.0 [facility] Comment on above: Performed By: #### 2 289703, 354757952, 58062747, 156283276, 7795536, 9240037 ####[facility] [address] [place] [address] Albumin/Globulin (S) [Mass conc ratio] 0.8 Low 1.1-2.2 [facility] Comment on above: Performed By: #### 2 794403, 013266185, 55762315, 302788141, 8138637, 6082853 ####[facility] [address] [place] [address] ALP [Catalytic activity/Vol] 58 Int._Unit/L Normal 21-98 [facility] Comment on above: Performed By: #### 2 418645, 940227793, 84250164, 416680361, 8976693, 5508161 ####[facility] [address] [place] [address] ALT No additional P-5'-P [Catalytic activity/Vol] 148 Int._Unit/L High 6-46 [facility] Comment on above: Performed By: #### 2 169502, 611305341, 96973068, 833081085, 7807000, 5229258 ####[facility] [address] [place] [address] AST [Catalytic activity/Vol] 67 Int._Unit/L High 5-43 [facility] Comment on above: Performed By: #### 2 330893, 642565162, 10148720, 845753841, 2565675, 5951821 ####[facility] [address] [place] [address] Bilirubin [Mass/Vol] 1.0 mg/dL Normal 0.0-1.1 [facility] Comment on above: Performed By: #### 2 533406, 197272345, 57110760, 448246812, 8746980, 5198093 ####[address] [place] [address]557 Bilirubin.direct [Mass/Vol] 0.2 mg/dL Normal 0.1-0.4 [facility] Comment on above: Performed By: #### 2 485652, 763581042, 56535518, 579365955, 2024671, 2137326 ####[place] [address] Bilirubin.indirect [Mass or moles/Vol] 0.8 mg/dL Normal 0.1-0.9 [facility] Comment on above: Performed By: #### 2 918329, 198715802, 72049750, 162804700, 6152244, 4278271 ####[address] [place] [address] Globulin (S) [Mass/Vol] 4.6 g/dL High 1.4-4.0 F [facility] Comment on above: Performed By: #### 2 825414, 350395236, 12638615, 911481060, 6401199, 3728370 ####[address] [place] [address] Protein [Mass/Vol] 8.3 g/dL High 6.0-7.8 [facility] Comment on above: Performed By: #### 2 918162, 120554625, 81638632, 757693264, 4460907, 9311392 ####[facility] [address] [place] [address] Physician Orderon 03-27-2023 Physician Order [id number] 10 [id number] .00TIFF Genny [facility] CNPNon 02-24-2023 CNPN Telephone ([facility]) CHRISTIANA YOUNG ([id number]) 1995 F Date Time Provider Department 02/24/23 LORNA DOBSON [facility] During your visit today, we recorded the following information about you: Emeli Penn MA 02/24/2023 4:29 PM Signed ----- Message from Lorna Dobson APRN.BANK ADVISOR sent at 02/24/2023 4:18 PM EDT ----- [...] normal Iron normal No diabetes CBC normal [facility] Allergies As of Date: 02/24/2023 Noted [...] Encounter Status:Closed by EMELI PENN on 02/24/23 [facility] CNSWon 02-21-2023 [facility] Social Work (FLORI) HCRISTIANA YOUNG ([id number]) 1995 F Date Time Provider Department 02/21/23 LIEN CANDELARIA During your visit today, we recorded the following information about you: Lien Candelaria LSW 02/21/2023 9:28 AM Signed Primary Care Social Work Provider Action / FYI PCP Action Date of Service: 02/21/2023 Patient identified by name and date of : No Referral Source: Pursue Patient Outreach: [facility] SDOH outreach Narrative: Pt completed [...] Encounter Status:Closed by LIEN CANDELARIA [facility] Telephone (PSYLME) CHRISTIANA YOUNG ([id number]) 1995 F Date Time Provider Department 02/20/23 BRIGITTE SCHAFER PSYLME During your visit today, we recorded the following information about you: Brigitte Schafer LPCC 02/20/2023 10:32 AM Signed Behavioral Health Social Work Progress Note Patient identified for [facility] from: PCP Reason for referral: [facility] [...] see psychiatry. Patient is scheduled for her [facility] assessment on 03/06 at 1:00pm. KERRIE Jensen [...] Status:Closed by BRIGITTE SCHAFER on 02/20/23 Normal [facility] 25([place])D3 [facility] 25-hydroxyvitamin D3 [Mass/Vol] 22.5 ng/mL Low 31.0-80.0 [facility] Comment on above: Order Comment: Speci men Type: BLOOD SPECIMENOrdering Facility: [facility] Address: [address] [place] [address] Result Comment: Clas sification of 25 [place] Vitamin D status: Deficiency/Insufficiency: < or = 30 ng/ml. Sufficiency/Optimal Levels: 31-80 ng/mL Toxicity: > 100 ng/mL. Test performed by chemiluminescent immunoassay. Performed By: #### 1 989-3 ####[facility] LABCLIA [id number] [facility] [id number] [place] [address] [place] CBC W Auto Differential pane l (Bld)on 02-18-2023 Basophils (Bld) [#/Vol] 0.05 10*3/uL Normal <0.11 [facility] Comment on above: Order Comment: Speci men Type: BLOOD SPECIMENOrdering Facility: [facility] Address: [address] [place] [address] Performed By: #### 5 7021-8 ####[facility] LABCLIA [id number] [place] [phone] [place] [facility] Basophils/100 WBC (Bld) 1.0 % Normal [facility] Comment on above: Order Comment: Speci men Type: BLOOD SPECIMENOrdering Facility: [facility] Address: [address] [place] [address] Performed By: #### 5 7021-8 ####[facility]ENTER[facility] LABCLIA [id number] [place] [phone] [facility] Differential cell count method Nom (Bld) Auto Normal [facility] Comment on above: Order Comment: Speci men Type: BLOOD SPECIMENOrdering Facility: [facility] Address: [address] [place] [address] Performed By: #### 5 7021-8 ####[facility]ENTER[facility] LABIA [id number] [place] [address] [place] OF [facility] Eosinophils (Bld) [#/Vol] 0.18 10*3/uL Normal <0.46 [facility] Comment on above: Order Comment: Speci men Type: BLOOD SPECIMENOrdering Facility: [facility] Address: [address] [place] [address] Performed By: #### 5 7021-8 ####[facility] LABIA [id number] [place] [phone] [place] [facility] Eosinophils/100 WBC (Bld) 3.6 % Normal [facility] Comment on above: Order Comment: Speci men Type: BLOOD SPECIMENOrdering Facility: [facility] Address: [address] [place] [address] Performed By: #### 5 7021-8 ####[facility] LABCLIA [id number] [place] [address] [place] Erythrocyte distribution width (RBC) [Ratio] 14.6 % Normal 11.5-15.0 [facility] Comment on above: Order Comment: Speci men Type: BLOOD SPECIMENOrdering Facility: [facility] Address: [address] [place] [address] Performed By: #### 5 7021-8 ####[facility]ITAL[facility] LABIA [id number] [place] [phone] [place] Hematocrit (Bld) [Volume fraction] 39.7 % Normal 36.0-46.0 [facility] Comment on above: Order Comment: Speci men Type: BLOOD SPECIMENOrdering Facility: [facility] Address: [address] [place] [address] Performed By: #### 5 7021-8 ####[facility] LABIA [id number] [place] [phone] [place] Hemoglobin (Bld) [Mass/Vol] 12.9 g/dL Normal 11.5-15.5 [facility] Comment on above: Order Comment: Speci men Type: BLOOD SPECIMENOrdering Facility: [facility] Address: [address] [place] [address] Performed By: #### 5 7021-8 ####KATEY [facility] LABIA [id number] [place] [phone] [place] Immature granulocytes (Bld) [#/Vol] 10*3/uL Normal <0.10 [facility] Comment on above: Order Comment: Speci men Type: BLOOD SPECIMENOrdering Facility: [facility] Address: [address] [place] [address] Performed By: #### 5 7021-8 ####[facility]ITALERST [facility] LABIA [id number] [place] [address] [place] Immature granulocytes/100 WBC (Bld) 0.2 % Normal [facility] Comment on above: Order Comment: Speci men Type: BLOOD SPECIMENOrdering Facility: [facility] Address: [address] [place] [address] Performed By: #### 5 7021-8 ####[facility]ENTERGaye [facility] LABCLIA [id number] [place] [phone] [place] Lymphocytes (Bld) [#/Vol] 1.69 10*3/uL Normal 1.00-4.00 [facility] Comment on above: Order Comment: Speci men Type: BLOOD SPECIMENOrdering Facility: [facility] Address: [address] [place] [address] Performed By: #### 5 7021-8 ####[facility]ENTERGaye [facility] LABIA [id number] [place] [phone] [place] Lymphocytes/100 WBC (Bld) 33.7 % Normal [facility] Comment on above: Order Comment: Speci men Type: BLOOD SPECIMENOrdering Facility: [facility] Address: [address] [place] [address] Performed By: #### 5 7021-8 ####[facility]ENTERGaye [facility] LABIA [id number] [place] [address] [place] MCH (RBC) [Entitic mass] 27.3 pg Normal 26.0-34.0 [facility] Comment on above: Order Comment: Speci men Type: BLOOD SPECIMENOrdering Facility: [facility] Address: [address] [place] [address] Performed By: #### 5 7021-8 ####[facility]ENTERGaye [facility] LABIA [id number] [place] [phone] [place] MCHC (RBC) [Mass/Vol] 32.5 g/dL Normal 30.5-36.0 [facility] Comment on above: Order Comment: Speci men Type: BLOOD SPECIMENOrdering Facility: [facility] Address: [address] [place] [address] Performed By: #### 5 7021-8 ####[facility]ENTERGaye [facility] LABCLIA [id number] [place] [phone] [place] MCV (RBC) [Entitic vol] 84.1 fL Normal 80.0-100.0 [facility] Comment on above: Order Comment: Speci men Type: BLOOD SPECIMENOrdering Facility: [facility] Address: [address] [place] [address] Performed By: #### 5 7021-8 ####[facility] LABCLIA [id number] [place] [phone] [place] Monocytes (Bld) [#/Vol] 0.31 10*3/uL Normal <0.87 [facility] Comment on above: Order Comment: Speci men Type: BLOOD SPECIMENOrdering Facility: [facility] Address: [address] [place] [address] Performed By: #### 5 7021-8 ####[facility] LABIA [id number] [place] [phone] [place] Monocytes/100 WBC (Bld) 6.2 % Normal [facility] Comment on above: Order Comment: Speci men Type: BLOOD SPECIMENOrdering Facility: [facility] Address: [address] [place] [address] Performed By: #### 5 7021-8 ####[facility] LABIA [id number] [place] [phone] [place] Neutrophils (Bld) [#/Vol] 2.78 10*3/uL Normal 1.45-7.50 [facility] Comment on above: Order Comment: Speci men Type: BLOOD SPECIMENOrdering Facility: [facility] Address: [address] [place] [address] Performed By: #### 5 7021-8 ####[facility]ENTERT [facility] LABIA [id number] [place] [phone] [place] Neutrophils/100 WBC (Bld) 55.3 % Normal [facility] Comment on above: Order Comment: Speci men Type: BLOOD SPECIMENOrdering Facility: [facility] Address: [address] [place] [address] Performed By: #### 5 7021-8 ####[facility] LABCLIA [id number] [place] [address] [place] Nucleated RBC (Bld) [#/Vol] 10*3/uL Normal <0.01 [facility] Comment on above: Order Comment: Speci men Type: BLOOD SPECIMENOrdering Facility: [facility] Address: [address] [place] [address] Performed By: #### 5 7021-8 ####AMHERSGaye [facility] LABIA [id number] [place] [address] [place] Nucleated RBC/100 WBC (Bld) [Ratio] 0.0 /100 WBC Normal [facility] Comment on above: Order Comment: Speci men Type: BLOOD SPECIMENOrdering Facility: [facility] Address: [address] [place] [address] Performed By: #### 5 7021-8 ####[facility]ENTERGaye [facility] LABIA [id number] [place] [phone] [place] Platelet mean volume (Bld) [Entitic vol] 11.8 fL Normal 9.0-12.7 [facility] Comment on above: Order Comment: Speci men Type: BLOOD SPECIMENOrdering Facility: [facility] Address: [address] [place] [address] Performed By: #### 5 7021-8 ####AM[facility]ERSGaye [facility] LABIA [id number] [place] [address] [place] Platelets (Bld) [#/Vol] 215 10*3/uL Normal 150-400 [facility] Comment on above: Order Comment: Speci men Type: BLOOD SPECIMENOrdering Facility: [facility] Address: [address] [place] [address] Performed By: #### 5 7021-8 ####[facility] LABIA [id number] [place] [address] [place] RBC (Bld) [#/Vol] 4.72 10*6/uL Normal 3.90-5.20 [facility] Comment on above: Order Comment: Speci men Type: BLOOD SPECIMENOrdering Facility: [facility] Address: [address] [place] [address] Performed By: #### 5 7021-8 ####[facility] LABCLIA [id number] [place] [address] [place] WBC (Bld) [#/Vol] 5.02 10*3/uL Normal 3.70-11.00 [facility] Comment on above: Order Comment: Speci men Type: BLOOD SPECIMENOrdering Facility: [facility] Address: [address] [place] [address] Performed By: #### 5 7021-8 ####AMHGOSIA [facility] LABCLIA [id number] [place] [address] [place] [facility] Comprehensive metabolic 2000 panelon 02-18-2023 Albumin [Mass/Vol] 4.0 g/dL Normal 3.9-4.9 [facility] Comment on above: Order Comment: Speci men Type: BLOOD SPECIMENOrdering Facility: [facility] Address: [address] [place] [address] Performed By: #### 2 276-4, 91157-9, 02449-6, 07663-4 ####[facility] LABIA [id number] [place] [address] [place] ALP [Catalytic activity/Vol] 56 U/L Normal 34-123 [facility] Comment on above: Order Comment: Speci men Type: BLOOD SPECIMENOrdering Facility: [facility] Address: [address] [place] [address] Performed By: #### 2 276-4, 33828-7, 89247-6, 21031-8 ####[facility] LABCLIA [id number] [place] [address] [place] ALT [Catalytic activity/Vol] 293 U/L High 7-38 [facility] Comment on above: Order Comment: Speci men Type: BLOOD SPECIMENOrdering Facility: [facility] Address: [address] [place] [address] Performed By: #### 2 276-4, 16812-5, 79208-8, 90317-0 ####[facility] LABCLIA [id number] [place] [address] [place] Anion gap [Moles/Vol] 8 mmol/L Low 9-18 [facility] Comment on above: Order Comment: Speci men Type: BLOOD SPECIMENOrdering Facility: [facility] Address: [address] [place] [address] Performed By: #### 2 276-4, 87611-2, 95161-0, 06120-9 ####[facility] LABCLIA [id number] [place] [address] [place] AST [Catalytic activity/Vol] 120 U/L High 13-35 [facility] Comment on above: Order Comment: Speci men Type: BLOOD SPECIMENOrdering Facility: [facility] Address: [address] [place] [address] Performed By: #### 2 276-4, 35953-0, 24263-3, 65725-3 ####[facility] LABCLIA [id number] [place] [address] [place] Bilirubin [Mass/Vol] 1.2 mg/dL Normal 0.2-1.3 [facility] Comment on above: Order Comment: Speci men Type: BLOOD SPECIMENOrdering Facility: [facility] Address: [address] [place] [address] Performed By: #### 2 276-4, 81725-2, 48887-2, 55599-6 ####[facility] LABCLIA [id number] [place] [address] [place] Calcium [Mass/Vol] 9.3 mg/dL Normal 8.5-10.2 [facility] Comment on above: Order Comment: Speci men Type: BLOOD SPECIMENOrdering Facility: [facility] Address: [address] [place] [address] Performed By: #### 2 276-4, 49776-3, 43430-7, 24837-5 ####[facility] LABCLIA [id number] [place] [address] [place] Chloride [Moles/Vol] 105 mmol/L Normal 97-105 [facility] Comment on above: Order Comment: Speci men Type: BLOOD SPECIMENOrdering Facility: [facility] Address: [address] [place] [address] Performed By: #### 2 276-4, 78883-6, 43585-6, 59580-5 ####[facility] LABIA [id number] [place] [address] [place] CO2 [Moles/Vol] 22 mmol/L Normal 22-30 [facility] Comment on above: Order Comment: Speci men Type: BLOOD SPECIMENOrdering Facility: [facility] Address: [address] [place] [address] Performed By: #### 2 276-4, 61148-4, 10597-2, 74913-6 ####[facility] LABIA [id number] [place] [address] [place] Creatinine [Mass/Vol] 0.59 mg/dL Normal 0.58-0.96 [facility] Comment on above: Order Comment: Speci men Type: BLOOD SPECIMENOrdering Facility: [facility] Address: [address] [place] [address] Performed By: #### 2 276-4, 59788-5, 88219-7, 46592-2 ####[facility] LABIA [id number] [place] [address] [place] Creatinine and Glomerular filtration rate.predicted panel (S/P/Bld) 127 mL/min/1.73m??? Normal >=60 [facility] Comment on above: Order Comment: Speci men Type: BLOOD SPECIMENOrdering Facility: [facility] Address: [address] [place] [address] Result Comment: Queenie mated Glomerular Filtration Rate [...] actual GFR. Performed By: #### 2 276-4, 40196-6, 82621-7, 89470-8 ####[facility] LABCLIA [id number] [place] [address] [place] Glucose [Mass/Vol] 90 mg/dL Normal 74-99 [facility] Comment on above: Order Comment: Speci men Type: BLOOD SPECIMENOrdering Facility: [facility] Address: [address] [place] [address] Result Comment: The [place] [employer] Association (ADA) provides guidance for cutoff [...] Standards of Medical Care in Diabetes 2016, [place] [employer]. Diabetes Care. 2016.39(Suppl 1). Performed By: #### 2 276-4, 46613-8, 67934-0, ####[facility] LABIA [id number] [place] [address] [place] Potassium [Moles/Vol] 3.9 mmol/L Normal 3.7-5.1 [facility] Comment on above: Order Comment: [place] men Type: BLOOD SPECIMENOrdering Facility: [facility] Address: [address] [place] [address] Performed By: #### 2 276-4, 66796-9, 27495-5, 52492-0 ####[facility] LABIA [id number] [place] [address] [place] Protein [Mass/Vol] 7.5 g/dL Normal 6.3-8.0 [facility] Comment on above: Order Comment: Speci men Type: BLOOD SPECIMENOrdering Facility: [facility] Address: [address] [place] [address] Performed By: #### 2 276-4, 26784-3, 00724-6, 44662-4 ####[facility] LABCLIA [id number] [place] [address] [place] Sodium [Moles/Vol] 135 mmol/L Low 136-144 [facility] Comment on above: Order Comment: Speci men Type: BLOOD SPECIMENOrdering Facility: [facility] Address: [address] [place] [address] Performed By: #### 2 276-4, 24403-1, 15715-2, 35338-8 ####[facility] LABIA [id number] [place] [address] [place] Urea nitrogen [Mass/Vol] 6 mg/dL Low 7-21 [facility] Comment on above: Order Comment: Speci men Type: BLOOD SPECIMENOrdering Facility: [facility] Address: [address] [place] [address] Performed By: #### 2 276-4, 02179-4, 15198-9, 48027-3 ####[facility] LABCLIA [id number] [place] [address] [place] Ferritin SerPl-mCncon 2022 Ferritin [Mass/Vol] 19.0 ng/mL Normal 14.7-205.1 [facility] Comment on above: Order Comment: Speci men Type: BLOOD SPECIMENOrdering Facility: [facility] Address: [address] [place] [address] Performed By: #### 2 276-4, 04454-2, 56554-5, 26441-6 ####[facility] LABCLIA [id number] [place] [address] [place] Folate SerPl-mCncon 02-19-20 23 Folate [Mass/Vol] 13.9 ng/mL Normal >4.7 [facility] Comment on above: Order Comment: Speci men Type: BLOOD SPECIMENOrdering Facility: [facility] Address: [address] [place] [address] Performed By: #### 2 284-8, 2132-9 ####[facility] LABCLIA [id number] [place] [address] [place] HCV Ab Ser Qlon 02-18-2023 HCV Ab Ql (S) Positive Abnormal Negative [facility] Comment on above: Order Comment: Speci men Type: BLOOD SPECIMENOrdering Facility: [facility] Address: [address] [place] [address] Performed By: #### 1 6128-1, 15622-8 ####[facility] LABIA [id number] [place] [address] [place] HCV RNA SerPl JAYDE+probe-aCnc on 02-18-2023 HCV RNA JAYDE+probe Qn Abnormal HCV RNA not detected by PCR. [facility] Comment on above: Order Comment: Speci men Type: BLOOD SPECIMENOrdering Facility: [facility] Address: [address] [place] [address] Result Comment: HCV RNA detected by PCR. [id number] 6.46 Performed By: #### 1 6128-1, 48545-9 ####[facility] LABCLIA [id number] [place] [address] [place] HIV 1+2 Ab IA Qlon 3 HIV 1 and 2 Ab IA.rapid Nom Normal [facility] Comment on above: Order Comment: Speci men Type: BLOOD SPECIMENOrdering Facility: [facility] Address: [address] [place] [address] Result Comment: Test not indicated. Performed By: #### 3 1201-7 ####[facility] LABCLIA [id number] [place] [address] [place] HIV 1+2 Ab+HIV1 p24 Ag IA Ql Non-Reactive Normal Nonreactive [facility] Comment on above: Order Comment: Speci men Type: BLOOD SPECIMENOrdering Facility: [facility] Address: [address] [place] [address] Performed By: #### 3 1201-7 ####[facility] LABCLIA [id number] [place] [address] [place] HIV immunoassay testing algorithm interpretation (S/P/Bld) [Interp] Normal [facility] Comment on above: Order Comment: Speci men Type: BLOOD SPECIMENOrdering Facility: [facility] Address: [address] [place] [address] Result Comment: No e vidence of HIV-1 or HIV-2 infection. Should recent infection be suspected, repeat testing may be considered 2-3 weeks after this draw. [place] Rev. Code 3701.243(E): This information has been [...] or diagnoses. Performed By: #### 3 1201-7 ####[facility] LABCLIA [id number] [place] [address] [place] HbA1c (Bld)on 02-18-2023 Average glucose Estimated from glycated hemoglobin (Bld) [Mass/Vol] 103 mg/dL Normal [facility] Comment on above: Order Comment: Speci men Type: BLOOD SPECIMENOrdering Facility: [facility] Address: [address] [place] [address] Result Comment: eAG: (Estimated average glucose) is a calculated value from HgbA1c and is field support representative of the average blood glucose level in the last 2-3 month period. Performed By: #### 5 5454-3 ####[facility] LABCLIA [id number] [place] [address] [place] HbA1c (Bld) [Mass fraction] 5.2 % Normal 4.3-5.6 [facility] Comment on above: Order Comment: Speci men Type: BLOOD SPECIMENOrdering Facility: [facility] Address: [address] [place] [address] Result Comment: Amer ican Diabetes Association guidelines indicate that patients with HgbA1c in the range 5.7-6.4% are at increased risk for development of diabetes, and intervention by lifestyle modification may be beneficial. HgbA1c greater or equal to 6.5% is considered diagnostic of diabetes. Performed By: #### 5 5454-3 ####[facility] LABIA [id number] [place] [id number] [place] Iron and Iron binding capaci ty panelon 02-18-2023 Iron [Mass/Vol] 88 ug/dL Normal 41-186 [facility] Comment on above: Order Comment: Speci men Type: BLOOD SPECIMENOrdering Facility: [facility] Address: [address] [place] [address] Performed By: #### 2 276-4, 60073-0, 36579-8, 96870-2 ####[facility] [id number] [place] [id number] [place] Iron binding capacity [Mass/Vol] 569 ug/dL High 232-386 [facility] Comment on above: Order Comment: Speci men Type: BLOOD SPECIMENOrdering Facility: [facility] Address: [address] [place] [address] Performed By: #### 2 276-4, 09712-1, 80376-1, 92780-1 ####[facility] LABIA [id number] [place] [id number] [place] Iron/TIBC [Molar ratio] 15.5 % Normal 15.0-57.0 [facility] Comment on above: Order Comment: Speci men Type: BLOOD SPECIMENOrdering Facility: [facility] Address: [address] [place] [address] Performed By: #### 2 276-4, 64418-8, 09724-8, ####[facility]HERST [facility] LABCLIA [id number] [place] [address] [place] [facility] [place] Lipid 1996 panelon 3 Cholesterol [Mass/Vol] 172 mg/dL Normal <200 [facility] Comment on above: Order Comment: Speci men Type: BLOOD SPECIMENOrdering Facility: [facility] Address: [address] [place] [address] Result Comment: <200 mg/dL, Desirable 200-239 mg/dL, Borderline high >239 mg/dL, High Performed By: #### 2 276-4, 17654-0, 54567-6, ####AMHERSGaye [facility] LABCLIA [id number] [place] [address] [facility] Cholesterol in HDL [Mass/Vol] 55 mg/dL Normal >39 [facility] Comment on above: Order Comment: Speci men Type: BLOOD SPECIMENOrdering Facility: [facility] Address: [address] [place] [address] Result Comment: 40-5 9 mg/dL, Acceptable >59 mg/dL, High: Negative risk factor for coronary heart disease <40 mg/dL, Low: Positive risk factor for coronary heart disease Performed By: #### 2 276-4, 56594-6, 10093-8, ####AMHERSGaye [facility] LABCLIA [id number] [place] [address] [facility] Cholesterol in LDL [Mass/Vol] 94 mg/dL Normal <100 [facility] Comment on above: Order Comment: Speci men Type: BLOOD SPECIMENOrdering Facility: [facility] Address: [address] [place] [address] Result Comment: <100 mg/dL, Optimal 100-129 mg/dL, Near optimal/above optimal 130-159 mg/dL, Borderline high 160-189 mg/dL, High >189 mg/dL, Very high Secondary prevention optimal LDL Cholesterol levels are recommended to be < 70 mg/dL Performed By: #### 2 276-4, 23607-9, 81441-1, ####[facility]ST [facility] LABCLIA [id number] [place] [address] [facility] Cholesterol in LDL/Cholesterol in HDL [Mass ratio] 1.71 {ratio} Normal <2.54 [facility] Comment on above: Order Comment: Speci men Type: BLOOD SPECIMENOrdering Facility: [facility] Address: [address] [place] [address] Result Comment: Refe rence: 1. National Cholesterol Education Program ATP III Guideline At-A-Glance Quick Desk Reference: National Heart, Lung, and Blood Lapel. National Institutes of Health. 2001: NIH Publication No. 01-3305. 2. An International Atherosclerosis Society position paper: global recommendations for the management of dyslipidemia: executive summary, Atherosclerosis. 2014: 232(2):410-413. Performed By: #### 2 276-4, 25562-7, 84981-9, ####[facility] LABCLIA [id number] [place] [address] [place] [facility] Cholesterol in VLDL [Mass/Vol] 23 mg/dL Normal <30 [facility] Comment on above: Order Comment: Speci men Type: BLOOD SPECIMENOrdering Facility: [facility] Address: [address] [place] [address] Performed By: #### 2 276-4, 40777-0, 27683-0, 55123-5 ####[facility] LABCLIA [id number] [place] [address] [place] Cholesterol non HDL [Mass/Vol] 117 mg/dL Normal <130 [facility] Comment on above: Order Comment: Speci men Type: BLOOD SPECIMENOrdering Facility: [facility] Address: [address] [place] [address] Result Comment: <130 mg/dL, Optimal 130-159 mg/dL, Near optimal/above optimal 160-189 mg/dL, Borderline high 190-219 mg/dL, High >219 mg/dL, Very high Secondary prevention optimal non HDL Cholesterol levels are recommended to be <100 mg/dL Performed By: #### 2 276-4, 79446-0, 15061-5, 75949-6 ####[facility] LABCLIA [id number] [place] [address] [place] [facility] Cholesterol.total/Rosie sterol in HDL [Mass ratio] 3.13 {ratio} Normal <5.10 [facility] Comment on above: Order Comment: Speci men Type: BLOOD SPECIMENOrdering Facility: [facility] Address: [address] [place] [address] Performed By: #### 2 276-4, 70831-9, 44881-0, 63282-8 ####[facility] LABIA [id number] [place] [id number] [facility] FASTING TIME 10 hrs Normal [facility] Comment on above: Order Comment: Speci men Type: BLOOD SPECIMENOrdering Facility: [facility] Address: [address] [place] [address] Performed By: #### 2 276-4, 96272-6, 68356-7, 98768-9 ####[facility] LABIA [id number] [place] [address] [place] Triglyceride [Mass/Vol] 113 mg/dL Normal <150 [facility] Comment on above: Order Comment: Speci men Type: BLOOD SPECIMENOrdering Facility: [facility] Address: [address] [place] [address] Result Comment: <150 mg/dL, Normal 150-199 mg/dL, Borderline high 200-499 mg/dL, High >499 mg/dL, Very high Performed By: #### 2 276-4, 85404-4, 14879-0, 96629-4 ####[facility] LABIA [id number] [place] [address] [place] TOX SCREEN ROUT URon 10-21-2 023 Amphetamines Confirm (U) [Mass/Vol] Negative Normal Negative [facility] Comment on above: Order Comment: Speci men Type: URINE SPECIMENOrdering Facility: [facility] Address: [address] [place] [address] Result Comment: Cuto ff threshold at 1000 ng/mL. Performed By: #### U TOX2 ####[facility] LABCLIA [id number] [place] [address] [place] BARBITURATES, URINE Negative Normal Negative [facility] Comment on above: Order Comment: Speci men Type: URINE SPECIMENOrdering Facility: [facility] Address: [address] [place] [address] Result Comment: Cuto ff threshold at 200 ng/mL. Performed By: #### U TOX2 ####[facility] LABCLIA [id number] [place] [address] [place] BENZODIAZEPINES, UR Negative Normal Negative [facility] Comment on above: Order Comment: Speci men Type: URINE SPECIMENOrdering Facility: [facility] Address: [address] [place] [address] Result Comment: Cuto ff threshold at 200 ng/mL. Performed By: #### U TOX2 ####[facility] LABCLIA [id number] [place] [address] [place] Cannabinoids Screen Ql (U) Positive Abnormal Negative [facility] Comment on above: Order Comment: Speci men Type: URINE SPECIMENOrdering Facility: [facility] Address: [address] [place] [address] Result Comment: Cuto ff threshold at 50 ng/mL. Performed By: #### U TOX2 ####[facility] LABCLIA [id number] [place] [address] [place] Cocaine Ql (U) Negative Normal Negative [facility] Comment on above: Order Comment: Speci men Type: URINE SPECIMENOrdering Facility: [facility] Address: [address] [place] [address] Result Comment: Cuto ff threshold at 300 ng/mL. Performed By: #### U TOX2 ####[facility] LABCLIA [id number] [place] [address] [place] Ethanol (U) [Mass/Vol] <11 Normal <11 [facility] Comment on above: Order Comment: Speci men Type: URINE SPECIMENOrdering Facility: [facility] Address: [address] [place] [address] Performed By: #### U TOX2 ####[facility] LABCLIA [id number] [place] [address] [place] Opiates Screen Ql (U) Negative Normal Negative [facility] Comment on above: Order Comment: Speci men Type: URINE SPECIMENOrdering Facility: [facility] Address: [address] [place] [address] Result Comment: Cuto ff threshold at 300 ng/mL. Performed By: #### U TOX2 ####[facility] LABIA [id number] [place] [address] [place] oxyCODONE cutoff Screen (U) [Mass/Vol] Negative Normal Negative [facility] Comment on above: Order Comment: Speci men Type: URINE SPECIMENOrdering Facility: [facility] Address: [address] [place] [address] Result Comment: Cuto ff threshold at 100 ng/mL. Performed By: #### U TOX2 ####[facility] LABIA [id number] [place] [address] [place] Phencyclidine Ql (U) Negative Normal Negative [facility] Comment on above: Order Comment: Speci men Type: URINE SPECIMENOrdering Facility: [facility] Address: [address] [place] [address] Result Comment: Cuto ff threshold at 25 ng/mL. Performed By: #### U TOX2 ####[facility] LABIA [id number] [place] [address] [place] Vit B12 SerPl-mCncon 10-21-2 023 Cobalamin (Vitamin B12) [Mass/Vol] 644 pg/mL Normal 232-1245 [facility] Comment on above: Order Comment: Speci men Type: BLOOD SPECIMEN [facility] Address: [address] [place] [address] Performed By: #### 2 284-8, 2132-9 #### [facility] LAB CLIA [id number] [facility] [place] [id number] [id number] [place] CNOVon 02-17-2023 CNOV Office Visit ([facility] ) CHRISTIANA YOUNG ([id number]) 1995 F Date Time Provider Department 02/17/23 3:00 PM LORNA DOBSON [facility] During your visit today, we recorded the following information about you: Pulse Blood pressure Weight Height 97/minute 127/82 111 kg 1.676 m Lorna Dobson APRN.BANK ADVISOR 02/17/2023 4:15 PM Signed This note was created using Narratoter. Subjective Christiana Young is a 27 year [...] which included preparing to see the patient, plob-sy-tcvw patient care, completing clinical documentation, obtaining and/or [...] sertraline (ZOLO (more content not included)... Normal [facility] CNOVon 01-09-2023 CNOV Office Visit ([facility] ) CHRISTIANA YOUNG ([id number]) 1995 F Date Time Provider Department 01/09/23 2:20 PM KELSI FREEDMAN [facility] During your visit today, we recorded the following information about you: Pulse Blood pressure Weight Height 83/minute 117/80 110.7 kg 1.676 m Last Period 12/19/22 Kelsi Freedman, PIGGYBACK CLERK.BANK ADVISOR 01/09/2023 4:04 PM Signed This note was created using NoteWriter. Subjective Christiana Young is a 27 year old female. 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 Some PPD in past. GI: [...] YR, QUADRIVALENT (AFLURIA, FLULAVAL, FLUZONE) Kelsi Freedman APRN.BANK ADVISOR Referring Provider: SELF [200] Allergies As of [...] [E55.9] Encounter for immunization [Z23] Order(s):DEPRESSION SCREENING/ASSESSMENT [[id number]] Order #: [id number]: 1 INFLUENZA VACCINE, AGE 6 MO - 64 YR, QUADRIVALENT (AFLURIA, FLULAVAL, FLUZONE) [[id number]] Order #: [id number] HEPATITIS C ANTIBODY IA WITH CONFIRMATION [BUAHVK9X] Order #: [id number] FUTURE TOX SCREEN ROUT UR [SQUTOX2] Order #: [id number] FUTURE HIV 1 2 COMBO(AG/AB),WITH REFLEX TO DIFFERENTIATION [SQHIV12] Order #: [id number] FUTURE VITAMIN B12 BLOOD [SQB12] Order #: [id number] FUTURE FOLATE SER (more content not included)... Normal [facility] Consent for Treatmenton Consent for Treatment [id number] 0CD:127 Normal [facility] Discharge Instructionson Discharge Instructions [id number]. 00CD:127 Normal [facility] ED Clinical Summaryon 2022 ED Clinical Summary [place] [id number] ED Clinical Summary Person Information Name: CHRISTIANA YOUNG [facility] Age: 27 Years : 1995 Sex: Female Language: Malawian PCP: Zbigniew aL MD Marital Status: Single Phone: [phone] Visit Id: Visit Reason: Allergic reaction - [...] 11/05/2022 11:26:05 11/05/2022 11:26:05 11/05/2022 11:26:05 ADDRESS: [address] [place] [address] [address] [facility] [id number] PHYS DOC NOTES: MEDICAL INFORMATION: Prescriptions Given: New Medications [id number], [address] [place], [place] [id number], [phone] cetirizine (cetirizine 10 mg Tab) 1 Tablets By Mouth every day for 7 Days. Refills: 0. famotidine (Pepcid 40 mg Tab) 1 Tablets By Mouth once a day (at bedtime) for 7 Days. Refills: 0. predniSONE (predniSONE 20 mg Tab) 3 By Mouth every day for 7 Days. Refills: 0. Medications to Continue with No Changes Other Medications acetaminophen (Tylenol) acetaminophen-hydrocod one (Genes[place] 325 mg-5 mg oral tablet) 1 Tablets [...] Follow up: With: Address: When: Zbigniew La [address] [place], [place] [phone] Business (1) In 3 days DIAGNOSIS: Acute URI; Urticaria Normal [facility] ED Note-Physicianon 11-06-19 ED Note-Physician Basic [...] educated she may need to see an chauffeur. Shared decision making: Code status: [ x] [...] day(s), # 7 tab(s), Refills(s) 0, Pharmacy: [facility] #[id number], 162, cm, 11/05/22 9:56:00 EDT, Height/Length Dosing, 105, kg, 11/05/22 9:56:00 EDT, Weight Dosing famotidine, 40 mg = 1 tab(s), Oral, Once a day (at bedtime), X 7 day(s), # 7 tab(s), Refills(s) 0, [facility]acy: [facility] #[id number], 162, cm, 11/05/22 9:56:00 EDT, Height/Length Dosing, 105, kg, 11/05/22 9:56:00 EDT, Weight Dosing predniSONE, 3, Oral, Daily, X 7 day(s), # 21 tab(s), Refills(s) 0, Pharmacy: [facility] #[id number], 162, cm, 11/05/22 9:56:00 EDT, Height/Length Dosing, 105, kg, 11/05/22 9:56:00 EDT, Weight Dosing Group A Strep by PCR Rapid COVID Antigen ([facility]) Rapid Strep w/rfx U Beta Hcg Qual Disposition Plan Discharge Prescription List Prescriptions cetirizine 10 mg Tab, 10 mg= 1 tab(s), Oral, D (more content not included)... Normal [facility] Comment on above: Result Comment: Elec tronically Signed By: Harris Simms DO\.br\Date and Time Signed: 11/05/22 11:00 EDT ED Patient Education Noteon 11-05-2022 ED Patient Education Note Normal [facility] ED Patient Summaryon 023 ED Patient Summary [place] [id number] Patient Discharge Instructions Person Information Name: CHRISTIANA YOUNG Age: 27 Years Arrival Date: 11/05/2022 09:48:45 Discharge Diagnosis: Acute URI; Urticaria Primary Care Physician: Zbigniew La MD Provider Information Primary Provider: Harris Simms DO Advanced Fruit Picker Machine Operator:None The exam and treatment you received in the Emergency Department were for an urgent problem and are not intended as complete care. It is important that you follow up with a doctor, nurse practitioner, or physician?s corporate law assistant for ongoing care. If your symptoms [...] Follow-up Instructions: With: Address: When: Zbigniew La [address] [place], [place] [phone] Business (1) In 3 days In the event that this physician does not participate in your insurance network, please consult with your insurance company to find a nearby participating provider. Patient Education Materials: A MESSAGE TO ALL PATIENTS REGARDING OPIOIDS PRESCRIPTION OPIOIDS: WHAT YOU NEED TO KNOW Prescription opioids can be used to help relieve arbibvwj-sr-szwfkv pain and are often prescribed following a [...] be struggling with addiction, tell your health residential care facility manager and ask for guidance or call [facility]?S National Helpline at 8-577-487-LKGE. i Source: US Department of Health and Human Services/Center for Disease Control (more content not included)... Normal [facility] Grp A Strp PCRon 11-05-2022 Group A Strep Negative Normal [facility] Comment on above: Order Comment: Order Added on by Discern Rule. Result Comment: Test ing performed using DNA amplification. Performed By: #### 2 [id number], [id number], [id number] ####[facility] [address] [place] [address] Grp A Strp Intrl Ctrl Pass Normal [facility] Comment on above: Order Comment: Order Added on by Discern Rule. Performed By: #### 2 [id number], [id number], [id number] ####[facility] [address] [place] [address] MICRO OTHER TESTSOrdered By: Nyla Simpson on [...] Rapid COV Int NEG Ctl Pass Normal [facility] Comment on above: Performed By: #### 2 [id number], [id number], [id number] ####[facility] [address] [place] [address] Rapid COV Int POS Ctl Pass Normal [facility] Comment on above: Performed By: #### 2 [id number], [id number], [id number] ####[facility] [address] [place] [address] SARS-CoV+SARS-CoV-2 (COVID-19) Ag IA.rapid Ql (Resp) Not detected Normal Not Detected [facility] Comment on above: Result Comment: The Wecash? System for Rapid Detection of SARS-CoV-2 is [...] or revoked sooner. Performed By: #### 2 [id number], [id number], [id number] ####[place] [address] ADMITTED TO INTENSIVE CARE UNIT FOR CONDITION OF INTEREST:FIND:PT: NO Normal [facility] Comment on above: Performed By: #### 2 [id number], [id number], [id number] ####[place] [address] EMPLOYED IN A HEALTHCARE SETTING:FIND:PT: NO Normal [facility] Comment on above: Performed By: #### 2 [id number], [id number], [id number] ####[place] [address] FIRST TEST FOR CONDITION OF INTEREST:FIND:PT: NO Normal [facility] Comment on above: Performed By: #### 2 [id number], [id number], [id number] ####[place] [address] HAS SYMPTOMS RELATED TO CONDITION OF INTEREST:FIND:PT: YES Normal [facility] Comment on above: Performed By: #### 2 [id number], [id number], [id number] ####[place] [address] HOSPITALIZED FOR CONDITION OF INTEREST:FIND:PT: NO Normal [facility] Comment on above: Performed By: #### 2 [id number], [id number], [id number] ####[place] [address] STATUS:FIND:PT: NO Normal [facility] Comment on above: Performed By: #### 2 [id number], [id number], [id number] ####[place] [address] [facility]IDES IN [facility] SETTING:FIND:PT: NO Normal [facility] Comment on above: Performed By: #### 2 [id number], [id number], [id number] ####[place] [address] [place] [address] Rapid Strep w/rfxon 11-06-19 23 S. pyogenes Ag IA.rapid Ql (Throat) Negative Normal Negative [facility] Comment on above: Performed By: #### 2 [id number], [id number], [id number] ####[place] [address] [place] [address] SEROLOGYOrdered By: Nyla Simpson on 11-05-2022 HCG.beta subunit (U) [Moles/Vol] Negative Normal [facility] Man Sero U BetaHcg Qualon 11-05-2022 HCG.beta subunit (U) [Moles/Vol] Negative Normal [facility] Comment on above: Performed By: #### 2 [id number] ####[facility] [address] [place] [address] Discharge Instructionson Discharge Instructions [id number] .[id number]:127 Normal [facility] ED Clinical Summaryon 2022 ED Clinical Summary [address] [address] ED Clinical Summary Person Information Name: CHRISTIANA YOUNG [facility] Age: 26 Years : 1995 Sex: Female Language: Malawian PCP: Dimitry MONTES MD Marital Status: Single Phone: [phone] Visit Id: Visit Reason: Dental pain; Mouth [...] 09/22/2022 22:39:00 09/22/2022 22:39:00 09/22/2022 22:39:00 ADDRESS: [address] [place] [address] [address] [facility] [id number] [facility] DOC NOTES: MEDICAL INFORMATION: Prescriptions Given: New Medications [facility], [address] [place], [place] [id number], [phone] acetaminophen-hydrocod one (Genesee 325 mg-5 mg oral tablet) 1 Tablets [...] Vitamin+) PATIENT EDUCATION INFORMATION: Instructions: Dental Pain, Moql-uo-Nonk Follow up: With: Address: When: Dental: [facility] [phone] In 3 days 09/25/2022 Comments: You can use the pain medication every 6 hours as needed for pain. Continue taking your antibiotics as prescribed. Please follow-up with your primary care doctor in the next 2 to 3 days. Please return return to your dentist for further evaluation and management With: Address: When: Dental: [facility] [phone] In 3 days 09/25/2022 With: Address: When: [facility] [phone] In 3 days 09/25/2022 With: Address: When: Dimitry MONTES [address] [place], [place] [id number] [facility] () In 3 days 09/25/2022 DIAGNOSIS: Pain, dental [facility] ED Note-Physicianon 09-24-19 ED Note-Physician Basic [...] days ago at a dental clinic in [place]. Patient states she is not taking her [...] and Complexity of Problems Differential Diagnosis: [] [facility] Data External documents reviewed: [] My [...] pain, 5 tab(s), Refill(s) 0, [id number], 162, cm, 09/22/22 21:14:00 EDT, Height/Length Dosing, [...] pain, # 20 tab(s), Refills(s) 0, Pharmacy: [facility] #[id number], 162, cm, 09/22/22 21:14:00 EDT, Height/Length Dosing, 107, kg, 09/22/22 21:14:00 EDT, Weight Dosing Medications Administered Given benzocaine topical 20% gel, 1 doc, Topical naproxen 250 mg Tab, 500 mg, Oral [place] 5/325 Tab, 1 tab(s), Oral TO GO acetaminophen-hydrocod one 325 mg - 5 mg, 1 EA, Oral Disposition Plan Discharge Prescription List Prescriptions Naprosyn 500 mg Tab, 500 mg= 1 tab(s), Oral, BID, PRN Genesee 325 mg-5 mg oral tablet, 1 tab(s), Oral, q6hr, PRN Follow-up With When Contact Information Dental: [facility] [phone] In 3 days 09/25/2022 EDT Additional Instructions: You can use the pain medication every 6 hours as needed for pain. Continue taking your antibiotics as prescribed. Please follow-up with your primary care doctor in the next 2 to 3 days. Please return return to your dentist for further evaluation and management Dental: [facility] [phone] In 3 days 09/25/2022 EDT Additional Instructions: Dental: [place] [facility] [phone] In 3 days 09/25/2022 EDT Additional Instructions: Dimitry MONTES In 3 days 09/25/2022 EDT [address] [facility] [place] [id number] [facility] (1) Additional Instructions: Patient Education Dental Pain, Wvgx-jt-Hyfw Problem List/Past Medical History Ongoing Acute pyelonephritis Anxiety depression Bipolar Chronic back pain Schizophrenia Smoker 31-OCT-2013 12:37:00<$> Suicidal thoughts Teenage Historical Dental caries Endometriosis History (more content not included)... [facility] Comment on above: Result Comment: Elec [...] these instructions at home: Medicines ? Take dkkw-tmj-yivyoxr and prescription medicines only as told by [...] to the area. Brushing your teeth ? Winters your teeth twice a day using a [...] when you eat or drink. ? Take whrh-ujz-lcuaygt and prescription medicines only as told by [...] Reviewed: 01/20/2021 Elsevier Patient Education ? 2022 [employer] [facility] ED Patient Summaryon 023 ED Patient Summary [address] [address] Patient Discharge Instructions Person Information Name: CHRISTIANA YOUNG Age: 26 Years Arrival Date: 09/22/2022 21:04:05 Discharge Diagnosis: Pain, dental Primary Care Physician: Dimitry MONTES MD Provider Information Primary Provider: Yuniel Ware DO Advanced Fruit Picker Machine Operator:None The exam and treatment you received in the Emergency Department were for an urgent problem and are not intended as complete care. It is important that you follow up with a doctor, nurse practitioner, or physician?s corporate law assistant for ongoing care. If your symptoms become worse or you do not improve as expected and you are unable to reach your usual health care provider, you should return to the Emergency Department. We are available 24 hours a day. CHRISTIANA YOUNG has been given the following list of patient education materials, prescriptions and follow-up instructions: Follow-up Instructions: With: Address: When: Dental: [facility] [phone] In 3 days 09/25/2022 Comments: You can use the pain medication every 6 hours as needed for pain. Continue taking your antibiotics as prescribed. Please follow-up with your primary care doctor in the next 2 to 3 days. Please return return to your dentist for further evaluation and management With: Address: When: Dental: [facility] [phone] In 3 days 09/25/2022 With: Address: When: Dental: [facility] [phone] In 3 days 09/25/2022 With: Address: When: Dimitry MONTES [address] [place], [place] [id number] [facility] () In 3 days 09/25/2022 In the event that this physician does not participate in your insurance network, please consult with your insurance company to find a nearby participating provider. Patient Education Materials: Dental Pain, Smth-um-Bxbx A MESSAGE TO ALL PATIENTS REGARDING OPIOIDS PRESCRIPTION OPIOIDS: WHAT YOU NEED TO KNOW Prescription opioids can be used to help relieve pvrvjmrp-ol-puleaw pain and are often prescribed following a [...] and family (more content not included)... [facility] Consent for Treatmenton 08-30 Consent for Treatment [id number] [facility] COVID-19, Rapidon 04-25-2022 SARS-CoV-2 (COVID-19) RNA JAYDE+probe Ql (Unsp spec) Not detected Not Detected [facility] Comment on above: Rapid NAAT: Negative [...] authorized laboratories. Fact sheet for Healthcare Providers: https://www.fda.gov/media/282910/download Fact sheet for Patients: https://www.fda.gov/media/647029/download METHODOLOGY: Isothermal Nucleic Acid Amplification [facility] Rapid Influenza A/B Antigens on 04-25-2022 Influenza A by PCR Negative [facility] Influenza B by PCR Negative [facility] Rapid Strep Screenon 022 Strep Grp A PCR Negative [facility] Comment on above: Negative for Strep A nucleic acid. [facility] CBC with Auto Differentialon 10-23-2021 Basophils (Bld) [#/Vol] 0.1 10*3/uL 0.0 - 0.1 K/uL [facility] Basophils/100 WBC (Bld) 0.4 % 0.1 - 1.2 % [facility] Eosinophils (Bld) [#/Vol] 0.2 10*3/uL 0.0 - 0.4 K/uL [facility] Eosinophils/100 WBC (Bld) 1.2 % 0.7 - 5.8 % [facility] Hematocrit (Bld) [Volume fraction] 30.5 % Low 37.0 - 47.0 % [facility] Hemoglobin (Bld) [Mass/Vol] 9.2 g/dL Low 11.2 - 15.7 g/dL [facility] Immature granulocytes (Bld) [#/Vol] 0.2 10*3/uL [facility] Immature granulocytes/100 WBC (Bld) 1.3 % [facility] Interpretation and review of laboratory results Abnormal [facility] Lymphocytes (Bld) [#/Vol] 1.3 10*3/uL 1.2 - 3.7 K/uL [facility] Lymphocytes/100 WBC (Bld) 8.4 % [facility] MCH (RBC) [Entitic mass] 23.0 pg Low 25.6 - 32.2 pg [facility] MCHC (RBC) [Mass/Vol] 30.2 % Low 32.2 - 35.5 % [facility] MCV (RBC) [Entitic vol] 76.3 fL Low 79.4 - 94.8 fL [facility] Monocytes (Bld) [#/Vol] 0.6 10*3/uL 0.2 - 0.9 K/uL [facility] Monocytes/100 WBC (Bld) 3.9 % Low 4.7 - 12.5 % [facility] Neutrophils Absolute 12.7 K/uL High 1.6 - 6 .1 K/uL [facility] Neutrophils/100 WBC (Bld) 84.8 % High 34.0 - 71.1 % [facility] Platelet distribution width (Bld) [Ratio] 16.8 % High 11.7 - 14.4 % [facility] Platelets (Bld) [#/Vol] 405 10*3/uL High 182 - 369 K/uL [facility] RBC (Bld) [#/Vol] 4.00 10*6/uL [facility] WBC (Bld) [#/Vol] 15.0 10*3/uL High 4.0 - 10.0 K/uL [facility] CT ABDOMEN PELVIS W IV CONTR AST Additional Contrast? Noneon 06-25-2022 MILDLY DILATED APPENDIX WITH QUESTIONABLE SURROUNDING INFLAMMATION, WHICH MAY BE EARLY UNCOMPLICATED APPENDICITIS. ENLARGED UTERUS CONSISTENT WITH RECENT STATE. [facility] RADI[facility] CT ABDOMEN PELVIS W IV CONTRAST: [...] additional images of the pelvis are unremarkable. [facility] Christina Skinner MD - 10/23/2021 CT [...] ENLARGED UTERUS CONSISTENT WITH RECENT STATE. [facility] [employer] Work Phone: Radiology Study observation (narrative) JUSTIN THOMAS [employer] Work Phone: CT ABDOMEN PELVIS W IV CONTR AST Additional Contrast? NoneOrdered By: Christina Skinner on 10-23-2021 [facility] [employer] Work Phone: Comprehensive Metabolic Pane epifanio 10-23-2021 Albumin [Mass/Vol] 3.8 g/dL 3.5 - 4.6 g/dL [facility] [employer] ALP (Bld) [Catalytic activity/Vol] 127 U/L 40 - 130 U/L [facility] [employer] ALT [Catalytic activity/Vol] 28 U/L 0 - 33 U/L [facility] [employer] Anion gap [Moles/Vol] 12 mmol/L [facility] [employer] AST [Catalytic activity/Vol] 23 U/L 0 - 35 U/L [facility] [employer] Bilirubin [Mass/Vol] 0.6 mg/dL 0.2 - 0 .7 mg/dL [facility] [employer] Calcium [Mass/Vol] 9.3 mg/dL 8.5 - 9.9 mg/dL [facility] [employer] Chloride [Moles/Vol] 102 mmol/L [facility] [employer] CO2 [Moles/Vol] 23 mmol/L [facility] [employer] Creatinine [Mass/Vol] 0.6 mg/dL 0.50 - 0.90 mg/dL [facility] [employer] Free PSA/Total PSA [Mass fraction] 7.8 g/dL 6.3 - 8.0 g/dL [facility] [employer] GFR >60.0 >60 [facility] [employer] Comment on above: >60 mL/min/1.73m2 EG FR, calc. for ages 18 and older using the MDRD formula (not corrected for weight), is valid for stable renal function. GFR Non- >60.0 >60 [facility] [employer] Comment on above: >60 mL/min/1.73m2 EG FR, calc. for ages 18 and older using the MDRD formula (not corrected for weight), is valid for stable renal function. Globulin (S) [Mass/Vol] 4 g/dL High 2.3 - 3.5 g/dL [facility] Glucose [Mass/Vol] 116 mg/dL High 70 - 99 mg/dL [facility] Interpretation and review of laboratory results Abnormal [facility] Potassium [Moles/Vol] 4.1 mmol/L [facility] Sodium [Moles/Vol] 137 mmol/L [facility] Urea nitrogen (BldV) [Mass/Vol] 14 mg/dL 6 - 20 mg/dL [facility] Lipaseon 10-23-2021 Lipase [Catalytic activity/Vol] 14 U/L 12 - 95 U/L [facility] Magnesiumon 10-23-2021 Magnesium [Mass/Vol] 1.8 mg/dL 1.7 - 2 .4 mg/dL [facility] Microscopic Urinalysison Bacteria, UA FEW Abnormal Negative /HPF [facility] Epithelial Cells, UA 0-2 /HPF [facility] RBC, UA 10-20 Abnormal [facility] WBC, UA 6-9 [facility] No Panel Informationon 10-23 Interpretation and review of laboratory results Abnormal [facility] Urinalysis with Reflex to Cu ltureon 10-23-2021 Bilirubin Urine Negative Negative [facility] Blood, Urine LARGE Abnormal Negative [facility] Clarity, UA Clear Clear [facility] Color, UA Yellow Straw/Yellow [facility] Glucose, Ur Negative Negative mg/dL [facility] Ketones Ql (U) Negative Negative mg/dL [facility] Leukocyte esterase Test strip Ql (U) MODERATE Abnormal Negative [facility] Nitrite, Urine Negative Negative [facility] pH, UA 6.5 [facility] Protein, UA TRACE Abnormal Negative mg/dL [facility] Specific [place], UA 1.010 [facility] Urine Reflex to Culture Not Indicated [facility] Urobilinogen, Urine 0.2 <2.0 E.U./dL [facility] URINALYSISOrdered By: Marcelo perez on 10-20-2021 Bacteria LM Ql (Urine sed) 1+ /HPF Invalid Interpretation Code Trace/HPF [facility] UA Auto SS Bilirubin Ql (U) Negative (10/20/21 9:00 PM) Normal Negative [facility] UA Auto SS Clarity (U) SL CLOUDY Invalid Interpretation Code [facility] UA Auto SS Color (U) Chunky *ABN* (10/20/21 9:00 PM) Invalid Interpretation Code [...] PM) Normal Negative [facility] UA Auto SS [place].plasma/[place]. RBC (Bld) [Mass ratio] >30 /HPF Invalid [...] [facility] UA Auto SS Urobilinogen Qn (U) [id number] {Venus'U}/dL Normal 0.0 - 1.0 EU/dL [facility] UA Auto SS WBC Auto Ql (U) 1+ *ABN* (10/20/21 9:00 PM) Invalid Interpretation Code Negative [facility] UA Auto SS WBC LM.HPF (Urine sed) [#/Area] 6-15 /HPF Invalid Interpretation Code 0-5/HPF [facility] UA Auto SS CBC AUTO DIFFon 10-17-2021 BASO # 0.1 103/ul Normal 0.0-0.1 [facility] Comment on above: Performed By: #### N BOX #### [facility] [address] [place] [address] Dr. Dillan Power Basophils/100 WBC (Bld) 0.5 % Normal 0.2-2.0 [facility] Comment on above: Performed By: #### N BOX #### [facility] [address] [place] [address] Dr. Dillan Power EO # 0.2 103/ul Normal 0.0-0.7 [facility] Comment on above: Performed By: #### N BOX #### [facility] [address] [place] [address] Dr. Dillan Power Eosinophils/100 WBC (Bld) 1.9 % Normal 0.9-7.0 [facility] Comment on above: Performed By: #### N BOX #### [facility] [address] [place] [address] Dr. Dillan Power Erythrocyte distribution width (RBC) [Ratio] 16.8 % Critically high 11.0-15.0 [facility] Comment on above: Performed By: #### N BOX #### [facility] [address] [place] [address] Dr. Dillan Power Hematocrit (Bld) [Volume fraction] 24.7 % Critically low 36.0-48.0 [facility] Comment on above: Performed By: #### N BOX #### [facility] [address] [place] [address] Dr. Dillan Power Hemoglobin (Bld) [Mass/Vol] 7.4 g/dL Critically low 12.0-16.0 [facility] Comment on above: Performed By: #### N BOX #### [facility] [address] [place] [address] Dr. Dillan Power IG # 0.15 10e3/ul Critically high 0.00-0.03 [facility] Comment on above: Performed By: #### N BOX #### [facility] [address] [place] [address] Dr. Dillan Power IG % 1.4 % Critically high 0.0-0.5 [facility] Comment on above: Performed By: #### N BOX #### [facility] [address] [place] [address] Dr. Dillan Power LYMPH # 2.2 103/ul Normal 1.2-3.8 [facility] Comment on above: Performed By: #### N BOX #### [facility] [address] [place] [address] Dr. Dillan Power Lymphocytes/100 WBC (Bld) 20.7 % Normal 20.5-60.0 [facility] Comment on above: Performed By: #### N BOX #### [facility] [address] [place] [address] Dr. Dillan Power MANUAL DIFF REQ NO Normal [facility] Comment on above: Performed By: #### N BOX #### [facility] [address] [place] [address] Dr. Dillan Power MCH (RBC) [Entitic mass] 23.2 pg Critically low 26.7-34.0 [facility] Comment on above: Performed By: #### N BOX #### [facility] [address] [place] [address] Dr. Dillan Power MCHC (RBC) [Mass/Vol] 30.0 g/dL Normal 29.9-35.2 [facility] Comment on above: Performed By: #### N BOX #### [facility] [address] [place] [address] Dr. Dillan Power MCV (RBC) [Entitic vol] 77.4 fL Critically low 81.0-99. 0 [facility] Comment on above: Performed By: #### N BOX #### [facility] [address] [place] [address] Dr. Dillan Power MONO # 0.5 103/ul Normal 0.3-0.8 [facility] Comment on above: Performed By: #### N BOX #### [facility] [address] [address] [address] Dillan Power Monocytes/100 WBC (Bld) 4.6 % Normal 1.7-12.0 [facility] Comment on above: Performed By: #### N BOX #### [facility] [address] [place] [address] [address] Dillan Power NEUT # 7.4 103/ul Critically high 1.4-6.5 [facility] Comment on above: Performed By: #### N BOX #### [facility] [address] [place] [address] Dr. Dillan Power Neutrophils/100 WBC (Bld) 70.9 % Normal 43.0-75.0 [facility] Comment on above: Performed By: #### N BOX #### [facility] [address] [place] [address] Dr. Dillan Power Platelet mean volume (Bld) [Entitic vol] 13.2 fL Normal 9.5-13.5 [facility] Comment on above: Performed By: #### N BOX #### [facility] [address] [place] [address] Dr. Dillan Power PLT 169 103/ul Normal 150-450 [facility] Comment on above: Performed By: #### N BOX #### [facility] [address] [place] [address] Dr. Dillan Power RBC 3.19 106/ul Critically low 4.20-5.40 [facility] Comment on above: Performed By: #### N BOX #### [facility] [address] [place] [address] Dr. Dillan Power WBC 10.4 103/ul Normal 4.0-11.0 [facility] Comment on above: Performed By: #### N BOX #### [facility] [address] [place] [address] Dr. Dillan Power CBC AUTO DIFFon 10-15-2021 BASO # 0.0 103/ul Normal 0.0-0.1 [facility] Comment on above: Performed By: #### R PRQ #### [facility] [address] [place] [address] Dr. Dillan Power Basophils/100 WBC (Bld) 0.4 % Normal 0.2-2.0 [facility] Comment on above: Performed By: #### R PRQ #### [facility] [address] [place] [address] Dr. Dillan Power EO # 0.1 103/ul Normal 0.0-0.7 [facility] Comment on above: Performed By: #### R PRQ #### [facility] [address] [place] [address] Dr. iDllan Power Eosinophils/100 WBC (Bld) 1.3 % Normal 0.9-7.0 [facility] Comment on above: Performed By: #### R PRQ #### [facility] [address] [place] [address] Dr. Dillan Power Erythrocyte distribution width (RBC) [Ratio] 16.4 % Critically high 11.0-15.0 [facility] Comment on above: Performed By: #### R PRQ #### [facility] [address] [place] [address] Dr. Dillan Power Hematocrit (Bld) [Volume fraction] 30.7 % Critically low 36.0-48.0 [facility] Comment on above: Performed By: #### R PRQ #### [facility] [address] [place] [address] Dr. Dillan Power Hemoglobin (Bld) [Mass/Vol] 9.4 g/dL Critically low 12.0-16.0 [facility] Comment on above: Performed By: #### R PRQ #### [facility] [address] [place] [address] Dr. Dillan Power IG # 0.17 10e3/ul Critically high 0.00-0.03 [facility] Comment on above: Performed By: #### R PRQ #### [facility] [address] [place] [address] Dr. Dillan Power IG % 1.7 % Critically high 0.0-0.5 [facility] Comment on above: Performed By: #### R PRQ #### [facility] [address] [place] [address] Dr. Dillan Power LYMPH # 1.6 103/ul Normal 1.2-3.8 [facility] Comment on above: Performed By: #### R PRQ #### [facility] [address] [place] [address] Dr. Dillan Power Lymphocytes/100 WBC (Bld) 15.4 % Critically low 20.5-60.0 [facility] Comment on above: Performed By: #### R PRQ #### [facility] [address] [place] [address] Dr. Dillan Power MANUAL DIFF REQ NO Normal [facility] Comment on above: Performed By: #### R PRQ #### [facility] [address] [place] [address] Dr. Dillan Power MCH (RBC) [Entitic mass] 23.2 pg Critically low 26.7-34.0 [facility] Comment on above: Performed By: #### R PRQ #### [facility] [address] [place] [address] Dr. Dillan Power MCHC (RBC) [Mass/Vol] 30.6 g/dL Normal 29.9-35.2 [facility] Comment on above: Performed By: #### R PRQ #### [facility] [address] [place] [address] Dr. Dillan Power MCV (RBC) [Entitic vol] 75.6 fL Critically low 81.0-99. 0 [facility] Comment on above: Performed By: #### R PRQ #### [facility] [address] [place] [address] Dr. Dillan Power MONO # 0.5 103/ul Normal 0.3-0.8 [facility] Comment on above: Performed By: #### R PRQ #### [facility] [address] [place] [address] Dr. Dillan Power Monocytes/100 WBC (Bld) 5.1 % Normal 1.7-12.0 [facility] Comment on above: Performed By: #### R PRQ #### [facility] [address] [place] [address] Dr. Dillan Power NEUT # 7.7 103/ul Critically high 1.4-6.5 [facility] Comment on above: Performed By: #### R PRQ #### [facility] [address] [place] [address] Dr. Dillan Power Neutrophils/100 WBC (Bld) 76.1 % Critically high 43.0-75.0 [facility] Comment on above: Performed By: #### R PRQ #### [facility] [address] [place] [address] Dr. Dillan Power Platelet mean volume (Bld) [Entitic vol] 12.4 fL Normal 9.5-13.5 [facility] Comment on above: Performed By: #### R PRQ #### [facility] [address] [place] [address] Dr. Dillan Power PLT 172 103/ul Normal 150-450 [facility] Comment on above: Performed By: #### R PRQ #### [facility] [address] [place] [address] Dr. Dillan Power RBC 4.06 106/ul Critically low 4.20-5.40 [facility] Comment on above: Performed By: #### R PRQ #### [facility] [address] [place] [address] Dr. Dillan Power WBC 10.1 103/ul Normal 4.0-11.0 [facility] Comment on above: Performed By: #### R PRQ #### [facility] [address] [place] [address] Dr. Dillan Power Covid-19 PCR ([facility])on 09-29 SARS-CoV-2 (COVID-19) RNA JAYDE+probe Ql (Unsp spec) Not detected Normal NOT DETECTED [facility] Comment on above: Result Comment: When diagnostic [...] for this test is supported by the Patient Care Secretary of Health and Human Service's declaration that [...] used). Performed By: #### C VDTBH #### [facility] [address] [place] [address] Dr. Dillan Power DRUG SCREEN RAPID (URINE)on 10-15-2021 AMP Negative Normal NEGATIVE [facility] Comment on above: Performed By: #### R PRQ #### [facility] [address] [place] [address] Dr. Dillan Power BAR Negative Normal NEGATIVE [facility] Comment on above: Performed By: #### R PRQ #### [facility] [address] [place] [address] Dr. Dillan Power BUP Negative Normal NEGATIVE [facility] Comment on above: Performed By: #### R PRQ #### [facility] [address] [place] [address] Dr. Dillan Power BZO Negative Normal NEGATIVE [facility] Comment on above: Performed By: #### R PRQ #### [facility] [address] [place] [address] Dr. Dillan Power DAVE Negative Normal NEGATIVE [facility] [facility] Comment on above: Performed By: #### R PRQ #### [facility] [address] [place] [address] Dr. Dillan Power CUT-OFFS SEE BELOW Normal [facility] Comment on above: Result Comment: AMP [...] ng/mL Performed By: #### R PRQ #### [facility] [address] [place] [address] Dr. Dillan Power DRUG CUT HEADER DRUG CLASS TEST SYST EM CUT-OFF CONCENTRATIONS ARE FOLLOWS: Normal [facility] Comment on above: Performed By: #### R PRQ #### [facility] [address] [place] [address] Dr. Dillan Power mAMP Negative Normal NEGATIVE [facility] Comment on above: Performed By: #### R PRQ #### [facility] [address] [place] [address] Dr. Dillan Power MTD Negative Normal NEGATIVE [facility] Comment on above: Performed By: #### R PRQ #### [facility] [address] [place] [address] Dr. Dillan Power OPI Negative Normal NEGATIVE [facility] Comment on above: Performed By: #### R PRQ #### [facility] [address] [place] [address] Dr. Dillan Power OXY Negative Normal NEGATIVE [facility] Comment on above: Performed By: #### R PRQ #### [facility] [address] [place] [address] Dr. Dillan Power PCP Negative Normal NEGATIVE [facility] Comment on above: Performed By: #### R PRQ #### [facility] [address] [place] [address] Dr. Dillan Power PPX Negative Normal NEGATIVE [facility] Comment on above: Performed By: #### R PRQ #### [facility] [address] [place] [address] Dr. Dillan Power TCA Negative Normal NEGATIVE [facility] Comment on above: Performed By: #### R PRQ #### [facility] [address] [place] [address] Dr. Dillan Power THC Negative Normal NEGATIVE [facility] Comment on above: Performed By: #### R PRQ #### [facility] [address] [place] [address] Dr. Dillan Power TYPE AND SCREENon 10-15-2021 TYPE AND SCREEN Negative Normal [facility] Comment on above: Performed By: #### N BOX #### [facility] [address] [place] [address] Dr. Dillan Power UA (CLEAN/CATCH) SHANK SKINNER/MICRO I F IND.on 10-12-2021 Bilirubin Ql (U) Negative Normal NEGATIVE [facility] Comment on above: Performed By: #### R PRQ #### [facility] [address] [place] [address] Dr. Dillan Power Clarity (U) CLEAR Normal CLEAR [facility] Comment on above: Performed By: #### R PRQ #### [facility] [address] [place] [address] Dr. Dillan Power Color (U) LT. YELLOW Normal YELLOW [facility] Comment on above: Performed By: #### R PRQ #### [facility] [address] [place] [address] Dr. Dillan Power Glucose Ql (U) Negative Normal NEGATIVE [facility] Comment on above: Performed By: #### R PRQ #### [facility] [address] [place] [address] Dr. Dillan Power Hemoglobin Ql (U) Negative Normal NEGATIVE [facility] Comment on above: Performed By: #### R PRQ #### [facility] [address] [place] [address] Dr. Dillan Power Ketones Ql (U) Negative Normal NEGATIVE [facility] Comment on above: Performed By: #### R PRQ #### [facility] [address] [place] [address] Dr. Dillan Power LEUKOCYTES Negative Normal NEGATIVE [facility] Comment on above: Performed By: #### R PRQ #### [facility] [address] [place] [address] Dr. Dillan Power Nitrite Ql (U) Negative Normal NEGATIVE The [facility] Comment on above: Performed By: #### R PRQ #### [facility] [address] [place] [address] Dr. Dillan Power pH (U) 6.5 [pH] Normal 5-9 The [facility] Comment on above: Performed By: #### R PRQ #### [facility] [address] [place] [address] Dr. Dillan Power SPEC GRAVITY 1.010 Normal 1.005-<=1.025 The [facility] Comment on above: Performed By: #### R PRQ #### [facility] [address] [place] [address] Dr. Dillan Power UA PROTEIN Negative Normal NEGATIVE/ TRACE The [facility] Comment on above: Performed By: #### R PRQ #### [facility] [address] [place] [address] Dr. Dillan Power UR MICRO IND NOT INDICATED Normal The [facility] Comment on above: Performed By: #### R PRQ #### [facility] [address] [place] [address] Dr. Dillan Power Urobilinogen Qn (U) 0.2 {Venus'U}/dL Normal 0.2 - 1. 0 [facility] Comment on above: Performed By: #### R PRQ #### [facility] [address] [place] [address] Dr. Dillan Power UA (CLEAN/CATCH) SHANK SKINNER/MICRO I F IND.on 10-04-2021 Bilirubin Ql (U) Negative Normal NEGATIVE [facility] Comment on above: Performed By: #### N BOX #### [facility] [address] [place] [address] Dr. Dillan Power Clarity (U) SL CLOUDY Abnormal CLEAR The [facility] Comment on above: Performed By: #### N BOX #### [facility] [address] [place] [address] Dr. Dillan Power Color (U) YELLOW Normal YELLOW [facility] Comment on above: Performed By: #### N BOX #### [facility] [address] [place] [address] Dr. Dillan Power Glucose Ql (U) Negative Normal NEGATIVE [facility] Comment on above: Performed By: #### N BOX #### [facility] [address] [place] [address] Dr. Dillan Power Hemoglobin Ql (U) Negative Normal NEGATIVE [facility] Comment on above: Performed By: #### N BOX #### [facility] [address] [place] [address] Dr. Dillan Power Ketones Ql (U) Negative Normal NEGATIVE [facility] Comment on above: Performed By: #### N BOX #### [facility] [address] [place] [address] Dr. Dillan Power LEUKOCYTES Negative Normal NEGATIVE [facility] Comment on above: Performed By: #### N BOX #### [facility] [address] [place] [address] Dr. Dillan Power Nitrite Ql (U) Negative Normal NEGATIVE [facility] Comment on above: Performed By: #### N BOX #### [facility] [address] [place] [address] Dr. Dillan Power pH (U) 6.0 [pH] Normal 5-9 [facility] Comment on above: Performed By: #### N BOX #### [facility] [address] [place] [address] Dr. Dillan Power SPEC GRAVITY >=1.030 Abnormal 1.005-<=1.025 [facility] Comment on above: Performed By: #### N BOX #### [facility] [address] [place] [address] Dr. Dillan Power UA PROTEIN Negative Normal NEGATIVE/ TRACE The [facility] Comment on above: Performed By: #### N BOX #### [facility] [address] [place] [address] Dr. Dillan Power UR MICRO IND NOT INDICATED Normal [facility] Comment on above: Performed By: #### N BOX #### [facility] [address] [place] [address] Dr. Dillan Power Urobilinogen Qn (U) 0.2 {Venus'U}/dL Normal 0.2 - 1. 0 [facility] Comment on above: Performed By: #### N BOX #### [facility] [address] [place] [address] Dr. Dillan Power CHLAMYDIA/GONOCOCCUS JAYDE ( AB/URINE/PAPon 10-03-2021 Chlamydia trachomatis, JAYDE Negative Normal Negative [facility] Comment on above: Performed By: #### C T/NGNA #### [facility] [address] [place] [address] Dr. Dillan Power Neisseria gonorrhoeae, JAYDE Negative Normal Negative [facility] Comment on above: Performed By: #### C T/NGNA #### [facility] [address] [place] [address] Dr. Dillan Power VAGINITIS/VAGINOSIS DNA PROB José 10-03-2021 Kailee species Negative Normal Negative The [facility] Comment on above: Performed By: #### V AGINT #### [facility] [address] [place] [address] Dr. Dillan Power Gardnerella vaginalis Positive Abnormal Negative [facility] Comment on above: Performed By: #### V AGINT #### [facility] [address] [place] [address] Dr. Dillan Power Trichomonas vaginalis Negative Normal Negative [facility] Comment on above: Performed By: #### V AGINT #### [facility] [address] [place] [address] Dr. Dillan Power GROUP B STREP CULTUREon S. agalactiae Ag Ql (Unsp spec) Culture Observations: NEGATIVE FOR GROUP B STREPTOCOCCUS. Normal [facility] Comment on above: Performed By: #### N BOX #### [facility] [address] [place] [address] Dr. Dillan Power US PREG GROWTHon 09-30-2021 [...] CHRISTINA MIRAMONTES Date: 2021-09-30 17:17 Normal The [facility] CULTURE URINEon 09-25-2021 CULTURE URINE Culture Observations : MODERATE GROWTH OF MIXED GENITAL LAUREANO. NO POTENTIAL PATHOGENS SEEN. Normal The [facility] Comment on above: Performed By: #### U RCX #### [facility] [address] [place] [address] Dr. Dillan Power UA (CLEAN/CATCH) SHANK SKINNER/MICRO I F IND.on 09-25-2021 Bilirubin Ql (U) Negative Normal NEGATIVE [facility] Comment on above: Performed By: #### U ACSWILL UMICRO #### [facility] [address] [place] [address] Dr. Dillan Power Clarity (U) CLEAR Normal CLEAR [facility] Comment on above: Performed By: #### U ACSWILL UMICRO #### [facility] [address] [place] [address] Dr. Dillan Power Color (U) YELLOW Normal YELLOW [facility] Comment on above: Performed By: #### U ACSIND UMICRO #### [facility] [address] [place] [address] Dr. Dillan Power Glucose Ql (U) Negative Normal NEGATIVE The [facility] Comment on above: Performed By: #### U ACSIND, UMICRO #### [facility] [address] [address] [address] Dillan Power Hemoglobin Ql (U) Negative Normal NEGATIVE [facility] Comment on above: Performed By: #### U ACSIND, UMICRO #### [facility] [address] [address] [address] Dillan Power Ketones Ql (U) TRACE Abnormal NEGATIVE [facility] Comment on above: Performed By: #### U ACSIND, UMICRO #### [facility] [address] [address] [address] Dillan Power LEUKOCYTES Negative Normal NEGATIVE [facility] Comment on above: Performed By: #### U ACSIND, UMICRO #### [facility] [address] [place] [address] Dr. Dillan Power Nitrite Ql (U) Negative Normal NEGATIVE [facility] Comment on above: Performed By: #### U ACSIND, ICRO #### [facility] [address] [place] [address] Dr. Dillan Power pH (U) 6.0 [pH] Normal 5-9 [facility] Comment on above: Performed By: #### U ACSIND, ICRO #### [facility] [address] [place] [address] Dr. Dillan Power SPEC GRAVITY >=1.030 Abnormal 1.005-<=1.025 The [facility] Comment on above: Performed By: #### U ACSIND, UMICRO #### [facility] [address] [place] [address] Dr. Dillan Power UA PROTEIN TRACE Normal NEGATIVE/ TRACE The [facility] Comment on above: Performed By: #### U ACSIND, UMICRO #### [facility] [address] [place] [address] Dr. Dillan Power UR MICRO IND INDICATED Normal The [facility] Comment on above: Performed By: #### U ACSIND, UMICRO #### [facility] [address] [place] [address] Dr. Dillan Power Urobilinogen Qn (U) 0.2 {Venus'U}/dL Normal 0.2 - 1. 0 The [facility] Comment on above: Performed By: #### U ACSWILL, UMICRO #### [facility] [address] [place] [address] Dr. Dillan Power URINE MICROSCOPIC ONLYon BACTERIA TRACE Abnormal NONE SEEN The [facility] Comment on above: Performed By: #### U ACSWILL, UMICRO #### [facility] [address] [place] [address] Dr. Dillan Power Bacteria identified Cx Nom (U) INDICATED Normal The [facility] Comment on above: Performed By: #### U ACSWILL, UMICRO #### [facility] [address] [place] [address] Dr. Dillan Power CAST NONE SEEN Normal NONE SEEN The [facility] Comment on above: Performed By: #### U ACSWILL, UMICRO #### [facility] [address] [place] [address] Dr. Dillan Power Crystals LM Nom (Urine sed) NONE SEEN Normal NONE SEEN The [facility] Comment on above: Performed By: #### U ACSWILL, UMICRO #### [facility] [address] [place] [address] Dr. Dillan Power Epithelial cells LM Ql (Urine sed) MODERATE Abnormal NONE SEEN /RARE The [facility] Comment on above: Performed By: #### U ACSWILL UMICRO #### [facility] [address] [place] [address] Dr. Dillan Power MUCOUS MODERATE Abnormal NONE SEEN The [facility] Comment on above: Performed By: #### U ACSWILL, UMICRO #### [facility] [address] [place] [address] Dr. Dillan Power RBC 0-2 Normal 0-2 The [facility] Comment on above: Performed By: #### U ACSWILL, UMICRO #### [facility] [address] [place] [address] Dr. Dillan Power WBC 0-2 Abnormal NONE SEEN The [facility] Comment on above: Performed By: #### U ACSIND, UMICRO #### [facility] [address] [place] [address] Dr. Dillan Power URINALYSISOrdered By: Wale Maynard [...] Interpretation Code Negative [facility] UA Auto SS [place].plasma/[place]. RBC (Bld) [Mass ratio] 0-3 /HPF Normal [...] [facility] UA Auto SS Urobilinogen Qn (U) 0.5965318 {Venus'U}/dL Normal 0.0 - 1.0 EU/dL [facility] [...] PM) Normal Negative [facility] UA Auto SS [place].plasma/[place]. RBC (Bld) [Mass ratio] 0-3 /HPF Normal [...] [facility] UA Auto SS Urobilinogen Qn (U) 0.4213578 {Venus'U}/dL Normal 0.0 - 1.0 EU/dL [facility] [...] LEONIDES SWARTZ Date: 2021-08-05 12:05 Normal The [facility] HEMOGRAM AND PLATELon 2021 Hematocrit (Bld) [Volume fraction] 31.4 % Critically low 36.0-48.0 [facility] Comment on above: Performed By: #### N BOX #### [facility] [address] [place] [address] Dr. Dillan Power Hemoglobin (Bld) [Mass/Vol] 10.0 g/dL Critically low 12.0-16.0 [facility] Comment on above: Performed By: #### N BOX #### [facility] [address] [place] [address] Dr. Dillan Power MCH (RBC) [Entitic mass] 26.0 pg Critically low 26.7-34.0 [facility] Comment on above: Performed By: #### N BOX #### [facility] [address] [place] [address] Dr. Dillan Power MCHC (RBC) [Mass/Vol] 31.8 g/dL Normal 29.9-35.2 [facility] Comment on above: Performed By: #### N BOX #### [facility] [address] [place] [address] Dr. Dillan Power MCV (RBC) [Entitic vol] 81.8 fL Normal 81.0-99.0 [facility] Comment on above: Performed By: #### N BOX #### [facility] [address] [place] [address] Dr. Dillan Power PLT 226 103/ul Normal 150-450 The [facility] Comment on above: Performed By: #### N BOX #### [facility] [address] [place] [address] Dr. Dillan Power RBC 3.84 106/ul Critically low 4.20-5.40 [facility] Comment on above: Performed By: #### N BOX #### [facility] [address] [address] [address] Dillan Power WBC 9.8 103/ul Normal 4.0-11.0 The [facility] Comment on above: Performed By: #### N BOX #### [facility] [address] [address] [address] Dillan Power MICRO OTHER TESTSOrdered By: Wale Maynard on 07-24-2021 Influenzae A Ag Negative (07/24/21 1:25 AM) Normal Negative [facility] Influenzae B Ag Negative (07/24/21 1:25 AM) Normal Negative [facility] Rapid COV Int NEG [place] (07/24/21 1:25 AM) Normal [facility] Rapid COV Int POS [place] (07/24/21 1:25 AM) Normal [facility] SARS-CoV+SARS-CoV-2 (COVID-19) Ag IA.rapid Ql (Resp) Not Detected (07/24/21 1:25 AM) Normal Not Detected [facility] COVID-19, Rapidon 04-10-2021 Interpretation and review of laboratory results Abnormal [facility] SARS-CoV-2 (COVID-19) RNA JAYDE+probe Ql (Unsp spec) Detected Abnormal Not Detected [facility] Comment on above: Rapid NAAT: The [...] this assay. Fact sheet for Healthcare Providers: https://www.fda.gov/media/180298/download Fact sheet for Patients: https://www.fda.gov/media/295936/download Methodology: Isothermal Nucleic Acid Amplification Results reported to the appropriate Health Department Specimen Description .NASOPHARYNGEAL SWAB [facility] [id number] 04-10-2021 SARS-CoV-2 (COVID-19) RNA JAYDE+probe Ql (Unsp spec) Detected Abnormal NOTDET [facility] Comment on above: Result Comment: Rapid [...] this assay. Fact sheet for Healthcare Providers: https://www.fda.gov/media/248721/download Fact sheet for Patients: https://www.fda.gov/media/750390/download Methodology: Isothermal Nucleic Acid Amplification Results reported to the appropriate Health Department Performed By: #### C OVRB #### [facility] [address] [place] [address] Sales Compensation Analyst: Leonides Rodrigues MD Strep Gr A Direct [...] upon request. Report Status FINAL 04/10/[address] [facility] Comment on above: Performed By: #### S GPA #### [facility] [address] [place] [address] Sales Compensation Analyst: Leonides Rodrigues MD Strep Screen Group A Throato n 04-10-2021 S. pyogenes Ag IA Ql (Unsp spec) Rapid Strep A negative. A negative Rapid Group A Strep Screen result does not rule out the possibility of Group A Streptococci in the specimen. A Group A Strep DNA test is available upon request. [facility] Special Requests NOT REPORTED [facility] Specimen Description .THROAT [facility] HEPATITIS C VIRUS AB W/ REFL EX QUANTon 04-06-2021 HCV AB >11.0 Critically high 0.0-0.9 [facility] Comment on above: Result Comment: . Performed By: #### R PRQ #### [facility] [address] [place] [address] Dr. Dillan Power HCV log10 6.777 log10 IU/mL Normal [facility] Comment on above: Performed By: #### R PRQ #### [facility] [address] [place] [address] Dr. Dillan Power Hep C Quantitation [id number] IU/mL Normal [facility] Comment on above: Performed By: #### R PRQ #### [facility] [address] [place] [address] Dr. Dillan Power Interpretation Comment Normal [facility] Comment on above: Result Comment: Posi tive HCV antibody screen with the presence of HCV RNA is consistent with active infection. Performed By: #### R PRQ #### [facility] [address] [place] [address] Dr. Dillan Power Test Information: Comment Normal [facility] Comment on above: Result Comment: The quantitative range of this assay is 15 IU/mL to 100 million IU/mL. Performed By: #### R PRQ #### [facility] [address] [place] [address] Dr. Dillan Power RUBELLA AB IGGon 04-05-2021 Rubella Antibodies, IgG 1.46 index Normal Immune >0.99 [facility] Comment on above: Result Comment: Non- immune <0.90 Equivocal 0.90 - 0.99 Immune >0.99 Performed By: #### R UBIGG #### [facility] [address] [place] [address] Dr. Dillan Power HEP B SURFACE ANTIGEN SCREEN on 04-04-2021 HBsAg Screen Negative Normal Negative [facility] Comment on above: Performed By: #### R PRQ #### [facility] [address] [place] [address] Dr. Dillan Power HIV 1 AND 2 WITH REFLEXon HIV Screen 4th Generation wRfx Non-Reactive Normal Non Reactive [facility] Comment on above: Performed By: #### R PRQ #### [facility] [address] [place] [address] Dr. Dillan Power RPR QUANTon 04-04-2021 Rapid Plasma Reagin, Quant Non-Reactive Normal NonRea<1:1 [facility] Comment on above: Performed By: #### R PRQ #### [facility] [address] [place] [address] Dr. Dillan Power CBC AUTO DIFFon 04-02-2021 BASO # 0.0 103/ul Normal 0.0-0.1 [facility] Comment on above: Performed By: #### R PRQ #### [facility] [address] [place] [address] Dr. Dillan Power Basophils/100 WBC (Bld) 0.4 % Normal 0.2-2.0 [facility] Comment on above: Performed By: #### R PRQ #### [facility] [address] [place] [address] Dr. Dillan Power EO # 0.2 103/ul Normal 0.0-0.7 [facility] Comment on above: Performed By: #### R PRQ #### [facility] [address] [place] [address] Dr. Dillan Power Eosinophils/100 WBC (Bld) 2.8 % Normal 0.9-7.0 [facility] Comment on above: Performed By: #### R PRQ #### [facility] [address] [place] [address] Dr. Dillan Power Erythrocyte distribution width (RBC) [Ratio] 13.2 % Normal 11.0-15.0 [facility] Comment on above: Performed By: #### R PRQ #### [facility] [address] [place] [address] Dr. Dillan Power Hematocrit (Bld) [Volume fraction] 36.3 % Normal 36.0-48.0 [facility] Comment on above: Performed By: #### R PRQ #### [facility] [address] [place] [address] Dr. Dillan Power Hemoglobin (Bld) [Mass/Vol] 11.6 g/dL Critically low 12.0-16.0 [facility] Comment on above: Performed By: #### R PRQ #### [facility] [address] [place] [address] Dr. Dillan Power IG # 0.01 10e3/ul Normal 0.00-0.03 [facility] [facility] Comment on above: Performed By: #### R PRQ #### [facility] [address] [place] [address] Dr. Dillan Power IG % 0.1 % Normal 0.0-0.5 [facility] Comment on above: Performed By: #### R PRQ #### [facility] [address] [place] [address] Dr. Dillan Power LYMPH # 1.9 103/ul Normal 1.2-3.8 [facility] Comment on above: Performed By: #### R PRQ #### [facility] [address] [place] [address] Dr. Dillan Power Lymphocytes/100 WBC (Bld) 25.9 % Normal 20.5-60.0 [facility] Comment on above: Performed By: #### R PRQ #### [facility] [address] [place] [address] Dr. Dillan Power MANUAL DIFF REQ NO Normal [facility] Comment on above: Performed By: #### R PRQ #### [facility] [address] [place] [address] Dr. Dillan Power MCH (RBC) [Entitic mass] 27.3 pg Normal 26.7-34.0 [facility] Comment on above: Performed By: #### R PRQ #### [facility] [address] [place] [address] Dr. Dillan Power MCHC (RBC) [Mass/Vol] 32.0 g/dL Normal 29.9-35.2 [facility] Comment on above: Performed By: #### R PRQ #### [facility] [address] [place] [address] Dr. Dillan Power MCV (RBC) [Entitic vol] 85.4 fL Normal 81.0-99.0 [facility] Comment on above: Performed By: #### R PRQ #### [facility] [address] [place] [address] Dr. Dillan Power MONO # 0.4 103/ul Normal 0.3-0.8 [facility] Comment on above: Performed By: #### R PRQ #### [facility] [address] [place] [address] Dr. Dillan Power Monocytes/100 WBC (Bld) 5.7 % Normal 1.7-12.0 [facility] Comment on above: Performed By: #### R PRQ #### [facility] [address] [place] [address] Dr. Dillan Power NEUT # 4.7 103/ul Normal 1.4-6.5 [facility] Comment on above: Performed By: #### R PRQ #### [facility] [address] [place] [address] Dr. Dillan Power Neutrophils/100 WBC (Bld) 65.1 % Normal 43.0-75.0 [facility] Comment on above: Performed By: #### R PRQ #### [facility] [address] [place] [address] Dr. Dillan Power Platelet mean volume (Bld) [Entitic vol] 11.0 fL Normal 9.5-13.5 [facility] Comment on above: Performed By: #### R PRQ #### [facility] [address] [place] [address] Dr. Dillan Power PLT 264 103/ul Normal 150-450 [facility] Comment on above: Performed By: #### R PRQ #### [facility] [address] [place] [address] Dr. Dillan Power RBC 4.25 106/ul Normal 4.20-5.40 [facility] Comment on above: Performed By: #### R PRQ #### [facility] [address] [place] [address] Dr. Dillan Power WBC 7.3 103/ul Normal 4.0-11.0 [facility] Comment on above: Performed By: #### R PRQ #### [facility] [address] [place] [address] Dr. Dillan Power CULTURE URINEon 04-02-2021 CULTURE URINE Culture Observations : MODERATE GROWTH OF MIXED GENITAL LAUREANO. NO POTENTIAL PATHOGENS SEEN. Normal [facility] Comment on above: Performed By: #### U RCX #### [facility] [address] [place] [address] Dr. Dillan Power GLYCOHEMOGLOBIN A1Con 2020 ADA RECOMMENDATION ADA THERAPEUTIC TARG ET 6.0 - 7.0 ACTION SUGGESTED > 7.0 Normal [facility] Comment on above: Performed By: #### N BOX #### [facility] [address] [place] [address] Dr. Dillan Power Glucose [Mass/Vol] 111 mg/dL Normal [facility] Comment on above: Performed By: #### N BOX #### [facility] [address] [place] [address] Dr. Dillan Power HbA1c (Bld) [Mass fraction] 5.5 % Normal <=6.0 [facility] Comment on above: Performed By: #### N BOX #### [facility] [address] [place] [address] Dr. Dillan Power TONY BOX TEST PT SEND OUTo n 04-02-2021 SENT TO REF LAB 04/02/2021 Normal [facility] Comment on above: Performed By: #### N BOX #### [facility] [address] [place] [address] Dr. Dillan Power TYPE AND SCREENon 04-02-2021 TYPE AND SCREEN Negative Normal [facility] Comment on above: Performed By: #### N BOX #### [facility] [address] [place] [address] Dr. Dillan Power US PREG TVon 03-19-2021 [...] by: LEONIDES SWARTZ Date: 2021-03-19 17:08 Normal [facility] PREG QUANT HCGon 02-23-2021 HCG QUANT 74972 mIU/mL [facility] Comment on above: Performed By: #### R PRQ #### [facility] [address] [place] [address] Dr. Dillan Power HCG RANGE SEE BELOW [facility] Comment on above: Result Comment: 5-50 0-1 WEEK 40-300 1-2 WEEKS 100-1,000 2-3 WEEKS 500-6,000 3-4 WEEKS 5,000-200,000 1-2 MONTHS 10,000-100,000 2-3 MONTHS 3,000-50,000 2ND TRIMESTER 1,000-50,000 3RD TRIMESTER Performed By: #### R PRQ #### [facility] [address] [place] [address] Dr. Dillan Power PAP ACOG PANEL 2: 21 to 29on 02-09-2021 . . [facility] Comment on above: Performed By: #### R PRQ #### [facility] [address] [place] [address] Dr. Dillan Power Age Gdln ACOG Testing 21-29 Normal [facility] Comment on above: Performed By: #### R PRQ #### [facility] [address] [place] [address] Dr. Dillan Power DIAGNOSIS: Comment [facility] Comment on above: Result Comment: NEGA TIVE FOR INTRAEPITHELIAL LESION OR MALIGNANCY. Performed By: #### R PRQ #### [facility] [address] [place] [address] Dr. Dillan Power Methodology: Comment Normal [facility] Comment on above: Result Comment: This liquid based ThinPrep(R) pap test was screened with the use of an image guided system. Performed By: #### R PRQ #### [facility] [address] [place] [address] Dr. Dillan Power Note: Comment Normal [facility] Comment on above: Result Comment: The Pap smear is a screening test designed to aid in the detection of premalignant and malignant conditions of the uterine cervix. It is not a diagnostic procedure and should not be used as the sole means of detecting cervical cancer. Both false-positive and false-negative reports do occur. . Performed By: #### R PRQ #### [facility] [address] [place] [address] Dr. Dillan Power Performed by: Comment Normal [facility] Comment on above: Result Comment: Claudia Portillo, Claim Review Medical Director (ASCP) Performed By: #### R PRQ #### [facility] [address] [place] [address] Dr. Dillan Power Reflex Criteria: Comment Normal [facility] Comment on above: Result Comment: The HPV DNA reflex criteria were not met with this specimen result therefore, no HPV testing was performed. . Performed By: #### R PRQ #### [facility] [address] [place] [address] Dr. Dillan Power Specimen adequacy: Comment Normal [facility] Comment on above: Result Comment: Sati sfactory for evaluation. Endocervical and/or squamous metaplastic cells (endocervical component) are present. Performed By: #### R PRQ #### [facility] [address] [place] [address] Dr. Dillan Power Vital Signs Date Time Vital Sign Value Performing Clinician Facility 08-23-2023 01:08-0400 Hourly Rounding Sarita Packer [facility] Comment on above: Result Comment: Patient discharged to pr ivate vehicle. No s/s of distress at the time of discharge. 08-23-2023 01:01-0400 Hourly Rounding Sarita Packer [facility] Comment on above: Result Comment: Discharge instructions rosanna pacheco. Appropriate questions answered. patient up to the bathroom to change. 08-23-2023 00:50-0400 Hourly Rounding Sarita Proctorra [facility] Comment on above: Result Comment: Patient state she isnt h aving any more abdominal pain but still has some right sided back pain. 08-23-2023 00:13-0400 Blood Pressure Location Sarita Nataprawira [facility] 08-23-2023 00:13-0400 Body temperature 98.06 [degF] Sarita Nataprawira [facility] 08-23-2023 00:13-0400 Diastolic blood pressure 72 mm[Hg] Sarita Nataprawira [facility] 08-23-2023 00:13-0400 Heart rate 96 /min Sarita Nataprawira [facility] 08-23-2023 00:13-0400 Mean blood pressure 91 mm[Hg] Sarita Nataprawira [facility] 08-23-2023 00:13-0400 Respiratory rate 16 /min Sarita Nataprawira [facility] 08-23-2023 00:13-0400 Systolic blood pressure 128 mm[Hg] Sarita Nataprawira [facility] 08-06-2023 20:45-0400 Body height 162.6 cm Pat Teixeira DO [facility] [employer] [facility] 08-06-2023 20:45-0400 Body mass index (BMI) [Ratio] 42.91 kg/m2 [facility] 08-06-2023 20:45-0400 Body temperature 98.01 [degF] Pat Teixeira DO [facility] [employer] [facility] 08-06-2023 20:45-0400 Body weight 113.4 kg Pta Teixeira DO [facility] 08-06-2023 20:45-0400 Diastolic blood pressure 87 mm[Hg] Pat Teixeira DO [facility] 08-06-2023 20:45-0400 Heart rate 115 /min Pat Teixeira DO [facility] 08-06-2023 20:45-0400 Respiratory rate 18 /min Pat Teixeira DO [facility] 08-06-2023 20:45-0400 SaO2% (BldA) [Mass fraction] 98 % Pat Teixeira DO [facility] 08-06-2023 20:45-0400 Systolic blood pressure 160 mm[Hg] Pat Teixeira DO [facility] 02-17-2023 15:04-0400 Body height 167.6 cm Lorna Dobson PIGGYBACK CLERK.BANK ADVISOR Work Phone: [facility] 02-17-2023 15:04-0400 Body weight 111.04 kg Lorna Dobson PIGGYBACK CLERK.BANK ADVISOR Work Phone: [facility] 02-17-2023 15:04-0400 Diastolic blood pressure 82 mm[Hg] Lorna Dobson PIGGYBACK CLERK.BANK ADVISOR Work Phone: [facility] 02-17-2023 15:04-0400 Heart rate 97 /min Lorna Dobson PIGGYBACK CLERK.BANK ADVISOR Work Phone: [facility] 02-17-2023 15:04-0400 SaO2% (BldA) [Mass fraction] 96 % Lorna Dobson APRN.BANK ADVISOR Work Phone: [facility] 02-17-2023 15:04-0400 Systolic blood pressure 127 mm[Hg] Lorna Dobson PIGGYBACK CLERK.BANK ADVISOR Work Phone: [facility] 01-09-2023 14:08-0400 Body height 167.6 cm Kelsi Freedman PIGGYBACK CLERK.BANK ADVISOR Work Phone: [facility] 01-09-2023 14:08-0400 Body weight 110.68 kg Kelsi Freedman PIGGYBACK CLERK.BANK ADVISOR Work Phone: [facility] 01-09-2023 14:08-0400 Diastolic blood pressure 80 mm[Hg] Kelsi Freedman PIGGYBACK CLERK.BANK ADVISOR Work Phone: [facility] 01-09-2023 14:08-0400 Heart rate 83 /min Kelsi Freedman PIGGYBACK CLERK.BANK ADVISOR Work Phone: [facility] 01-09-2023 14:08-0400 SaO2% (BldA) [Mass fraction] 100 % Kelsi Freedman PIGGYBACK CLERK.BANK ADVISOR Work Phone: [facility] 01-09-2023 14:08-0400 Systolic blood pressure 117 mm[Hg] Kelsi Freedman PIGGYBACK CLERK.BANK ADVISOR Work Phone: [facility] 11-05-2022 09:53-0400 Body temperature 98.42 [degF] Harris Simms [facility] 11-05-2022 09:53-0400 Diastolic blood pressure 60 mm[Hg] Harris Simms [facility] 11-05-2022 09:53-0400 Heart rate 89 /min Harris Simms [facility] 11-05-2022 09:53-0400 Respiratory rate 18 /min Harris Simms [facility] 11-05-2022 09:53-0400 SaO2% (BldA) [Mass fraction] 99 % Harris Simms [facility] 11-05-2022 09:53-0400 Systolic blood pressure 113 mm[Hg] Harris Simms [facility] 10-30-2022 03:40-0400 Body height 162.6 cm Pa Celis MD [facility] 10-30-2022 03:40-0400 Body mass index (BMI) [Ratio] 37.76 kg/m2 Pa Celis MD Work Phone: [facility] 10-30-2022 03:40-0400 Body temperature 97 [degF] Pa Celis MD Work Phone: [facility] [employer] 10-30-2022 03:40-0400 Body weight 99.79 kg Pa Celis MD Work Phone: [facility] 10-30-2022 03:40-0400 Diastolic blood pressure 83 mm[Hg] Pa Celis MD Work Phone: [facility] 10-30-2022 03:40-0400 Heart rate 90 /min Pa Celis MD Work Phone: [facility] [employer] 10-30-2022 03:40-0400 Respiratory rate 16 /min Pa Celis MD Work Phone: [facility] 10-30-2022 03:40-0400 SaO2% (BldA) [Mass fraction] 97 % Pa Celis MD Work Phone: [facility] 10-30-2022 03:40-0400 Systolic blood pressure 133 mm[Hg] Pa Celis MD Work Phone: [facility] 08-19-2022 21:16-0400 Body mass index (BMI) [Ratio] 37.76 kg/m2 Pat Teixeira DO [facility] 08-19-2022 21:16-0400 Body weight 99.79 kg Pat Teixeira DO [facility] 08-19-2022 21:10-0400 Body height 162.6 cm Pat Teixeira DO [facility] 08-19-2022 21:10-0400 Body temperature 97.59 [degF] Pat [facility] DO [facility] [employer] 08-19-2022 21:10-0400 Diastolic blood pressure 88 mm[Hg] Pat Teixeira DO [facility] 08-19-2022 21:10-0400 Heart rate 89 /min Pat Teixeira DO [facility] [employer] 08-19-2022 21:10-0400 Respiratory rate 16 /min Pat Teixeira DO [facility] 08-19-2022 21:10-0400 SaO2% (BldA) [Mass fraction] 98 % Pat Teixeira DO [facility] 08-19-2022 21:10-0400 Systolic blood pressure 145 mm[Hg] Pat Teixeira DO [facility] 04-25-2022 19:39-0500 Body height 162.6 cm Pa Celis MD Work Phone: [facility] 04-25-2022 19:39-0500 Body mass index (BMI) [Ratio] 37.76 kg/m2 Pa Celis MD Work Phone: [facility] 04-25-2022 19:39-0500 Body temperature 98.8 [degF] Pa Celis MD Work Phone: [facility] 04-25-2022 19:39-0500 Body weight 99.79 kg Pa Celis MD Work Phone: [facility] 04-25-2022 19:39-0500 Diastolic blood pressure 93 mm[Hg] Pa Celis MD Work Phone: [facility] 04-25-2022 19:39-0500 Heart rate 94 /min Pa Celis MD Work Phone: [facility] 04-25-2022 19:39-0500 Respiratory rate 17 /min Pa Celis MD Work Phone: [facility] 04-25-2022 19:39-0500 SaO2% (BldA) [Mass fraction] 96 % Pa Celis MD Work Phone: [facility] 04-25-2022 19:39-0500 Systolic blood pressure 140 mm[Hg] Pa Celis MD Work Phone: [facility] 10-24-2021 17:29-0400 Heart rate 78 /min Cisco Stallings MD Work Phone: [facility] [employer] 10-24-2021 12:30-0400 Diastolic blood pressure 56 mm[Hg] Cisco Stallings MD Work Phone: [facility] [employer] 10-24-2021 12:30-0400 Respiratory rate 13 /min Cisco Stallings MD Work Phone: [facility] [employer] 10-24-2021 12:30-0400 SaO2% (BldA) [Mass fraction] 96 % Cisco Stallings MD Work Phone: [facility] [employer] 10-24-2021 12:30-0400 Systolic blood pressure 113 mm[Hg] Cisco Stallings MD Work Phone: [facility] [employer] 10-24-2021 11:25-0400 Body temperature 98.29 [degF] Cisco Stallings MD Work Phone: [facility] [employer] 10-23-2021 18:33-0400 Body temperature 99 [degF] Pa Celis MD Work Phone: [facility] [employer] 10-23-2021 18:33-0400 Diastolic blood pressure 51 mm[Hg] Pa Celis MD Work Phone: [facility] [employer] 10-23-2021 18:33-0400 Heart rate 86 /min Pa Celis MD Work Phone: [facility] [employer] 10-23-2021 18:33-0400 Respiratory rate 16 /min Pa Celis MD Work Phone: [facility] [employer] 10-23-2021 18:33-0400 SaO2% (BldA) [Mass fraction] 97 % Pa Celis MD Work Phone: [facility] 10-23-2021 18:33-0400 Systolic blood pressure 126 mm[Hg] Pa Celis MD Work Phone: [facility] [employer] 10-23-2021 15:55-0400 Body height 162.6 cm Pa Celis MD Work Phone: [facility] 10-23-2021 15:55-0400 Body mass index (BMI) [Ratio] 39.99 kg/m2 Pa Celis MD Work Phone: [facility] 10-23-2021 15:55-0400 Body weight 105.69 kg Pa Celis MD Work Phone: [facility] 10-20-2021 22:08-0400 Hourly Rounding [employer] [employer] [facility] Comment on above: Result Comment: Nurse gives [...] d/c. 10-20-2021 21:54-0400 Blood Pressure Location [employer] [facility] 10-20-2021 21:54-0400 Diastolic blood pressure 68 mm[Hg] [employer] [facility] 10-20-2021 21:54-0400 Heart rate 102 /min [employer] [facility] 10-20-2021 21:54-0400 Hourly Rounding Roscoe Han [facility] Comment on above: Result Comment: pt only pumped less than 2 oz of breastmilk. sent home w ith pt for next feeding. pts breast softer and pain lessened. red spot still noted wiht warness. encouraged to call dr boyd tomorrow if pain/redness/warmed does not improve or any fever. verb understanding. 10-20-2021 21:54-0400 Mean blood pressure 86 mm[Hg] [employer] [facility] 10-20-2021 21:54-0400 Respiratory rate 18 /min [employer] [facility] 10-20-2021 21:54-0400 SaO2% (BldA) [Mass fraction] 97 % Roscoe [employer] [facility] 10-20-2021 21:54-0400 Systolic blood pressure 122 mm[Hg] Roscoe [employer] [facility] 10-20-2021 21:30-0400 Hourly Rounding [employer] [facility] Comment on above: Result Comment: staff @ [facility] pump set up and assisted with breast massage while hot washcloth applied. pt had only been pumping 2x a day since delivery on 10/15 and supplementing with formula. set up pumping and feeding scheduled POC and pt and sig ot her both agree. answered all questoins/concerns. pt has appt with [facility]/lact business consultant on monday and encouraged to keep appt. or schedule with our lact business consultant if that works better. 10-20-2021 21:16-0400 Heart rate 100 /min Roscoe [employer] [facility] 10-20-2021 21:16-0400 SaO2% (BldA) [Mass fraction] 97 % [facility] [employer] [facility] 10-20-2021 21:08-0400 Blood Pressure Location Roscoe [employer] [facility] 10-20-2021 21:08-0400 Diastolic blood pressure 63 mm[Hg] Roscoe [employer] [facility] 10-20-2021 21:08-0400 Heart rate 97 /min Roscoe [employer] [facility] 10-20-2021 21:08-0400 Mean blood pressure 81 mm[Hg] Roscoe [employer] [facility] 10-20-2021 21:08-0400 Respiratory rate 18 /min Roscoe Han [facility] 10-20-2021 21:08-0400 SaO2% (BldA) [Mass fraction] 96 % Roscoe [employer] [facility] 10-20-2021 21:08-0400 Systolic blood pressure 117 mm[Hg] Roscoenarayna Reddyy [facility] 10-20-2021 20:51-0400 Blood Pressure Location [employer] [facility] 10-20-2021 20:51-0400 Body temperature 98.42 [degF] Roscoe [employer] [facility] 10-20-2021 20:51-0400 Diastolic blood pressure 76 mm[Hg] Roscoenarayan Reddyy [facility] 10-20-2021 20:51-0400 Mean blood pressure 94 mm[Hg] Roscoe Han [facility] 10-20-2021 20:51-0400 Respiratory rate 18 /min Roscoe Han [facility] 10-20-2021 20:51-0400 Systolic blood pressure 131 mm[Hg] Roscoe Han [facility] 09-18-2021 00:15-0400 Hourly Rounding Gera Nelson [facility] Comment on above: Result Comment: pt walks off unit w/ lasha reynaldo gait. 09-18-2021 00:10-0400 Hourly Rounding Gera Nelson [facility] Comment on above: Result Comment: discharge instructions g iven to pt at this time. this nurse educates pt on premature labor signs/symtpoms and includes material regarding preeclampsia d/t pt concerns reagrding this. pt asks appropriate questions and answers provided by this nurse. 09-17-2021 23:58-0400 Hourly Rounding Gera Nelson [facility] Comment on above: Result Comment: pt updated on POC and fam linda 09-17-2021 23:46-0400 Blood Pressure Location Gera Parmarten [facility] 09-17-2021 23:46-0400 Diastolic blood pressure 59 mm[Hg] Gera Parmarten [facility] 09-17-2021 23:46-0400 Heart rate 91 /min Gera Parmarten [facility] 09-17-2021 23:46-0400 Mean blood pressure 76 mm[Hg] Gera Parmarten [facility] 09-17-2021 23:46-0400 Respiratory rate 18 /min Gera Parmarten [facility] 09-17-2021 23:46-0400 Systolic blood pressure 109 mm[Hg] Gera Leslie [facility] 09-17-2021 23:19-0400 Blood Pressure Location Gera Parmarten [facility] 09-17-2021 23:19-0400 Diastolic blood pressure 67 mm[Hg] Gera Parmarten [facility] 09-17-2021 23:19-0400 Heart rate 101 /min Gera Parmarten [facility] 09-17-2021 23:19-0400 Mean blood pressure 89 mm[Hg] Gera Leslie [facility] 09-17-2021 23:19-0400 Respiratory rate 20 /min Gera Parmarten [facility] 09-17-2021 23:19-0400 Systolic blood pressure 134 mm[Hg] Gera Leslie [facility] 09-17-2021 23:01-0400 Blood Pressure Location Gera Nelson [facility] 09-17-2021 23:01-0400 Body temperature 98.24 [degF] Gera Nelson [facility] 09-17-2021 23:01-0400 Diastolic blood pressure 79 mm[Hg] Gera Nelson [facility] 09-17-2021 23:01-0400 Heart rate 102 /min Gera Nelson [facility] 09-17-2021 23:01-0400 Mean blood pressure 98 mm[Hg] Gera Nelson [facility] 09-17-2021 23:01-0400 Respiratory rate 20 /min Gera Nelson [facility] 09-17-2021 23:01-0400 Systolic blood pressure 137 mm[Hg] Gera Nelson [facility] 08-27-2021 03:08-0400 Hourly Rounding Gera Nelson [facility] Comment on above: Result Comment: Patient sleeping in bed. Call light within reach. Result Comment: Pt d ischarged to private vehicle. No s/s of distress. Pt ambulatory. 08-27-2021 01:45-0400 Blood Pressure Location Gera Nelson [facility] 08-27-2021 01:45-0400 Diastolic blood pressure 51 mm[Hg] Gera Nelson [facility] 08-27-2021 01:45-0400 Heart rate 109 /min Gera Nelson [facility] 08-27-2021 01:45-0400 Mean blood pressure 72 mm[Hg] Gera Nelson [facility] 08-27-2021 01:45-0400 Respiratory rate 16 /min Gera Nelson [facility] 08-27-2021 01:45-0400 Systolic blood pressure 114 mm[Hg] Gera Nelson [facility] 08-27-2021 00:01-0400 Hourly Rounding Gera [facility] Comment on above: Result Comment: SVE performed. Pt denied any additional needs. Call light within reach. 08-26-2021 23:15-0400 Blood Pressure Location Gera [facility] 08-26-2021 23:15-0400 Diastolic blood pressure 76 mm[Hg] [facility] 08-26-2021 23:15-0400 Heart rate 88 /min [facility] 08-26-2021 23:15-0400 Mean blood pressure 90 mm[Hg] [facility] 08-26-2021 23:15-0400 Respiratory rate 18 /min [facility] 08-26-2021 23:15-0400 Systolic blood pressure 117 mm[Hg] [facility] 08-26-2021 23:08-0400 Body temperature 98.06 [degF] [facility] 07-24-2021 02:12-0400 Diastolic blood pressure 71 mm[Hg] [facility] 07-24-2021 02:12-0400 Heart rate 78 /min [facility] 07-24-2021 02:12-0400 Mean blood pressure 90 mm[Hg] [facility] 07-24-2021 02:12-0400 Respiratory rate 18 /min [facility] 07-24-2021 02:12-0400 SaO2% (BldA) [Mass fraction] 97 % [facility] 07-24-2021 02:12-0400 Systolic blood pressure 127 mm[Hg] [facility] 07-24-2021 00:35-0400 Body temperature 98.06 [degF] [facility] 07-24-2021 00:35-0400 Diastolic blood pressure 84 mm[Hg] [facility] 07-24-2021 00:35-0400 Heart rate 98 /min [facility] 07-24-2021 00:35-0400 Respiratory rate 16 /min [facility] 07-24-2021 00:35-0400 SaO2% (BldA) [Mass fraction] 98 % [facility] 07-24-2021 00:35-0400 Systolic blood pressure 133 mm[Hg] [facility] 04-10-2021 00:50-0500 Body height 162.6 cm John Fernandes MD Work Phone: [facility] 04-10-2021 00:50-0500 Body mass index (BMI) [Ratio] 40.42 kg/m2 John Fernandes MD Work Phone: [facility] 04-10-2021 00:50-0500 Body temperature 98.8 [degF] John Fernandes MD Work Phone: [facility] 04-10-2021 00:50-0500 Body weight 106.82 kg John Fernandes MD Work Phone: [facility] 04-10-2021 00:50-0500 Diastolic blood pressure 60 mm[Hg] John Fernandes MD Work Phone: [facility] 12-11-2021 00:50-0500 Heart rate 105 /min John Fernandes MD Work Phone: [facility] 04-10-2021 00:50-0500 Respiratory rate 20 /min John Fernandes MD Work Phone: [facility] 04-10-2021 00:50-0500 SaO2% (BldA) [Mass fraction] 97 % John Fernandes MD Work Phone: [facility] 04-10-2021 00:50-0500 Systolic blood pressure 111 mm[Hg] John Fernandes MD Work Phone: [facility] Encounters Encounter Date Encounter Type Care Provider Facility Start: 08-23-2023 End: 08-23-2023 ambulatory DO Sarita Packer [facility] Start: 08-22-2023 End: 08-23-2023 OB Triage Sarita Packer [facility] Start: 08-17-2023 End: 08-17-2023 ambulatory AMIE WISEMAN Not Available Start: 08-07-2023 End: 08-07-2023 ambulatory [employer] [facility] [employer] [facility] [place] Start: 08-06-2023 End: 08-06-2023 Emergency department patient visit [facility] Start: 08-06-2023 End: 08-06-2023 Emergency department patient visit [facility] ED Comment on above: Left against medical advice (Primary Dx) Start: 08-03-2023 End: 08-03-2023 Emergency department patient visit [facility] Start: 08-02-2023 End: 08-02-2023 ambulatory CASH AWILDA Not Available Start: 07-28-2023 End: 07-28-2023 Emergency department patient visit [facility] Start: 07-19-2023 End: 07-19-2023 ambulatory AMIE WISEMAN Not Available Start: 06-22-2023 End: 06-22-2023 ambulatory CASH AWILDA Not Available Start: 05-25-2023 End: 05-25-2023 ambulatory AMIE WISEMAN Not Available Start: 05-18-2023 End: 05-18-2023 Emergency department patient visit AMIE ROSAS [facility] Start: 04-20-2023 End: 04-20-2023 ambulatory CASH BOYD Not Available Start: 03-31-2023 End: 03-31-2023 ambulatory AMIE WISEMAN Not Available Start: 03-27-2023 End: 03-28-2023 ambulatory Gera Vasquez Leslie Facility[facility] Start: 03-27-2023 End: 03-28-2023 ambulatory Gera Vasquez Leslie Facility:[facility] Start: 03-06-2023 End: 03-06-2023 ambulatory Brigitte Jaydalindsay [facility] Work Phone: Psychology Comment on above: NO SHOW (Primary Dx) Start: 03-06-2023 End: 03-06-2023 Telemedicine consultation with patient Brigitte Schafer [facility] Work Phone: [facility] Start: 02-24-2023 Telephone encounter Lorna womack PIGGYBACK CLERK.BANK ADVISOR Work Phone: [facility] [place] Comment on above: Results Start: 02-24-2023 End: 02-24-2023 ambulatory Key Dariusz PIGGYBACK CLERK.BANK ADVISOR Work Phone: Gastroenterology Comment on above: Hepatitis C virus in fection without hepatic coma, unspecified chronicity (Primary Dx); History of substance abuse (HCC) Start: 02-24-2023 End: 02-24-2023 Telemedicine consultation with patient Key Casas PIGGYBACK CLERK.BANK ADVISOR Work Phone: [facility] Start: 02-21-2023 Social Work Lien Candelaria ACCOUNTING RECRUITER [facility] Social Work Comment on above: Encounter for screen ing involving social determinants of health (SDoH) (Primary Dx) Start: 02-20-2023 Telephone encounter Brigitte martinez [facility] Work Phone: Psychology Comment on above: bh consult Start: 02-18-2023 End: 02-19-2023 ambulatory LORNA DOBSON Facility:[facility] Start: 02-17-2023 End: 02-17-2023 ambulatory LORNA DOBSON Facility:[facility] Start: 02-17-2023 End: 02-17-2023 Patient encounter procedure Lorna Dobson SUSU.BANK ADVISOR Work Phone: [facility] [place] Comment on above: Anxiety and depressi on (Primary Dx); History of substance abuse (HCC); Hepatitis C virus infection without hepatic coma, unspecified chronicity; Boils of multiple sites Start: 01-09-2023 End: 01-09-2023 ambulatory KELSI FREEDMAN Facility:[facility] Start: 01-09-2023 End: 01-09-2023 Patient encounter procedure Kelsi Freedman PIGGYBACK CLERK.BANK ADVISOR Work Phone: [facility] [place] Comment on above: Obesity (BMI 30-39.9 ) (Primary Dx); Hepatitis C virus infection without hepatic coma, unspecified chronicity; Anxiety and depression; Psychophysiological insomnia; History of intravenous drug use in remission; Restless leg; Special screening examination for viral disease; Screening for HIV (human immunodeficiency virus); Lipid screening; Vitamin D deficiency; Encounter for immunization Start: 11-09-2022 End: 11-10-2022 ambulatory Zbigniew La Facility:[facility] Start: 11-09-2022 End: 11-09-2022 Patient encounter procedure Zbigniewgal La [facility] Start: 11-05-2022 End: 11-05-2022 Emergency department patient visit Harris Simms Facility[facility] Start: 11-05-2022 End: 11-05-2022 Emergency department patient visit Harris Simms [facility] Start: 11-02-2022 ambulatory Harris Simms Facility:[facility] Start: 10-30-2022 End: 10-30-2022 Emergency department patient visit AMIE ROSAS [facility] Start: 10-30-2022 End: 10-30-2022 Emergency department patient visit Pa Celis MD Work Phone: [facility] Comment on above: Urticaria (Primary D x) Start: 09-22-2022 End: 09-23-2022 Emergency department patient visit DO Yuniel Ware Facility[facility] Start: 08-19-2022 End: 08-20-2022 Emergency department patient visit PAT Triplett TEIXEIRA [facility] Start: 08-19-2022 End: 08-19-2022 Emergency department patient visit [facility] ED Comment on above: Acute bacterial conj unctivitis of right eye (Primary Dx) Start: 04-25-2022 End: 04-25-2022 Emergency department patient visit Pa Celis MD Work Phone: [facility] ED Comment on above: Acute pharyngitis, u nspecified etiology (Primary Dx) Start: 10-23-2021 End: 10-24-2021 Evaluation and management of inpatient Csico Stallings MD Work Phone: [facility] Comment on above: Acute appendicitis, unspecified acute appendicitis type Start: 10-23-2021 End: 10-23-2021 Emergency department patient visit Pa Celis MD Work Phone: [facility] ED Comment on above: Other acute appendic itis (Primary Dx) Start: 10-20-2021 End: 10-20-2021 OB Triage Roscoe Han [facility] Start: 10-20-[address] DOCTOR LEONARD Facility :[facility] Start: 10-15-2021 End: 10-18-2021 Evaluation and management of inpatient DR EDWIN AKMINSKI Facility:[facility] Start: 10-12-2021 End: 10-12-[address] CASH BOYD Facility:[facility] Start: 10-04-2021 End: 10-05-[address] EDWIN KAMINSKI Facility:[facility] Start: 10-04-2021 Evaluation and management of inpatient DR DOCTOR LEONARD Facility:[facility] Start: 09-30-2021 End: 09-30-[address] CASH BOYD Facility:[facility] Start: 09-30-2021 End: 10-01-[address] CASH BOYD Facility:[facility] Start: 09-25-2021 End: 09-26-[address] EDWIN KAMINSKI Facility:[facility] Start: 09-17-2021 End: 09-18-2021 OB Triage [facility]era [facility] Start: 08-28-2021 End: 09-29-2021 Pre-admission assessment Gera [facility] Start: 08-26-2021 End: 08-27-2021 OB Triage [facility]era [facility] Start: 08-05-2021 End: 08-06-[address] LEONIDES SWARTZ Facility:[facility] Start: 07-29-2021 End: 07-30-[address] CASH BOYD Facility:[facility] Start: 07-24-2021 End: 07-24-2021 Emergency department patient visit Hayley Santa [facility] Start: 04-10-2021 Emergency department patient visit [facility] Start: 04-10-2021 End: 04-10-2021 Emergency department patient visit John Fernandes MD Work Phone: [facility] ED Comment on above: COVID-19 (Primary [...] YR, QUADRIVALENT (AFLURIA, FLULAVAL, FLUZONE) Kelsi Freedman BANK ADVISOR Work Phone: Start: 04-25-2022 COVID-19, RAPID Pa Celis MD Work Phone: Start: 04-25-2022 End: 04-25-2022 Iaad ia streptococcus group a Shamika Abreu ASH WORKER-C Work Phone: Start: 10-23-2021 Urinalysis microscopic only [...] 07-14-2023 Tdap Vaccine during Tdap Vaccine during [facility] Start: 02-24-2023 End: 05-26-2023 ADENOVIRUS ANTIBODY ADENOVIRUS ANTIBODY Lab Routine Hepatitis C virus infection without hepatic coma, unspecified chronicity Expected: 02/24/2023, Expires: 05/26/2023 [facility] Work Phone: Comment on above: Expected: 02/24/2023, Expires: Start: 02-24-2023 End: 05-26-2023 Alpha 1 antitrypsin [Mass/volume] in Serum or Plasma [id number] BL Lab Routine Hepatitis C virus infection without hepatic coma, unspecified chronicity Expected: 02/24/2023, Expires: 05/26/2023 [facility] Work Phone: Comment on above: Expected: 02/24/2023, Expires: Start: 02-24-2023 End: 05-26-2023 [id number] [Mass/volume] in Serum or Plasma ALPHA FETOPROTEIN BL Lab Routine Hepatitis C virus infection without hepatic coma, unspecified chronicity Expected: 02/24/2023, Expires: 05/26/2023 [facility] Work Phone: Comment on above: Expected: 02/24/2023, Expires: 4 Start: 02-24-2023 End: 05-26-2023 Basic metabolic 2000 panel - Serum or Plasma BASIC METABOLIC PNL Lab Routine Hepatitis C virus infection without hepatic coma, unspecified chronicity Expected: 02/24/2023, Expires: 05/26/2023 [facility] Work Phone: Comment on above: Expected: 02/24/2023, Expires: Start: 02-24-2023 End: 05-26-2023 Ceruloplasmin [Mass/volume] in Serum or Plasma CERULOPLASMIN BLD Lab Routine Hepatitis C virus infection without hepatic coma, unspecified chronicity Expected: 02/24/2023, Expires: 05/26/2023 [facility] Work Phone: Comment on above: Expected: 02/24/2023, Expires: Start: 02-24-2023 End: 05-26-2023 CYTOMEGALOVIRUS (CMV) DNA, QUANTITATIVE PCR, PLASMA CYTOMEGALOVIRUS (CMV) DNA, QUANTITATIVE PCR, PLASMA Lab Routine Hepatitis C virus infection without hepatic coma, unspecified chronicity Expected: 02/24/2023, Expires: 05/26/2023 [facility] Work Phone: Comment on above: Expected: 02/24/2023, Expires: Start: 02-24-2023 End: 05-26-2023 Cytomegalovirus IgG Ab [Units/volume] in Serum or Plasma CMV IGG ANTIBODY BL Lab Routine Hepatitis C virus infection without hepatic coma, unspecified chronicity Expected: 02/24/2023, Expires: 05/26/2023 [facility] Work Phone: Comment on above: Expected: 02/24/2023, Expires: Start: 02-24-2023 End: 05-26-2023 Cytomegalovirus IgM Ab [Units/volume] in Serum or Plasma CMV IGM AB Lab Routine Hepatitis C virus infection without hepatic coma, unspecified chronicity Expected: 02/24/2023, Expires: 05/26/2023 [facility] Work Phone: Comment on above: Expected: 02/24/2023, Expires: Start: 02-24-2023 End: 05-26-2023 Sotero Rosas virus capsid IgM Ab [Units/volume] in Serum SOTERO-ROSAS VCA IGM Lab Routine Hepatitis C virus infection without hepatic coma, unspecified chronicity Expected: 02/24/2023, Expires: 05/26/2023 [facility] Work Phone: Comment on above: Expected: 02/24/2023, Expires: 4 Start: 02-24-2023 End: 05-26-2023 Sotero Rosas virus DNA [#/volume] (viral load) in Blood by JAYDE with probe detection SOTERO-ROSAS DNA QNT Lab Routine Hepatitis C virus infection without hepatic coma, unspecified chronicity Expected: 02/24/2023, Expires: 05/26/2023 [facility] Work Phone: Comment on above: Expected: 02/24/2023, Expires: Start: 02-24-2023 End: 05-26-2023 Ferritin [Mass/volume] in Serum or Plasma FERRITIN BLD Lab Routine Hepatitis C virus infection without hepatic coma, unspecified chronicity Expected: 02/24/2023, Expires: 05/26/2023 [facility] Work Phone: Comment on above: Expected: 02/24/2023, Expires: Start: 02-24-2023 End: 05-26-2023 Hepatic function 2000 panel - Serum or Plasma HEPATIC FUNCTION PNL Lab Routine Hepatitis C virus infection without hepatic coma, unspecified chronicity Expected: 02/24/2023, Expires: 05/26/2023 [facility] Work Phone: Comment on above: Expected: 02/24/2023, Expires: Start: 02-24-2023 End: 05-26-2023 HEPATITIS A ANTIBODY, IGG HEPATITIS A ANTIBODY, IGG Lab Routine Hepatitis C virus infection without hepatic coma, unspecified chronicity Expected: 02/24/2023, Expires: 05/26/2023 [facility] Work Phone: Comment on above: Expected: 02/24/2023, Expires: Start: 02-24-2023 End: 05-26-2023 Hepatitis B virus core Ab [Presence] in Serum HEP B CORE AB TOTAL Lab Routine Hepatitis C virus infection without hepatic coma, unspecified chronicity Expected: 02/24/2023, Expires: 05/26/2023 [facility] Work Phone: Comment on above: Expected: 02/24/2023, Expires: Start: 02-24-2023 End: 05-26-2023 Hepatitis B virus surface Ab [Presence] in Serum HEP B SURF AB Lab Routine Hepatitis C virus infection without hepatic coma, unspecified chronicity Expected: 02/24/2023, Expires: 05/26/2023 [facility] Work Phone: Comment on above: Expected: 02/24/2023, Expires: Start: 02-24-2023 End: 05-26-2023 Hepatitis B virus surface Ag [Presence] in Serum HEP B SURF AG SCRN Lab Routine Hepatitis C virus infection without hepatic coma, unspecified chronicity Expected: 02/24/2023, Expires: 05/26/2023 [facility] Work Phone: Comment on above: Expected: 02/24/2023, Expires: 4 Start: 02-24-2023 End: 05-26-2023 Hepatitis C virus genotype [Identifier] in Serum or Plasma by JAYDE with probe detection HEPATITIS C GENOTYPE Lab Routine Hepatitis C virus infection without hepatic coma, unspecified chronicity Expected: 02/24/2023, Expires: 05/26/2023 [facility] Work Phone: Comment on above: Expected: 02/24/2023, Expires: 4 Start: 02-24-2023 End: 05-26-2023 HFE gene targeted mutation analysis in Blood or Tissue by Molecular genetics method HFE (HEMOCHROMATOSIS) Lab Routine Hepatitis C virus infection without hepatic coma, unspecified chronicity Expected: 02/24/2023, Expires: 05/26/2023 [facility] Work Phone: Comment on above: Expected: 02/24/2023, Expires: 4 Start: 02-24-2023 End: 05-26-2023 HIV 1+2 Ab [Presence] in Serum or Plasma by Immunoassay HIV 1 2 COMBO(AG/AB),WITH REFLEX TO DIFFERENTIATION Lab Routine Hepatitis C virus infection without hepatic coma, unspecified chronicity Expected: 02/24/2023, Expires: 05/26/2023 [facility] Work Phone: Comment on above: Expected: 02/24/2023, Expires: 4 Start: 02-24-2023 End: 05-26-2023 IgG [Mass/volume] in Serum or Plasma IGG Lab Routine Hepatitis C virus infection without hepatic coma, unspecified chronicity Expected: 02/24/2023, Expires: 05/26/2023 [facility] Work Phone: Comment on above: Expected: 02/24/2023, Expires: 4 Start: 02-24-2023 End: 05-26-2023 IgM [Mass/volume] in Serum or Plasma IGM Lab Routine Hepatitis C virus infection without hepatic coma, unspecified chronicity Expected: 02/24/2023, Expires: 05/26/2023 [facility] Work Phone: Comment on above: Expected: 02/24/2023, Expires: Start: 02-24-2023 End: 05-26-2023 Iron and Iron binding capacity panel - Serum or Plasma IRON + TIBC Lab Routine Hepatitis C virus infection without hepatic coma, unspecified chronicity Expected: 02/24/2023, Expires: 05/26/2023 [facility] Work Phone: Comment on above: Expected: 02/24/2023, Expires: Start: 02-24-2023 End: 05-26-2023 Liver kidney microsomal Ab [Titer] in Serum by Immunofluorescence LKM AB Lab Routine Hepatitis C virus infection without hepatic coma, unspecified chronicity Expected: 02/24/2023, Expires: 05/26/2023 [facility] Work Phone: Comment on above: Expected: 02/24/2023, Expires: 4 Start: 02-24-2023 End: 05-26-2023 Mitochondria Ab [Presence] in Serum by Immunofluorescence MITOCHONDRIAL M2 IGG SERUM Lab Routine Hepatitis C virus infection without hepatic coma, unspecified chronicity Expected: 02/24/2023, Expires: 05/26/2023 [facility] Work Phone: Comment on above: Expected: 02/24/2023, Expires: 4 Start: 02-24-2023 End: 05-26-2023 Nuclear Ab [Presence] in Serum by Immunoassay MORE BLOOD Lab Routine Hepatitis C virus infection without hepatic coma, unspecified chronicity Expected: 02/24/2023, Expires: 05/26/2023 [facility] Work Phone: Comment on above: Expected: 02/24/2023, Expires: 4 Start: 02-24-2023 End: 05-26-2023 PT panel - Platelet poor plasma by Coagulation assay PROTHROMBIN TIME/PT Lab Routine Hepatitis C virus infection without hepatic coma, unspecified chronicity Expected: 02/24/2023, Expires: 05/26/2023 [facility] Work Phone: Comment on above: Expected: 02/24/2023, Expires: 4 Start: 02-24-2023 End: 05-26-2023 Smooth muscle Ab [Presence] in Serum SMOOTH MUSCLE AB SCR Lab Routine Hepatitis C virus infection without hepatic coma, unspecified chronicity Expected: 02/24/2023, Expires: 05/26/2023 [facility] Work Phone: Comment on above: Expected: 02/24/2023, Expires: 4 Start: 01-09-2023 End: 03-11-2023 25-hydroxyvitamin D3 [Mass/volume] in Serum or Plasma VITAMIN D 25 HYDROXY Lab Routine Vitamin D deficiency Expected: 01/09/2023, Expires: 03/11/2023 [facility] Work Phone: Comment on above: Expected: 01/09/2023, Expires: 3 Start: 01-09-2023 End: 03-11-2023 CBC W Auto Differential panel - Blood CBC + DIFF Lab Routine Restless leg Expected: 01/09/2023, Expires: 03/11/2023 [facility] Work Phone: Comment on above: Expected: 01/09/2023, Expires: 3 Start: 01-09-2023 End: 03-11-2023 Cobalamin (Vitamin B12) [Mass/volume] in Serum or Plasma VITAMIN B12 BLOOD Lab Routine Restless leg Expected: 01/09/2023, Expires: 03/11/2023 [facility] Work Phone: Comment on above: Expected: 01/09/2023, Expires: 3 Start: 01-09-2023 End: 03-11-2023 Comprehensive metabolic 2000 panel - Serum or Plasma COMP METABOLIC PANEL Lab Routine Obesity (BMI 30-39.9) Expected: 01/09/2023, Expires: 03/11/2023 [facility] Work Phone: Comment on above: Expected: 01/09/2023, Expires: 3 Start: 01-09-2023 End: 03-11-2023 Ferritin [Mass/volume] in Serum or Plasma FERRITIN BLD Lab Routine Restless leg Expected: 01/09/2023, Expires: 03/11/2023 [facility] Work Phone: Comment on above: Expected: 01/09/2023, Expires: 3 Start: 01-09-2023 End: 03-11-2023 Folate [Mass/volume] in Serum or Plasma FOLATE SERUM Lab Routine Restless leg Expected: 01/09/2023, Expires: 03/11/2023 [facility] Work Phone: Comment on above: Expected: 01/09/2023, Expires: 3 Start: 01-09-2023 End: 03-11-2023 Hemoglobin A1c in Blood HGB A1C Lab Routine Obesity (BMI 30-39.9) Expected: 01/09/2023, Expires: 03/11/2023 [facility] Work Phone: Comment on above: Expected: 01/09/2023, Expires: 3 Start: 01-09-2023 End: 03-11-2023 Hepatitis C virus Ab [Presence] in Serum HEPATITIS C ANTIBODY IA WITH CONFIRMATION Lab Routine Special screening examination for viral disease Expected: 01/09/2023, Expires: 03/11/2023 [facility] Work Phone: Comment on above: Expected: 01/09/2023, Expires: 3 Start: 01-09-2023 End: 03-11-2023 HIV 1+2 Ab [Presence] in Serum or Plasma by Immunoassay HIV 1 2 COMBO(AG/AB),WITH REFLEX TO DIFFERENTIATION Lab Routine Screening for HIV (human immunodeficiency virus) Expected: 01/09/2023, Expires: 03/11/2023 [facility] Work Phone: Comment on above: Expected: 01/09/2023, Expires: 3 Start: 01-09-2023 End: 03-11-2023 Iron and Iron binding capacity panel - Serum or Plasma IRON + TIBC Lab Routine Restless leg Expected: 01/09/2023, Expires: 03/11/2023 [facility] Work Phone: Comment on above: Expected: 01/09/2023, Expires: 3 Start: 01-09-2023 End: 03-11-2023 Lipid 1996 panel - Serum or Plasma LIPID PANEL BASIC Lab Routine Lipid screening Expected: 01/09/2023, Expires: 03/11/2023 [facility] Work Phone: Comment on above: Expected: 01/09/2023, Expires: 3 Start: 01-09-2023 End: 03-11-2023 TOX SCREEN ROUT UR TOX SCREEN ROUT UR Lab Routine History of intravenous drug use in remission Expected: 01/09/2023 (Approximate), Expires: 03/11/2023 [facility] Work Phone: Comment on above: Expected: 01/09/2023 (Approximate), Expi res: 03/11/2023 Start: 12-30-2022 Covid-19 Vaccine ( season) Covid-19 Vaccine ( season) [facility] Start: 11-29-2022 Influenza vaccination [facility] Start: 12-30-2021 Influenza vaccination Flu vaccine (Season Ended) [facility] Start: 11-29-2021 Influenza vaccination Flu vaccine (#1) [facility] Start: 10-24-2021 End: 10-24-2021 Laparoscopic appendectomy APPENDECTOMY LAPAROSCOPIC Acute appendicitis, unspecified acute appendicitis type 10/24/2021 10:30 AM EDT [facility] Start: 12-30-2020 Influenza vaccination Flu vaccine (#1) [facility] Start: 10-10-2020 COVID-19 VACCINE (3 - Moderna series) COVID-19 VACCINE (3 - Moderna series) [facility] Start: 06-03-2020 DTaP/Tdap/Td vaccine (6 - Td or Tdap) DTaP/Tdap/Td vaccine (6 - Td or Tdap) [facility] Start: 06-03-2020 Urine microalbumin profile DTaP,Tdap,Td Vaccine (6 - Td or Tdap) [facility] Start: 10-06-2016 PAP TESTING PAP TESTING [facility] Start: 10-06-2016 Screening for malignant neoplasm of cervix Pap smear [facility] Start: 10-06-2014 DTaP/Tdap/Td vaccine (1 - Tdap) DTaP/Tdap/Td vaccine (1 - Tdap) [facility] Start: 10-06-2014 Urine microalbumin profile DTAP,TDAP,TD (1 - Tdap) [facility] Start: 10-06-2013 Hepatitis C screening Hepatitis C screen [facility] Start: 10-06-2013 HIV SCREENING HIV SCREENING [facility] Start: 12-01-2010 HPV Vaccine (2 - 2-dose series) HPV Vaccine (2 - 2-dose series) [facility] Start: 10-06-2010 HIV screening HIV screen [facility] Start: 2007 COVID-19 Vaccine (1) COVID-19 Vaccine (1) [facility] Start: 2007 Depression Screen Depression Screen [facility] Start: 10-06-2006 HPV vaccine (1 - 2-dose series) HPV vaccine (1 - 2-dose series) [facility] Start: 10-06-2001 PNEUMOCOCCAL (1 - PCV) PNEUMOCOCCAL (1 - PCV) [facility] Start: 10-06-2001 Pneumococcal vaccination Pneumococcal Vaccine (1 - PCV) [facility] Start: 12-13-2000 Polio vaccine (2 of 3 - 4-dose series) Polio vaccine (2 of 3 - 4-dose series) [facility] Start: 10-06-2000 COVID-19 Vaccine (1) COVID-19 Vaccine (1) [facility] Start: 10-06-1996 Varicella vaccine (1 of 2 - 2-dose childhood series) Varicella vaccine (1 of 2 - 2-dose childhood series) [facility] Start: 04-07-1996 COVID-19 Vaccine (#1) COVID-19 Vaccine (#1) [facility] Start: 1995 HEPATITIS B (1 of 3 - 3-dose series) HEPATITIS B (1 of 3 - 3-dose series) [facility] Start: 1995 Hepatitis B vaccine (1 of 3 - 3-dose series) Hepatitis B vaccine (1 of 3 - 3-dose series) [facility] DDI VIBRATION CONTRO LLED TRANSIENT ELASTOGRAPHY (VCTE) DDI VIBRATION CONTROLLED TRANSIENT ELASTOGRAPHY (VCTE) Endoscopy Routine Hepatitis C virus infection without hepatic coma, unspecified chronicity Ordered: 02/24/2023 [facility] Work Phone: Comment on above: Ordered: 02/24/2023 Surgical Pathology Surgical Path ology Lab Routine Acute appendicitis, unspecified acute appendicitis type Release Upon Ordering for 1 Occurrences starting 10/24/2021 [facility] Work Phone: Comment on above: Release Upon Ordering for 1 Occurrences starting 10/24/2021 End: 03-25-2024 US ABD RIGHT UPPER QUADRANT US ABD RIGHT UPPER QUADRANT Radiology Routine Hepatitis C virus infection without hepatic coma, unspecified chronicity 1 Occurrences starting 02/24/2023 until 03/25/2024 [facility] Work Phone: Comment on above: 1 Occurrences starting 02/24/2023 until 03/25/2024 End: 03-25-2024 Us abdominal real time w/image limited US ABD SPLEEN Radiology Routine Hepatitis C virus infection without hepatic coma, unspecified chronicity 1 Occurrences starting 02/24/2023 until 03/25/2024 [facility] Work Phone: Comment on above: 1 Occurrences starting 02/24/2023 until 03/25/2024 [facility] Immunizations Immunization Date Immunization Notes Care Provider Salbador moore 01-09-2023 influenza, injectabl e, quadrivalent, contains preservative Kelsi Freedman APRN.CNP Work Phone: [facility] 06-03-2010 HPV, unspecified formulation Lorna Dobson APRN.CNP Work Phone: [facility] 06-03-2010 influenza, seasonal, injectable Lorna Bronson PIGGYBACK CLERK.BANK ADVISOR Work Phone: [facility] 06-03-2010 meningococcal polysaccharide (groups A, C, Y and W-135) diphtheria toxoid conjugate vaccine (MCV4P) Lorna Bronson PIGGYBACK CLERK.BANK ADVISOR Work Phone: [facility] 06-03-2010 tetanus toxoid, redu radha diphtheria toxoid, and acellular pertussis vaccine, adsorbed Lorna Bronson PIGGYBACK CLERK.BANK ADVISOR Work Phone: [facility] 11-15-2000 diphtheria, tetanus toxoids and acellular pertussis vaccine, unspecified formulation Lorna Bronson PIGGYBACK CLERK.BANK ADVISOR Work Phone: [facility] 11-15-2000 measles, mumps and rubella virus vaccine Lorna Bronson PIGGYBACK CLERK.BANK ADVISOR Work Phone: [facility] 11-15-2000 poliovirus vaccine, inactivated Lorna Bronson PIGGYBACK CLERK.BANK ADVISOR Work Phone: [facility] 08-04-1999 diphtheria, tetanus toxoids and acellular pertussis vaccine, unspecified formulation Lorna Bronson PIGGYBACK CLERK.BANK ADVISOR Work Phone: [facility] 08-04-1999 trivalent poliovirus vaccine, live, oral Lorna Bronson PIGGYBACK CLERK.BANK ADVISOR Work Phone: [facility] 07-07-1999 diphtheria, tetanus toxoids and acellular pertussis vaccine, unspecified formulation Lorna Bronson PIGGYBACK CLERK.BANK ADVISOR Work Phone: [facility] 07-07-1999 hepatitis B vaccine, pediatric or pediatric/adolescent dosage Lorna Bronson PIGGYBACK CLERK.BANK ADVISOR Work Phone: [facility] 07-07-1999 trivalent poliovirus vaccine, live, oral Lorna Bronson PIGGYBACK CLERK.BANK ADVISOR Work Phone: [facility] 02-19-1997 diphtheria, tetanus toxoids and acellular pertussis vaccine, unspecified formulation Lorna Bronson PIGGYBACK CLERK.BANK ADVISOR Work Phone: [facility] 02-19-1997 haemophilus influenz ae type b vaccine, conjugate unspecified formulation Lorna Bronson PIGGYBACK CLERK.BANK ADVISOR Work Phone: [facility] 02-19-1997 hepatitis B vaccine, pediatric or pediatric/adolescent dosage Lorna Bronson PIGGYBACK CLERK.BANK ADVISOR Work Phone: [facility] 02-19-1997 measles, mumps and rubella virus vaccine Lorna Bronson PIGGYBACK CLERK.BANK ADVISOR Work Phone: [facility] 02-19-1997 trivalent poliovirus vaccine, live, oral Lorna Bronson PIGGYBACK CLERK.BANK ADVISOR Work Phone: [facility] 1995 hepatitis B vaccine, pediatric or pediatric/adolescent dosage Lorna Bronson PIGGYBACK CLERK.BANK ADVISOR Work Phone: [facility] Payers Date Payer Category Payer Medicaid [employer] [facility] MEDICAID [id number] 2022-Present [phone] [address] [place] [address] Medicaid [id number] 2014 Unknown [id number] 1.2.840.087275.1.13.239.2.7.3. 151810.315 1995 Unknown [id number] 2.840.1.229215.3.579.2.174 1995 Unknown [id number] 2.840.1.160612.3.579.2.593 1995 Unknown [id number] 2.840.1.515168.3.579.2.593 1995 Unknown [id number] 2.16.840.1.445404.3.579.2.593 1995 Unknown [id number] 2.16.840.1.739355.3.579.2.593 1995 Unknown [id number] 2.16840.1.199486.3.579.2.593 1995 Unknown [id number] 2.16.840.1.458322.3.579.2.593 1995 Unknown [id number] 2.16.840.1.191686.3.579.2.593 1995 Unknown [id number] 2.16.840.1.226402.3.579.2.593 1995 Unknown [id number] 2.16.840.1.364897.3.579.2.593 1995 Unknown [id number] 2.16.840.1.646543.3.579.2.593 1995 Unknown [id number] 2.16.840.1.574486.3.579.2.593 1995 Unknown [id number] 2.16.840.1.246660.3.579.2.593 1995 Unknown [id number] 2.16840.1.701309.3.579.2.593 1995 Unknown [id number] 2.16840.1.364604.3.579.2.593 1995 Unknown [id number] 2.16.840.1.693061.3.579.2.185 1995 Unknown [id number] 2.16.840.1.924264.3.579.2.185 1995 Unknown [id number] 2.16840.1.170741.3.579.2.185 1995 Unknown [id number] 2.16840.1.923691.3.579.2.185 1995 Unknown [id number] 2.16.840.1.470646.3.579.2.185 1995 Unknown [id number] 2.16.840.1.241793.3.579.2.185 1995 Unknown [id number] 2.16.840.1.076222.3.579.2.182 1995 Unknown [id number] 2.16.840.1.405804.3.579.2.1259 1995 Unknown [id number] 2.16.840.1.372538.3.579.2.1259 1995 Unknown [id number] 2.16.840.1.802799.3.579.2.9 1995 Unknown [id number] 2.16.840.1.603986.3.579.2.1259 1995 Unknown [id number] 2.16.840.1.462870.3.579.2.9 1995 Unknown [id number] 2.16.840.1.144094.3.579.2.1259 1995 Unknown [id number] 2.16.840.1.640163.3.579.2.9 1995 Unknown [id number] 2.16.840.1.619738.3.579.2.7 1995 Unknown [id number] 2.16.840.1.634526.3.579.2.7 1995 Unknown [id number] 2.16.840.1.781737.3.579.2.727 1995 Unknown [id number] 2.16.840.1.687377.3.579.2. 1995 Unknown [id number] 2.16.840.1.899467.3.579.2.7 1995 Unknown [id number] 2.16.840.1.505721.3.579.2. 1995 Unknown [id number] 2.16.840.1.447350.3.579.2.727 1959 Self-pay 1959 Unknown [id number] 1.2.840.846817.1.13.239.2.7.3. [id number] Unknown [id number] 2.16.840.1.980996.3.579.2.593 Social History Date Type Detail Facility Start: 04-10-2021 Tobacco smoking status [facility] Ex-smoker [employer] Work Phone: Start: 04-10-2021 End: 01-09-2023 Tobacco use and exposure Smokeless tobacco non-user [employer] Phone: Start: 1995 Sex Assigned At Not on file [employer] Phone: Start: 10-13-2021 End: 08-19-2022 Exposure to SARS-CoV-2 (event) Not sure [employer] Phone: Start: 04-11-2021 Tobacco smoking status Former smokeless tobacco user, quit more than 30 days ago [facility] Start: 01-09-2023 End: 08-03-2023 Sex Assigned At Female [facility] Start: 10-23-2021 End: 08-06-2023 Alcohol intake Ex-drinker (finding) [employer] Phone: Start: 10-23-2021 End: 08-20-2022 History SDOH Alcohol Frequency 1 [employer] Phone: History of tobacco use Current smoker [employer] Phone: Start: 08-20-2022 History SDOH Alcohol Std Drinks 0 [employer] Phone: Start: 01-09-2023 Tobacco smoking status [facility] Smokes tobacco daily [facility] History of tobacco use Cigarette Smoker C [facility] Start: 01-09-2023 End: 08-03-2023 History of Social function [facility] Work Phone: Has the [employer], or [employer] threatened to shut off services in your home in past 12Mo Yes [facility] Do you belong to any clubs or organizations such as sikhism groups, unions, fraternal or athletic groups, or school groups? No [facility] Are you now , , , , never or living with a partner? Never [facility] How often to you hav e a drink containing alcohol? Never [facility] Do you feel stress - tense, restless, nervous, or anxious, or unable to sleep at night because your mind is troubled all the time - these days [OSQ] Very much [facility] (I/We) worried yuki er (my/our) food would run out before (I/we) got money to buy more. Sometimes true [facility] The food that (I/we) bought just didn't last, and (I/we) didn't have money to get more. Never true [facility] Start: 1995 Sex Assigned At Female [facility] Start: 02-16-2023 Gender identity Identifies as female gender (finding) [facility] Start: 02-16-2023 Sexual orientation Heterosexual (finding) [facility] Start: 01-20-2023 [facility] Functional Status Date Assessment Result Facility 08-23-2023 Functional Status N/A [facility] 11-05-2022 Functional Status N/A [facility] 10-20-2021 Functional Status N/A [facility] Clinical Notes 07-24-2021 to 08-23-2023 Brigitte Schafer LPCC - 03/06/2023 3:20 PM ESTTelephone Encounter - Emeli Penn MA - 02/24/2023 4:29 PM EDTPatient Key Benedict APRN.CNP - 02/24/2023 1:10 PM EDT Note Date & Type Note Facility 08-23-2023 Note The following Patien t Education Materials have been given to the patient: EducationMaterial [facility] 08-23-2023 Hospital Discharge instructions Follow Up Care 08/22/2023 23:46:41 With:Cash BOYD Address: [address] , [place] [address]- Business (1) When:08/31/2023 Comments:Appointment has already been scheduledCall for severe abdominal painCall physician for heavy vaginal bleedingCall physician if symptoms worsenReturn for contractions closer, longer, strongerReturn for decreased movementReturn if ruptured membranes or vaginal bleeding [facility] 03-06-2023 Note HNO ID: [id number] Author: Brigitte Schafer LPCC Service: ? Author Type: Therapist Type: Progress Notes Filed: 03/06/2023 3:23 PM Note Text: BEHAVIORAL HEALTH SOCIAL WORK QUICK NOTE Provider Action/FYI No show Patient identified for [facility] from: PCP Reason for referral: [facility] Assessment Behavioral Health Resources: Psychiatry med management [facility] encounter type: Office Visit, Virtual Visit Attempts to Outreach: 2 attempts Referral made: Psychiatry - Internal Psychiatry-Internal referral type: Medication Management Final Disposition: Care established with Patient Discharged?: Yes Patient reported that caregiver was able to meet their needs today?: N/A Pt identified by name and . Patient no showed, no called to her initial assessment. DANNY Jensen-S [facility] 03-06-2023 History of Present illness Narrative BEHAVIORAL HEALTH SOCIAL WORK QUICK NOTE Provider Action/FYI No show Patient identified for [facility] from: PCP Reason for referral: [facility] Assessment Behavioral Health Resources: Psychiatry med management [facility] encounter type: Office Visit, Virtual Visit Attempts to Outreach: 2 attempts Referral made: Psychiatry - Internal Psychiatry-Internal referral type: Medication Management Final Disposition: Care established with Patient Discharged?: Yes Patient reported that caregiver was able to meet their needs today?: N/A Pt identified by name and . Patient no showed, no called to her initial assessment. KERRIE Jensen documented in this encounter [facility] 02-24-2023 Miscellaneous Notes ----- Message from Lorna Dobson APRN.BANK ADVISOR sent at 02/24/2023 4:18 PM EDT ----- [...] CBC normal Lorna documented in this encounter [facility] 02-24-2023 Note HNO ID: [id number] Author: Key Casas APRN.BANK ADVISOR Service: ? Author Type: Nurse Practitioner Type: Progress Notes Filed: 02/24/2023 2:24 PM Note Text: VIRTUAL VISIT PROGRESS NOTE This is a virtual visit using [employer] Zoom Video Visit. It required patient-provider interaction for the medical decision making as documented below. I have communicated my name and active licensure. The patient's identity and physical location were verified at the time of this visit. Either the patient or their legal field support representative has been informed of the risks [...] Follow up in 4 months Key Casas APRN.BANK ADVISOR Patient Instructions Blood work to be completed at [facility] Schedule ultrasound and Fibroscan in office today: [phone] Once all testing completed, I will submit [...] which included preparing to see the patient, bfsw-sg-bawn patient care, completing clinical documentation, obtaining and/or reviewing separately obtained history, counseling and educating the patient/family/caregiver, ordering medications, tests, or procedures, and communicating results to the patient/family/caregiver Key Casas APRN.CNP [facility] 02-24-2023 Instructions Key Casas APRN.CNP - 02/24/2023 1:20 PM EDT Blood work to be completed at [facility] Schedule ultrasound and Fibroscan in office today: [phone] Once all testing completed, I will submit prescription to our specialty pharmacy who will work with your insurance company. Once approved through insurance, medication will be mailed to your house (this may take a few weeks); Call office to notify us when you start medication documented in this encounter [facility] 02-24-2023 History of Present illness Narrative VIRTUAL VISIT PROGRESS NOTE This is a virtual visit using [employer]om Video Visit. It required patient-provider interaction for the medical decision making as documented below. I have communicated my name and active licensure. The patient's identity and physical location were verified at the time of this visit. Either the patient or their legal field support representative has been informed of the risks [...] Instructions Blood work to be completed at [facility] Schedule ultrasound and Fibroscan in office today: [phone] Once all testing completed, I will submit [...] which included preparing to see the patient, qngl-ki-fjxh patient care, completing clinical documentation, obtaining and/or reviewing separately obtained history, counseling and educating the patient/family/caregiver, ordering medications, tests, or procedures, and communicating results to the patient/family/caregiver Key Casas APRN.BANK ADVISOR documented in this encounter [facility] 02-21-2023 Note HNO ID: [id number] Author: Lien Candelaria LSW Service: ? Author Type: Adult Basic Education Teacher Type: Progress Notes Filed: 02/21/2023 9:28 AM [...] MARY Barahona February 21, 2023 9:25 AM [facility] 02-21-2023 History of Present illness Narrative [...] 2023 9:25 AM documented in this encounter [facility] 02-20-2023 Miscellaneous Notes Behavioral Health Social Work Progress Note Patient identified for [facility] from: PCP Reason for referral: Resources Behavioral Health Resources: Psychiatry med management [facility] encounter type: Telephone Encounter Attempts to Outreach: [...] see psychiatry. Patient is scheduled for her [facility] assessment on 03/06 at 1:00pm. KERRIE Jensen February 20, 2023 documented in this encounter [facility] 02-17-2023 Note HNO ID: [id number] Author: Lorna Dobson APRN.BANK ADVISOR Service: ? Author Type: Nurse Practitioner Type: [...] which included preparing to see the patient, mebr-ai-ahbv patient care, completing clinical documentation, obtaining and/or reviewing separately obtained history, performing a medically appropriate examination, counseling and educating the patient/family/caregiver, and ordering medications, tests, or procedures. Lorna Dobson APRN.CNP [facility] 02-17-2023 Instructions Lorna Dobson APRN.CNP - 02/17/2023 3:52 PM EDT Slowly taper off lexapro - once off, start 25 mg of zoloft Make an appt with psych Make an appt with GI Make appt with derm Get labs done Follow up 1 month after starting zoloft to let me know how it's going - can be virtual documented in this encounter [facility] 02-17-2023 History of Present illness Narrative This note was created using [employer]. Subjective Christiana Young is a 27 year [...] which included preparing to see the patient, iugi-mh-qmsu patient care, completing clinical documentation, obtaining and/or reviewing separately obtained history, performing a medically appropriate examination, counseling and educating the patient/family/caregiver, and ordering medications, tests, or procedures. Lorna Dobson APRN.CANDELARIO documented in this encounter [facility] 01-09-2023 Note HNO ID: [id number] Author: Kelsi Freedman APRN.CANDELARIO Service: ? Author Type: Nurse Practitioner Type: Progress Notes Filed: 01/09/2023 4:04 PM Note Text: This note was created using [employer]. Subjective Christiana Young is a 27 year old female. 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 Some PPD in past. GI: [...] YR, QUADRIVALENT (AFLURIA, FLULAVAL, FLUZONE) Kelsi Freedman APRN.BANK ADVISOR [facility] 01-09-2023 History of Present illness Narrative This note was created using NoteWriter. Subjective Christiana Young is a 27 year old female. 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 Some PPD in past. GI: [...] states he sister buys it from a [facility] pharmacy for cheap and she could qualify [...] YR, QUADRIVALENT (AFLURIA, FLULAVAL, FLUZONE) Kelsi Freedman APRN.BANK ADVISOR documented in this encounter [facility] 11-05-2022 Evaluation + Plan note Extrac oral from: Title:ED Note Author:Harris Simms DO Date:11/05 Acute URI (J06.9: Acute uppe r respiratory infection, unspecified) Urticaria (L50.9: Urticaria, unspecified) Orders: cetirizine, 10 mg = 1 tab(s), Oral, Daily, X 7 day(s), # 7 tab(s), Refills(s) 0, Pharmacy: [id number], 162, cm, 11/05/22 9:56:00 EDT, Height/Length Dosing, 105, kg, 11/05/22 9:56:00 EDT, Weight Dosing famotidine, 40 mg = 1 tab(s), Oral, Once a day (at bedtime), X 7 day(s), # 7 tab(s), Refills(s) 0, Pharmacy: [facility] #[id number], 162, cm, 11/05/22 9:56:00 EDT, Height/Length Dosing, 105, kg, 11/05/22 9:56:00 EDT, Weight Dosing predniSONE, 3, Oral, Daily, X 7 day(s), # 21 tab(s), Refills(s) 0, Pharmacy: [facility] #[id number], 162, cm, 11/05/22 9:56:00 EDT, Height/Length Dosing, 105, kg, 11/05/22 9:56:00 EDT, Weight Dosing Group A Strep by PCR Rapid COVID Antigen [place] Rapid Strep w/rfx U Beta Hcg Qual Future Appointments Appointment Date:11/09/2022 01:00:00 PM Scheduled Provider:Zbigniew La MD Location:[facility] Appointment Type: New Patient - Adult [facility]07-08-2023 Hospital Discharge instructions Follow Up Care 11/05/2022 09:50:08 With:Zbigniew La Address: [address] [place] [phone]- [phone] Business (1) When:Within 3 Day(s) [facility]06-26-2022 History of Present illness Narrative* Gisela Tolentino [...] 10/23/2021 8:16 PM EDT Pt received from [place] via transport. VS stable family at bedside. documented in this encounterBON [employer] Phone: 1(770) 898-187506-26-2022 Hospital Discharge instructions* Instructions* Cisco Stallings MD - 10/24/2021 Bandaids X 48 hours May shower 48 hours Analgesia prescription given if needed No driving while on pain meds No lifting > 10 lbs for next week documented in this encounterBON MARLENE [facility] [employer] Work Phone: 1(123) 783-442206-22-2022 Hospital Discharge instructions Patient Education 10/20/2021 21:59:57 [...] sounds, smacking lips, cooing, sighing, or squeaking. Sgmr-wc-igfhg movements and sucking on fingers or hands. [...] able to be present during feedings. Your design sales consultant can help you find a [...] recommendations, contact your health careprovider or a design sales consultant. Overall health care recommendations while [...] provider before taking any medicines. These include rvjf-ikz-gwuxgbs andprescription medicines as well as vitamins and [...] Talk with your health care provider or design sales consultant if you have questions or you face problems as you breastfeed. This information is not intended to replace advice given to you by your health care provider. Make sure you discuss any questions you have with your health care provider. Document Released: 04/17/2006 Document Revised: 07/12/2018 Document Reviewed: 05/19/2017 [employer] Patient Education 2020 [employer] Follow Up Care 10/20/2021 21:07:31 With:[facility] Address:Unknown When:10/22/2021 Comments:Appointment has already been scheduled. Keep scheduled appointment for Monday With:Dr. Boyd Address:Unknown When:1 to 2 days Comments:IF SYMPTOMS CONTINUE TOMORROW PLEASE CALL DR. BOYD'S OFFICE.Call Dr if fever>100.5 F, heavy bleedingCall for any problems.Call physician if symptoms worsenLactation Support Group first Monday month [facility]06-22-2022 Evaluation + Plan note Diagnostic Tests Pending * Urine Culture 10/20/21 [facility]05-21-2022 Hospital Discharge instructions Patient Education 09/18/2021 00:02:46 [...] one baby. Being 35 or older. Being -Djiboutian. Having kidney disease or diabetes. Having medical [...] get plenty of sleep. General instructions Take yrfu-kcy-xervzns and prescription medicines only as told by [...] 04/14/2001 Document Revised: 12/18/2018 Document Reviewed: 11/21/2016 [employer] Patient Education 2020 The car easily beat. 09/18/2021 00:02:46 Third Trimester of , Apol-ux-Lsfc Third Trimester of The third trimester is from week 28 through week 40 (months 7 through 9). This trimester is when your unborn baby (fetus) is growing very fast. At the end of the ninth month, the unborn baby is about20 inches in length. It weighs about 6 10 pounds. Follow these instructions at home: Medicines Take qaqh-kdl-bhnbgxg and prescription medicines only as told by [...] 07/12/2010 Document Revised: 08/08/2019 Document Reviewed: 05/23/2017 [employer] Patient Education 2019 The car easily beat. Follow Up Care 09/17/2021 22:45:27 With:Cash BOYD Address: [address] [place] [address]- Business (1) When:2 weeks Comments:Call for any problems.Call physician if symptoms worsenReturn for contractions closer, longer, harderReturn for decreased movementReturn if ruptured membranes or vaginal bleeding [facility]04-29-2022 Hospital Discharge instructions Patient Education 08/27/2021 03:01:30 Third Trimester of , Nwmo-pi-Eiju Third Trimester of The third trimester is from week 28 through week 40 (months 7 through 9). This trimester is when your unborn baby (fetus) is growing very fast. At the end of the ninth month, the unborn baby is about20 inches in length. It weighs about 6 10 pounds. Follow these instructions at home: Medicines Take rxyj-mhl-sixxnhy and prescription medicines only as told by [...] 07/12/2010 Document Revised: 08/08/2019 Document Reviewed: 05/23/2017 [employer] Patient Education 2020 The car easily beat. 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 [...] told by your health care provider. Take wezp-cdf-igvraqg and prescription medicines only as told by [...] way to prevent or manageback pain. Take lzff-jgd-nhpdpfc and prescription medicines only as told by your health care provider. Keep all follow-up visits as told by your health care provider. This is important. This information is not intended to replace advice given to you by your health care provider. Make sure you discuss any questions you have with your health care provider. Document Released: 07/26/2006 Document Revised: 08/06/2019 Document Reviewed: 10/03/2018 [employer] Patient Education 2020 The car easily beat. Follow Up Care 08/26/2021 22:44:30 With:Cash BOYD Address: [address] [place] [address] [facility] (1) When:08/31/2021 Comments:Call Dr. BOYD office in morning Call for any problems.Call for severe abdominal painCall physicianfor heavy vaginal bleedinCall for fever > 100.5 FCall physician if symptoms worsenReturn for decreased movementReturn if ruptured membranes or vaginal [facility]03-26-20[facility] Evaluation + Plan noteExtracted from: Title:ED Note Author:Alan Jelly HOWARD III Date:07/24/21 1. Upper respiratory infecti on (J06.9: Acute upper respiratory infection, unspecified) Orders: Influenza A&B Ag Rapid COVID Antigen [place] [facility]-26-2022 Hospital Discharge instructions Patient Education 07/24/2021 02:14:42 [...] medicines to help relieve symptoms, such as: Jkcj-sez-qnuzbck cold medicines. Cough suppressants. Coughing is a [...] and other clear broths. General instructions Take pyqn-lcg-lducfev and prescription medicines only as told by [...] and water are not available, use hand power transformer repairer. ?Avoid touching your mouth, face, eyes, or [...] 10/11/2001 Document Revised: 04/25/2019 Document Reviewed: 12/01/2017 [employer] Patient Education Bunker [employer]. Follow Up Care 07/24/2021 00:30:11 With:James Rodriguez Address: [address] [place] [address] [place] [address] Business (1) When:07/27/2021 Comments:Return to the emergency room if your symptoms get worse or any new symptoms. [facility] Diagnosis COVID-19- Primary documented in this encounter [employer] Phone: evaluation note* Diagnosis Other acute appendicitis- Primary documented in this encounter [employer] Phone: evaluation note* Diagnosis Acute appendicitis, unspecified acute appendicitis type documented in this encounter [employer] Phone: evaluation note* Diagnosis Acute pharyngitis, unspecified etiology- Primary documented in this encounter [employer] Phone: evaluation note* Diagnosis Acute bacterial conjunctivitis of right eye- Primary documented in this encounter [employer] Phone: [email or web address] note* Diagnosis Urticaria- Primary Urticaria, unspecified documented in this encounter [email or web address] note* Diagnosis Obesity (BMI 30-39.9)- Primary Obesity, [...] single bacterial disease [facility]* Diagnosis Anxiety and depression- Primary Dysthymic disorder History of substance abuse (HCC) Other, mixed, or unspecified nondependent drug abuse, unspecified Hepatitis C virus infection without hepatic coma, unspecified chronicity Boils of multiple sites documented [facility] this encounter [facility]* Diagnosis Encounter for screening involving social determinants of health (SDoH)- Primary documented [facility]* Diagnosis Hepatitis C virus infection without hepatic coma, unspecified chronicity- Primary History of substance abuse (HCC) Other, mixed, or unspecified nondependent drug abuse, unspecified documented in this encounter [facility] note* Diagnosis NO SHOW- Primary documented in this encounter [facility] note* Diagnosis Left against medical advice- Primary Surgical or other procedure not carried out because of patient's decision documented in this encounter [facility] course Narrative No data available for this section [facility] Discharge instructions* Attachments The following attachments cannot be sent through Care Everywhere. * Coronavirus Disease (COVID-19): General Info (Malawian) [facility] [email or web address] Phone: [facility] Discharge instructions No data available for this section [facility] Discharge instructions* Attachments The following attachments cannot be sent through Care Everywhere. * Sore Throat (Malawian) documented in this encounterL[facility]ALSpl[facility] Phone: [facility]ital Discharge instructions* Attachments The following attachments cannot be sent through Care Everywhere. * Conjunctivitis (Malawian) documented in this encounterL[facility]LL [facility]PITALSanta [facility] [employer] Phone: [facility] Discharge instructions* Attachments The following attachments cannot be sent through Care Everywhere. * Urticaria (Malawian) [facility] No data available for this section [facility] (narrative)* Diagnostic Procedure Only (Routine) - Pending Review Specialty Diagnoses / Procedures Referred By Contac t Referred To Contact [facility] Diagnoses Hepatitis C virus infection without hepatic coma, unspecified chronicity Procedures US ABD SPLEEN US ABDOMINAL REAL TIME W/IMAGE LIMITED Key Casas APRN.BANK ADVISOR [address] [id number] Us [facility] Referral ID Status Reason Start Date Expiration Date Visits Requested Visits Authorized [id number] Pending Review Auto-Generat ed Referral 3 03/25/2024 1 1 * Diagnostic Procedure Only (Routine) - Pending Review Specialty Diagnoses / Procedures Referred By Sarah chua Referred To Contact [facility] IM[facility] Diagnoses Hepatitis C virus infection without hepatic coma, unspecified chronicity Procedures US ABD RIGHT UPPER QUADRANT US ABDOMINAL REAL TIME W/IMAGE LIMITED Key Casas APRN.BANK ADVISOR [address] [place] [address] Us Imaging [facility] Referral ID Status Reason Start Date Expiration Date Visits Requested Visits Authorized [id number] Pending Review Auto-Generat ed Referral 3 03/25/2024 1 1 * Outpatient Procedure (Routine) - Pending Review Specialty Diagnoses / Procedures Referred By Contac t Referred To Contact [facility] Diagnoses Hepatitis C virus infection without hepatic coma, unspecified chronicity Procedures DDI VIBRATION CONTROLLED TRANSIENT ELASTOGRAPHY (VCTE) LIVER ELASTOGRAPHY W/O IMAG W/I&R Key Casas APRN.BANK ADVISOR [address] [place] [address] [facility] [address] [place] [address] Referral ID Status Reason Start Date Expiration Date Visits Requested Visits Authorized [id number] Pending Review Auto-Generat ed Referral 3 02/25/2024 1 1 [facility] Advance Directives No Advanced Directives Records FoundDocuments on File Type Date Recorded Patient Sales Order Processor Expl anation ACP-Advance Directive ACP-Power of Real Estate Recruiter Summary Purpose Family History No Family History [...] multiple sites Procedures CONSULT TO DERMATOLOGY OFFICE/OUTPATIENT [facility] 60-74 MINUTES Lorna Dobson APRN.CANDELARIO [address] [place] [address] Referral ID Status Reason Start Date Expiration Date Visits Requested Visits Authorized [id number] Authorized PCP Requested Referral 3 02/17/2024 1 1 Specialty Diagnoses / Procedures Referred By Contac t Referred To Contact Gastroenterology Diagnoses History of substance abuse (HCC) Hepatitis C virus infection without hepatic coma, unspecified chronicity Procedures CONSULT TO GASTROENTEROLOGY OFFICE/OUTPATIENT [facility] 60-74 MINUTES Lorna Dobson APRN.CNP [address] [place] [address] Referral ID Status Reason Start Date Expiration Date Visits Requested Visits Authorized [id number] Authorized PCP Requested Referral 3 02/17/2024 1 1 Specialty Diagnoses / Procedures Referred By Contac t Referred To Contact Diagnoses Anxiety and depression History of substance abuse (HCC) Procedures CONSULT TO PSYCHIATRY OFFICE/OUTPATIENT [facility] 60-74 MINUTES Lorna Dobson APRN.CNP [address] [place] [address] Referral ID Status Reason Start Date Expiration Date Visits Requested Visits Authorized [id number] Pending Review PCP Requested Referral 3 02/17/2024 1 1 Specialty Diagnoses / Procedures Referred By Contac t Referred To Contact Diagnoses Obesity (BMI 30-39.9) History of intravenous drug use in remission Procedures ENDOCRINE MEDICAL WEIGHT MANAGEMENT OFFICE/OUTPATIENT [facility] 60-74 MINUTES Kelsi Freedman APRN.CANDELARIO [address] [place] [address] Referral ID Status Reason Start Date Expiration Date Visits Requested Visits Authorized [id number] Authorized PCP Requested Referral 01/09/2023 01/09/2024 1 [...] unspecified chronicity Procedures CONSULT TO GASTROENTEROLOGY OFFICE/OUTPATIENT [facility] 60-74 MINUTES Lorna Dobson, PIGGYBACK CLERK.BANK ADVISOR [address] [place] [address] Referral ID Status Reason Start Date Expiration Date V isits Requested Visits Authorized [id number] Closed PCP Requested Referral 02/17/2023 02/17/2024 1 [...] DATE CREATED AUTHOR AUTHOR'S ORGANIZ ATION 03/07/2023 [facility] DATE CREATED AUTHOR AUTHOR'S ORGANIZ ATION 08/06/2023 Xiomara Menchaca [facility] DATE CREATED AUTHOR AUTHOR'S ORGANIZ ATION 08/06/2023 [facility] DATE CREATED AUTHOR AUTHOR'S ORGANIZ ATION 08/18/2023 [facility] EPIC DATE CREATED AUTHOR AUTHOR'S ORGANIZ ATION 08/26/[address] [facility] Care Team (unrecognized sect ion and content) Psychology Assistant Relationship Specialty Start Date End Date Amie Rosas, [address] [place] [place] [address] PCP - General Family Medicine 08/23/22 Psychology Assistant Relationship Specialty Start Date End Date Amie Rosas, [address] [place] [address] PCP - General Family Medicine 05/02/16 Psychology Assistant Relationship Specialty Start Date End Date Lorna Dobson, PIGGYBACK CLERK.BANK ADVISOR [address] [place] [address] PCP - General 02/17/23 Psychology Assistant Relationship Specialty Start Date End Date Lorna Dobson, PIGGYBACK CLERK.BANK ADVISOR [address] [facility] [place] [address] PCP - General 02/17/23 Psychology Assistant Relationship Specialty Start Date End Date Lorna Dobson, PIGGYBACK CLERK.BANK ADVISOR [address] [place] [address] PCP - General 02/17/23 Psychology Assistant Relationship Specialty Start Date End Date Lorna Dobson, PIGGYBACK CLERK.BANK ADVISOR [address] [place] [address] PCP - General 02/17/23 Psychology Assistant Relationship Specialty Start Date End Date Lorna Dobson, PIGGYBACK CLERK.BANK ADVISOR [address] [place] [address] PCP - General 02/17/23 Scheduled Active and [...] 2115, Until Discontinued, Antimicrobial Indications: Intra-Abdominal Infection 1276 (New Bag - Provider: Gabrielle Puentes RN) 0046 (Stopped - Provider: Gabrielle Puentes RN)0623 (New Bag - Provider: Gabrielle Puentes RN)0653 (Due: Stopped - Provider: Gabrielle Puentes RN)1354 (New Bag - Provider: Gisela Tolentino RN)1424 (Stopped - Provider: Gisela Tolentino RN)2000 (Due - Provider: Gabriella Sanchez [facility]) Continuous Medication Order 10/22/2021 10/23/2021 10/24/2021 [...] Vomiting 2356 (Given - Provider: Gabrielle Puentes, EMELY) oxyCODONE-acetaminophen (PERCOCET) 5-325 MG per tablet 1 [...] hours. 1320 (Given - Provid er: Gisela Tolentino RN) sodium chloride 0.9 % irrigation (CANCELED) [...] Eye, ONCE, 1 dose, On Mon08/19/22 at 2159 2213 (Given - Provid er: Gabrielle Espinoza [...] or prosecute any alcohol or drug abuse patient.[facility] the event this information is protected by the Federal Confidentiality of Alcohol and Drug Abuse Patient Records regulations: The Federal rules restrict any use of the information to criminally investigate or prosecute any alcohol or drug abuse patient.[facility] the event this information is protected by the Federal Confidentiality of Alcohol and Drug Abuse Patient Records regulations: The Federal rules restrict any use of the information to criminally investigate or prosecute any alcohol or drug abuse patient.[facility] the event this information is protected by the Federal Confidentiality of Alcohol and Drug Abuse Patient Records regulations: The Federal rules restrict any use of the information to criminally investigate or prosecute any alcohol or drug abuse patient.[facility] the event this information is protected by the Federal Confidentiality of Alcohol and Drug Abuse Patient Records regulations: The Federal rules restrict any use of the information to criminally investigate or prosecute any alcohol or drug abuse patient.[facility] the event this information is protected by the Federal Confidentiality of Alcohol and Drug Abuse Patient Records regulations: The Federal rules restrict any use of the information to criminally investigate or prosecute any alcohol or drug abuse patient.[facility] the event this information is protected by the Federal Confidentiality of Alcohol and Drug Abuse Patient Records regulations: The Federal rules restrict any use of the information to criminally investigate or prosecute any alcohol or drug abuse patient.[facility] FOR RECORDS PERTAINING TO PATIENTS WHO [...] BE BASED ON THE PRIMARY CLINICAL RECORDS. [facility] CenterCustomer.io [facility]. provides no warranty or guarantee of the accuracy or completeness of information in this document.
[2023-08-28 22:15] VITALS: TEMP 36.1
[2023-08-28 22:18] VITALS: BP 121/66; PULSE 105
[2023-08-28 22:52] LABS: Bilirubin Urine NEGATIVE (NEGATIVE); Blood Urine NEGATIVE (NEGATIVE); Clarity Urine CLEAR (CLEAR); Color Urine YELLOW (YELLOW); Glucose Urine UA NEGATIVE (NEGATIVE); Ketones Urine 15 mg/dL (NEGATIVE); Leukocyte Esterase Urine NEGATIVE (NEGATIVE); Nitrite Urine NEGATIVE (NEGATIVE); Protein Urine TRACE mg/dL (NEG/TRACE); Specific Gravity Urine >=1.030 (1.005-1.025)
[2023-08-28 22:57] LABS: Urine Microscopic Indicated NO
[2023-08-28] MEDS: 0.9 % SODIUM CHLORIDE 1,000 ML 1000 ML IV (23:41)
[2023-08-28 23:50] LABS: Basophils Percent Auto 0.2 % (0.2-2.0); Eosinophils Absolute Auto 0.1 10^3/uL (0.0-0.7); Eosinophils Percent Auto 1.5 % (0.9-7.0); Hemoglobin 8.7 g/dL (12.0-16.0); Immature Granulocytes Abs Auto 0.09 10^3/uL (0.00-0.03); Lymphocytes Absolute Auto 1.4 10^3/uL (1.2-3.8); Lymphocytes Percent Auto 15.1 % (20.5-60.0); Mean Corpuscular Hemoglobin 22.8 pg (26.7-34.0); Mean Corpuscular Volume 75.9 fL (81.0-99.0); Mean Platelet Volume 12.4 fL (9.5-13.5); Monocytes Absolute Auto 0.6 10^3/uL (0.3-0.8); Monocytes Percent Auto 6.3 % (1.7-12.0); Neutrophils Absolute Auto 7.1 10^3/uL (1.4-6.5); Neutrophils Percent Auto 75.9 % (43.0-75.0); Platelet Count 165 10^3/uL (150-450); Red Blood Count 3.82 10^6/uL (4.20-5.40); Red Cell Distribution Width 16.1 % (11.0-15.0); White Blood Count 9.3 10^3/uL (4.0-11.0)
[2023-08-29 00:05] LABS: Alanine Aminotransferase 32 U/L (14-59); Aspartate Amino Transferase 20 U/L (15-37); Estimated GFR (African America >60 (>=60); Estimated GFR (Non-African Ame >60 (>=60)
[2023-08-29] MEDS: 0.9 % SODIUM CHLORIDE 1,000 ML 125 ML IV (00:44)
[2023-08-29] MEDS: CEFAZOLIN SODIUM/DEXTROSE,ISO 2 GM/50 ML PIGGYBACK IV (00:44)
[2023-08-29 03:12] VITALS: TEMP 36.7
[2023-08-29 03:13] VITALS: BP 135/64; PULSE 101
--- NOTE | 2023-08-29 07:00 | US_ITS ---
[address] [address] Patient Name: ALIN YOUNG MRN: [id number] date: 1995 Sex: F Assigned Patient Location: [facility] Current Patient Location: [facility] Accession/Order Number: [id number] Exam Date: 08/29/2023 07:01 Report Date: 08/29/2023 07:26 At the request of: TEAGAN KAISER Procedure: US OB BPP w non-stress EXAMINATION: US OB BPP w non-stress HISTORY: LGA COMPARISON: No relevant comparison available. TECHNIQUE: Ultrasound biophysical profile was performed in the radiology department FINDINGS: BREATHING MOVEMENTS: 2.0 GROSS BODY MOVEMENTS: 2.0 TONE: 2.0 QUALITATIVE AMNIOTIC FLUID VOLUME: 2.0 PRESENTATION: CEPHALIC HEART RATE: 122.7 bpm H.B./min AMNIOTIC FLUID VOLUME: 16.1 cm cm GESTATIONAL AGE: 33 weeks 4 days CONCLUSION: Total biophysical profile score: 8.0 Electronically authenticated by: LEONIDES SWARTZ Date: 08/29/2023 07:26
[2023-08-29 07:45] VITALS: TEMP 36.8
--- NOTE | 2023-08-29 07:49 | PM.OBPN ---
OB - PN: Subj Subjective [place] status: doing well Narrative: 27 at 33 4/7wks presents for lower back pain states feels like uti, ho hep c, pt is non complaint, ho kidney inf, pt states feels significantly better, pt also complains of boil on lower buttocks Exam Constitutional Vital Signs, click to edit/add: Last Vital Signs Temp 98.1 F 08/29/23 03:12 Pulse 101 H 08/29/23 03:13 BP 135/64 08/29/23 03:13 Documenting provider has reviewed patient's vital signs: yes Common normals: no apparent distress Respiratory Common normals: clear to auscultation bilaterally Cardio Common normals: regular rate and regular rhythm GI Common normals: Normal to inspection, nondistended, normoactive bowel sounds present Extremity Common normals: no clubbing, cyanosis or edema and no calf tenderness Results Labs Labs: Short CBC 08/28/23 Range/Units 23:39 WBC 9.3 (4.0-11.0) 10^3/uL Hgb 8.7 L (12.0-16.0) g/dL Hct 29.0 L (36.0-48.0) % Plt Count 165 (150-450) 10^3/uL BMP 08/28/23 23:39 BUN 7.0 Creatinine 0.51 L Liver Function 08/28/23 Range/Units 23:39 AST 20 (15-37) U/L ALT 32 (14-59) U/L Urine 08/28/23 Range/Units 21:59 Urine Color Yellow (YELLOW) Urine Clarity Clear (CLEAR) Urine pH 6.0 (5.0-9.0) Ur Specific [place] >=1.030 A (1.005-1.025) Urine Protein Trace (NEG/TRACE) mg/dL Urine Glucose (UA) Negative (NEGATIVE) mg/dL OB - PN: A/P Assessment and Plan (1) Intrauterine : Assessment and Plan: nst and bpp reviewed, along with labs (2) UTI (urinary tract infection): Assessment and Plan: iv abx given, will send home with rx, pt to fu on in office, precautions given Plan see above Time Spent with Patient Time: Total time spent is greater than 50% in coordination of care (as documented) at patient's floor/unit and/or counseling patient: Total time spent with greater than 50% in coordination of care (as documented) at patient's floor/unit and/or counseling patient: less than 15 minutes
[2023-08-29 07:59] VITALS: BP 120/58; PULSE 93
[2023-08-29] MEDS: CEFAZOLIN SODIUM/DEXTROSE,ISO 1 GM/50 ML IV.SOLN IV (08:00)
== END 2023-08-29 09:45 | disposition home or self-care (01) ==
PROVIDERS: Admitting Provider Obstetrics & Gynecology; Visit Provider Obstetrics & Gynecology
DX: O26.893 Other specified pregnancy related conditions, third trimester (principal); M54.50 Low back pain, unspecified; Z3A.33 33 weeks gestation of pregnancy
CPT/HCPCS: 36415; 59025; 76818; 81003; 82565; 84450; 84460; 84520; 85025; 96365; 96366; 96376; G0378; G0379

== ENCOUNTER 2023-09-13 20:05 | Outpatient (REF) | payer OTHER, SELFPAY | END 2023-09-13 20:06 | disposition home or self-care (01) | LOC: LAB 20:05 | PROVIDERS: Visit Provider Obstetrics & Gynecology | DX: Z34.93 Encounter for supervision of normal pregnancy, unspecified, third trimester (principal) | CPT/HCPCS: 87081 ==

== ENCOUNTER 2023-09-29 16:08 | Outpatient (OUT) | payer OTHER, SELFPAY ==
--- NOTE | 2023-09-29 16:11 | US_ITS ---
[address] [address] Patient Name: ALIN YOUNG MRN: [id number] date: 1995 Sex: F Assigned Patient Location: US Current Patient Location: Accession/Order Number: [id number] Exam Date: 09/29/2023 16:15 Report Date: 10/02/2023 09:03 At the request of: PETE WISEMAN Procedure: US OB growth EXAMINATION: US OB growth HISTORY: EXCESSIVE GROWTH AFFECTING O36.60X0 COMPARISON: Ultrasound OB growth 08/17/2023 FINDINGS: Heart Rate: 141.4 bpm Number: 1.0 Position: CEPHALIC Amniotic Fluid Volume: 10.6 cm Maximum Vertical Pocket: 4.9 cm BIOMETRY: BPD: 9.4 cm cm; 38 weeks 1 days; 76% HC: 35.0 cmcm; 40 weeks 6 days; 89% AC: 36.4 cm cm; 40 weeks 3 days; >97% FL: 7.7 cm cm; 39 weeks 4 days; 87% EFW: 3939.3 grams; 96% FL/AC: 21.3 FL/BPD: 82.7 HC/AC: 1.0 GESTATIONAL AGE: Age by EDC: 38 weeks 0 days AYDE by EDC: 10/13/2023 Age by US: 39 weeks 5 days AYDE by US: 10/01/2023 US/US OB growth IMPRESSION: 1. Single live intrauterine with growth detailed above. 2. Estimated weight is at 96th percentile. Abdominal circumference is greater than 97th percentile. Electronically authenticated by: CHRISTINA MIRAMONTES Date: 10/02/2023 09:03
== END 2023-09-29 16:09 | disposition home or self-care (01) ==
LOC: US 16:08
PROVIDERS: Visit Provider Physician Assistant
DX: O36.60X0 Maternal care for excessive fetal growth, unspecified trimester, not applicable or unspecified (principal); Z3A.39 39 weeks gestation of pregnancy
CPT/HCPCS: 76816

== ENCOUNTER 2023-10-06 22:45 | Inpatient (IN) | payer OTHER, SELFPAY ==
--- OUTSIDE RECORDS SUMMARY | 2023-10-06 22:49 | XMS_ITS ---
Patient Summarization (C-CDA 2.1 CCD) Created on: October 06, 2023 Tim FERRARA~HANNAH : 1995 Sex: Female Author Organization Sample organization Care Team Providers Care Client Executive Name Role Phone Unavailable Primary Care Provider UnavailJOHN Trinidad Attending Unavailable James Rodriguez III Primary Care Physician NONE, XXXX Primary Care Physician Unavailab Ailin Lockett Primary Care Physician [phone] REQUEST, NONE LISTED Primary Care Unavaila ble YAMILEX, DR [...] Attending Unavailable KARASILindsay, DR PINEDA Admitting Unavailable KARASILindsay, DR PINEDA Consulting Unavailable REQUEST, DR JJ [...] Care Provider Zbigniew La Primary Care Physician [phone] Amie Rosas DO Primary Care Provider [phone] Bronson ABATTOIR MANAGER.CANDELARIO [facility] Primary Care Provider LORNA DOBSON Referring Unavailable [...] Admitting Unavailable O'MELISA, KATHERINE R Attending Unavailable Harris Simms Attending Unavailable Ochoa, DO Sarita Boo Attending Unavaila ble Nataprjessica, DO Sarita Boo Admitting Unavaila ble Gudimella, Zbigniew Attending Unavailable Gera Nelson Attending Unavailable Gera Nelson Admitting Unavailable Gera Nelson Admitting Unavailable Gera Nelson Attending Unavailable DO Yuniel Ware Attending Unavailable BOWEN, AMIE Attending Unavailable AWILDA, CASH Attending Unavailable BOWEN, AMIE Attending Unavailable AWILDA, CASH Attending Unavailable BOWEN, AMIE Attending Unavailable AWILDA, CASH Attending Unavailable AWILDA, CASH Attending Unavailable AWILDA, CASH Attending Unavailable AWILDA, CASH Attending Unavailable AWILDA, CASH Attending Unavailable BOWEN, AMIE Attending Unavailable Allergies Allergy Classification Reported Allergen(s) Allergy Type Date of Onset Reaction(s) Facility (8 sources) Contrast media; Translations: [Red Dye] Propensity to adverse reactions to drug 1 [employer] (20 sources) traMADol; Translations: [tramadol] Drug Allergy 1 Swelling, Other: See Comments, GI Upset, Shortness of Breath [employer] Work Phone: (9 sources) Red Dye 1 Allergy to substance [facility] Comment on above: [employer] (1 source) traMADol; Translations: [Ultram] Drug Allergy [facility] (1 source) Unable to obtain; Translations: [Unable to obtain] Propensity to adverse reactions (disorder) [facility] Encounters Encounter Date Encounter Type Care Provider Facility Start: 10-04-2023 End: 10-04-2023 ambulatory AMIE WISEMAN Not Available Start: 09-27-2023 End: 09-27-2023 ambulatory CASH AWILDA Not Available Start: 09-19-2023 End: 09-19-2023 ambulatory CASH AWILDA Not Available Start: 09-13-2023 End: 09-13-2023 ambulatory CASH AWILDA Not Available Start: 08-31-2023 End: 08-31-2023 ambulatory CASH AWILDA Not Available Start: 08-24-2023 End: 08-30-2023 Pre-admission assessment Sarita Packer [facility] Start: 08-23-2023 End: 08-23-2023 ambulatory DO Sarita Packer Facility:[facility] Start: 08-22-2023 End: 08-23-2023 OB Triage Sarita Packer [facility] Start: 08-17-2023 End: 08-17-2023 ambulatory AMIE BOWEN Not Available Start: 08-07-2023 End: 08-07-2023 ambulatory [facility] Start: 08-06-2023 End: 08-06-2023 Emergency department patient visit [facility] Start: 08-06-2023 End: 08-06-2023 Emergency department patient visit [facility] Comment on above: Left against medical advice (Primary Dx) Start: 08-03-2023 End: 08-03-2023 Emergency department patient visit [facility] Start: 08-02-2023 End: 08-02-2023 ambulatory CASH AWILDA Not Available Start: 07-28-2023 End: 07-28-2023 Emergency department patient visit [facility] Start: 07-19-2023 End: 07-19-2023 ambulatory AMIE BOWNE Not Available Start: 06-22-2023 End: 06-22-2023 ambulatory CASH AWILDA Not Available Start: 05-25-2023 End: 05-25-2023 ambulatory AMIE BOWEN Not Available Start: 05-18-2023 End: 05-18-2023 Emergency department patient visit [facility] Start: 04-20-2023 End: 04-20-2023 ambulatory CASH AWILDA Not Available Start: 03-31-2023 End: 03-31-2023 ambulatory AMIE BOWEN Not Available Start: 03-27-2023 End: 03-28-2023 ambulatory Gera D Leslie Facility:[facility] Start: 03-27-2023 End: 03-28-2023 ambulatory Gera Vasquez Leslie Facility:[facility] Start: 03-06-2023 End: 03-06-2023 ambulatory Brigitte Schafer [facility] Work Phone: Psychology Comment on above: NO SHOW (Primary Dx) Start: 03-06-2023 End: 03-06-2023 Telemedicine consultation with patient Brigitte Schafer [facility] Work Phone: [facility] Start: 02-24-2023 Telephone encounter Lorna womack ABATTOIR MANAGER.ADMINISTRATIVE OFFICE MANAGER Work Phone: [facility] [place] Comment on above: Results Start: 02-24-2023 End: 02-24-2023 ambulatory Key Casas ABATTOIR MANAGER.ADMINISTRATIVE OFFICE MANAGER Work Phone: Gastroenterology Comment on above: Hepatitis C virus in fection without hepatic coma, unspecified chronicity (Primary Dx); History of substance abuse (HCC) Start: 02-24-2023 End: 02-24-2023 Telemedicine consultation with patient Key Casas ABATTOIR MANAGER.ADMINISTRATIVE OFFICE MANAGER Work Phone: [facility] Start: 02-21-2023 Social Work Lien Candelaria [facility] Social Work Comment on above: Encounter for screen ing involving social determinants of health (SDoH) (Primary Dx) Start: 02-20-2023 Telephone encounter Brigitte martinez [facility] Work Phone: Psychology Comment on above: bh consult Start: 02-18-2023 End: 02-19-2023 ambulatory LORNA DOBSON Facility:[facility] Start: 02-17-2023 End: 02-17-2023 ambulatory LORNA DOBSON Facility:[facility] Start: 02-17-2023 End: 02-17-2023 Patient encounter procedure Lornasarah Dobson ABATTOIR MANAGER.ADMINISTRATIVE OFFICE MANAGER Work Phone: [facility] [place] Comment on above: Anxiety and depressi on (Primary Dx); History of substance abuse (HCC); Hepatitis C virus infection without hepatic coma, unspecified chronicity; Boils of multiple sites Start: 01-09-2023 End: 01-09-2023 ambulatory KELSI FREEDMAN Facility:[facility] Start: 01-09-2023 End: 01-09-2023 Patient encounter procedure Kesli Freedman APRN.CNP Work Phone: Internal Medicine [place] Comment on above: Obesity (BMI 30-39.9 ) (Primary Dx); Hepatitis C virus infection without hepatic coma, unspecified chronicity; Anxiety and depression; Psychophysiological insomnia; History of intravenous drug use in remission; Restless leg; Special screening examination for viral disease; Screening for HIV (human immunodeficiency virus); Lipid screening; Vitamin D deficiency; Encounter for immunization Start: 11-09-2022 End: 11-10-2022 ambulatory Zbigniewgal La Facility:[facility] Start: 11-09-2022 End: 11-09-2022 Patient encounter procedure Zbigniewgal La [facility] Start: 11-05-2022 End: 11-05-2022 Emergency department patient visit Harris Simms Facility:[facility] Start: 11-05-2022 End: 11-05-2022 Emergency department patient visit Harris Mendez [facility] Start: 11-02-2022 ambulatory Harris Simms Facility:[facility] Start: 10-30-2022 End: 10-30-2022 Emergency department patient visit AMIE ROSAS [facility] Start: 10-30-2022 End: 10-30-2022 Emergency department patient visit Pa Celis MD Work Phone: [facility] Comment on above: Urticaria (Primary D x) Start: 09-22-2022 End: 09-23-2022 Emergency department patient visit DO Yuniel Ware Facility:[facility] Start: 08-19-2022 End: 08-20-2022 Emergency department patient visit [facility] Start: 08-19-2022 End: 08-19-2022 Emergency department patient visit Pat S Teixeira DO [facility] Comment on above: Acute bacterial conj unctivitis of right eye (Primary Dx) Start: 04-25-2022 End: 04-25-2022 Emergency department patient visit Pa Celis MD Work Phone: [facility] ED Comment on above: Acute pharyngitis, u nspecified etiology (Primary Dx) Start: 10-23-2021 End: 10-24-2021 Evaluation and management of inpatient Cisco Stallings MD Work Phone: [facility] Comment on above: Acute appendicitis, unspecified acute appendicitis type Start: 10-23-2021 End: 10-23-2021 Emergency department patient visit Pa Celis MD Work Phone: [facility] ED Comment on above: Other acute appendic itis (Primary Dx) Start: 10-20-2021 End: 10-20-2021 OB Triage Roscoe Han [facility] Start: 10-20-[address] DOCTOR LEONARD [...] 09-17-2021 End: 09-18-2021 OB Triage Gera Nelson [facility] Start: 08-28-2021 End: 09-29-2021 Pre-admission assessment Gera Nelson [facility] Start: 08-26-2021 End: 08-27-2021 OB Triage Gera Nelson [facility] Start: 08-05-2021 End: 08-06-[address] LEONIDES SWARTZ Facility:[facility] Start: 07-29-2021 End: 07-30-[address] CASH BOYD Facility:[facility] Start: 07-24-2021 End: 07-24-2021 Emergency department patient visit Hayley Santa [facility] Start: 04-10-2021 Emergency department patient visit JOHN FERNANDES [facility] Start: 04-10-2021 End: 04-10-2021 Emergency department patient visit John Fernandes MD Work Phone: [facility] ED Comment on above: COVID-19 (Primary Dx ) Start: 04-02-2021 End: 04-03-[address] CASH BOYD Facility:[facility] Start: 03-19-2021 End: 03-20-[address] LEONIDES SWARTZ Facility:[facility] Start: 02-23-2021 End: 02-24-[address] EDWIN KAMINSKI Facility:[facility] Start: 02-04-2021 End: 02-04-[address] JJ LISTED REQUEST Facility:[facility] Immunizations Immunization Date Immunization Notes Care Provider [facility] 01-09-2023 influenza, injectabl e, quadrivalent, contains preservative Kelsi Freedman ABATTOIR MANAGER.ADMINISTRATIVE OFFICE MANAGER Work Phone: [facility] 06-03-2010 HPV, unspecified formulation Lorna Dobson ABATTOIR MANAGER.ADMINISTRATIVE OFFICE MANAGER Work Phone: [facility] 06-03-2010 influenza, seasonal, injectable Lorna Dobson ABATTOIR MANAGER.ADMINISTRATIVE OFFICE MANAGER Work Phone: [facility] 06-03-2010 meningococcal polysaccharide (groups A, C, Y and W-135) diphtheria toxoid conjugate vaccine (MCV4P) Lorna Bronson ABATTOIR MANAGER.ADMINISTRATIVE OFFICE MANAGER Work Phone: [facility] 06-03-2010 tetanus toxoid, redu radha diphtheria toxoid, and acellular pertussis vaccine, adsorbed Lorna Bronson ABATTOIR MANAGER.ADMINISTRATIVE OFFICE MANAGER Work Phone: [facility] 11-15-2000 diphtheria, tetanus toxoids and acellular pertussis vaccine, unspecified formulation Lorna Bronson ABATTOIR MANAGER.ADMINISTRATIVE OFFICE MANAGER Work Phone: [facility] 11-15-2000 measles, mumps and rubella virus vaccine Lorna Bronson ABATTOIR MANAGER.ADMINISTRATIVE OFFICE MANAGER Work Phone: [facility] 11-15-2000 poliovirus vaccine, inactivated Lorna Bronson ABATTOIR MANAGER.ADMINISTRATIVE OFFICE MANAGER Work Phone: [facility] 08-04-1999 diphtheria, tetanus toxoids and acellular pertussis vaccine, unspecified formulation Lorna Bronson ABATTOIR MANAGER.ADMINISTRATIVE OFFICE MANAGER Work Phone: [facility] 08-04-1999 trivalent poliovirus vaccine, live, oral Lorna Bronson ABATTOIR MANAGER.ADMINISTRATIVE OFFICE MANAGER Work Phone: [facility] 07-07-1999 diphtheria, tetanus toxoids and acellular pertussis vaccine, unspecified formulation Lorna Bronson ABATTOIR MANAGER.ADMINISTRATIVE OFFICE MANAGER Work Phone: [facility] 07-07-1999 hepatitis B vaccine, pediatric or pediatric/adolescent dosage Lorna Bronson ABATTOIR MANAGER.ADMINISTRATIVE OFFICE MANAGER Work Phone: [facility] 07-07-1999 trivalent poliovirus vaccine, live, oral Lorna Bronson ABATTOIR MANAGER.ADMINISTRATIVE OFFICE MANAGER Work Phone: [facility] 02-19-1997 diphtheria, tetanus toxoids and acellular pertussis vaccine, unspecified formulation Lorna Bronson ABATTOIR MANAGER.ADMINISTRATIVE OFFICE MANAGER Work Phone: [facility] 02-19-1997 haemophilus influenz ae type b vaccine, conjugate unspecified formulation Lorna Bronson ABATTOIR MANAGER.ADMINISTRATIVE OFFICE MANAGER Work Phone: [facility] 02-19-1997 hepatitis B vaccine, pediatric or pediatric/adolescent dosage Lorna Bronson ABATTOIR MANAGER.ADMINISTRATIVE OFFICE MANAGER Work Phone: [facility] 02-19-1997 measles, mumps and rubella virus vaccine Lorna Bronson ABATTOIR MANAGER.ADMINISTRATIVE OFFICE MANAGER Work Phone: [facility] 02-19-1997 trivalent poliovirus vaccine, live, oral Lornasarah Dobson ABATTOIR MANAGER.ADMINISTRATIVE OFFICE MANAGER Work Phone: [facility] 1995 hepatitis B vaccine, pediatric or pediatric/adolescent dosage Lornasarah Dobson ABATTOIR MANAGER.ADMINISTRATIVE OFFICE MANAGER Work Phone: [facility] Medications Current Medications Medication Drug Class(es) Dates Sig (Normalized) Sig (Original) Tylenol (8 sources) Start: 10-20-2021 Tylenol Refill s(s) 0 Start Date: 10/20/21 Status: Ordered take 2 tablets by [facility] every six hours as needed for pain acetaminophen (TYLENOL) 325 MG tablet Ta ke 2 tablets by mouth every 6 hours as needed for Pain 0 Active acetaminophen 325 mg / HYDROcodone bitartrate 5 mg oral tablet (4 sources) Opioid Agonist Start: 09-22-2022 Parkman 325 mg-5 mg oral tablet 1 tab(s), Oral, q6hr for pain, 5 tab(s), Refill(s) 0, [id number], 162, cm, 09/22/22 21:14:00 EDT, Height/Length Dosing, [...] Albuterol (Eqv-ProAir HFA) 90 mcg/inh inhalation aerosol (9 sources) Start: 04-11-2021 take 2 puff(s) by inhalation every six hours Albuterol (Eqv-ProAir HFA) 90 mcg/inh inhalation aerosol 2 puff(s), Inhalation, q6hr Cough and Congestion, 18 gm, Refill(s) 0, [facility], 163, cm, 04/11/21 13:02:00 EST, Height/Length Dosing, 95, kg, 04/11/21 13:02:00 EST, Weight Dosing Start Date: 04/11/21 Status: Ordered busPIRone hydrochloride 5 mg oral tablet (9 sources) Start: 06-17-2020 take 1 tablet by mouth twice daily busPIRone 5 mg Tab 5 mg = 1 tab(s), Oral, BID, # 60 tab(s), Refills(s) 0, Pharmacy: [facility], 162.5, cm, 05/10/20 15:42:00 EST, Height/Length Dosing, 83.4, kg, 05/10/20 15:42:00 EST, Weight Dosing Start Date: 06/17/20 Status: Ordered cetirizine hydrochloride 10 mg oral tablet (2 sources) Histamine-1 Receptor Antagonist Start: 11-05-2022 End: 11-12-2022 take 1 tablet by mouth once daily cetirizine 10 mg Tab 10 mg = 1 tab(s), Oral, Daily, X 7 day(s), # 7 tab(s), Refills(s) 0, [facility]: [id number], 162, cm, 11/05/22 9:56:00 EDT, Height/Length Dosing, [...] # 7 tab(s), Refills(s) 0, [facility]acy: [id number], 162, cm, 11/05/22 9:56:00 EDT, Height/Length Dosing, 105, kg, 11/05/22 9:56:00 EDT, Weight Dosing Start Date: 11/05/22 Stop Date: 11/12/22 Status: Ordered ferrous sulfate (8 sources) Start: 08-26-2021 ferrous sulfate Oral, Refills(s) [...] needed for Pain 0 Active Multi Vitamin+ (8 sources) Start: 08-26-2021 Multi Vitamin+ Refill(s) 0 Start Date: 08/26/21 Status: Ordered Naltrexone (2 sources) Opioid Antagonist Start: 07-21-2019 Vivitrol Refills(s) 0 Start Date: 07/21/19 Status: Ordered naproxen 500 mg oral tablet (4 sources) Nonsteroidal Anti-inflammatory Drug Start: 09-22-2022 take 1 tablet by mouth twice daily as needed for pain Naprosyn 500 mg Tab 500 mg = 1 tab(s), Oral, BID, PRN for pain, # 20 tab(s), Refills(s) 0, [facility]: [id number], 162, cm, 09/22/22 21:14:00 EDT, Height/Length Dosing, [...] day(s), # 21 tab(s), Refills(s) 0, [id number], 162, cm, 11/05/22 9:56:00 EDT, Height/Length Dosing, [...] 05/05/2022 Active escitalopram 5 mg oral tablet (17 sources) Serotonin Reuptake Inhibitor Start: 02-17-2023 take 1 tablet by mouth once daily escitalopram oxalate (LEXAPRO) 5 mg tablet Indications: Anxiety and depression Take 1 tablet by mouth once daily. 30 tablet 0 02/17/2023 Active Start: 06-02-2020 End: 02-17-2023 take 1 tablet by mouth once daily escitalopram 10 mg Tab 10 mg = 1 tab(s), Oral, Daily, # 30 tab(s), Refills(s) 0, [facility], 162.5, cm, 05/10/20 15:42:00 EST, Height/Length Dosing, 83.4, kg, 01/10/21 15:42:00 EST, Weight Dosing Start Date: 06/02/20 Status: Ordered Comment on above: Take 1 tablet by [...] needed for Nausea or Vomiting 0 Active Payers Date Payer Category Payer Medicaid [employer] [id number] 2022-Present [phone] [address] [place] [address] Medicaid [id number] 2014 Unknown [id number] [id number].3. [id number] 1995 Unknown [id number] 2.16.840.1.547068.3.579.2.174 1995 Unknown [id number] 2.16.840.1.465186.3.579.2.593 1995 Unknown [id number] 2.16.840.1.841204.3.579.2.593 1995 Unknown [id number] 2.16.840.1.149024.3.579.2.593 1995 Unknown [id number] 2.16.840.1.880282.3.579.2.593 1995 Unknown [id number] 2.16.840.1.590424.3.579.2.593 1995 Unknown [id number] 2.16.840.1.928573.3.579.2.593 1995 Unknown [id number] 2.16.840.1.620406.3.579.2.593 1995 Unknown [id number] 2.16.840.1.553240.3.579.2.593 1995 Unknown [id number] 2.16.840.1.865672.3.579.2.593 1995 Unknown [id number] 2.16.840.1.850758.3.579.2.593 1995 Unknown [id number] 2.16.840.1.735702.3.579.2.593 1995 Unknown [id number] 2.16.840.1.904059.3.579.2.593 1995 Unknown [id number] 2.16.840.1.369497.3.579.2.593 1995 Unknown [id number] 2.16.840.1.007243.3.579.2.593 1995 Unknown [id number] 2.16.840.1.972207.3.579.2.185 1995 Unknown [id number] 2.16.840.1.640255.3.579.2.185 1995 Unknown [id number] 2.16.840.1.128258.3.579.2.185 1995 Unknown [id number] 2.16.840.1.318129.3.579.2.185 1995 Unknown [id number] 2.16.840.1.511663.3.579.2.185 1995 Unknown [id number] 2.16.840.1.317660.3.579.2.185 1995 Unknown [id number] 2.16.840.1.242222.3.579.2.182 1995 Unknown [id number] 2.16.840.1.036387.3.579.2.727 1995 Unknown [id number] 2.16.840.1.002438.3.579.2.727 1995 Unknown [id number] 2.16.840.1.178632.3.579.2.727 1995 Unknown [id number] 2.16.840.1.782802.3.579.2.727 1995 Unknown [id number] 2.16.840.1.810318.3.579.2.727 1995 Unknown [id number] 2.16.840.1.060489.3.579.2.727 1995 Unknown [id number] 2.16.840.1.009611.3.579.2.727 1995 Unknown [id number] 2.16.840.1.015812.3.579.2.9 1995 Unknown [id number] 2.16.840.1.779952.3.579.2.1259 1995 Unknown [id number] 2.16.840.1.238663.3.579.2.9 1995 Unknown [id number] 2.16.840.1.826980.3.579.2.1259 1995 Unknown [id number] 2.16.840.1.175706.3.579.2.1259 1995 Unknown [id number] 2.16.840.1.970766.3.579.2.1258 1995 Unknown [id number] 2.16.840.1.977581.3.579.2.1258 1995 Unknown [id number] 2.16.840.1.055237.3.579.2.1258 1995 Unknown [id number] 2.16.840.1.004021.3.579.2.1258 1995 Unknown [id number] 2.16.840.1.730898.3.579.2.1258 1995 Unknown [id number] 2.16.840.1.157211.3.579.2.1258 1995 Unknown [id number] 2.16.840.1.417056.3.579.2.1259 1959 Self-pay 1959 Unknown [id number] 1.2.840.257154.1.13.239.2.7.3. 202082.315 Unknown [id number] 2.16.840.1.962475.3.579.2.593 Plan of Treatment Date Care Activity Detail Author Start: 07-14-2023 [facility] Start: 02-24-2023 End: 05-26-2023 ADENOVIRUS ANTIBODY ADENOVIRUS ANTIBODY Lab Routine Hepatitis C virus infection without hepatic coma, unspecified chronicity Expected: 02/24/2023, Expires: 05/26/2023 [facility] Work Phone: Comment on above: Expected: 02/24/2023, Expires: Start: 02-24-2023 End: 05-26-2023 Alpha 1 antitrypsin [Mass/volume] in Serum or Plasma [id number] BL Lab Routine Hepatitis C virus infection without hepatic coma, unspecified chronicity Expected: 02/24/2023, Expires: 05/26/2023 [facility] Work Phone: Comment on above: Expected: 02/24/2023, Expires: Start: 02-24-2023 End: 05-26-2023 [id number] [Mass/volume] in Serum or Plasma ALPHA FETOPROTEIN BL Lab Routine Hepatitis C virus infection without hepatic coma, unspecified chronicity Expected: 02/24/2023, Expires: 05/26/2023 [facility] Work Phone: Comment on above: Expected: 02/24/2023, Expires: Start: 02-24-2023 End: 05-26-2023 Basic metabolic 2000 panel - Serum or Plasma BASIC METABOLIC PNL Lab Routine Hepatitis C virus infection without hepatic coma, unspecified chronicity Expected: 02/24/2023, Expires: 05/26/2023 [facility] Work Phone: Comment on above: Expected: 02/24/2023, Expires: Start: 02-24-2023 End: 05-26-2023 Ceruloplasmin [Mass/volume] in Serum or Plasma CERULOPLASMIN BLD Lab Routine Hepatitis C virus infection without hepatic coma, unspecified chronicity Expected: 02/24/2023, Expires: 05/26/2023 [facility] Work Phone: Comment on above: Expected: 02/24/2023, Expires: Start: 02-24-2023 End: 05-26-2023 CYTOMEGALOVIRUS (CMV) DNA, QUANTITATIVE PCR, PLASMA CYTOMEGALOVIRUS (CMV) DNA, QUANTITATIVE PCR, PLASMA Lab Routine Hepatitis C virus infection without hepatic coma, unspecified chronicity Expected: 02/24/2023, Expires: 05/26/2023 [facility] Work Phone: Comment on above: Expected: 02/24/2023, Expires: Start: 02-24-2023 End: 05-26-2023 Cytomegalovirus IgG Ab [Units/volume] in Serum or Plasma CMV IGG ANTIBODY BL Lab Routine Hepatitis C virus infection without hepatic coma, unspecified chronicity Expected: 02/24/2023, Expires: 05/26/2023 [facility] Work Phone: Comment on above: Expected: 02/24/2023, Expires: Start: 02-24-2023 End: 05-26-2023 Cytomegalovirus IgM Ab [Units/volume] in Serum or Plasma CMV IGM AB Lab Routine Hepatitis C virus infection without hepatic coma, unspecified chronicity Expected: 02/24/2023, Expires: 05/26/2023 [facility] Work Phone: Comment on above: Expected: 02/24/2023, Expires: Start: 02-24-2023 End: 05-26-2023 Sotero Rosas virus capsid IgM Ab [Units/volume] in Serum SOTERO-ROSAS VCA IGM Lab Routine Hepatitis C virus infection without hepatic coma, unspecified chronicity Expected: 02/24/2023, Expires: 05/26/2023 [facility] Work Phone: Comment on above: Expected: 02/24/2023, Expires: Start: 02-24-2023 End: 05-26-2023 Sotero Rosas virus DNA [#/volume] (viral load) in Blood by JAYDE with probe detection SOTERO-ROSAS DNA QNT Lab Routine Hepatitis C virus infection without hepatic coma, unspecified chronicity Expected: 02/24/2023, Expires: 05/26/2023 [facility] Work Phone: Comment on above: Expected: 02/24/2023, Expires: Start: 02-24-2023 End: 05-26-2023 Ferritin [Mass/volume] in Serum or Plasma FERRITIN BLD Lab Routine Hepatitis C virus infection without hepatic coma, unspecified chronicity Expected: 02/24/2023, Expires: 05/26/2023 [facility] Work Phone: Comment on above: Expected: 02/24/2023, Expires: Start: 02-24-2023 End: 05-26-2023 Hepatic function 2000 panel - Serum or Plasma HEPATIC FUNCTION PNL Lab Routine Hepatitis C virus infection without hepatic coma, unspecified chronicity Expected: 02/24/2023, Expires: 05/26/2023 [facility] Work Phone: Comment on above: Expected: 02/24/2023, Expires: Start: 02-24-2023 End: 05-26-2023 HEPATITIS A ANTIBODY, IGG HEPATITIS A ANTIBODY, IGG Lab Routine Hepatitis C virus infection without hepatic coma, unspecified chronicity Expected: 02/24/2023, Expires: 05/26/2023 [facility] Work Phone: Comment on above: Expected: 02/24/2023, Expires: 4 Start: 02-24-2023 End: 05-26-2023 Hepatitis B virus core Ab [Presence] in Serum HEP B CORE AB TOTAL Lab Routine Hepatitis C virus infection without hepatic coma, unspecified chronicity Expected: 02/24/2023, Expires: 05/26/2023 [facility] Work Phone: Comment on above: Expected: 02/24/2023, Expires: 4 Start: 02-24-2023 End: 05-26-2023 Hepatitis B virus surface Ab [Presence] in Serum HEP B SURF AB Lab Routine Hepatitis C virus infection without hepatic coma, unspecified chronicity Expected: 02/24/2023, Expires: 05/26/2023 [facility] Work Phone: Comment on above: Expected: 02/24/2023, Expires: 4 Start: 02-24-2023 End: 05-26-2023 Hepatitis B virus surface Ag [Presence] in Serum HEP B SURF AG SCRN Lab Routine Hepatitis C virus infection without hepatic coma, unspecified chronicity Expected: 02/24/2023, Expires: 05/26/2023 [facility] Work Phone: Comment on above: Expected: 02/24/2023, Expires: Start: 02-24-2023 End: 05-26-2023 Hepatitis C virus genotype [Identifier] in Serum or Plasma by JAYDE with probe detection HEPATITIS C GENOTYPE Lab Routine Hepatitis C virus infection without hepatic coma, unspecified chronicity Expected: 02/24/2023, Expires: 05/26/2023 [facility] Work Phone: Comment on above: Expected: 02/24/2023, Expires: Start: 02-24-2023 End: 05-26-2023 HFE gene targeted mutation analysis in Blood or Tissue by Molecular genetics method HFE (HEMOCHROMATOSIS) Lab Routine Hepatitis C virus infection without hepatic coma, unspecified chronicity Expected: 02/24/2023, Expires: 05/26/2023 [facility] Work Phone: Comment on above: Expected: 02/24/2023, Expires: Start: 02-24-2023 End: 05-26-2023 HIV 1+2 Ab [Presence] in Serum or Plasma by Immunoassay HIV 1 2 COMBO(AG/AB),WITH REFLEX TO DIFFERENTIATION Lab Routine Hepatitis C virus infection without hepatic coma, unspecified chronicity Expected: 02/24/2023, Expires: 05/26/2023 [facility] Work Phone: Comment on above: Expected: 02/24/2023, Expires: 4 Start: 02-24-2023 End: 05-26-2023 IgG [Mass/volume] in Serum or Plasma IGG Lab Routine Hepatitis C virus infection without hepatic coma, unspecified chronicity Expected: 02/24/2023, Expires: 05/26/2023 [facility] Work Phone: Comment on above: Expected: 02/24/2023, Expires: 4 Start: 02-24-2023 End: 05-26-2023 IgM [Mass/volume] in Serum or Plasma IGM Lab Routine Hepatitis C virus infection without hepatic coma, unspecified chronicity Expected: 02/24/2023, Expires: 05/26/2023 [facility] Work Phone: Comment on above: Expected: 02/24/2023, Expires: Start: 02-24-2023 End: 05-26-2023 Iron and Iron binding capacity panel - Serum or Plasma IRON + TIBC Lab Routine Hepatitis C virus infection without hepatic coma, unspecified chronicity Expected: 02/24/2023, Expires: 05/26/2023 [facility] Work Phone: Comment on above: Expected: 02/24/2023, Expires: Start: 02-24-2023 End: 05-26-2023 Liver kidney microsomal Ab [Titer] in Serum by Immunofluorescence LKM AB Lab Routine Hepatitis C virus infection without hepatic coma, unspecified chronicity Expected: 02/24/2023, Expires: 05/26/2023 [facility] Work Phone: Comment on above: Expected: 02/24/2023, Expires: Start: 02-24-2023 End: 05-26-2023 Mitochondria Ab [Presence] in Serum by Immunofluorescence MITOCHONDRIAL M2 IGG SERUM Lab Routine Hepatitis C virus infection without hepatic coma, unspecified chronicity Expected: 02/24/2023, Expires: 05/26/2023 [facility] Work Phone: Comment on above: Expected: 02/24/2023, Expires: 4 Start: 02-24-2023 End: 05-26-2023 Nuclear Ab [Presence] in Serum by Immunoassay MORE BLOOD Lab Routine Hepatitis C virus infection without hepatic coma, unspecified chronicity Expected: 02/24/2023, Expires: 05/26/2023 [facility] Work Phone: Comment on above: Expected: 02/24/2023, Expires: Start: 02-24-2023 End: 05-26-2023 PT panel - Platelet poor plasma by Coagulation assay PROTHROMBIN TIME/PT Lab Routine Hepatitis C virus infection without hepatic coma, unspecified chronicity Expected: 02/24/2023, Expires: 05/26/2023 [facility] Work Phone: Comment on above: Expected: 02/24/2023, Expires: Start: 02-24-2023 End: 05-26-2023 Smooth muscle Ab [Presence] in Serum SMOOTH MUSCLE AB SCR Lab Routine Hepatitis C virus infection without hepatic coma, unspecified chronicity Expected: 02/24/2023, Expires: 05/26/2023 [facility] Work Phone: Comment on above: Expected: 02/24/2023, Expires: 4 Start: 01-09-2023 End: 03-11-2023 25-hydroxyvitamin D3 [Mass/volume] in Serum or Plasma VITAMIN D 25 HYDROXY Lab Routine Vitamin D deficiency Expected: 01/09/2023, Expires: 03/11/2023 [facility] Work Phone: Comment on above: Expected: 01/09/2023, Expires: 3 Start: 01-09-2023 End: 03-11-2023 CBC W Auto Differential panel - Blood CBC + DIFF Lab Routine Restless leg Expected: 01/09/2023, Expires: 03/11/2023 [facility] Work Phone: Comment on above: Expected: 01/09/2023, Expires: 3 Start: 01-09-2023 End: 03-11-2023 Cobalamin (Vitamin B12) [Mass/volume] in Serum or Plasma VITAMIN B12 BLOOD Lab Routine Restless leg Expected: 01/09/2023, Expires: 03/11/2023 [facility] Work Phone: Comment on above: Expected: 01/09/2023, Expires: 3 Start: 01-09-2023 End: 03-11-2023 Comprehensive metabolic 2000 panel - Serum or Plasma COMP METABOLIC PANEL Lab Routine Obesity (BMI 30-39.9) Expected: 01/09/2023, Expires: 03/11/2023 [facility] Work Phone: Comment on above: Expected: 01/09/2023, Expires: 3 Start: 01-09-2023 End: 03-11-2023 Ferritin [Mass/volume] in Serum or Plasma FERRITIN BLD Lab Routine Restless leg Expected: 01/09/2023, Expires: 03/11/2023 [facility] Work Phone: Comment on above: Expected: 01/09/2023, Expires: 3 Start: 01-09-2023 End: 03-11-2023 Folate [Mass/volume] in Serum or Plasma FOLATE SERUM Lab Routine Restless leg Expected: 01/09/2023, Expires: 03/11/2023 [facility] Work Phone: Comment on above: Expected: 01/09/2023, Expires: 3 Start: 01-09-2023 End: 03-11-2023 Hemoglobin A1c in Blood HGB A1C Lab Routine Obesity (BMI 30-39.9) Expected: 01/09/2023, Expires: 03/11/2023 [facility] Work Phone: Comment on above: Expected: 01/09/2023, Expires: 3 Start: 01-09-2023 End: 03-11-2023 Hepatitis C virus Ab [Presence] in Serum HEPATITIS C ANTIBODY IA WITH CONFIRMATION Lab Routine Special screening examination for viral disease Expected: 01/09/2023, Expires: 03/11/2023 [facility] Work Phone: Comment on above: Expected: 01/09/2023, Expires: 3 Start: 01-09-2023 End: 03-11-2023 HIV 1+2 Ab [Presence] in Serum or Plasma by Immunoassay HIV 1 2 COMBO(AG/AB),WITH REFLEX TO DIFFERENTIATION Lab Routine Screening for HIV (human immunodeficiency virus) Expected: 01/09/2023, Expires: 03/11/2023 [facility] Work Phone: Comment on above: Expected: 01/09/2023, Expires: 3 Start: 01-09-2023 End: 03-11-2023 Iron and Iron binding capacity panel - Serum or Plasma IRON + TIBC Lab Routine Restless leg Expected: 01/09/2023, Expires: 03/11/2023 [facility] Work Phone: Comment on above: Expected: 01/09/2023, Expires: 3 Start: 01-09-2023 End: 03-11-2023 Lipid 1996 panel - Serum or Plasma LIPID PANEL BASIC Lab Routine Lipid screening Expected: 01/09/2023, Expires: 03/11/2023 [facility] Work Phone: Comment on above: Expected: 01/09/2023, Expires: Start: 01-09-2023 End: 03-11-2023 TOX SCREEN ROUT UR TOX SCREEN ROUT UR Lab Routine History of intravenous drug use in remission Expected: 01/09/2023 (Approximate), Expires: 03/11/2023 [facility] Work Phone: Comment on above: Expected: 01/09/2023 (Approximate), Expi res: 03/11/2023 Start: 12-30-2022 Covid-19 Vaccine ( season) Covid-19 Vaccine ( season) [facility] Start: 11-29-2022 Influenza vaccination [facility] Start: 12-30-2021 Influenza vaccination Flu vaccine (Season Ended) [facility] Start: 11-29-2021 Influenza vaccination Flu vaccine (#1) [facility] Start: 10-24-2021 End: 10-24-2021 Laparoscopic appendectomy APPENDECTOMY LAPAROSCOPIC Acute appendicitis, unspecified acute appendicitis type 10/24/2021 10:30 AM [facility] Start: 12-30-2020 Influenza vaccination Flu vaccine (#1) [facility] Start: 10-10-2020 COVID-19 VACCINE (3 - Moderna series) COVID-19 VACCINE (3 - Moderna series) [facility] Start: 06-03-2020 DTaP/Tdap/Td vaccine (6 - Td or Tdap) DTaP/Tdap/Td vaccine (6 - Td or Tdap) [facility] Start: 06-03-2020 Urine microalbumin profile DTaP,Tdap,Td Vaccine (6 - Td or Tdap) [facility] Start: 10-06-2016 PAP TESTING PAP TESTING [facility] Start: 10-06-2016 Screening for malignant neoplasm of cervix Pap smear [facility] Start: 10-06-2014 DTaP/Tdap/Td vaccine (1 - Tdap) DTaP/Tdap/Td vaccine (1 - Tdap) [facility] Start: 10-06-2014 Urine microalbumin profile DTAP,TDAP,TD (1 - Tdap) [facility] Start: 10-06-2013 Hepatitis C screening Hepatitis C screen [facility] Start: 10-06-2013 HIV SCREENING HIV SCREENING [facility] Start: 12-01-2010 HPV Vaccine (2 - 2-dose series) HPV Vaccine (2 - 2-dose series) [facility] Start: 10-06-2010 HIV screening HIV screen [facility] Start: 2007 COVID-19 Vaccine (1) COVID-19 Vaccine (1) [facility] Start: 2007 Depression Screen Depression Screen [facility] Start: 10-06-2006 HPV vaccine (1 - 2-dose series) HPV vaccine (1 - 2-dose series) [facility] Start: 10-06-2001 PNEUMOCOCCAL (1 - PCV) PNEUMOCOCCAL (1 - PCV) [facility] Start: 10-06-2001 Pneumococcal vaccination Pneumococcal Vaccine (1 - PCV) [facility] Start: 12-13-2000 Polio vaccine (2 of 3 - 4-dose series) Polio vaccine (2 of 3 - 4-dose series) [facility] Start: 10-06-2000 COVID-19 Vaccine (1) COVID-19 Vaccine (1) [facility] Start: 10-06-1996 Varicella vaccine (1 of 2 - 2-dose childhood series) Varicella vaccine (1 of 2 - 2-dose childhood series) [facility] Start: 04-07-1996 COVID-19 Vaccine (#1) COVID-19 Vaccine (#1) [facility] Start: 1995 HEPATITIS B (1 of 3 - 3-dose series) HEPATITIS B (1 of 3 - 3-dose series) [facility] Start: 1995 Hepatitis B vaccine (1 of 3 - 3-dose series) Hepatitis B vaccine (1 of 3 - 3-dose series) [facility] DDI VIBRATION CONTRO LLED TRANSIENT ELASTOGRAPHY (VCTE) DDI VIBRATION CONTROLLED TRANSIENT ELASTOGRAPHY (VCTE) Endoscopy Routine Hepatitis C virus infection without hepatic coma, unspecified chronicity Ordered: 02/24/2023 [facility] Work Phone: Comment on above: Ordered: 02/24/2023 Surgical Pathology Surgical Path ology Lab Routine Acute appendicitis, unspecified acute appendicitis type Release Upon Ordering for 1 Occurrences starting 10/24/2021 [facility] Work Phone: Comment on above: Release Upon Ordering for 1 Occurrences starting 10/24/2021 End: 03-25-2024 US ABD RIGHT UPPER QUADRANT US ABD RIGHT UPPER QUADRANT Radiology Routine Hepatitis C virus infection without hepatic coma, unspecified chronicity 1 Occurrences starting 02/24/2023 until 03/25/2024 [facility] Work Phone: Comment on above: 1 Occurrences starting 02/24/2023 until 03/25/2024 End: 03-25-2024 Us abdominal real time w/image limited US ABD SPLEEN Radiology Routine Hepatitis C virus infection without hepatic coma, unspecified chronicity 1 Occurrences starting 02/24/2023 until 03/25/2024 [facility] Work Phone: Comment on above: 1 Occurrences starting 02/24/2023 until 03/25/2024 [facility] Problems Active Problems Problem Classification Problem Date Documented Date Episodic/Chronic Anxiety disorders (18 sources) Mixed anxiety and depressive disorder; Translations: [Anxiety disorder, unspecified] Onset: 3 03-25-2019 Chronic Disorders of lipid metabolism (9 sources) Hypercholesterolemia 07-28-2018 Chronic Disorders of teeth and jaw (9 sources) Dental caries 07-12-2013 Episodic E Codes: Fall (1 source) Unspecified fall, initial encounter; Translations: [Unspecified fall, initial encounter] Onset: 4 Episodic Early or threatened labor (4 sources) False labor at or after 37 completed weeks of gestation; Translations: [FALSE LABOR AT/AFTR 37 CMPL WK GEST] Onset: 2 Episodic Endometriosis (9 sources) Endometriosis (clinical) 07-13-2014 Chronic Genitourinary symptoms and ill-defined conditions (9 sources) H/O: kidney infection 02-13-2015 Episodic Hepatitis [...] Episodic Other diseases of kidney and ureters (9 sources) Infectious disorder of kidney 03-25-2019 Chronic [...] 3 Chronic Other and delivery including normal (15 sources) Teenage ; Translations: [Single live ] [...] infection, unspecified] Onset: 2 Episodic Ovarian cyst (9 sources) Cyst of ovary 06-05-2016 Episodic Residual codes; unclassified (9 sources) Chronic back pain 02-19-2017 Episodic Residual [...] 4 Episodic Schizophrenia and other psychotic disorders (9 sources) Schizophrenia 03-25-2019 Chronic Skin and subcutaneous tissue infections (1 source) Boils of multiple sites; Translations: [Furuncle, unspecified] 02-17-2023 Episodic Substance-related disorders (20 sources) Smoker; Translations: [Nicotine dependence, cigarettes, uncomplicated] Onset: 2 12-07-2013 Chronic Comment on above: Added secondary to d ocumentation in Social History. Suicide and intentional self-inflicted injury (9 sources) Suicidal thoughts 03-25-2019 Episodic Superficial injury; contusion (1 source) Contusion of right knee, initial encounter; Translations: [Contusion of right knee, initial encounter] Onset: 4 Episodic Umbilical cord complication (1 source) Labor and delivery complicated by cord around neck, without compression, not applicable or unspecified; Translations: [L AND D COMP CORD NECK NO COMPRS NA/UNS] Onset: 2 Episodic Unclassified (9 sources) Bipolar (qualifier value) 03-25-2019 Unclassified (19 sources) Onset: 3 Resolved: 2 11-06-2014 Unclassified (5 sources) Tobacco use during ( Confirmed ) 04-28-2013 Unclassified (4 sources) Tobacco use during 04-28-2013 Unclassified (1 source) History of intravenous drug use in remission; Translations: [History of intravenous drug use in remission] Onset: 3 Unclassified (1 source) NO SHOW 03-06-2023 Urinary tract infections (18 sources) Acute pyelonephritis; Translations: [Lower urinary tract [...] acute conjunctivitis, right eye] Onset: 08-19-2022 Episodic Procedures Date Procedure Procedure Detail Performing Clinician Start: 08-06-2023 Urnls dip stick/tabl et rgnt auto w/o microscopy Pat Teixeira DO Start: 01-09-2023 INFLUENZA VACCINE, A GE 6 MO - 64 YR, QUADRIVALENT (AFLURIA, FLULAVAL, FLUZONE) Kelsi Freedman APRN.ADMINISTRATIVE OFFICE MANAGER Work Phone: Start: 04-25-2022 COVID-19, RAPID Pa Celis MD Work Phone: Start: 04-25-2022 End: 04-25-2022 Iaad ia streptococcus group a Shamika Abreu FACILITIES ENGINEER-C Work Phone: Start: 10-23-2021 Urinalysis microscopic only [...] Work Phone: Root canal obturation Hayley Santa Results Test Name Value Interpretation Reference Range Facility Nursing Assessmenton 024 Nursing Assessment [id number]. 00TIFF [facility] Auth for Release of Medical Recordson 08-23-2023 Auth for Release of Medical Records [id number]#1.0 0TIFF [facility] Consent for Treatmenton 07-31 Consent for Treatment [id number] 0TIFF [facility] Discharge Instructionson Discharge Instructions [id number] 0TIFF [facility] Inpatient Clinical Summaryon 08-23-2023 Inpatient Clinical Summary [place] [id number] Clinical Summary Person Information Name: [facility] Age: 27 Years : 1995 Sex: Female PCP: NONE, XXXX Marital Status: Single Phone: [phone] Race: White Ethnicity: Non- or Language: [place] Visit Id: Visit Reason: ABD PAIN & BACK PAIN Speciality: Acuity: Obs Enc Type: OB Triage Med Service: Obstetrics Arrival: 08/22/2023 23:43:59 Discharge: 08/23/2023 01:08:00 Dispo Type: Home (Routine DC) Address: [address] [place] [address] [address] [facility] [id number] Provider Notes: Diagnosis: Problems Active (08/22/2023) Schizophrenia [...] Final Med List: acetaminophen (Tylenol) acetaminophen-hydrocod one (Parkman 325 mg-5 mg oral tablet) 1 Tablets [...] Referring Physician: Follow up: With: Address: When: [facility], [address] [place] [address] , [place] [address] Business (1) In 8 days 08/31/2023 Comments: Appointment has already been scheduled Call for severe abdominal pain Call physician for heavy vaginal bleeding Call physician if symptoms worsen Return for contractions closer, longer, stronger Return for decreased movement Return if ruptured membranes or vaginal bleeding Patient Education Information: Normal [facility] Inpatient Patient Summaryon 08-23-2023 Inpatient Patient Summary [address] [address] Patient Discharge Instructions PERSON INFORMATION [...] test results: Follow up: With: Address: When: [facility], [address] [place] [address] , [place] [address] [employer] (1) In 8 days 08/31/2023 Comments: Appointment [...] to find a nearby participating provider. Comment: HANNAH Flores ELENA C, have received the attached patient education materials/instructions and have verbalized understanding. Patient Signature Date Clinican/Nurse Signature ___ Date MEDICATION LIST Medications to Continue with No Changes Other Medications acetaminophen (Tylenol) Last Dose: ___Next Dose: ___ acetaminophen-hydrocod one (Parkman 325 mg-5 mg oral tablet) 1 Tablets [...] Leaflets: You may receive a survey from [employer] asking you to rate your care experience. [...] signed up for this yet, please contact [email or web address] at [phone] to get signed up today. ELVIS Award [...] QR code below. Thank you for choosing [facility] Normal [facility] Insurance Correspondenceon 0 08-23-2023 Insurance Correspondence [id number]#[id number] 0TIFF Normal [facility] Recordson Records [id number] 0TIFF Normal [facility] UA with Cult Rflxon 08-23-19 Bilirubin Ql (U) Negative Normal Negative [facility] Comment on above: Performed By: #### 4 [id number] ####[facility] [address] [place] [address] Clarity (U) Clear Normal Clear [facility] Comment on above: Performed By: #### 4 [id number] ####[facility] [address] [place] [address] Color (U) Light-Yellow Normal Yellow [facility] Comment on above: Result Comment: Micr oscopic readings are only performed on those samples that meet specific criteria set forth by [facility] Laboratory. Performed By: #### 4 [id number] ####[facility] [address] [place] [address] Glucose Ql (U) Negative Normal Negative [facility] Comment on above: Performed By: #### 4 [id number] ####[facility] [address] [place] [address] Hemoglobin Auto test strip (U) [Mass/Vol] Negative Normal Negative [facility] Comment on above: Performed By: #### 4 [id number] ####[facility] [address] [place] [address] Ketones Auto test strip Ql (U) Negative Normal Negative [facility] Comment on above: Performed By: #### 4 [id number] ####[facility] [address] [place] [address] Leukocyte esterase Auto test strip Ql (U) Negative Normal Negative [facility] Comment on above: Performed By: #### 4 [id number] ####[address] [address] Nitrite Auto test strip Ql (U) Negative Normal Negative [facility] Comment on above: Performed By: #### 4 [id number] ####[address] [address] pH (U) 6.0 [pH] Invalid Interpretation Code 5.0-9.0 [facility] Comment on above: Performed By: #### 4 [id number] ####[address] [address] Protein Ql (U) Negative Normal Negative [facility] Comment on above: Performed By: #### 4 [id number] ####[address] [address] Specific gravity (U) [Rel density] 1.018 Invalid Interpretation Code 1.005-1.030 [facility] Comment on above: Performed By: #### 4 [id number] ####[address] [address] Type of Urine collection method Clean Catch Normal [facility] Comment on above: Performed By: #### 4 [id number] ####[address] [address] Urobilinogen (U) [Mass/Vol] Negative Normal Negative [facility] Comment on above: Performed By: #### 4 [id number] ####[facility] [address] [place] [address] URINALYSISOrdered By: SYSTEM SYSTEM on 08-23-2023 Bilirubin Ql (U) Negative Normal Negativemg/dL [facility] UA Auto SS Clarity (U) Clear (08/23/23 12:07 AM) Normal Clear [facility] UA Auto SS Color (U) Light-Yellow 1 (08/23/23 12:07 AM) Normal Yellow FT UA Auto SS Comment on above: Interpretive Data: M icroscopic readings are only performed on those samples that meet specific criteria set forth by [facility]. Glucose Ql (U) Negative Normal Negativemg/dL [facility] UA Auto SS Hemoglobin Auto test strip (U) [Mass/Vol] Negative Normal Negativemg/dL [facility] UA Auto SS Ketones Auto test strip Ql (U) Negative Normal Negativemg/dL [facility] UA Auto SS Leukocyte esterase Auto test strip Ql (U) Negative Normal NegativeLeu/u L FT UA Auto SS Nitrite Auto test strip Ql (U) Negative Normal Negativemg/dL [facility] UA Auto SS pH (U) 6.0 *NA* (08/23/23 12:07 AM) Invalid Interpretation Code 5.0 - 9.0 [facility] UA Auto SS Protein Ql (U) Negative Normal Negativemg/dL [facility] UA Auto SS Specific gravity (U) [Rel density] 1.018 *NA* (08/23/23 12:07 AM) Invalid Interpretation Code 1.005 - 1.030 [facility] UA Auto SS Urobilinogen (U) [Mass/Vol] Negative Normal Negativemg/dL [facility] UA Auto SS URINALYSISOrdered By: [place] on 08-23-2023 UA Spec Desc Clean Catch (08/23/23 12:07 AM) Normal [facility] UA Auto SS Rupture of Membraneon 08-07-2023 Placenta alpha microglobulin-1 Negative Normal Negative [facility] Comment on above: Performed By: #### R OM #### [facility] [address] [place] [address] Urinalysis with Reflex to Cu ltureon 08-06-2023 Bilirubin Ql (U) Negative Negative [facility] Clarity (U) Clear Clear [facility] Color (U) Yellow Straw/Yellow [facility] Glucose Test strip (U) [Mass/Vol] Negative Negative mg/dL [facility] Hemoglobin Ql (U) Negative Negative [facility] Ketones (U) [Mass/Vol] Trace Negat aura mg/dL [facility] Leukocyte esterase Test strip Ql (U) Negative Negative [facility] Nitrite Ql (U) Negative Negative [facility] pH (U) 5.5 [pH] 5.0 - 9.0 [facility] Protein (U) [Mass/Vol] Trace Negat aura mg/dL [facility] Specific gravity (U) [Rel density] 1.005 - 1.030 [facility] Urine Reflex to Culture Not Indicated [facility] Urobilinogen Qn (U) 0.2 NINF [facility] Urinalysis, reflex to cultur josé 08-06-2023 Bilirubin Ql (U) Negative Normal Negative [facility] Comment on above: Performed By: #### U AR #### [facility] [address] [place] [address] Clarity (U) Clear Normal Clear [facility] Comment on above: Performed By: #### U AR #### [facility] [address] [place] [address] Color (U) Yellow Normal Straw/Elliott [facility] Comment on above: Performed By: #### U AR #### [facility] [address] [place] [address] Glucose Ql (U) Negative Normal Negative [facility] Comment on above: Performed By: #### U AR #### [facility] [address] [place] [address] Hemoglobin Ql (U) Negative Normal Negative [facility] Comment on above: Performed By: #### U AR #### [facility] [address] [place] [address] Ketones Ql (U) Trace Normal Negative [facility] Comment on above: Performed By: #### U AR #### [facility] [address] [place] [address] Leukocyte esterase Test strip Ql (U) Negative Normal Negative [facility] Comment on above: Performed By: #### U AR #### [facility] [address] [place] [address] Nitrite Ql (U) Negative Normal Negative [facility] Comment on above: Performed By: #### U AR #### [facility] [address] [place] [address] pH (U) 5.5 [pH] Normal 5.0-9.0 [facility] Comment on above: Performed By: #### U AR #### [facility] [address] [place] [address] Protein Ql (U) Trace Normal Negative [facility] Comment on above: Performed By: #### U AR #### [facility] [address] [place] [address] Specific gravity (U) [Rel density] >=1.030 Normal 1.005-1.03 [facility] Comment on above: Performed By: #### U AR #### [facility] [address] [facility] [address] Urine Reflexed to Culture Not Indicated Normal [facility] Comment on above: Performed By: #### U AR #### [facility] [address] [facility] [address] Urobilinogen Qn (U) 0.2 {Venus'U}/dL Normal < 2.0 [facility] Comment on above: Performed By: #### U AR #### [facility] [address] [place] [address] COVID-19on 08-03-2023 SARS-CoV-2 (COVID-19) RNA JAYDE+probe Ql (Unsp spec) Not detected Normal Not Detect [facility] Comment on above: Result Comment: Gurinder vasquez NAAT: Negative results should be treated as [...] authorized laboratories. Fact sheet for Healthcare Providers: https://www.fda.gov/media/142849/download Fact sheet for Patients: https://www.fda.gov/media/360017/download METHODOLOGY: Isothermal Nucleic Acid Amplification Performed By: #### C OVRG #### [facility] [address] [place] [address] Influenza A and Bon 08-03-19 Influenza A by PCR Negative Normal [facility] Comment on above: Performed By: #### F LUAB #### [facility] [address] [place] [address] Influenza B by PCR Negative Normal [facility] Comment on above: Performed By: #### F LUAB #### [facility] [address] [place] [address] Urinalysis, reflex to cultur josé 05-18-2023 Bilirubin Ql (U) Negative Normal Negative [facility] Comment on above: Performed By: #### U AR #### [facility] [address] [place] [address] Clarity (U) SLCLOUDY Normal Clear [facility] Comment on above: Performed By: #### U AR #### [facility] [address] [place] [address] Color (U) Yellow Normal Straw/Elliott [facility] Comment on above: Performed By: #### U AR #### [facility] [address] [place] [address] Glucose Ql (U) Negative Normal Negative [facility] Comment on above: Performed By: #### U AR #### [facility] [address] [place] [address] Hemoglobin Ql (U) Negative Normal Negative [facility] Comment on above: Performed By: #### U AR #### [facility] [address] [place] [address] Ketones Ql (U) Trace Normal Negative [facility] Comment on above: Performed By: #### U AR #### [facility] [address] [place] [address] Leukocyte esterase Test strip Ql (U) Trace Normal Negative [facility] Comment on above: Performed By: #### U AR #### [facility] [address] [place] [address] Nitrite Ql (U) Negative Normal Negative [facility] Comment on above: Performed By: #### U AR #### [facility] [address] [place] [address] pH (U) 5.5 [pH] Normal 5.0-9.0 [facility] Comment on above: Performed By: #### U AR #### [facility] [address] [place] [address] Protein Ql (U) Trace Normal Negative [facility] Comment on above: Performed By: #### U AR #### [facility] [address] [place] [address] Specific gravity (U) [Rel density] >=1.030 Normal 1.005-1.03 [facility] Comment on above: Performed By: #### U AR #### [facility] [address] [place] [address] Urine Reflexed to Culture Not Indicated Normal [facility] Comment on above: Performed By: #### U AR #### [facility] [address] [place] [address] Urobilinogen Qn (U) 1.0 {Venus'U}/dL Normal < 2.0 [facility] Comment on above: Performed By: #### U AR #### [facility] [address] [place] [address] Urine Microscopicon 18-20 24 Epithelial cells LM Ql (Urine sed) 20-50 Normal [facility] Comment on above: Performed By: #### U TIGIST #### [facility] [address] [place] [address] Urine Bacteria FEW Abnormal Negative [facility] Comment on above: Performed By: #### U TIGIST #### [facility] [address] [place] [address] Urine RBC 0-2 Normal 0-2 [facility] Comment on above: Performed By: #### U TIGIST #### [facility] [address] [place] [address] Urine WBC 3-5 Normal 0-5 [facility] Comment on above: Performed By: #### U TIGIST #### [facility] [address] [place] [address] XR KNEE RIGHT (MIN 4 VIEWS)o n [...] Leonides Waters MD 05/18/23 Final result Normal [facility] PAP [id number] 04-02-2023 Cytology report Cyto stain Doc (Cvx/Vag) Note Invalid Interpretation Code [facility] Comment on above: Result Comment: TEST S RESULT FLAG UNITS REF RANGE LAB Clinician Provided Cytology Information Source.............Endocervix No. of containers..01 ThinPrep Vial DIAGNOSIS: 01 NEGATIVE FOR INTRAEPITHELIAL LESION OR MALIGNANCY. Specimen adequacy: 01 Satisfactory for evaluation. Endocervical and/or squamous metaplastic cells (endocervical component) are present. Performed by: Amairani Porter, Vegetable Washing Machine Operator (ASCP) . 01 Note: Note 02 The Pap [...] <-Panic Low,>-Panic High,A-Abnormal,AA-Critical Abnormal Performed at: [address] [facility] [address] [place] [address] Dorian Rubin MD, 02 [address] [facility] [address] [address] Fernanda Marmolejo MD, Performed at: [facility] [address] [place], [place] [id number] MD Caryn Alarcon Performed By: #### 3 [id number] ####[address] Urineon 03-30-2023 Bacteria identified Cx Nom (U) [...] Locations R1: This test was performed at: [facility], [address] [place] [address], [address] , [place], Normal [facility] Comment on above: Performed By: #### 2 942805 ####[facility] [address] [place] [address] HIV Screen 4th Generation wR fxon 03-29-2023 HIV 1+2 Ab+HIV1 p24 Ag IA Ql Non-Reactive Invalid Interpretation Code Non Reactive [facility] Comment on above: Result Comment: HIV Negative HIV-1/HIV-2 antibodies and HIV-1 p24 antigen were NOT detected. There is no laboratory evidence of HIV infection. Performed at: [address] [id number] PhD Kwaku Hartmann Performed By: #### 2 022571, [id number], 61492014, 690360699, 5301740, 4873535 ####[facility] [address] [place] [address] Hep Bs Agon 03-29-2023 HBV surface Ag IA Ql Negative Invalid Interpretation Code Negative [facility] Comment on above: Result Comment: Perf ormed at: [address] [id number] PhD Kwaku Hartmann Performed By: #### 2 275420, [id number], 82270600, 337922613, 3106918, 9564201 ####[facility] [address] [place] [address] RPR with Conf Rfxon 03-29-20 23 Reagin Ab RPR Ql (S) Non-Reactive Invalid Interpretation Code Non Reactive [facility] Comment on above: Result Comment: Perf ormed at: [address] [id number] PhD Kwaku Hartmann Performed By: #### 2 480936, 407915916, 75768844, 477002011, 4749650, 4143999 ####[facility] [address] [place] [address] Rubella IgGon 03-29-2023 Rubella virus IgG Qn (S) 1.81 [IU]/mL Invalid Interpretation Code Immune >0.99 [facility] Comment on above: Result Comment: Non- immune <0.90 Equivocal 0.90 - 0.99 Immune >0.99 Performed at: [address] [id number] PhD Kwaku Hartmann Performed By: #### 2 772577, 994217828, 20591121, 878368211, 2697787, 3011408 ####[facility] [address] [place] [address] PAP [id number] 03-28-2023 Collection Technique BRUSH-SPATULA Normal [facility] Comment on above: Performed By: #### 3 [id number] ####[address] [address] Gynecological Body Site ENDOCERVIX Normal [facility] Comment on above: Performed By: #### 3 [id number] ####[address] [address] Physician Orderon 03-28-2023 Physician Order [id number]. 00TIFF Normal [facility] ABO/Rhon 03-27-2023 ABO/Rh Positive Invalid Interpretation Code [facility] Comment on above: Performed By: #### 1 8478231, 5607364 ####[address] [address] ABSCon 03-27-2023 ABSC Gel Interp Negative Normal [facility] Comment on above: Performed By: #### 1 0579179, 7737391 ####[address] [address] CBC w/Indiceson 03-27-2023 Erythrocyte distribution width (RBC) [Ratio] 14.1 % Normal 10.9-14.2 [facility] Comment on above: Performed By: #### 2 307932, 990003192, 12922194, 222548474, 6700033, 0194127 ####[address] [place] [address] Hematocrit (Bld) [Volume fraction] 38.5 % Normal 34.0-46.0 [facility] Comment on above: Performed By: #### 2 166786, 482516115, 68747843, 469357534, 1945792, 7769508 ####[address] [place] [address] Hemoglobin (Bld) [Mass/Vol] 12.6 g/dL Normal 12.0-16.0 [facility] Comment on above: Performed By: #### 2 243214, 250780493, 17784939, 655410747, 4871050, 6533965 ####[address] [address] MCH (RBC) [Entitic mass] 26.4 pg Low 27.0-34.0 [facility] Comment on above: Performed By: #### 2 488624, 451520391, 20227631, 780326314, 8060835, 7929460 ####[address] [address] MCHC (RBC) [Mass/Vol] 32.6 g/dL Normal 31.4-36.0 [facility] Comment on above: Performed By: #### 2 326000, 188601267, 61495410, 069388019, 6332726, 2788563 ####[address] [address] MCV (RBC) [Entitic vol] 81.1 fL Normal 80.0-100.0 [facility] Comment on above: Performed By: #### 2 280885, 517259893, 97466869, 869349276, 5426346, 8858215 ####[address] [place] [address] Platelet mean volume (Bld) [Entitic vol] 9.7 fL Normal 6.4-10.8 [facility] Comment on above: Performed By: #### 2 330765, 845174985, 55977460, 192708444, 0930646, 9903198 ####[facility] [address] [place] [address] Platelets (Bld) [#/Vol] 211.0 E9/L Normal 150.0-500.0 [facility] Comment on above: Performed By: #### 2 557294, 592257057, 32231930, 122935247, 8111319, 8379739 ####[facility] [address] [place] [address] RBC (Bld) [#/Vol] 4.8 E12/L Normal 4.3-5.9 [facility] Comment on above: Performed By: #### 2 489386, 838001149, 62188982, 734738138, 5246550, 4952811 ####[address] [address] WBC corrected for nucl RBC Auto (Bld) [#/Vol] 6.5 E9/L Normal 4.0-11.0 [facility] Comment on above: Performed By: #### 2 394240, 550395533, 10855475, 098455257, 8173108, 6304258 ####[address] [place] [address] Consent for Treatmenton 03-02 Consent for Treatment [id number]#1.0 0TIFF Normal [facility] Hep Func Panelon 03-27-2023 Albumin [Mass/Vol] 3.7 g/dL Normal 3.3-5.0 [facility] Comment on above: Performed By: #### 2 809189, 375082114, 59453662, 552071471, 4456788, 0456851 ####[address] [place] [address] Albumin/Globulin (S) [Mass conc ratio] 0.8 Low 1.1-2.2 [facility] Comment on above: Performed By: #### 2 572687, 491643584, 80387813, 315028754, 3142932, 3348810 ####[address] [place] [address] ALP [Catalytic activity/Vol] 58 Int._Unit/L Normal 21-98 [facility] Comment on above: Performed By: #### 2 936185, 103781327, 58053602, 916605262, 7329216, 8018702 ####[address] [address] ALT No additional P-5'-P [Catalytic activity/Vol] 148 Int._Unit/L High 6-46 [facility] Comment on above: Performed By: #### 2 326732, 042142620, 00970599, 085612240, 0080029, 8648302 ####[address] AST [Catalytic activity/Vol] 67 Int._Unit/L High 5-43 [facility] Comment on above: Performed By: #### 2 699730, 916025967, 27521073, 359090030, 4291305, 8660816 ####[address] [address] Bilirubin [Mass/Vol] 1.0 mg/dL Normal 0.0-1.1 [facility] Comment on above: Performed By: #### 2 819676, 247433602, 38251586, 435928793, 8485856, 8849216 ####[address] [place] [address] Bilirubin.direct [Mass/Vol] 0.2 mg/dL Normal 0.1-0.4 [facility] Comment on above: Performed By: #### 2 335526, 387311612, 24649328, 379529091, 1932747, 4985021 ####[address] [address] Bilirubin.indirect [Mass or moles/Vol] 0.8 mg/dL Normal 0.1-0.9 [facility] Comment on above: Performed By: #### 2 370554, 411409792, 78571380, 970000647, 0420354, 7080430 ####[facility] [address] [place] [address] Globulin (S) [Mass/Vol] 4.6 g/dL High 1.4-4.0 [facility] Comment on above: Performed By: #### 2 352525, 394381792, 53812456, 680694662, 2641405, 1068408 ####[facility] [address] [place] [address] Protein [Mass/Vol] 8.3 g/dL High 6.0-7.8 [facility] Comment on above: Performed By: #### 2 943720, 277432214, 07709808, 993814136, 7667312, 3586865 ####[facility] [address] [place] [address] Physician Orderon 03-27-2023 Physician Order [id number] .00TIFF Normal [facility] CANDELARIONon 02-24-2023 CNPN Telephone ([facility]) CHRISTIANA YOUNG ([id number]) 1995 F Date Time Provider Department 02/24/23 LORNA DOBSON [facility] During your visit today, we recorded the following information about you: Emeli Penn MA 02/24/2023 4:29 PM Signed ----- Message from Lorna Dobson APRN.ADMINISTRATIVE OFFICE MANAGER sent at 02/24/2023 4:18 PM EDT ----- [...] Iron normal No diabetes CBC normal Lorna Allergies As of Date: 02/24/2023 Noted Allergy [...] Encounter Status:Closed by EMELI PENN on 02/24/23 [facility] CNSWon 02-21-2023 [facility] Social Work (FLORI) CHRISTIANA YOUNG ([id number]) 1995 F Date Time Provider Department 02/21/23 YACTAYO, LIEN AMBLSW During your visit today, we recorded the following information about you: Lien Candelaria LSW 02/21/2023 9:28 AM Signed Primary Care Social Work Provider Action / FYI PCP Action Date of Service: 02/21/2023 Patient identified by name and date of : No Referral Source: Pursue Patient Outreach: Initial Mode of Outreach: 23and[employer] Response Time: SDOH outreach Narrative: Pt completed [...] for Visit: Ambulatory Social Work [4191] Cmt: SDMD Primary Visit Diagnosis:Encounter for screening involving social [...] Encounter Status:Closed by LIEN CANDELARIA on 02/21/23 [facility] Lisa 02-20-2023 CNPN Telephone (PSYLME) HANNAHCHRISTIANA ([id number]) 1995 F Date Time Provider Department 02/20/23 BRIGITTE SCHAFER During your visit today, we recorded the following information about you: Brigitte Schafer LPCC 02/20/2023 10:32 AM Signed Behavioral Health Social Work Progress Note Patient identified for [facility] from: PCP Reason for referral: Resources Behavioral Health Resources: Psychiatry med management [facility] encounter type: Telephone Encounter Attempts to [...] see psychiatry. Patient is scheduled for her [facility] assessment on 03/06 at 1:00pm. Brigitte Schafer [facility] February 20, 2023 Allergies As of Date: [...] Status:Closed by BRIGITTE SCHAFER on 02/20/23 Normal [facility] 25(OH)D3 SerPl-mCncon 2022 25-hydroxyvitamin D3 [Mass/Vol] 22.5 ng/mL Low 31.0-80.0 [facility] Comment on above: Order Comment: Speci men Type: BLOOD SPECIMENOrdering Facility: [facility] Address: [address] [place] [address] Result Comment: Clas sification of 25 [place] Vitamin D status: Deficiency/Insufficiency: < or = 30 ng/ml. Sufficiency/Optimal Levels: 31-80 ng/mL Toxicity: > 100 ng/mL. Test performed by chemiluminescent immunoassay. Performed By: #### 1 989-3 ####[facility] LABCLIA [id number] [facility] [place] [address] [place] CBC W Auto Differential pane l (Bld)on 02-18-2023 Basophils (Bld) [#/Vol] 0.05 10*3/uL Normal <0.11 [facility] Comment on above: Order Comment: Speci men Type: BLOOD SPECIMENOrdering Facility: [facility] Address: [address] [place] [address] Performed By: #### 5 7021-8 ####[facility] LABCLIA [id number] [place] [address] [place] Basophils/100 WBC (Bld) 1.0 % Normal C [facility] Comment on above: Order Comment: Speci men Type: BLOOD SPECIMENOrdering Facility: [facility] Address: [address] [place] [address] Performed By: #### 5 7021-8 ####[facility] LABCLIA [id number] [place] [address] [place] Differential cell count method Nom (Bld) Auto Normal [facility] Comment on above: Order Comment: Speci men Type: BLOOD SPECIMENOrdering Facility: [facility] Address: [address] [place] [address] Performed By: #### 5 7021-8 ####[facility] LABIA [id number] [place] [id number] [place] Eosinophils (Bld) [#/Vol] 0.18 10*3/uL Normal <0.46 [facility] Comment on above: Order Comment: Speci men Type: BLOOD SPECIMENOrdering Facility: [facility] Address: [address] [place] [address] Performed By: #### 5 7021-8 ####[facility] LABIA [id number] [place] [id number] [place] Eosinophils/100 WBC (Bld) 3.6 % Normal [facility] Comment on above: Order Comment: Speci men Type: BLOOD SPECIMENOrdering Facility: [facility] Address: [address] [place] [address] Performed By: #### 5 7021-8 ####[facility] LABIA [id number] [place] [id number] [place] Erythrocyte distribution width (RBC) [Ratio] 14.6 % Normal 11.5-15.0 [facility] Comment on above: Order Comment: Speci men Type: BLOOD SPECIMENOrdering Facility: [facility] Address: [address] [place] [address] Performed By: #### 5 7021-8 ####[facility] LABIA [id number] [place] [id number] [place] Hematocrit (Bld) [Volume fraction] 39.7 % Normal 36.0-46.0 [facility] Comment on above: Order Comment: Speci men Type: BLOOD SPECIMENOrdering Facility: [facility] Address: [address] [place] [address] Performed By: #### 5 7021-8 ####[facility] LABIA [id number] [place] [id number] [place] Hemoglobin (Bld) [Mass/Vol] 12.9 g/dL Normal 11.5-15.5 [facility] Comment on above: Order Comment: Speci men Type: BLOOD SPECIMENOrdering Facility: [facility] Address: [address] [place] [address] Performed By: #### 5 7021-8 ####[facility] LABCLIA [id number] [place] [address] [place] Immature granulocytes (Bld) [#/Vol] 10*3/uL Normal <0.10 [facility] Comment on above: Order Comment: Speci men Type: BLOOD SPECIMENOrdering Facility: [facility] Address: [address] [place] [address] Performed By: #### 5 7021-8 ####[facility] LABIA [id number] [place] [address] [place] Immature granulocytes/100 WBC (Bld) 0.2 % Normal [facility] Comment on above: Order Comment: Speci men Type: BLOOD SPECIMENOrdering Facility: [facility] Address: [address] [place] [address] Performed By: #### 5 7021-8 ####[facility] LABIA [id number] [place] [address] [place] Lymphocytes (Bld) [#/Vol] 1.69 10*3/uL Normal 1.00-4.00 [facility] Comment on above: Order Comment: Speci men Type: BLOOD SPECIMENOrdering Facility: [facility] Address: [address] [place] [address] Performed By: #### 5 7021-8 ####[facility] LABCLIA [id number] [place] [address] [place] Lymphocytes/100 WBC (Bld) 33.7 % Normal [facility] Comment on above: Order Comment: Speci men Type: BLOOD SPECIMENOrdering Facility: [facility] Address: [address] [place] [address] Performed By: #### 5 7021-8 ####[facility] LABCLIA [id number] [place] [address] [place] [facility] MCH (RBC) [Entitic mass] 27.3 pg Normal 26.0-34.0 [facility] Comment on above: Order Comment: Speci men Type: BLOOD SPECIMENOrdering Facility: [facility] Address: [address] [place] [address] Performed By: #### 5 7021-8 ####[facility] LABIA [id number] [place] [id number] [place] MCHC (RBC) [Mass/Vol] 32.5 g/dL Normal 30.5-36.0 [facility] Comment on above: Order Comment: Speci men Type: BLOOD SPECIMENOrdering Facility: [facility] Address: [address] [place] [address] Performed By: #### 5 7021-8 ####[facility] [id number] [place] [id number] [place] MCV (RBC) [Entitic vol] 84.1 fL Normal 80.0-100.0 C [facility] Comment on above: Order Comment: Speci men Type: BLOOD SPECIMENOrdering Facility: [facility] Address: [address] [place] [address] Performed By: #### 5 7021-8 ####[facility] LABIA [id number] [place] [id number] [place] Monocytes (Bld) [#/Vol] 0.31 10*3/uL Normal <0.87 [facility] Comment on above: Order Comment: Speci men Type: BLOOD SPECIMENOrdering Facility: [facility] Address: [address] [place] [address] Performed By: #### 5 7021-8 ####[facility] LABIA [id number] [place] [id number] [place] Monocytes/100 WBC (Bld) 6.2 % Normal C [facility] Comment on above: Order Comment: Speci men Type: BLOOD SPECIMENOrdering Facility: [facility] Address: [address] [place] [address] Performed By: #### 5 7021-8 ####[facility] LABIA [id number] [place] [address] [place] Neutrophils (Bld) [#/Vol] 2.78 10*3/uL Normal 1.45-7.50 [facility] Comment on above: Order Comment: Speci men Type: BLOOD SPECIMENOrdering Facility: [facility] Address: [address] [place] [address] Performed By: #### 5 7021-8 ####[facility] LABIA [id number] [place] [id number] [place] [place] Neutrophils/100 WBC (Bld) 55.3 % Normal [facility] Comment on above: Order Comment: Speci men Type: BLOOD SPECIMENOrdering Facility: [facility] Address: [address] [place] [address] Performed By: #### 5 7021-8 ####[facility] LABIA [id number] [place] [id number] [place] Nucleated RBC (Bld) [#/Vol] 10*3/uL Normal <0.01 [facility] Comment on above: Order Comment: Speci men Type: BLOOD SPECIMENOrdering Facility: [facility] Address: [address] [place] [address] Performed By: #### 5 7021-8 ####[facility] LABIA [id number] [place] [id number] [place] Nucleated RBC/100 WBC (Bld) [Ratio] 0.0 /100 WBC Normal [facility] Comment on above: Order Comment: Speci men Type: BLOOD SPECIMENOrdering Facility: [facility] Address: [address] [place] [address] Performed By: #### 5 7021-8 ####[facility] LABIA [id number] [place] [address] [place] Platelet mean volume (Bld) [Entitic vol] 11.8 fL Normal 9.0-12.7 [facility] Comment on above: Order Comment: Speci men Type: BLOOD SPECIMENOrdering Facility: [facility] Address: [address] [place] [address] Performed By: #### 5 7021-8 ####[facility] LABCLIA [id number] [place] [address] [place] Platelets (Bld) [#/Vol] 215 10*3/uL Normal 150-400 [facility] Comment on above: Order Comment: Speci men Type: BLOOD SPECIMENOrdering Facility: [facility] Address: [address] [place] [address] Performed By: #### 5 7021-8 ####[facility] LABIA [id number] [place] [address] [place] RBC (Bld) [#/Vol] 4.72 10*6/uL Normal 3.90-5.20 [facility] Comment on above: Order Comment: Speci men Type: BLOOD SPECIMENOrdering Facility: [facility] Address: [address] [place] [address] Performed By: #### 5 7021-8 ####[facility] LABIA [id number] [place] [address] [place] WBC (Bld) [#/Vol] 5.02 10*3/uL Normal 3.70-11.00 [facility] Comment on above: Order Comment: Speci men Type: BLOOD SPECIMENOrdering Facility: [facility] Address: [address] [place] [address] Performed By: #### 5 7021-8 ####[facility] LABIA [id number] [place] [address] [place] Comprehensive metabolic 2000 panelon 02-18-2023 Albumin [Mass/Vol] 4.0 g/dL Normal 3.9-4.9 [facility] Comment on above: Order Comment: Speci men Type: BLOOD SPECIMENOrdering Facility: [facility] Address: [address] [place] [address] Performed By: #### 2 276-4, 31874-7, 85952-1, 23004-2 ####[facility] LABIA [id number] [place] [address] [place] ALP [Catalytic activity/Vol] 56 U/L Normal 34-123 [facility] Comment on above: Order Comment: Speci men Type: BLOOD SPECIMENOrdering Facility: [facility] Address: [address] [place] [address] Performed By: #### 2 276-4, 15578-4, 99661-1, 59868-7 ####[facility] LABIA [id number] [place] [id number] [place] ALT [Catalytic activity/Vol] 293 U/L High 7-38 [facility] Comment on above: Order Comment: Speci men Type: BLOOD SPECIMENOrdering Facility: [facility] Address: [address] [place] [address] Performed By: #### 2 276-4, 42627-9, 61662-4, 34740-3 ####[facility] LABIA [id number] [place] [id number] [place] Anion gap [Moles/Vol] 8 mmol/L Low 9-18 [facility] Comment on above: Order Comment: Speci men Type: BLOOD SPECIMENOrdering Facility: [facility] Address: [address] [place] [address] Performed By: #### 2 276-4, 91346-8, 06410-4, 08463-5 ####[facility] LABIA [id number] [place] [address] [place] AST [Catalytic activity/Vol] 120 U/L High 13-35 [facility] Comment on above: Order Comment: Speci men Type: BLOOD SPECIMENOrdering Facility: [facility] Address: [address] [place] [address] Performed By: #### 2 276-4, 91498-4, 83383-2, ####[facility] LABCLIA [id number] [place] [address] [place] Bilirubin [Mass/Vol] 1.2 mg/dL Normal 0.2-1.3 [facility] Comment on above: Order Comment: Speci men Type: BLOOD SPECIMENOrdering Facility: [facility] Address: [address] [place] [address] Performed By: #### 2 276-4, 31082-8, , ####[facility] LABCLIA [id number] [place] [address] [place] Calcium [Mass/Vol] 9.3 mg/dL Normal 8.5-10.2 [facility] Comment on above: Order Comment: Speci men Type: BLOOD SPECIMENOrdering Facility: [facility] Address: [address] [place] [address] Performed By: #### 2 276-4, 87564-6, , ####[facility] LABCLIA [id number] [place] [address] [place] Chloride [Moles/Vol] 105 mmol/L Normal 97-105 [facility] Comment on above: Order Comment: Speci men Type: BLOOD SPECIMENOrdering Facility: [facility] Address: [address] [place] [address] Performed By: #### 2 276-4, 93853-3, , ####[facility] LABCLIA [id number] [place] [address] [place] CO2 [Moles/Vol] 22 mmol/L Normal 22-30 [facility] Comment on above: Order Comment: Speci men Type: BLOOD SPECIMENOrdering Facility: [facility] Address: [address] [place] [address] Performed By: #### 2 276-4, 65207-8, 45546-3, ####[facility] LABCLIA [id number] [place] [address] [place] Creatinine [Mass/Vol] 0.59 mg/dL Normal 0.58-0.96 [facility] Comment on above: Order Comment: Milan mendez Type: BLOOD SPECIMENOrdering Facility: [facility] Address: [address] [place] [address] Performed By: #### 2 276-4, 69946-7, 96672-2, 55781-8 ####[facility] LABIA [id number] [place] [id number] [facility] Creatinine and Glomerular filtration rate.predicted panel (S/P/Bld) 127 mL/min/1.73m??? Normal >=60 [facility] Comment on above: Order Comment: Milan mendez Type: BLOOD SPECIMENOrdering Facility: [facility] Address: [address] [place] [address] Result Comment: Queenie mated Glomerular Filtration Rate [...] actual GFR. Performed By: #### 2 276-4, 97283-5, 50447-9, 04288-1 ####[facility] LABIA [id number] [place] [id number] [place] Glucose [Mass/Vol] 90 mg/dL Normal 74-99 [facility] Comment on above: Order Comment: Milan mendez Type: BLOOD SPECIMENOrdering Facility: [facility] Address: [address] [place] [address] Result Comment: The [place] Diabetes Association (ADA) provides guidance for cutoff [...] Standards of Medical Care in Diabetes 2016, [place] [employer]. Diabetes Care. 2016.39(Suppl 1). Performed By: #### 2 276-4, 51481-7, 98429-4, 71887-7 ####[facility] LABCLIA [id number] [place] [address] [place] Potassium [Moles/Vol] 3.9 mmol/L Normal 3.7-5.1 [facility] Comment on above: Order Comment: Speci men Type: BLOOD SPECIMENOrdering Facility: [facility] Address: [address] [place] [address] Performed By: #### 2 276-4, 32322-6, 09679-9, 94530-2 ####[facility] LABCLIA [id number] [place] [address] [place] Protein [Mass/Vol] 7.5 g/dL Normal 6.3-8.0 [facility] Comment on above: Order Comment: Speci men Type: BLOOD SPECIMENOrdering Facility: [facility] Address: [address] [place] [address] Performed By: #### 2 276-4, 25588-5, 78441-8, 06378-0 ####[facility] LABCLIA [id number] [place] [address] [place] Sodium [Moles/Vol] 135 mmol/L Low 136-144 [facility] Comment on above: Order Comment: Speci men Type: BLOOD SPECIMENOrdering Facility: [facility] Address: [address] [place] [address] Performed By: #### 2 276-4, 70835-4, 13230-1, 60488-4 ####[facility] LABCLIA [id number] [place] [address] [place] Urea nitrogen [Mass/Vol] 6 mg/dL Low 7-21 [facility] Comment on above: Order Comment: Speci men Type: BLOOD SPECIMENOrdering Facility: [facility] Address: [address] [place] [address] Performed By: #### 2 276-4, 46444-8, 26668-2, 93172-1 ####[facility] LABCLIA [id number] [place] [address] [place] [facility] Ferritin SerPl-mCncon 2022 Ferritin [Mass/Vol] 19.0 ng/mL Normal 14.7-205.1 [facility] Comment on above: Order Comment: Speci men Type: BLOOD SPECIMENOrdering Facility: [facility] Address: [address] [place] [address] Performed By: #### 2 276-4, 73935-6, 43821-7, 79237-8 ####[facility] LABCLIA [id number] [place] [id number] [place] Folate SerPl-mCncon 02-19-20 Folate [Mass/Vol] 13.9 ng/mL Normal >4.7 [facility] Comment on above: Order Comment: Speci men Type: BLOOD SPECIMENOrdering Facility: [facility] Address: [address] [place] [address] Performed By: #### 2 284-8, 2132-9 ####[facility] LABCLIA [id number] [place] [address] [place] HCV Ab Ser Qlon 02-18-2023 HCV Ab Ql (S) Positive Abnormal Negative [facility] Comment on above: Order Comment: Speci men Type: BLOOD SPECIMENOrdering Facility: [facility] Address: [address] [place] [address] Performed By: #### 1 6128-1, 72272-4 ####[facility] LABCLIA [id number] [place] [address] [place] HCV RNA SerPl JAYDE+probe-aCnc on 02-18-2023 HCV RNA JAYDE+probe Qn Abnormal HCV RNA not detected by PCR. [facility] Comment on above: Order Comment: Speci men Type: BLOOD SPECIMENOrdering Facility: [facility] Address: [address] [place] [address] Result Comment: HCV RNA detected by PCR. [id number] 6.46 Performed By: #### 1 6128-1, 58482-0 ####[facility] LABCLIA [id number] [place] [address] [place] HIV 1+2 Ab IA Qlon 3 HIV 1 and 2 Ab IA.rapid Nom Normal [facility] Comment on above: Order Comment: Speci men Type: BLOOD SPECIMENOrdering Facility: [facility] Address: [address] [place] [address] Result Comment: Test not indicated. Performed By: #### 3 1201-7 ####[facility] LABCLIA [id number] [place] [address] [place] HIV 1+2 Ab+HIV1 p24 Ag IA Ql Non-Reactive Normal Nonreactive [facility] Comment on above: Order Comment: Speci men Type: BLOOD SPECIMENOrdering Facility: [facility] Address: [address] [place] [address] Performed By: #### 3 1201-7 ####[facility] LABIA [id number] [place] [address] [place] HIV immunoassay testing algorithm interpretation (S/P/Bld) [Interp] Normal [facility] Comment on above: Order Comment: Speci men Type: BLOOD SPECIMENOrdering Facility: [facility] Address: [address] [place] [address] Result Comment: No e vidence of HIV-1 or HIV-2 infection. Should recent infection be suspected, repeat testing may be considered 2-3 weeks after this draw. [place] Rev. Code 3701.243(E): This information has been [...] or diagnoses. Performed By: #### 3 1201-7 ####[facility] LABCLIA [id number] [facility] [id number] [place] HbA1c (Bld)on 02-18-2023 Average glucose Estimated from glycated hemoglobin (Bld) [Mass/Vol] 103 mg/dL Normal [facility] Comment on above: Order Comment: Speci men Type: BLOOD SPECIMENOrdering Facility: [facility] Address: [address] [place] [address] Result Comment: eAG: (Estimated average glucose) is a calculated value from HgbA1c and is inventory representative of the average blood glucose level in the last 2-3 month period. Performed By: #### 5 5454-3 ####[facility] LABIA [id number] [address] STATES [facility] HbA1c (Bld) [Mass fraction] 5.2 % Normal 4.3-5.6 [facility] Comment on above: Order Comment: Speci men Type: BLOOD SPECIMENOrdering Facility: [facility] Address: [address] [place] [address] Result Comment: Amer ican Diabetes Association guidelines indicate that patients with HgbA1c in the range 5.7-6.4% are at increased risk for development of diabetes, and intervention by lifestyle modification may be beneficial. HgbA1c greater or equal to 6.5% is considered diagnostic of diabetes. Performed By: #### 5 5454-3 ####[facility] LABIA [id number] [address] [place] Iron and Iron binding capaci ty panelon 02-18-2023 Iron [Mass/Vol] 88 ug/dL Normal 41-186 [facility] Comment on above: Order Comment: Speci men Type: BLOOD SPECIMENOrdering Facility: [facility] Address: [address] [place] [address] Performed By: #### 2 276-4, 36351-8, 88583-0, 98191-9 ####[facility] LABCLIA [id number] [place] [address] [place] Iron binding capacity [Mass/Vol] 569 ug/dL High 232-386 [facility] Comment on above: Order Comment: Speci men Type: BLOOD SPECIMENOrdering Facility: [facility] Address: [address] [place] [address] Performed By: #### 2 276-4, 50672-4, 73050-9, 10892-7 ####[facility] LABCLIA [id number] [place] [address] [place] Iron/TIBC [Molar ratio] 15.5 % Normal 15.0-57.0 C [facility] Comment on above: Order Comment: Speci men Type: BLOOD SPECIMENOrdering Facility: [facility] Address: [address] [place] [address] Performed By: #### 2 276-4, 25489-9, 51005-4, 19428-8 ####[facility] LABIA [id number] [place] [address] [place] Lipid 1996 panelon 3 Cholesterol [Mass/Vol] 172 mg/dL Normal <200 [facility] Comment on above: Order Comment: Speci men Type: BLOOD SPECIMENOrdering Facility: [facility] Address: [address] [place] [address] Result Comment: <200 mg/dL, Desirable 200-239 mg/dL, Borderline high >239 mg/dL, High Performed By: #### 2 276-4, 25088-5, 39594-9, 59058-2 ####[facility] LABIA [id number] [place] [address] [place] [facility] Cholesterol in HDL [Mass/Vol] 55 mg/dL Normal >39 [facility] Comment on above: Order Comment: Speci men Type: BLOOD SPECIMENOrdering Facility: [facility] Address: [address], [place] [address] Result Comment: 40-5 9 mg/dL, Acceptable >59 mg/dL, High: Negative risk factor for coronary heart disease <40 mg/dL, Low: Positive risk factor for coronary heart disease Performed By: #### 2 276-4, 22230-9, 65148-7, ####[facility] LABCLIA [id number] [place] [address] [place] [facility] Cholesterol in LDL [Mass/Vol] 94 mg/dL Normal <100 [facility] Comment on above: Order Comment: Speci men Type: BLOOD SPECIMENOrdering Facility: [facility] Address: [address] [place] [address] Result Comment: <100 mg/dL, Optimal 100-129 mg/dL, Near optimal/above optimal 130-159 mg/dL, Borderline high 160-189 mg/dL, High >189 mg/dL, Very high Secondary prevention optimal LDL Cholesterol levels are recommended to be < 70 mg/dL Performed By: #### 2 276-4, 85624-7, 48670-0, ####[facility] LABCLIA [id number] [place] [address] [place] [facility] Cholesterol in LDL/Cholesterol in HDL [Mass ratio] 1.71 {ratio} Normal <2.54 [facility] Comment on above: Order Comment: Speci men Type: BLOOD SPECIMENOrdering Facility: [facility] Address: [address] [place] [address] Result Comment: Refjordana owusu: 1. National Cholesterol Education Program ATP III Guideline At-A-Glance Quick Desk Reference: National Heart, Lung, and Blood Darwin. National Institutes of Health. 2001: NIH Publication No. 01-3305. 2. An International Atherosclerosis Society position paper: global recommendations for the management of dyslipidemia: executive summary, Atherosclerosis. 2014: 232(2):410-413. Performed By: #### 2 276-4, 13852-6, 72434-9, 65532-8 ####[facility] LABCLIA [id number] [place] [address] [place] Cholesterol in VLDL [Mass/Vol] 23 mg/dL Normal <30 [facility] Comment on above: Order Comment: Speci men Type: BLOOD SPECIMENOrdering Facility: [facility] Address: [address] [place] [address] Performed By: #### 2 276-4, 75332-3, 76287-3, 99060-9 ####[facility] LABCLIA [id number] [place] [address] [place] Cholesterol non HDL [Mass/Vol] 117 mg/dL Normal <130 [facility] Comment on above: Order Comment: Speci men Type: BLOOD SPECIMENOrdering Facility: [facility] Address: [address] [place] [address] Result Comment: <130 mg/dL, Optimal 130-159 mg/dL, Near optimal/above optimal 160-189 mg/dL, Borderline high 190-219 mg/dL, High >219 mg/dL, Very high Secondary prevention optimal non HDL Cholesterol levels are recommended to be <100 mg/dL Performed By: #### 2 276-4, 77999-3, 97873-2, ####[facility] LABIA [id number] [place] [address] [place] Cholesterol.total/Rosie sterol in HDL [Mass ratio] 3.13 {ratio} Normal <5.10 [facility] Comment on above: Order Comment: Speci men Type: BLOOD SPECIMENOrdering Facility: [facility] Address: [address] [place] [address] Performed By: #### 2 276-4, 19112-1, 44793-3, ####[facility] LABCLIA [id number] [place] [address] [place] FASTING TIME 10 hrs Normal [facility] Comment on above: Order Comment: Speci men Type: BLOOD SPECIMENOrdering Facility: [facility] Address: [address] [place] [address] Performed By: #### 2 276-4, 51613-0, 41519-7, 90688-9 ####[facility] LABCLIA [id number] [place] [address] [place] Triglyceride [Mass/Vol] 113 mg/dL Normal <150 C [facility] Comment on above: Order Comment: Speci men Type: BLOOD SPECIMENOrdering Facility: [facility] Address: [address] [place] [address] Result Comment: <150 mg/dL, Normal 150-199 mg/dL, Borderline high 200-499 mg/dL, High >499 mg/dL, Very high Performed By: #### 2 276-4, 69619-4, 90413-3, 39407-3 ####[facility] LABCLIA [id number] [place] [address] [place] TOX SCREEN ROUT URon 10-21-2 023 Amphetamines Confirm (U) [Mass/Vol] Negative Normal Negative [facility] Comment on above: Order Comment: Speci men Type: URINE SPECIMENOrdering Facility: [facility] Address: [address] [place] [address] Result Comment: Cuto ff threshold at 1000 ng/mL. Performed By: #### U TOX2 ####[facility] LABCLIA [id number] [place] [address] [place] BARBITURATES, URINE Negative Normal Negative [facility] Comment on above: Order Comment: Speci men Type: URINE SPECIMENOrdering Facility: [facility] Address: [address] [place] [address] Result Comment: Cuto ff threshold at 200 ng/mL. Performed By: #### U TOX2 ####[facility] LABCLIA [id number] [place] [address] [place] BENZODIAZEPINES, UR Negative Normal Negative [facility] Comment on above: Order Comment: Speci men Type: URINE SPECIMENOrdering Facility: [facility] Address: [address] [place] [address] Result Comment: Cuto ff threshold at 200 ng/mL. Performed By: #### U TOX2 ####[facility] LABCLIA [id number] [place] [address] [place] Cannabinoids Screen Ql (U) Positive Abnormal Negative [facility] Comment on above: Order Comment: Speci men Type: URINE SPECIMENOrdering Facility: [facility] Address: [address] [place] [address] Result Comment: Cuto ff threshold at 50 ng/mL. Performed By: #### U TOX2 ####[facility] LABCLIA [id number] [place] [address] [place] Cocaine Ql (U) Negative Normal Negative [facility] Comment on above: Order Comment: Speci men Type: URINE SPECIMENOrdering Facility: [facility] Address: [address] [place] [address] Result Comment: Cuto ff threshold at 300 ng/mL. Performed By: #### U TOX2 ####[facility] LABCLIA [id number] [place] [address] [place] Ethanol (U) [Mass/Vol] <11 Normal <11 [facility] Comment on above: Order Comment: Speci men Type: URINE SPECIMENOrdering Facility: [facility] Address: [address] [place] [address] Performed By: #### U TOX2 ####[facility] LABCLIA [id number] [place] [address] [place] Opiates Screen Ql (U) Negative Normal Negative [facility] Comment on above: Order Comment: Speci men Type: URINE SPECIMENOrdering Facility: [facility] Address: [address] [place] [address] Result Comment: Cuto ff threshold at 300 ng/mL. Performed By: #### U TOX2 ####[facility] LABCLIA [id number] [place] [address] [place] oxyCODONE cutoff Screen (U) [Mass/Vol] Negative Normal Negative [facility] Comment on above: Order Comment: Speci men Type: URINE SPECIMENOrdering Facility: [facility] Address: [address] [place] [address] Result Comment: Cuto ff threshold at 100 ng/mL. Performed By: #### U TOX2 ####[facility] LABCLIA [id number] [place] [address] [place] Phencyclidine Ql (U) Negative Normal Negative [facility] Comment on above: Order Comment: Speci men Type: URINE SPECIMENOrdering Facility: [facility] Address: [address] [place] [address] Result Comment: Cuto ff threshold at 25 ng/mL. Performed By: #### U TOX2 ####[facility] LABCLIA [id number] [place] [address] [place] Vit B12 SerPl-ncon 10-21-2 023 Cobalamin (Vitamin B12) [Mass/Vol] 644 pg/mL Normal 232-1245 [facility] Comment on above: Order Comment: Speci men Type: BLOOD SPECIMEN [facility] Address: [address] [place] [address] Performed By: #### 2 284-8, 2132-9 #### [facility] CLIA [id number] [address] [place] CNOVon 02-17-2023 CNOV Office Visit ([facility] ) CHRISTIANA YOUNG ([id number]) 1995 F Date Time Provider Department 02/17/23 3:00 PM LORNA DOBSON [facility] During your visit today, we recorded the following information about you: Pulse Blood pressure Weight Height 97/minute 127/82 111 kg 1.676 m Lorna Dobson APRN.ADMINISTRATIVE OFFICE MANAGER 02/17/2023 4:15 PM Signed This note was created using Ultrivariter. Subjective Christiana Young is a 27 year [...] which included preparing to see the patient, psba-ms-vvra patient care, completing clinical documentation, obtaining and/or [...] sertraline (ZOLO (more content not included)... Normal [facility] CNOVon 01-09-2023 CNOV Office Visit ([facility] ) CHRISTIANA YOUNG ([id number]) 1995 F Date Time Provider Department 01/09/23 2:20 PM KELSI FREEDMAN [facility] During your visit today, we recorded the following information about you: Pulse Blood pressure Weight Height 83/minute 117/80 110.7 kg 1.676 m Last Period 12/19/22 Kelsi Freedman APRN.ADMINISTRATIVE OFFICE MANAGER 01/09/2023 4:04 PM Signed This note was created using Ultrivariter. Subjective Christiana Young is a 27 year old female. 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 Some PPD in past. GI: [...] YR, QUADRIVALENT (AFLURIA, FLULAVAL, FLUZONE) Kelsi Freedman APRN.ADMINISTRATIVE OFFICE MANAGER Referring Provider: SELF [200] Allergies As of [...] [E55.9] Encounter for immunization [Z23] Order(s):DEPRESSION SCREENING/ASSESSMENT [6660146] Order #: [id number]: 1 INFLUENZA VACCINE, AGE 6 MO - 64 YR, QUADRIVALENT (AFLURIA, FLULAVAL, FLUZONE) [[id number]] Order #: [id number] HEPATITIS C ANTIBODY IA WITH CONFIRMATION [DYRIAV0O] Order #: [id number] FUTURE TOX SCREEN ROUT UR [SQUTOX2] Order #: [id number] FUTURE HIV 1 2 COMBO(AG/AB),WITH REFLEX TO DIFFERENTIATION [SQHIV12] Order #: [id number] FUTURE VITAMIN B12 BLOOD [SQB12] Order #: [id number] FUTURE FOLATE SER (more content not included)... Normal [facility] Consent for Treatmenton 07 Consent for Treatment [id number] 0CD:127 Normal [facility] Discharge Instructionson Discharge Instructions [id number]. 00CD:127 Normal [facility] ED Clinical Summaryon 2022 ED Clinical Summary [address] [address] ED Clinical Summary Person Information Name: CHRISTIANA YOUNG [place] Age: 27 Years : 1995 Sex: Female Language: [place] Islander PCP: Zbigniew La MD Marital Status: Single Phone: [phone] Visit Id: Visit Reason: Allergic reaction - [...] 11/05/2022 11:26:05 11/05/2022 11:26:05 11/05/2022 11:26:05 ADDRESS: [address] [place] [address] [address] [facility] [id number] PHYS DOC NOTES: MEDICAL INFORMATION: Prescriptions Given: New Medications [id number], [address] [place], [place] [id number], [phone] cetirizine (cetirizine 10 mg Tab) 1 Tablets By Mouth every day for 7 Days. Refills: 0. famotidine (Pepcid 40 mg Tab) 1 Tablets By Mouth once a day (at bedtime) for 7 Days. Refills: 0. predniSONE (predniSONE 20 mg Tab) 3 By Mouth every day for 7 Days. Refills: 0. Medications to Continue with No Changes Other Medications acetaminophen (Tylenol) acetaminophen-hydrocod one (Parkman 325 mg-5 mg oral tablet) 1 Tablets [...] Follow up: With: Address: When: Zbigniew La [address] [place] [phone] [phone] [employer] (1) In 3 days DIAGNOSIS: Acute URI; Urticaria Normal [facility] ED Note-Physicianon 11-06-19 ED Note-Physician Basic [...] Number and Complexity of Problems Differential Diagnosis: [facility] Data External documents reviewed: My EKG interpretation: [...] educated she may need to see an conventions reservationist. Shared decision making: Code status: [ x] [...] 7 tab(s), Refills(s) 0, Pharmacy: [id number], 162, cm, 11/05/22 9:56:00 EDT, Height/Length Dosing, 105, kg, 11/05/22 9:56:00 EDT, Weight Dosing famotidine, 40 mg = 1 tab(s), Oral, Once a day (at bedtime), X 7 day(s), # 7 tab(s), Refills(s) 0, Pharmacy: [facility] #[id number], 162, cm, 11/05/22 9:56:00 EDT, Height/Length Dosing, 105, kg, 11/05/22 9:56:00 EDT, Weight Dosing predniSONE, 3, Oral, Daily, X 7 day(s), # 21 tab(s), Refills(s) 0, Pharmacy: [id number], 162, cm, 11/05/22 9:56:00 EDT, Height/Length Dosing, 105, kg, 11/05/22 9:56:00 EDT, Weight Dosing Group A Strep by PCR Rapid COVID Antigen ([facility]) Rapid Strep w/rfx U Beta Hcg Qual Disposition Plan Discharge Prescription List Prescriptions cetirizine 10 mg Tab, 10 mg= 1 tab(s), Oral, D (more content not included)... Normal [facility] Comment on above: Result Comment: Elec tronically Signed By: Harris Simms DO\.br\Date and Time Signed: 11/05/22 11:00 EDT ED Patient Education Noteon 11-05-2022 ED Patient Education Note Normal [facility] ED Patient Summaryon 023 ED Patient Summary [address] [address] Patient Discharge Instructions Person Information Name: CHRISTIANA YOUNG Age: 27 Years Arrival Date: 11/05/2022 09:48:45 Discharge Diagnosis: Acute URI; Urticaria Primary Care Physician: Zbigniew La MD Provider Information Primary Provider: Harris Simms DO Advanced Restaurant And Bar Manager:None The exam and treatment you received in the Emergency Department were for an urgent problem and are not intended as complete care. It is important that you follow up with a doctor, nurse practitioner, or physician?s hearing aid assistant for ongoing care. If your symptoms [...] Follow-up Instructions: With: Address: When: Zbigniew La [address] [place], [place] [phone] Business (1) In 3 days In the event that this physician does not participate in your insurance network, please consult with your insurance company to find a nearby participating provider. Patient Education Materials: A MESSAGE TO ALL PATIENTS REGARDING OPIOIDS PRESCRIPTION OPIOIDS: WHAT YOU NEED TO KNOW Prescription opioids can be used to help relieve kdpixovf-ti-htkzyd pain and are often prescribed following a [...] struggling with addiction, tell your health healthcare network pricing consultant and ask for guidance or call [facility]S National Helpline at [phone]-GDUX. c Source: US Department of Health and Human Services/Center for Disease Control (more content not included)... Normal [facility] Grp A Strp PCRon 11-05-2022 Group A Strep Negative Normal [facility] Comment on above: Order Comment: Order Added on by Discern Rule. Result Comment: Test ing performed using DNA amplification. Performed By: #### 2 [id number], [id number], [id number] ####[facility] [address] [place] [address] Grp A Strp Intrl Ctrl Pass Normal [facility] Comment on above: Order Comment: Order Added on by Discern Rule. Performed By: #### 2 [id number], [id number], [id number] ####[facility] [address] [place], [place] [id number] MICRO OTHER TESTSOrdered By: Nyla Simpson on 11-05-2022 Rapid COV Int NEG Ctl Pass (11/05/22 10:21 AM) Normal [facility] Man Sero Rapid COV Int POS Ctl Pass (11/05/22 10:21 AM) Normal [facility] Man Sero S. pyogenes Ag IA.rapid Ql (Throat) Negative (11/05/22 10:21 AM) Normal Negative [facility] Man Sero SARS-CoV+SARS-CoV-2 (COVID-19) Ag IA.rapid Ql (Resp) Not Detected (11/05/22 10:21 AM) Normal Not Detected [facility] Man Sero Rapid COVID Antigen ([facility])on 11-05-2022 ADMITTED TO INTENSIVE CARE UNIT FOR CONDITION OF INTEREST:FIND:PT: NO Normal [facility] Comment on above: Performed By: #### 2 [id number], [id number], [id number] ####[place] [address] EMPLOYED IN A HEALTHCARE SETTING:FIND:PT: NO Normal [facility] Comment on above: Performed By: #### 2 [id number], [id number], [id number] ####[place] [address] FIRST TEST FOR CONDITION OF INTEREST:FIND:PT: NO Normal [facility] Comment on above: Performed By: #### 2 [id number], [id number], [id number] ####[place] [address] HAS SYMPTOMS RELATED TO CONDITION OF INTEREST:FIND:PT: YES Normal [facility] Comment on above: Performed By: #### 2 [id number], [id number], [id number] ####[place] [address] HOSPITALIZED FOR CONDITION OF INTEREST:FIND:PT: NO Normal [facility] Comment on above: Performed By: #### 2 [id number], [id number], [id number] ####[address] [place] [address] STATUS:FIND:PT: NO Normal [facility] Comment on above: Performed By: #### 2 [id number], [id number], [id number] ####[facility] [address] [place] [address] Rapid COV Int NEG Ctl Pass Normal [facility] Comment on above: Performed By: #### 2 [id number], [id number], [id number] ####[facility] [address] [place] [address] Rapid COV Int POS Ctl Pass Normal Fis [facility] Comment on above: Performed By: #### 2 [id number], [id number], [id number] ####[address] [place] [address] RESIDES IN A [place]GREGA CARE SETTING:FIND:PT: NO Normal [facility] Comment on above: Performed By: #### 2 [id number], [id number], [id number] ####[place] [address] SARS-CoV+SARS-CoV-2 (COVID-19) Ag IA.rapid Ql (Resp) Not detected Normal Not Detected [facility] Comment on above: Result Comment: The UltraSoC Technologiesitor? System for Rapid Detection of SARS-CoV-2 is [...] other viruses or pathogens; and, in the [facility], this test is only authorized for the duration of the declaration that circumstances exist justifying the authorization of emergency use of in vitro diagnostics for detection and/or diagnosis of the virus that causes COVID-19 under Section 564(b)(1) of the Act, 21 U.S.C. ? 360bbb-3(b)(1), unless the authorization is terminated or revoked sooner. Performed By: #### 2 [id number], [id number], [id number] ####[address] [place] [address] Rapid Strep w/rfxon 11-06-19 23 S. pyogenes Ag IA.rapid Ql (Throat) Negative Normal Negative [facility] Comment on above: Performed By: #### 2 [id number], [id number], [id number] ####[address] [place] [address] SEROLOGYOrdered By: Nyla Simpson on 11-05-2022 HCG.beta subunit (U) [Moles/Vol] Negative Normal [facility] Man Sero U BetaHcg Qualon 11-05-2022 HCG.beta subunit (U) [Moles/Vol] Negative Normal [facility] Comment on above: Performed By: #### 2 [id number] ####[address] [address] Discharge Instructionson Discharge Instructions [id number] .[id number]:127 Normal [facility] ED Clinical Summaryon 2022 ED Clinical Summary [address] [address] ED Clinical Summary Person Information Name: CHRISTIANA YOUNG/[place] Age: 26 Years : 1995 Sex: Female Language: [place] Islander PCP: Dimitry MONTES MD Marital Status: Single Phone: [phone] Visit Id: Visit Reason: Dental pain; Mouth [...] 09/22/2022 22:39:00 09/22/2022 22:39:00 09/22/2022 22:39:00 ADDRESS: [address] [place] [address] [address] [facility] [id number] PHYS DOC NOTES: MEDICAL INFORMATION: Prescriptions Given: New Medications [id number], [address] [place], [place] [id number], [phone] acetaminophen-hydrocod one (Parkman 325 mg-5 mg oral tablet) 1 Tablets [...] Vitamin+) PATIENT EDUCATION INFORMATION: Instructions: Dental Pain, Tutu-it-Wfee Follow up: With: Address: When: Dental: [facility] [phone] In 3 days 09/25/2022 Comments: You can use the pain medication every 6 hours as needed for pain. Continue taking your antibiotics as prescribed. Please follow-up with your primary care doctor in the next 2 to 3 days. Please return return to your dentist for further evaluation and management With: Address: When: Dental: [facility] [phone] In 3 days 09/25/2022 With: Address: When: Dental: Sara Campbell [phone] In 3 days 09/25/2022 With: Address: When: Dimitry MONTES [address] [place] [address], [place] [address] Business (1) In 3 days 09/25/2022 DIAGNOSIS: Pain, dental Normal [facility] ED Note-Physicianon 09-24-19 ED Note-Physician Basic [...] days ago at a dental clinic in [place]. Patient states she is not taking her [...] and Complexity of Problems Differential Diagnosis: [] [facility] Data External documents reviewed: [] My [...] pain, 5 tab(s), Refill(s) 0, [id number], 162, cm, 09/22/22 21:14:00 EDT, Height/Length Dosing, [...] pain, # 20 tab(s), Refills(s) 0, Pharmacy: [id number], 162, cm, 09/22/22 21:14:00 EDT, Height/Length Dosing, 107, kg, 09/22/22 21:14:00 EDT, Weight Dosing Medications Administered Given benzocaine topical 20% gel, 1 doc, Topical naproxen 250 mg Tab, 500 mg, Oral Parkman 5/325 Tab, 1 tab(s), Oral TO GO acetaminophen-hydrocod one 325 mg - 5 mg, 1 EA, Oral Disposition Plan Discharge Prescription List Prescriptions Naprosyn 500 mg Tab, 500 mg= 1 tab(s), Oral, BID, PRN Parkman 325 mg-5 mg oral tablet, 1 tab(s), Oral, q6hr, PRN Follow-up With When Contact Information Dental: [facility] [phone] In 3 days 09/25/2022 EDT Additional Instructions: You can use the pain medication every 6 hours as needed for pain. Continue taking your antibiotics as prescribed. Please follow-up with your primary care doctor in the next 2 to 3 days. Please return return to your dentist for further evaluation and management Dental: [facility] [phone] In 3 days 09/25/2022 EDT Additional Instructions: Dental: [facility] [phone] In 3 days 09/25/2022 EDT Additional Instructions: Dimitry MONTES In 3 days 09/25/2022 EDT [address] [id number] Structure Vision (1) Additional Instructions: Patient Education Dental Pain, Wzuy-jq-Pprq Problem List/Past Medical History Ongoing Acute pyelonephritis Anxiety depression Bipolar Chronic back pain Schizophrenia Smoker 31-OCT-2013 12:37:00<$> Suicidal thoughts Teenage Historical Dental caries Endometriosis History (more content not included)... Normal [facility] Comment on above: Result Comment: Elec [...] these instructions at home: Medicines ? Take xcpy-geq-gmokqfu and prescription medicines only as told by [...] to the area. Brushing your teeth ? [employer] your teeth twice a day using a [...] when you eat or drink. ? Take ifbc-bhx-nybjpbp and prescription medicines only as told by your dentist. ? Watch your dental pain for any changes. Let your dentist know if symptoms get worse. This information is not intended to replace advice given to you by your health care provider. Make sure you discuss any questions you have with your health care provider. Document Revised: 01/20/2021 Document Reviewed: 01/20/2021 [employer] Patient Education ? 2022 [employer]. Normal [facility] ED Patient Summaryon 023 ED Patient Summary [address] [place] [id number] Patient Discharge Instructions Person Information Name: CHRISTIANA YOUNG Age: 26 Years Arrival Date: 09/22/2022 21:04:05 Discharge Diagnosis: Pain, dental Primary Care Physician: Dimitry MONTES MD Provider Information Primary Provider: Yuniel Ware DO Advanced Restaurant And Bar Manager:None The exam and treatment you received in the Emergency Department were for an urgent problem and are not intended as complete care. It is important that you follow up with a doctor, nurse practitioner, or physician?s hearing aid assistant for ongoing care. If your symptoms become worse or you do not improve as expected and you are unable to reach your usual health care provider, you should return to the Emergency Department. We are available 24 hours a day. CHRISTIANA YOUNG has been given the following list of patient education materials, prescriptions and follow-up instructions: Follow-up Instructions: With: Address: When: Dental: [facility] [phone] In 3 days 09/25/2022 Comments: You can use the pain medication every 6 hours as needed for pain. Continue taking your antibiotics as prescribed. Please follow-up with your primary care doctor in the next 2 to 3 days. Please return return to your dentist for further evaluation and management With: Address: When: Dental: [facility] [phone] In 3 days 09/25/2022 With: Address: When: Dental: [place] [facility] [phone] In 3 days 09/25/2022 With: Address: When: Michaelellachantelle MONTES [address] [place] [address], [place] [id number] [facility] (2) In 3 days 09/25/2022 In the event that this physician does not participate in your insurance network, please consult with your insurance company to find a nearby participating provider. Patient Education Materials: Dental Pain, Novj-wz-Fjsx A MESSAGE TO ALL PATIENTS REGARDING OPIOIDS PRESCRIPTION OPIOIDS: WHAT YOU NEED TO KNOW Prescription opioids can be used to help relieve crwnrikt-xw-yjfnoy pain and are often prescribed following a [...] and family (more content not included)... Normal [facility] Consent for Treatmenton 08-30 Consent for Treatment [id number] 0CD:127 Normal [facility] COVID-19, Rapidon 04-25-2022 SARS-CoV-2 (COVID-19) RNA JAYDE+probe Ql (Unsp spec) Not detected Not Detected [facility] Comment on above: Rapid NAAT: Negative [...] authorized laboratories. Fact sheet for Healthcare Providers: https://www.fda.gov/media/386088/download Fact sheet for Patients: https://www.fda.gov/media/029088/download METHODOLOGY: Isothermal Nucleic Acid Amplification [facility] No Panel Informationon 04-25 [facility] Rapid Influenza A/B Antigens on 04-25-2022 Influenza A by PCR Negative [facility] Influenza B by PCR Negative [facility] Rapid Strep Screenon 022 Strep Grp A PCR Negative [facility] Comment on above: Negative for Strep A nucleic acid. CBC with Auto Differentialon 10-23-2021 Basophils (Bld) [#/Vol] 0.1 10*3/uL 0.0 - 0.1 K/uL [facility] Basophils/100 WBC (Bld) 0.4 % 0.1 - 1.2 % [facility] Eosinophils (Bld) [#/Vol] 0.2 10*3/uL 0.0 - 0.4 K/uL [facility] Eosinophils/100 WBC (Bld) 1.2 % 0.7 - 5.8 % [facility] Hematocrit (Bld) [Volume fraction] 30.5 % Low 37.0 - 47.0 % [facility] Hemoglobin (Bld) [Mass/Vol] 9.2 g/dL Low 11.2 - 15.7 g/dL [facility] Immature granulocytes (Bld) [#/Vol] 0.2 10*3/uL [facility] Immature granulocytes/100 WBC (Bld) 1.3 % [facility] Lymphocytes (Bld) [#/Vol] 1.3 10*3/uL 1.2 - 3.7 K/uL [facility] Lymphocytes/100 WBC (Bld) 8.4 % [facility] MCH (RBC) [Entitic mass] 23.0 pg Low 25.6 - 32.2 pg [facility] MCHC (RBC) [Mass/Vol] 30.2 % Low 32.2 - 35.5 % [facility] MCV (RBC) [Entitic vol] 76.3 fL Low 79.4 - 94.8 fL [facility] Monocytes (Bld) [#/Vol] 0.6 10*3/uL 0.2 - 0.9 K/uL [facility] Monocytes/100 WBC (Bld) 3.9 % Low 4.7 - 12.5 % [facility] Neutrophils Absolute 12.7 K/uL High 1.6 - 6 .1 K/uL [facility] Neutrophils/100 WBC (Bld) 84.8 % High 34.0 - 71.1 % [facility] Platelet distribution width (Bld) [Ratio] 16.8 % High 11.7 - 14.4 % [facility] Platelets (Bld) [#/Vol] 405 10*3/uL High 182 - 369 K/uL [facility] RBC (Bld) [#/Vol] 4.00 10*6/uL [facility] WBC (Bld) [#/Vol] 15.0 10*3/uL High 4.0 - 10.0 K/uL [facility] CT ABDOMEN PELVIS W IV CONTR AST Additional Contrast? Noneon 10-23-2021 Radiology Study observation (narrative) [facility] Work Phone: MILDLY DILATED APPENDIX WITH QUESTIONABLE SURROUNDING INFLAMMATION, WHICH MAY BE EARLY UNCOMPLICATED APPENDICITIS. ENLARGED UTERUS CONSISTENT WITH RECENT STATE. [facility] RADIOLOGY CT ABDOMEN PELVIS W IV CONTRAST: [...] additional images of the pelvis are unremarkable. [facility] RADIOLOGY Christina Skinner MD - 10/23/2021 CT [...] APPENDICITIS. ENLARGED UTERUS CONSISTENT WITH RECENT STATE. [employer] Work Phone: CT ABDOMEN PELVIS W IV CONTR AST Additional Contrast? NoneOrdered By: Christina Skinner on 10-23-2021 [facility] [employer] Work Phone: Comprehensive Metabolic Pane epifanio 10-23-2021 Albumin [Mass/Vol] 3.8 g/dL 3.5 - 4.6 g/dL [facility] [employer] ALP (Bld) [Catalytic activity/Vol] 127 U/L 40 - 130 U/L [facility] ALT [Catalytic activity/Vol] 28 U/L 0 - 33 U/L [facility] Anion gap [Moles/Vol] 12 mmol/L [facility] [employer] AST [Catalytic activity/Vol] 23 U/L 0 - 35 U/L [facility] Bilirubin [Mass/Vol] 0.6 mg/dL 0.2 - 0 .7 mg/dL [facility] Calcium [Mass/Vol] 9.3 mg/dL 8.5 - 9.9 mg/dL [facility] Chloride [Moles/Vol] 102 mmol/L [facility] CO2 [Moles/Vol] 23 mmol/L [facility] Creatinine [Mass/Vol] 0.6 mg/dL 0.50 - 0.90 mg/dL [facility] Free PSA/Total PSA [Mass fraction] 7.8 g/dL 6.3 - 8.0 g/dL [facility] GFR >60.0 >60 [facility] Comment on above: >60 mL/min/1.73m2 EG FR, calc. for ages 18 and older using the MDRD formula (not corrected for weight), is valid for stable renal function. GFR Non- >60.0 >60 [facility] Comment on above: >60 mL/min/1.73m2 EG FR, calc. for ages 18 and older using the MDRD formula (not corrected for weight), is valid for stable renal function. Globulin (S) [Mass/Vol] 4 g/dL High 2.3 - 3.5 g/dL [facility] Glucose [Mass/Vol] 116 mg/dL High 70 - 99 mg/dL [facility] Potassium [Moles/Vol] 4.1 mmol/L [facility] Sodium [Moles/Vol] 137 mmol/L [facility] Urea nitrogen (BldV) [Mass/Vol] 14 mg/dL 6 - 20 mg/dL [facility] Lipaseon 10-23-2021 Lipase [Catalytic activity/Vol] 14 U/L 12 - 95 U/L [facility] Magnesiumon 10-23-2021 Magnesium [Mass/Vol] 1.8 mg/dL 1.7 - 2 .4 mg/dL [facility] Microscopic Urinalysison Bacteria, UA FEW Abnormal Negative /HPF [facility] Epithelial Cells, UA 0-2 /HPF [facility] RBC, UA 10-20 Abnormal [facility] WBC, UA 6-9 [facility] No Panel Informationon 10-23 Interpretation and review of laboratory results Abnormal [facility] Interpretation and review of laboratory results Abnormal [facility] Urinalysis with Reflex to Cu ltureon 10-23-2021 Bilirubin Urine Negative Negative [facility] Blood, Urine LARGE Abnormal Negative [facility] Clarity, UA Clear Clear [facility] Color, UA Yellow Straw/Yellow [facility] Glucose, Ur Negative Negative mg/dL [facility] Ketones Ql (U) Negative Negative mg/dL [facility] Leukocyte esterase Test strip Ql (U) MODERATE Abnormal Negative [facility] Nitrite, Urine Negative Negative [facility] pH, UA 6.5 [facility] Protein, UA TRACE Abnormal Negative mg/dL [facility] Specific Carbon, UA 1.010 [facility] Urine Reflex to Culture Not Indicated [facility] Urobilinogen, Urine 0.2 <2.0 E.U./dL [facility] URINALYSISOrdered By: Marcelo perez on 10-20-2021 Bacteria LM Ql (Urine sed) 1+ /HPF Invalid Interpretation Code Trace/HPF [facility] UA Auto SS Bilirubin Ql (U) Negative (10/20/21 9:00 PM) Normal Negative [facility] UA Auto SS Clarity (U) SL CLOUDY Invalid Interpretation Code [facility] UA Auto SS Color (U) [place] *ABN* (10/20/21 9:00 PM) Invalid Interpretation Code Yellow [facility] UA Auto SS Crystals LM Ql (Urine sed) Present (10/20/21 9:00 PM) Normal [facility] UA Auto SS Epithelial cells.squamous LM.HPF (Urine sed) [#/Area] 3-4 /HPF Normal 0-2/HPF [facility] UA Auto SS Glucose Test strip (U) [Mass/Vol] Negative (10/20/21 9:00 PM) Normal Negative [facility] UA Auto SS Hemoglobin Ql (U) 3+ *ABN* (10/20/21 9:00 PM) Invalid Interpretation Code Negative [facility] UA Auto SS Ketones (U) [Mass/Vol] Negative (10/20/21 9:00 PM) Normal Negative [facility] UA Auto SS [place].plasma/[place]. RBC (Bld) [Mass ratio] >30 /HPF Invalid Interpretation Code 0-3/HPF [facility] UA Auto SS Mucus Ql (Urine sed) 1+ (10/20/21 9:00 PM) Normal [facility] UA Auto SS Nitrite Ql (U) Negative (10/20/21 9:00 PM) Normal Negative FT UA Auto SS pH (U) 6.0 *NA* (10/20/21 9:00 PM) Invalid Interpretation Code 5.0 - 9.0 FT UA Auto SS Protein (U) [Mass/Vol] 1+ *ABN* (10/20/21 9:00 PM) Invalid Interpretation Code Negative FT UA Auto SS Specific gravity (U) [Rel density] 1.020 *NA* (10/20/21 9:00 PM) Invalid Interpretation Code 1.005 - 1.030 [facility] UA Auto SS UA Spec Desc Clean Catch (10/20/21 9:00 PM) Normal [facility] UA Auto SS Urobilinogen Qn (U) [id number] {Venus'U}/dL Normal 0.0 - 1.0 EU/dL [facility] UA Auto SS WBC Auto Ql (U) 1+ *ABN* (10/20/21 9:00 PM) Invalid Interpretation Code Negative [facility] UA Auto SS WBC LM.HPF (Urine sed) [#/Area] 6-15 /HPF Invalid Interpretation Code 0-5/HPF [facility] UA Auto SS CBC AUTO DIFFon 10-17-2021 BASO # 0.1 103/ul Normal 0.0-0.1 [facility] Comment on above: Performed By: #### N BOX #### [facility] [address] [place] [address] Dr. Dillan Power Basophils/100 WBC (Bld) 0.5 % Normal 0.2-2.0 [facility] [place] Comment on above: Performed By: #### N BOX #### [facility] [address] [address] [address] Dillan Power EO # 0.2 103/ul Normal 0.0-0.7 [facility] Comment on above: Performed By: #### N BOX #### [facility] [address] [place] [address] Dr. Dillan Power Eosinophils/100 WBC (Bld) 1.9 % Normal 0.9-7.0 [facility] Comment on above: Performed By: #### N BOX #### [facility] [address] [place] [address] Dr. Dillan Power Erythrocyte distribution width (RBC) [Ratio] 16.8 % Critically high 11.0-15.0 [facility] Comment on above: Performed By: #### N BOX #### [facility] [address] [place] [address] Dr. Dillan Power Hematocrit (Bld) [Volume fraction] 24.7 % Critically low 36.0-48.0 [facility] Comment on above: Performed By: #### N BOX #### [facility] [address] [place] [address] Dr. Dillan Power Hemoglobin (Bld) [Mass/Vol] 7.4 g/dL Critically low 12.0-16.0 [facility] Comment on above: Performed By: #### N BOX #### [facility] [address] [place] [address] Dr. Dillan Power IG # 0.15 10e3/ul Critically high 0.00-0.03 [facility] Comment on above: Performed By: #### N BOX #### [facility] [address] [place] [address] Dr. Dillan Power IG % 1.4 % Critically high 0.0-0.5 [facility] Comment on above: Performed By: #### N BOX #### [facility] [address] [place] [address] Dr. Dillan Power LYMPH # 2.2 103/ul Normal 1.2-3.8 [facility] Comment on above: Performed By: #### N BOX #### [facility] [address] [place] [address] Dr. Dillan Power Lymphocytes/100 WBC (Bld) 20.7 % Normal 20.5-60.0 [facility] Comment on above: Performed By: #### N BOX #### [facility] [address] [place] [address] Dr. Dillan Power MANUAL DIFF REQ NO Normal [facility] Comment on above: Performed By: #### N BOX #### [facility] [address] [address] [address] Dillan Power MCH (RBC) [Entitic mass] 23.2 pg Critically low 26.7-34.0 [facility] Comment on above: Performed By: #### N BOX #### [facility] [address] [place] [address] Dr. Dillan Power MCHC (RBC) [Mass/Vol] 30.0 g/dL Normal 29.9-35.2 [facility] Comment on above: Performed By: #### N BOX #### [facility] [address] [place] [address] Dr. Dillan Power MCV (RBC) [Entitic vol] 77.4 fL Critically low 81.0-99. 0 [facility] Comment on above: Performed By: #### N BOX #### [facility] [address] [place] [address] Dr. Dillan Power MONO # 0.5 103/ul Normal 0.3-0.8 [facility] Comment on above: Performed By: #### N BOX #### [facility] [address] [place] [address] Dr. Dillan Power Monocytes/100 WBC (Bld) 4.6 % Normal 1.7-12.0 [facility] [place] Comment on above: Performed By: #### N BOX #### [facility] [address] [place] [address] Dr. Dillan Power NEUT # 7.4 103/ul Critically high 1.4-6.5 [facility] Comment on above: Performed By: #### N BOX #### [facility] [address] [place] [address] Dr. Dillan Power Neutrophils/100 WBC (Bld) 70.9 % Normal 43.0-75.0 [facility] Comment on above: Performed By: #### N BOX #### [facility] [address] [place] [address] Dr. Dillan Power Platelet mean volume (Bld) [Entitic vol] 13.2 fL Normal 9.5-13.5 [facility] Comment on above: Performed By: #### N BOX #### [facility] [address] [place] [address] Dr. Dillan Power PLT 169 103/ul Normal 150-450 [facility] Comment on above: Performed By: #### N BOX #### [facility] [address] [place] [address] Dr. Dillan Power RBC 3.19 106/ul Critically low 4.20-5.40 [facility] Comment on above: Performed By: #### N BOX #### [facility] [address] [place] [address] Dr. Dillan Power WBC 10.4 103/ul Normal 4.0-11.0 [facility] Comment on above: Performed By: #### N BOX #### [facility] [address] [place] [address] Dr. Dillan Power CBC AUTO DIFFon 10-15-2021 BASO # 0.0 103/ul Normal 0.0-0.1 [facility] Comment on above: Performed By: #### R PRQ #### [facility] [address] [place] [address] Dr. Dillan Power Basophils/100 WBC (Bld) 0.4 % Normal 0.2-2.0 [facility] [place] Comment on above: Performed By: #### R PRQ #### [facility] [address] [place] [address] Dr. Dillan Power EO # 0.1 103/ul Normal 0.0-0.7 [facility] Comment on above: Performed By: #### R PRQ #### [facility] [address] [place] [address] Dr. Dillan Power Eosinophils/100 WBC (Bld) 1.3 % Normal 0.9-7.0 [facility] Comment on above: Performed By: #### R PRQ #### [facility] [address] [place] [address] Dr. Dillan Power Erythrocyte distribution width (RBC) [Ratio] 16.4 % Critically high 11.0-15.0 [facility] Comment on above: Performed By: #### R PRQ #### [facility] [address] [address] [address] Dillan Power Hematocrit (Bld) [Volume fraction] 30.7 % Critically low 36.0-48.0 [facility] Comment on above: Performed By: #### R PRQ #### [facility] [address] [place] [address] Dr. Dillan Power Hemoglobin (Bld) [Mass/Vol] 9.4 g/dL Critically low 12.0-16.0 [facility] Comment on above: Performed By: #### R PRQ #### [facility] [address] [place] [address] Dr. Dillan Power IG # 0.17 10e3/ul Critically high 0.00-0.03 [facility] Comment on above: Performed By: #### R PRQ #### [facility] [address] [place] [address] Dr. Dillan Power IG % 1.7 % Critically high 0.0-0.5 [facility] Comment on above: Performed By: #### R PRQ #### [facility] [address] [place] [address] Dr. Dillan Power LYMPH # 1.6 103/ul Normal 1.2-3.8 [facility] Comment on above: Performed By: #### R PRQ #### [facility] [address] [place] [address] Dr. Dillan Power Lymphocytes/100 WBC (Bld) 15.4 % Critically low 20.5-60.0 [facility] Comment on above: Performed By: #### R PRQ #### [facility] [address] [place] [address] Dr. Dillan Power MANUAL DIFF REQ NO Normal [facility] Comment on above: Performed By: #### R PRQ #### [facility] [address] [place] [address] Dr. Dillan Power MCH (RBC) [Entitic mass] 23.2 pg Critically low 26.7-34.0 [facility] Comment on above: Performed By: #### R PRQ #### [facility] [address] [address] [address] Dillan Power MCHC (RBC) [Mass/Vol] 30.6 g/dL Normal 29.9-35.2 [facility] Comment on above: Performed By: #### R PRQ #### [facility] [address] [place] [address] Dr. Dillan Power MCV (RBC) [Entitic vol] 75.6 fL Critically low 81.0-99. 0 [facility] Comment on above: Performed By: #### R PRQ #### [facility] [address] [place] [address] Dr. Dillan Power MONO # 0.5 103/ul Normal 0.3-0.8 [facility] Comment on above: Performed By: #### R PRQ #### [facility] [address] [place] [address] Dr. Dillan Power Monocytes/100 WBC (Bld) 5.1 % Normal 1.7-12.0 [facility] [place] Comment on above: Performed By: #### R PRQ #### [facility] [address] [place] [address] Dr. Dillan Power NEUT # 7.7 103/ul Critically high 1.4-6.5 [facility] Comment on above: Performed By: #### R PRQ #### [facility] [address] [place] [address] Dr. Dillan Power Neutrophils/100 WBC (Bld) 76.1 % Critically high 43.0-75.0 [facility] Comment on above: Performed By: #### R PRQ #### [facility] [address] [place] [address] Dr. Dillan Power Platelet mean volume (Bld) [Entitic vol] 12.4 fL Normal 9.5-13.5 [facility] Comment on above: Performed By: #### R PRQ #### [facility] [address] [place] [address] Dr. Dillan Power PLT 172 103/ul Normal 150-450 [facility] Comment on above: Performed By: #### R PRQ #### [facility] [address] [address] [address] Dillan Power RBC 4.06 106/ul Critically low 4.20-5.40 [facility] Comment on above: Performed By: #### R PRQ #### [facility] [address] [place] [address] Dr. Dillan Power WBC 10.1 103/ul Normal 4.0-11.0 [facility] Comment on above: Performed By: #### R PRQ #### [facility] [address] [place] [address] Dr. Dillan Power Covid-19 PCR ([facility])on 09-29 SARS-CoV-2 (COVID-19) RNA JAYDE+probe Ql (Unsp spec) Not detected Normal NOT DETECTED [facility] Comment on above: Result Comment: When [...] for this test is supported by the [employer]'s declaration that [...] used). Performed By: #### C VDTBH #### [facility] [address] [place] [address] Dr. Dillan Power DRUG SCREEN RAPID (URINE)on 10-15-2021 AMP Negative Normal NEGATIVE [facility] Comment on above: Performed By: #### R PRQ #### [facility] [address] [place] [address] Dr. Dillan Power BAR Negative Normal NEGATIVE [facility] Comment on above: Performed By: #### R PRQ #### [facility] [address] [place] [address] Dr. Dillan Power BUP Negative Normal NEGATIVE [facility] Comment on above: Performed By: #### R PRQ #### [facility] [address] [place] [address] Dr. Dillan Power BZO Negative Normal NEGATIVE [facility] Comment on above: Performed By: #### R PRQ #### [facility] [address] [place] [address] Dr. Dillan Power DAVE Negative Normal NEGATIVE [facility] Comment on above: Performed By: #### R PRQ #### [facility] [address] [place] [address] Dr. Dillan Power CUT-OFFS SEE BELOW Normal [facility] Comment on above: Result Comment: AMP [...] ng/mL Performed By: #### R PRQ #### [facility] [address] [place] [address] Dr. Dillan Power DRUG CUT HEADER DRUG CLASS TEST SYST EM CUT-OFF CONCENTRATIONS ARE FOLLOWS: Normal [facility] Comment on above: Performed By: #### R PRQ #### [facility] [address] [place] [address] Dr. Dillan Power mAMP Negative Normal NEGATIVE [facility] Comment on above: Performed By: #### R PRQ #### [facility] [address] [place] [address] Dr. Dillan Power MTD Negative Normal NEGATIVE [facility] Comment on above: Performed By: #### R PRQ #### [facility] [address] [place] [address] Dr. Dillan Power OPI Negative Normal NEGATIVE [facility] Comment on above: Performed By: #### R PRQ #### [facility] [address] [place] [address] Dr. Dillan Power OXY Negative Normal NEGATIVE [facility] Comment on above: Performed By: #### R PRQ #### [facility] [address] [place] [address] Dr. Dillan Power PCP Negative Normal NEGATIVE [facility] Comment on above: Performed By: #### R PRQ #### [facility] [address] [place] [address] Dr. Dillan Power PPX Negative Normal NEGATIVE [facility] Comment on above: Performed By: #### R PRQ #### [facility] [address] [place] [address] Dr. Dillan Power TCA Negative Normal NEGATIVE [facility] Comment on above: Performed By: #### R PRQ #### [facility] [address] [place] [address] Dr. Dillan Power THC Negative Normal NEGATIVE [facility] Comment on above: Performed By: #### R PRQ #### [facility] [address] [place] [address] Dr. Dillan Power TYPE AND SCREENon 10-15-2021 TYPE AND SCREEN Negative Normal [facility] Comment on above: Performed By: #### N BOX #### [facility] [address] [place] [address] Dr. 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 Dillan Power Clarity (U) CLEAR Normal CLEAR [facility] Comment on above: Performed By: #### R PRQ #### [facility] [address] [place] [address] Dr. Dillan Power Color (U) LT. YELLOW Normal YELLOW [facility] Comment on above: Performed By: #### R PRQ #### [facility] [address] [place] [address] Dr. Dillan Power Glucose Ql (U) Negative Normal NEGATIVE [facility] Comment on above: Performed By: #### R PRQ #### [facility] [address] [place] [address] Dr. Dillan Power Hemoglobin Ql (U) Negative Normal NEGATIVE [facility] Comment on above: Performed By: #### R PRQ #### [facility] [address] [place] [address] Dr. Dillan Power Ketones Ql (U) Negative Normal NEGATIVE [facility] Comment on above: Performed By: #### R PRQ #### [facility] [address] [place] [address] Dr. Dillan oPwer LEUKOCYTES Negative Normal NEGATIVE [facility] Comment on above: Performed By: #### R PRQ #### [facility] [address] [place] [address] Dr. Dillan Power Nitrite Ql (U) Negative Normal NEGATIVE [facility] Comment on above: Performed By: #### R PRQ #### [facility] [address] [place] [address] Dr. Dillan Power pH (U) 6.5 [pH] Normal 5-9 [facility] Comment on above: Performed By: #### R PRQ #### [facility] [address] [place] [address] Dr. Dillan Power SPEC GRAVITY 1.010 Normal 1.005-<=1.025 [facility] Comment on above: Performed By: #### R PRQ #### [facility] [address] [place] [address] Dr. Dillan Power UA PROTEIN Negative Normal NEGATIVE/ TRACE [facility] Comment on above: Performed By: #### R PRQ #### [facility] [address] [place] [address] Dr. Dillan Power UR MICRO IND NOT INDICATED Normal [facility] Comment on above: Performed By: #### R PRQ #### [facility] [address] [place] [address] Dr. Dillan Power Urobilinogen Qn (U) 0.2 {Venus'U}/dL Normal 0.2 - 1. 0 [facility] Comment on above: Performed By: #### R PRQ #### [facility] [address] [place] [address] Dr. Dillan Power UA (CLEAN/CATCH) RUBBER TUBING BACKER/MICRO I F IND.on 10-04-2021 Bilirubin Ql (U) Negative Normal NEGATIVE [facility] Comment on above: Performed By: #### N BOX #### [facility] [address] [place] [address] Dr. Dillan Power Clarity (U) SL CLOUDY Abnormal CLEAR [facility] Comment on above: Performed By: #### N BOX #### [facility] [address] [place] [address] Dr. Dillan Power Color (U) YELLOW Normal YELLOW [facility] Comment on above: Performed By: #### N BOX #### [facility] [address] [place] [address] Dr. Dillan Power Glucose Ql (U) Negative Normal NEGATIVE [facility] Comment on above: Performed By: #### N BOX #### [facility] [address] [place] [address] Dr. Dillan Power Hemoglobin Ql (U) Negative Normal NEGATIVE [facility] Comment on above: Performed By: #### N BOX #### [facility] [address] [place] [address] Dr. Dillan Power Ketones Ql (U) Negative Normal NEGATIVE [facility] Comment on above: Performed By: #### N BOX #### [facility] [address] [place] [address] Dr. Dillan Power LEUKOCYTES Negative Normal NEGATIVE [facility] Comment on above: Performed By: #### N BOX #### [facility] [address] [place] [address] Dr. Dillan Power Nitrite Ql (U) Negative Normal NEGATIVE [facility] Comment on above: Performed By: #### N BOX #### [facility] [address] [place] [address] Dr. Dillan Power pH (U) 6.0 [pH] Normal 5-9 [facility] Comment on above: Performed By: #### N BOX #### [facility] [address] [place] [address] Dr. Dillan Power SPEC GRAVITY >=1.030 Abnormal 1.005-<=1.025 [facility] Comment on above: Performed By: #### N BOX #### [facility] [address] [place] [address] Dr. Dillan Power UA PROTEIN Negative Normal NEGATIVE/ TRACE [facility] Comment on above: Performed By: #### N BOX #### [facility] [address] [place] [address] Dr. Dillan Power UR MICRO IND NOT INDICATED Normal [facility] Comment on above: Performed By: #### N BOX #### [facility] [address] [place] [address] Dr. Dillan Power Urobilinogen Qn (U) 0.2 {Venus'U}/dL Normal 0.2 - 1. 0 [facility] Comment on above: Performed By: #### N BOX #### [facility] [address] [place] [address] Dr. Dillan Power CHLAMYDIA/GONOCOCCUS JAYDE (SW AB/URINE/PAPon 10-03-2021 Chlamydia trachomatis, JAYDE Negative Normal Negative [facility] Comment on above: Performed By: #### C T/NGNA #### [facility] [address] [place] [address] Dr. Dillan Power Neisseria gonorrhoeae, JAYDE Negative Normal Negative [facility] Comment on above: Performed By: #### C T/NGNA #### [facility] [address] [place] [address] Dr. Dillan Power VAGINITIS/VAGINOSIS DNA PROB José 10-03-2021 Kailee species Negative Normal Negative [facility] Comment on above: Performed By: #### V AGINT #### [facility] [address] [place] [address] Dr. Dillan Power Gardnerella vaginalis Positive Abnormal Negative [facility] Comment on above: Performed By: #### V AGINT #### [facility] [address] [place] [address] Dr. Dillan Power Trichomonas vaginalis Negative Normal Negative [facility] Comment on above: Performed By: #### V AGINT #### [facility] [address] [place] [address] Dr. Dillan Power GROUP B STREP CULTUREon S. agalactiae Ag Ql (Unsp spec) Culture Observations: NEGATIVE FOR GROUP B STREPTOCOCCUS. Normal [facility] Comment on above: Performed By: #### N BOX #### [facility] [address] [place] [address] Dr. Dillan Power US PREG GROWTHon 09-30-2021 [...] CHRISTINA MIRAMONTES Date: 2021-09-30 17:17 Normal [facility] CULTURE URINEon 09-25-2021 CULTURE URINE Culture Observations : MODERATE GROWTH OF MIXED GENITAL LAUREANO. NO POTENTIAL PATHOGENS SEEN. Normal [facility] Comment on above: Performed By: #### U RCX #### [facility] [address] [address] [address] Dillan Power UA (CLEAN/CATCH) RUBBER TUBING BACKER/MICRO I F IND.on 09-25-2021 Bilirubin Ql (U) Negative Normal NEGATIVE [facility] Comment on above: Performed By: #### U ACSIND, UMICRO #### [facility] [address] [address] [address] Dillan Power Clarity (U) CLEAR Normal CLEAR [facility] Comment on above: Performed By: #### U ACSIND, UMICRO #### [facility] [address] [address] [address] Dillan Power Color (U) YELLOW Normal YELLOW [facility] Comment on above: Performed By: #### U ACSIND, UMICRO #### [facility] [address] [place] [address] Dr. Dillan Power Glucose Ql (U) Negative Normal NEGATIVE [facility] Comment on above: Performed By: #### U ACSIND, UMICRO #### [facility] [address] [address] [address] Dillan Power Hemoglobin Ql (U) Negative Normal NEGATIVE [facility] Comment on above: Performed By: #### U ACSIND, UMICRO #### [facility] [address] [place] [address] Dr. Dillan Power Ketones Ql (U) TRACE Abnormal NEGATIVE [facility] Comment on above: Performed By: #### U ACSIND, UMICRO #### [facility] [address] [address] [address] Dillan Power LEUKOCYTES Negative Normal NEGATIVE [facility] Comment on above: Performed By: #### U ACSIND, UMICRO #### [facility] [address] [address] [address] Dillan Power Nitrite Ql (U) Negative Normal NEGATIVE [facility] Comment on above: Performed By: #### U ACSIND, UMICRO #### [facility] [address] [address] [address] Dillan Power pH (U) 6.0 [pH] Normal 5-9 [facility] Comment on above: Performed By: #### U ACSIND, UMICRO #### [facility] [address] [place] [address] Dr. Dillan Power SPEC GRAVITY >=1.030 Abnormal 1.005-<=1.025 [facility] Comment on above: Performed By: #### U ACSIND, UMICRO #### [facility] [address] [place] [address] Dr. Dillan Power UA PROTEIN TRACE Normal NEGATIVE/ TRACE [facility] Comment on above: Performed By: #### U ACSIND, UMICRO #### [facility] [address] [place] [address] Dr. Dillan Power UR MICRO IND INDICATED Normal [facility] Comment on above: Performed By: #### U ACSIND, UMICRO #### [facility] [address] [place] [address] Dr. Dillan Power Urobilinogen Qn (U) 0.2 {Venus'U}/dL Normal 0.2 - 1. 0 [facility] Comment on above: Performed By: #### U ACSIND, UMICRO #### [facility] [address] [place] [address] Dr. Dillan Power URINE MICROSCOPIC ONLYon BACTERIA TRACE Abnormal NONE SEEN [facility] Comment on above: Performed By: #### U ACSIND, UMICRO #### [facility] [address] [place] [address] Dr. Dillan Power Bacteria identified Cx Nom (U) INDICATED Normal [facility] Comment on above: Performed By: #### U ACSIND, UMICRO #### [facility] [address] [place] [address] Dr. Dillan Power CAST NONE SEEN Normal NONE SEEN [facility] Comment on above: Performed By: #### U ACSIND, UMICRO #### [facility] [address] [place] [address] Dr. Dillan Power Crystals LM Nom (Urine sed) NONE SEEN Normal NONE SEEN [facility] Comment on above: Performed By: #### U ACSIND, UMICRO #### [facility] [address] [address] [address] Dillan Power Epithelial cells LM Ql (Urine sed) MODERATE Abnormal NONE SEEN /RARE [facility] Comment on above: Performed By: #### U ACSIND, UMICRO #### [facility] [address] [address] [address] Dillan Power MUCOUS MODERATE Abnormal NONE SEEN [facility] Comment on above: Performed By: #### U ACSIND, UMICRO #### [facility] [address] [address] [address] Dillan Power RBC 0-2 Normal 0-2 [facility] Comment on above: Performed By: #### U ACSIND, UMICRO #### [facility] [address] [address] [address] Dillan Power WBC 0-2 Abnormal NONE SEEN [facility] Comment on above: Performed By: #### U ACSIND, UMICRO #### [facility] [address] [address] [address] Dillan Power URINALYSISOrdered By: Wale Maynard [...] Interpretation Code Negative [facility] UA Auto SS [place].plasma/[place]. RBC (Bld) [Mass ratio] 0-3 /HPF Normal [...] [facility] UA Auto SS Urobilinogen Qn (U) 0.2790758 {Venus'U}/dL Normal 0.0 - 1.0 EU/dL [facility] [...] PM) Normal Negative [facility] UA Auto SS [place].plasma/[place]. RBC (Bld) [Mass ratio] 0-3 /HPF Normal [...] [facility] UA Auto SS Urobilinogen Qn (U) 0.0101953 {Venus'U}/dL Normal 0.0 - 1.0 EU/dL [facility] UA Auto SS WBC Auto Ql (U) Negative (08/26/21 11:00 PM) Normal Negative [facility] UA Auto SS WBC LM.HPF (Urine sed) [#/Area] 0-5 /HPF Normal 0-5/HPF [facility] UA Auto SS US PREG GROWTHon 08-05-2021 [...] LEONIDES SWARTZ Date: 2021-08-05 12:05 Normal [facility] HEMOGRAM AND PLATELon 2021 Hematocrit (Bld) [Volume fraction] 31.4 % Critically low 36.0-48.0 [facility] Comment on above: Performed By: #### N BOX #### [facility] [address] [place] [address] Dr. Dillan Power Hemoglobin (Bld) [Mass/Vol] 10.0 g/dL Critically low 12.0-16.0 [facility] Comment on above: Performed By: #### N BOX #### [facility] [address] [place] [address] Dr. Dillan Power MCH (RBC) [Entitic mass] 26.0 pg Critically low 26.7-34.0 [facility] Comment on above: Performed By: #### N BOX #### [facility] [address] [place] [address] Dr. Dillan Power MCHC (RBC) [Mass/Vol] 31.8 g/dL Normal 29.9-35.2 [facility] Comment on above: Performed By: #### N BOX #### [facility] [address] [address] [address] Dillan Power MCV (RBC) [Entitic vol] 81.8 fL Normal 81.0-99.0 [facility] Comment on above: Performed By: #### N BOX #### [facility] [address] [place] [address] Dr. Dillan Power PLT 226 103/ul Normal 150-450 [facility] Comment on above: Performed By: #### N BOX #### [facility] [address] [place] [address] Dr. Dillan Power RBC 3.84 106/ul Critically low 4.20-5.40 [facility] Comment on above: Performed By: #### N BOX #### [facility] [address] [address] [address] Dillan Power WBC 9.8 103/ul Normal 4.0-11.0 [facility] Comment on above: Performed By: #### N BOX #### [facility] [address] [place] [address] Dr. Dillan Power MICRO OTHER TESTSOrdered By: Wale Maynard on 07-24-2021 Influenzae A Ag Negative (07/24/21 1:25 AM) Normal Negative [facility] Man Sero Influenzae B Ag Negative (07/24/21 1:25 AM) Normal Negative [facility] Man Sero Rapid COV Int NEG [place] (07/24/21 1:25 AM) Normal [facility] Man Sero Rapid COV Int POS [place] (07/24/21 1:25 AM) Normal [facility] Man Sero SARS-CoV+SARS-CoV-2 (COVID-19) Ag IA.rapid Ql (Resp) Not Detected (07/24/21 1:25 AM) Normal Not Detected [facility] Man Sero COVID-19, Rapidon 04-10-2021 Interpretation and review of laboratory results Abnormal [facility] SARS-CoV-2 (COVID-19) RNA JAYDE+probe Ql (Unsp spec) Detected Abnormal Not Detected [facility] Comment on above: Rapid NAAT: The specimen [...] this assay. Fact sheet for Healthcare Providers: https://www.fda.gov/media/324769/download Fact sheet for Patients: https://www.fda.gov/media/433308/download Methodology: Isothermal Nucleic Acid Amplification Results reported to the appropriate Health Department Specimen Description .NASOPHARYNGEAL SWAB [facility] [id number] 04-10-2021 SARS-CoV-2 (COVID-19) RNA JAYDE+probe Ql (Unsp spec) Detected Abnormal NOTDET [facility] Comment on above: Result Comment: Rapid NAAT: [...] this assay. Fact sheet for Healthcare Providers: https://www.fda.gov/media/788460/download Fact sheet for Patients: https://www.fda.gov/media/380563/download Methodology: Isothermal Nucleic Acid Amplification Results reported to the appropriate Health Department Performed By: #### C OVRB #### [facility] [address] [place] [address] Health Care Facilities Inspector: MD Mili Lopez Direct Agon 04-10 Strep Gr A Direct Ag Specimen Descriptio n .THROAT Special Requests NOT REPORTED Direct Exam Rapid Strep A negative. A negative Rapid Group A Strep Screen result does not rule out the possibility of Group A Streptococci in the specimen. A Group A Strep DNA test is available upon request. Report Status FINAL 04/10/2021 Normal [facility] Comment on above: Performed By: #### S GPA #### [facility] [address] [place] [address] Health Care Facilities Inspector: Leonides Rodrigues MD Strep Screen Group A Throato n 04-10-2021 S. pyogenes Ag IA Ql (Unsp spec) Rapid Strep A negative. A negative Rapid Group A Strep Screen result does not rule out the possibility of Group A Streptococci in the specimen. A Group A Strep DNA test is available upon request. [facility] Special Requests NOT REPORTED [facility] Specimen Description .THROAT [facility] HEPATITIS C VIRUS AB W/ REFL EX QUANTon 04-06-2021 HCV AB >11.0 Critically high 0.0-0.9 [facility] Comment on above: Result Comment: . Performed By: #### R PRQ #### [facility] [address] [address] [address] Dillan Power HCV log10 6.777 log10 IU/mL Normal [facility] Comment on above: Performed By: #### R PRQ #### [facility] [address] [place] [address] Dr. Dillan Power Hep C Quantitation [id number] IU/mL Normal [facility] Comment on above: Performed By: #### R PRQ #### [facility] [address] [place] [address] Dr. Dillan Power Interpretation Comment Normal [facility] Comment on above: Result Comment: Posi tive HCV antibody screen with the presence of HCV RNA is consistent with active infection. Performed By: #### R PRQ #### [facility] [address] [place] [address] Dr. Dillan Power Test Information: Comment Normal [facility] Comment on above: Result Comment: The quantitative range of this assay is 15 IU/mL to 100 million IU/mL. Performed By: #### R PRQ #### [facility] [address] [place] [address] Dr. Dillan Power RUBELLA AB IGGon 04-05-2021 Rubella Antibodies, IgG 1.46 index Normal Immune >0.99 [facility] Comment on above: Result Comment: Non- immune <0.90 Equivocal 0.90 - 0.99 Immune >0.99 Performed By: #### R UBIGG #### [facility] [address] [place] [address] Dr. Dillan Power HEP B SURFACE ANTIGEN SCREEN on 04-04-2021 HBsAg Screen Negative Normal Negative [facility] Comment on above: Performed By: #### R PRQ #### [facility] [address] [place] [address] Dr. Dillan Power HIV 1 AND 2 WITH REFLEXon HIV Screen 4th Generation wRfx Non-Reactive Normal Non Reactive [facility] Comment on above: Performed By: #### R PRQ #### [facility] [address] [place] [address] Dr. Dillan Power RPR QUANTon 04-04-2021 Rapid Plasma Reagin, Quant Non-Reactive Normal NonRea<1:1 [facility] Comment on above: Performed By: #### R PRQ #### [facility] [address] [place] [address] Dr. Dillan Power CBC AUTO DIFFon 04-02-2021 BASO # 0.0 103/ul Normal 0.0-0.1 [facility] Comment on above: Performed By: #### R PRQ #### [facility] [address] [place] [address] Dr. Dillan Power Basophils/100 WBC (Bld) 0.4 % Normal 0.2-2.0 [facility] Comment on above: Performed By: #### R PRQ #### [facility] [address] [place] [address] Dr. Dillan Power EO # 0.2 103/ul Normal 0.0-0.7 [facility] Comment on above: Performed By: #### R PRQ #### [facility] [address] [place] [address] Dr. Dillan Power Eosinophils/100 WBC (Bld) 2.8 % Normal 0.9-7.0 [facility] Comment on above: Performed By: #### R PRQ #### [facility] [address] [place] [address] Dr. Dillan Power Erythrocyte distribution width (RBC) [Ratio] 13.2 % Normal 11.0-15.0 [facility] Comment on above: Performed By: #### R PRQ #### [facility] [address] [place] [address] Dr. Dillan Power Hematocrit (Bld) [Volume fraction] 36.3 % Normal 36.0-48.0 [facility] Comment on above: Performed By: #### R PRQ #### [facility] [address] [place] [address] Dr. Dillan Power Hemoglobin (Bld) [Mass/Vol] 11.6 g/dL Critically low 12.0-16.0 [facility] Comment on above: Performed By: #### R PRQ #### [facility] [address] [place] [address] Dr. Dillan Power IG # 0.01 10e3/ul Normal 0.00-0.03 [facility] Comment on above: Performed By: #### R PRQ #### [facility] [address] [place] [address] Dr. Dillan Power IG % 0.1 % Normal 0.0-0.5 [facility] Comment on above: Performed By: #### R PRQ #### [facility] [address] [place] [address] Dr. Dillan Power LYMPH # 1.9 103/ul Normal 1.2-3.8 [facility] Comment on above: Performed By: #### R PRQ #### [facility] [address] [place] [address] Dr. Dillan Power Lymphocytes/100 WBC (Bld) 25.9 % Normal 20.5-60.0 [facility] Comment on above: Performed By: #### R PRQ #### [facility] [address] [place] [address] Dr. Dillan Power MANUAL DIFF REQ NO Normal [facility] Comment on above: Performed By: #### R PRQ #### [facility] [address] [place] [address] Dr. Dillan Power MCH (RBC) [Entitic mass] 27.3 pg Normal 26.7-34.0 [facility] Comment on above: Performed By: #### R PRQ #### [facility] [address] [place] [address] Dr. Dillan Power MCHC (RBC) [Mass/Vol] 32.0 g/dL Normal 29.9-35.2 [facility] Comment on above: Performed By: #### R PRQ #### [facility] [address] [place] [address] Dr. Dillan Power MCV (RBC) [Entitic vol] 85.4 fL Normal 81.0-99.0 [facility] Comment on above: Performed By: #### R PRQ #### [facility] [address] [place] [address] Dr. Dillan Power MONO # 0.4 103/ul Normal 0.3-0.8 [facility] Comment on above: Performed By: #### R PRQ #### [facility] [address] [place] [address] Dr. Dillan Power Monocytes/100 WBC (Bld) 5.7 % Normal 1.7-12.0 [facility] Comment on above: Performed By: #### R PRQ #### [facility] [address] [place] [address] Dr. Dillan Power NEUT # 4.7 103/ul Normal 1.4-6.5 [facility] Comment on above: Performed By: #### R PRQ #### [facility] [address] [place] [address] Dr. Dillan Power Neutrophils/100 WBC (Bld) 65.1 % Normal 43.0-75.0 [facility] Comment on above: Performed By: #### R PRQ #### [facility] [address] [address] [address] Dillan Power Platelet mean volume (Bld) [Entitic vol] 11.0 fL Normal 9.5-13.5 [facility] Comment on above: Performed By: #### R PRQ #### [facility] [address] [place] [address] Dr. Dillan Power PLT 264 103/ul Normal 150-450 [facility] Comment on above: Performed By: #### R PRQ #### [facility] [address] [address] [address] Dillan Power RBC 4.25 106/ul Normal 4.20-5.40 [facility] Comment on above: Performed By: #### R PRQ #### [facility] [address] [place] [address] Dr. Dillan Power WBC 7.3 103/ul Normal 4.0-11.0 [facility] Comment on above: Performed By: #### R PRQ #### [facility] [address] [place] [address] Dr. Dillan Power CULTURE URINEon 04-02-2021 CULTURE URINE Culture Observations : MODERATE GROWTH OF MIXED GENITAL LAUREANO. NO POTENTIAL PATHOGENS SEEN. Normal [facility] Comment on above: Performed By: #### U RCX #### [facility] [address] [place] [address] Dr. Dillan Power GLYCOHEMOGLOBIN A1Con 2020 ADA RECOMMENDATION ADA THERAPEUTIC TARG ET 6.0 - 7.0 ACTION SUGGESTED > 7.0 Normal [facility] Comment on above: Performed By: #### N BOX #### [facility] [address] [place] [address] Dr. Dillan Power Glucose [Mass/Vol] 111 mg/dL Normal [facility] Comment on above: Performed By: #### N BOX #### [facility] [address] [place] [address] Dr. Dillan Power HbA1c (Bld) [Mass fraction] 5.5 % Normal <=6.0 [facility] Comment on above: Performed By: #### N BOX #### [facility] [address] [address] [address] Dillan Power TONY BOX TEST PT SEND OUTo n 04-02-2021 SENT TO REF LAB 04/02/2021 Normal [facility] Comment on above: Performed By: #### N BOX #### [facility] [address] [place] [address] Dr. Dillan Power TYPE AND SCREENon 04-02-2021 TYPE AND SCREEN Negative Normal [facility] Comment on above: Performed By: #### N BOX #### [facility] [address] [place] [address] Dr. Dillan Power US PREG TVon 03-19-2021 [...] by: LEONIDES SWARTZ Date: 2021-03-19 17:08 Normal [facility] PREG QUANT HCGon 02-23-2021 HCG QUANT 56092 mIU/mL Normal [facility] Comment on above: Performed By: #### R PRQ #### [facility] [address] [place] [address] Dr. Dillan Power HCG RANGE SEE BELOW Normal [facility] Comment on above: Result Comment: 5-50 0-1 WEEK 40-300 1-2 WEEKS 100-1,000 2-3 WEEKS 500-6,000 3-4 WEEKS 5,000-200,000 1-2 MONTHS 10,000-100,000 2-3 MONTHS 3,000-50,000 2ND TRIMESTER 1,000-50,000 3RD TRIMESTER Performed By: #### R PRQ #### [facility] [address] [address] [address] Dillan Power PAP ACOG PANEL 2: 21 to 29on 02-09-2021 . . Normal [facility] Comment on above: Performed By: #### R PRQ #### [facility] [address] [place] [address] Dr. Dillan Power Age Gdln ACOG Testing 21- [facility] Comment on above: Performed By: #### R PRQ #### [facility] [address] [address] [address] Dillan Power DIAGNOSIS: Comment [facility] Comment on above: Result Comment: NEGA TIVE FOR INTRAEPITHELIAL LESION OR MALIGNANCY. Performed By: #### R PRQ #### [facility] [address] [place] [address] Dr. Dillan Power Methodology: Comment [facility] Comment on above: Result Comment: This liquid based ThinPrep(R) pap test was screened with the use of an image guided system. Performed By: #### R PRQ #### [facility] [address] [place] [address] Dr. Dillan Power Note: Comment [facility] Comment on above: Result Comment: The Pap smear is a screening test designed to aid in the detection of premalignant and malignant conditions of the uterine cervix. It is not a diagnostic procedure and should not be used as the sole means of detecting cervical cancer. Both false-positive and false-negative reports do occur. . Performed By: #### R PRQ #### [facility] [address] [place] [address] Dr. Dillan Power Performed by: Comment [facility] Comment on above: Result Comment: Claudia Portillo, Vegetable Washing Machine Operator (ASCP) Performed By: #### R PRQ #### [facility] [address] [place] [address] Dr. Dillan Power Reflex Criteria: Comment [facility] Comment on above: Result Comment: The HPV DNA reflex criteria were not met with this specimen result therefore, no HPV testing was performed. . Performed By: #### R PRQ #### [facility] [address] [place], [place] [address] Dr. Dillan Power Specimen adequacy: Comment Normal [facility] Comment on above: Result Comment: Sati sfactory for evaluation. Endocervical and/or squamous metaplastic cells (endocervical component) are present. Performed By: #### R PRQ #### [facility] [address] [place], [place] [address] Dr. Dillan Power Social History Date Type Detail Facility Start: 02-16-2023 Gender identity Identifies as female gender (finding) [facility] Start: 02-16-2023 Sexual orientation Heterosexual (finding) [facility] Start: 01-20-2023 [facility] [employer] Start: 01-09-2023 End: 08-03-2023 Sex Assigned At Female [facility] Start: 01-09-2023 Tobacco smoking status MEIS Smokes tobacco daily [facility] Start: 01-09-2023 End: 08-03-2023 History of Social function [facility] Work Phone: Start: 08-20-2022 History SDOH Alcohol Std Drinks 0 [employer] Phone: Start: 10-23-2021 End: 08-06-2023 Alcohol intake Ex-drinker (finding) [employer] Phone: Start: 10-23-2021 End: 08-20-2022 History SDOH Alcohol Frequency 1 [employer] Phone: Start: 10-13-2021 End: 08-19-2022 Exposure to SARS-CoV-2 (event) Not sure [facility] Phone: Start: 04-11-2021 Tobacco smoking status Former smokeless tobacco user, quit more than 30 days ago [facility] Start: 04-10-2021 Tobacco smoking status NHIS Ex-smoker [facility] Phone: Start: 04-10-2021 End: 01-09-2023 Tobacco use and exposure Smokeless tobacco non-user [facility] Phone: Start: 1995 Sex Assigned At Not on file [facility] Phone: Start: 1995 Sex Assigned At Female [facility] History of tobacco use Current smoker JUSTIN ROSARIO [employer] Work Phone: History of tobacco use Cigarette Smoker C [facility] Has the [employer], or [employer] threatened to shut off services in your home in past 12Mo Yes [facility] Do you belong to any clubs or organizations such as sabianism groups, unions, fraternal or athletic groups, or school groups? No [facility] Are you now , , , , never or living with a partner? Never [facility] How often to you hav e a drink containing alcohol? Never [facility] Do you feel stress - tense, restless, nervous, or anxious, or unable to sleep at night because your mind is troubled all the time - these days [OSQ] Very much [facility] (I/We) worried yuki er (my/our) food would run out before (I/we) got money to buy more. Sometimes true [facility] The food that (I/we) bought just didn't last, and (I/we) didn't have money to get more. Never true [facility] Vital Signs Date Time Vital Sign Value Performing Clinician Facility 08-23-2023 01:08-0400 Hourly Rounding Sarita Packer [facility] Comment on above: Result Comment: Patient discharged to pr ivate vehicle. No s/s of distress at the time of discharge. 08-23-2023 01:01-0400 Hourly Rounding Saritananda Packer [facility] Comment on above: Result Comment: Discharge instructions rosanna pacheco. Appropriate questions answered. patient up to the bathroom to change. 08-23-2023 00:50-0400 Hourly Rounding Sarita Packer [facility] Comment on above: Result Comment: Patient state she isnt h aving any more abdominal pain but still has some right sided back pain. 08-23-2023 00:13-0400 Blood Pressure Location Sarita Packer [facility] 08-23-2023 00:13-0400 Body temperature 98.06 [degF] Sarita Packer [facility] 08-23-2023 00:13-0400 Diastolic blood pressure 72 mm[Hg] Sarita Packer [facility] 08-23-2023 00:13-0400 Heart rate 96 /min Sarita Packer [facility] 08-23-2023 00:13-0400 Mean blood pressure 91 mm[Hg] Sarita Packer [facility] 08-23-2023 00:13-0400 Respiratory rate 16 /min Sarita Packer [facility] 08-23-2023 00:13-0400 Systolic blood pressure 128 mm[Hg] Sarita Packer [facility] 08-06-2023 20:45-0400 Body height 162.6 cm Pat Teixeira DO [facility] 08-06-2023 20:45-0400 Body mass index (BMI) [Ratio] 42.91 kg/m2 Pat Teixeira DO [employer] [facility] 08-06-2023 20:45-0400 Body temperature 98.01 [degF] Pat Teixeira DO [employer] [facility] 08-06-2023 20:45-0400 Body weight 113.4 kg Pat Teixeira DO [employer] [facility] 08-06-2023 20:45-0400 Diastolic blood pressure 87 mm[Hg] Pat Teixeira DO [employer] [facility] 08-06-2023 20:45-0400 Heart rate 115 /min Pat Teixeira DO [employer] [facility] 08-06-2023 20:45-0400 Respiratory rate 18 /min Pat Teixeira DO [facility] 08-06-2023 20:45-0400 SaO2% (BldA) [Mass fraction] 98 % Pat Teixeira DO [facility] 08-06-2023 20:45-0400 Systolic blood pressure 160 mm[Hg] Pat Teixeira DO [facility] 02-17-2023 15:04-0400 Body height 167.6 cm Lorna Dobson ABATTOIR MANAGER.ADMINISTRATIVE OFFICE MANAGER Work Phone: [facility] 02-17-2023 15:04-0400 Body weight 111.04 kg Lorna Dobson ABATTOIR MANAGER.ADMINISTRATIVE OFFICE MANAGER Work Phone: [facility] 02-17-2023 15:04-0400 Diastolic blood pressure 82 mm[Hg] Lorna Dobson ABATTOIR MANAGER.ADMINISTRATIVE OFFICE MANAGER Work Phone: [facility] 02-17-2023 15:04-0400 Heart rate 97 /min Lorna Dobson APRN.ADMINISTRATIVE OFFICE MANAGER Work Phone: [facility] 02-17-2023 15:04-0400 SaO2% (BldA) [Mass fraction] 96 % Lorna Dobson ABATTOIR MANAGER.ADMINISTRATIVE OFFICE MANAGER Work Phone: [facility] 02-17-2023 15:04-0400 Systolic blood pressure 127 mm[Hg] Lorna Dobson ABATTOIR MANAGER.ADMINISTRATIVE OFFICE MANAGER Work Phone: [facility] 01-09-2023 14:08-0400 Body height 167.6 cm Kelsi Freedman ABATTOIR MANAGER.ADMINISTRATIVE OFFICE MANAGER Work Phone: [facility] 01-09-2023 14:08-0400 Body weight 110.68 kg Kelsi Freedman ABATTOIR MANAGER.ADMINISTRATIVE OFFICE MANAGER Work Phone: [facility] 01-09-2023 14:08-0400 Diastolic blood pressure 80 mm[Hg] Kelsi Freedman ABATTOIR MANAGER.ADMINISTRATIVE OFFICE MANAGER Work Phone: [facility] 01-09-2023 14:08-0400 Heart rate 83 /min Kelsi Freedman ABATTOIR MANAGER.ADMINISTRATIVE OFFICE MANAGER Work Phone: [facility] 01-09-2023 14:08-0400 SaO2% (BldA) [Mass fraction] 100 % Kelsi Freedman APRN.ADMINISTRATIVE OFFICE MANAGER Work Phone: [facility] 01-09-2023 14:08-0400 Systolic blood pressure 117 mm[Hg] Kelsi Freedman APRN.ADMINISTRATIVE OFFICE MANAGER Work Phone: [facility] 11-05-2022 09:53-0400 Body temperature 98.42 [degF] Harris Simms [facility] 11-05-2022 09:53-0400 Diastolic blood pressure 60 mm[Hg] Harris Simms [facility] 11-05-2022 09:53-0400 Heart rate 89 /min Harris Simms [facility] 11-05-2022 09:53-0400 Respiratory rate 18 /min Harris Simms [facility] 11-05-2022 09:53-0400 SaO2% (BldA) [Mass fraction] 99 % Harris Simms [facility] 11-05-2022 09:53-0400 Systolic blood pressure 113 mm[Hg] Harris Simms [facility] 10-30-2022 03:40-0400 Body height 162.6 cm Pa Celis MD Work Phone: [facility] 10-30-2022 03:40-0400 Body mass index (BMI) [Ratio] 37.76 kg/m2 Pa Celis MD Work Phone: [facility] 10-30-2022 03:40-0400 Body temperature 97 [degF] Pa Celis MD Work Phone: [facility] 10-30-2022 03:40-0400 Body weight 99.79 kg Pa Celis MD Work Phone: [facility] [employer] 10-30-2022 03:40-0400 Diastolic blood pressure 83 mm[Hg] Pa Celis MD Work Phone: [facility] [employer] 10-30-2022 03:40-0400 Heart rate 90 /min Pa Celis MD Work Phone: [facility] [employer] 10-30-2022 03:40-0400 Respiratory rate 16 /min Pa Celis MD Work Phone: [facility] [employer] 10-30-2022 03:40-0400 SaO2% (BldA) [Mass fraction] 97 % Pa Celis MD Work Phone: [facility] [employer] 10-30-2022 03:40-0400 Systolic blood pressure 133 mm[Hg] Pa Celis MD Work Phone: [facility] [employer] 08-19-2022 21:16-0400 Body mass index (BMI) [Ratio] 37.76 kg/m2 Pat Teixeira DO [facility] [employer] 08-19-2022 21:16-0400 Body weight 99.79 kg Pat Teixeira DO [facility] [employer] 08-19-2022 21:10-0400 Body height 162.6 cm Pat Teixeira DO [facility] [employer] 08-19-2022 21:10-0400 Body temperature 97.59 [degF] Pat Teixeira DO [facility] [employer] 08-19-2022 21:10-0400 Diastolic blood pressure 88 mm[Hg] Pat Teixeira DO [facility] 08-19-2022 21:10-0400 Heart rate 89 /min Pat Teixeiar DO [facility] [employer] 08-19-2022 21:10-0400 Respiratory rate 16 /min Pat Teixeira DO [facility] [employer] 08-19-2022 21:10-0400 SaO2% (BldA) [Mass fraction] 98 % Pat Teixeira DO [facility] [employer] 08-19-2022 21:10-0400 Systolic blood pressure 145 mm[Hg] Pat Teixeira DO [employer] 04-25-2022 19:39-0500 Body height 162.6 cm Pa Celis MD Work Phone: [employer] 04-25-2022 19:39-0500 Body mass index (BMI) [Ratio] 37.76 kg/m2 Pa Celis MD Work Phone: [employer] 04-25-2022 19:39-0500 Body temperature 98.8 [degF] Pa Celis MD Work Phone: [employer] 04-25-2022 19:39-0500 Body weight 99.79 kg Pa Celis MD Work Phone: [employer] 04-25-2022 19:39-0500 Diastolic blood pressure 93 mm[Hg] Pa Celis MD Work Phone: [employer] 04-25-2022 19:39-0500 Heart rate 94 /min Pa Celis MD Work Phone: [employer] 04-25-2022 19:39-0500 Respiratory rate 17 /min Pa Celis MD Work Phone: [employer] 04-25-2022 19:39-0500 SaO2% (BldA) [Mass fraction] 96 % Pa Celis MD Work Phone: [employer] 04-25-2022 19:39-0500 Systolic blood pressure 140 mm[Hg] Pa Celis MD Work Phone: [employer] 10-24-2021 17:29-0400 Heart rate 78 /min Cisco Stallings MD Work Phone: [employer] 10-24-2021 12:30-0400 Diastolic blood pressure 56 mm[Hg] Cisco Stallings MD Work Phone: [employer] 10-24-2021 12:30-0400 Respiratory rate 13 /min Cisco Stallings MD Work Phone: [employer] 10-24-2021 12:30-0400 SaO2% (BldA) [Mass fraction] 96 % Cisco Stallings MD Work Phone: [facility] [employer] 10-24-2021 12:30-0400 Systolic blood pressure 113 mm[Hg] Cisco Stallings MD Work Phone: [facility] [employer] 10-24-2021 11:25-0400 Body temperature 98.29 [degF] Cisco Stallings MD Work Phone: [facility] [employer] 10-23-2021 18:33-0400 Body temperature 99 [degF] Pa Celis MD Work Phone: [employer] 10-23-2021 18:33-0400 Diastolic blood pressure 51 mm[Hg] Pa Celis MD Work Phone: [employer] 10-23-2021 18:33-0400 Heart rate 86 /min Pa Celis MD Work Phone: [employer] 10-23-2021 18:33-0400 Respiratory rate 16 /min Pa Celis MD Work Phone: [employer] 10-23-2021 18:33-0400 SaO2% (BldA) [Mass fraction] 97 % Pa Celis MD Work Phone: [employer] 10-23-2021 18:33-0400 Systolic blood pressure 126 mm[Hg] Pa Celis MD Work Phone: [employer] 10-23-2021 15:55-0400 Body height 162.6 cm Pa Celis MD Work Phone: [employer] 10-23-2021 15:55-0400 Body mass index (BMI) [Ratio] 39.99 kg/m2 Pa Celis MD Work Phone: [facility] 10-23-2021 15:55-0400 Body weight 105.69 kg Pa Celis MD Work Phone: [facility] 10-20-2021 22:08-0400 Hour[employer] Rounding [facility] Comment on above: Result Comment: Nurse [...] to d/c. 10-20-2021 21:54-0400 Blood Pressure Location [facility]ar[facility] 10-20-2021 21:54-0400 Diastolic blood pressure 68 mm[Hg] [facility] 10-20-2021 21:54-0400 Heart rate 102 /min [facility]coenarayan [facility] 10-20-2021 21:54-0400 Hourly Rounding [facility] Comment on above: Result Comment: pt only pumped less than 2 oz of breastmilk. sent home w ith pt for next feeding. pts breast softer and pain lessened. red spot still noted wiht warness. encouraged to call dr boyd tomorrow if pain/redness/warmed does not improve or any fever. verb understanding. 10-20-2021 21:54-0400 Mean blood pressure 86 mm[Hg] [facility]coe [facility] 10-20-2021 21:54-0400 Respiratory rate 18 /min Roscoe Maureenwilliam [facility] 10-20-2021 21:54-0400 SaO2% (BldA) [Mass fraction] 97 % [facility] 10-20-2021 21:54-0400 Systolic blood pressure 122 mm[Hg] Roscoe Pear Deck [facility] 10-20-2021 21:30-0400 Hourly Rounding Roscoe [facility] Comment on above: Result Comment: staff @ [facility] pump set up and assisted with breast massage while hot washcloth applied. pt had only been pumping 2x a day since delivery on 10/15 and supplementing with formula. set up pumping and feeding scheduled POC and pt and sig ot her both agree. answered all questoins/concerns. pt has appt with [facility]/lact retail client solutions consultant on monday and encouraged to keep appt. or schedule with our lact retail client solutions consultant if that works better. 10-20-2021 21:16-0400 Heart rate 100 /min Roscoe [facility] 10-20-2021 21:08-0400 Diastolic blood pressure 63 mm[Hg] Roscoe Pear Deck [facility] 10-20-2021 21:08-0400 Heart rate 97 /min Roscoe [facility] 10-20-2021 21:08-0400 Mean blood pressure 81 mm[Hg] Roscoe [facility] Deck [facility] 10-20-2021 21:08-0400 SaO2% (BldA) [Mass fraction] 96 % Roscoe [facility] Deck [facility] 10-20-2021 21:08-0400 Systolic blood pressure 117 mm[Hg] Roscoe Pear Deck [facility] 10-20-2021 20:51-0400 Blood Pressure Location Roscoe [facility] De[facility] 10-20-2021 20:51-0400 Body temperature 98.42 [degF] Roscoe [facility] De[facility] 10-20-2021 20:51-0400 Diastolic blood pressure 76 mm[Hg] [facility] 10-20-2021 20:51-0400 Mean blood pressure 94 mm[Hg] [facility] 10-20-2021 20:51-0400 Respiratory rate 18 /min [facility] 10-20-2021 20:51-0400 Systolic blood pressure 131 mm[Hg] [facility] 09-18-2021 00:15-0400 Hourly Rounding [facility] Comment on above: Result Comment: pt walks off unit w/ lasha reynaldo gait. Result Comment: disc harge instructions given to pt at this time. this nurse educates pt on premature labor signs/symtpoms and includes material regarding preeclampsia d/t pt concerns reagrding this. pt asks appropriate questions and answers provided by this nurse. Result Comment: pt u pdated on POC and discharge 09-17-2021 23:46-0400 Blood Pressure Location [facility]era Nelson [facility] 09-17-2021 23:46-0400 Diastolic blood pressure 59 mm[Hg] Gera Nelson [facility] 09-17-2021 23:46-0400 Heart rate 91 /min [facility]era [facility] 09-17-2021 23:46-0400 Mean blood pressure 76 mm[Hg] Gera [facility] 09-17-2021 23:46-0400 Respiratory rate 18 /min [facility] 09-17-2021 23:46-0400 Systolic blood pressure 109 mm[Hg] [facility]era [facility] 09-17-2021 23:19-0400 Blood Pressure Location [facility] 09-17-2021 23:19-0400 Diastolic blood pressure 67 mm[Hg] Gera [facility] 09-17-2021 23:19-0400 Heart rate 101 /min Gera [facility] 09-17-2021 23:19-0400 Mean blood pressure 89 mm[Hg] Gera Nelson [facility] 09-17-2021 23:19-0400 Respiratory rate 20 /min Gera [facility] 09-17-2021 23:19-0400 Systolic blood pressure 134 mm[Hg] Gera [facility] 09-17-2021 23:01-0400 Blood Pressure Location [facility] 09-17-2021 23:01-0400 Body temperature 98.24 [degF] [facility]era [facility] 09-17-2021 23:01-0400 Diastolic blood pressure 79 mm[Hg] Gera [facility] 09-17-2021 23:01-0400 Heart rate 102 /min [facility]era [facility] 09-17-2021 23:01-0400 Mean blood pressure 98 mm[Hg] [facility] 09-17-2021 23:01-0400 Systolic blood pressure 137 mm[Hg] Gera [facility] 08-27-2021 03:08-0400 Hourly Rounding [facility] Comment on above: Result Comment: Patient sleeping in bed. Call light within reach. Result Comment: Pt d ischarged to private vehicle. No s/s of distress. Pt ambulatory. 08-27-2021 01:45-0400 Blood Pressure Location Gera Nelson [facility] 08-27-2021 01:45-0400 Diastolic blood pressure 51 mm[Hg] Gera Nelson [facility] 08-27-2021 01:45-0400 Heart rate 109 /min Gera Nelson [facility] 08-27-2021 01:45-0400 Mean blood pressure 72 mm[Hg] Gera Nelson [facility] 08-27-2021 01:45-0400 Respiratory rate 16 /min Gera Nelson [facility] 08-27-2021 01:45-0400 Systolic blood pressure 114 mm[Hg] Gera Nelson [facility] 08-27-2021 00:01-0400 Hourly Rounding [facility] Comment on above: Result Comment: SVE performed. Pt denied any additional needs. Call light within reach. 08-26-2021 23:15-0400 Blood Pressure Location Gera Nelson [facility] 08-26-2021 23:15-0400 Diastolic blood pressure 76 mm[Hg] [facility] 08-26-2021 23:15-0400 Heart rate 88 /min Gera Nelson [facility] 08-26-2021 23:15-0400 Mean blood pressure 90 mm[Hg] [facility]era [facility] 08-26-2021 23:15-0400 Respiratory rate 18 /min [facility] 08-26-2021 23:15-0400 Systolic blood pressure 117 mm[Hg] [facility] 08-26-2021 23:08-0400 Body temperature 98.06 [degF] [facility] 07-24-2021 02:12-0400 Diastolic blood pressure 71 mm[Hg] [facility] 07-24-2021 02:12-0400 Heart rate 78 /min [facility] 07-24-2021 02:12-0400 Mean blood pressure 90 mm[Hg] [facility] 07-24-2021 02:12-0400 Respiratory rate 18 /min [facility] 07-24-2021 02:12-0400 SaO2% (BldA) [Mass fraction] 97 % [facility] 07-24-2021 02:12-0400 Systolic blood pressure 127 mm[Hg] [facility] 07-24-2021 00:35-0400 Body temperature 98.06 [degF] [facility] 07-24-2021 00:35-0400 Diastolic blood pressure 84 mm[Hg] [facility] 07-24-2021 00:35-0400 Heart rate 98 /min [facility] 07-24-2021 00:35-0400 Respiratory rate 16 /min [facility] 07-24-2021 00:35-0400 SaO2% (BldA) [Mass fraction] 98 % [facility] 07-24-2021 00:35-0400 Systolic blood pressure 133 mm[Hg] [facility] 04-10-2021 00:50-0500 Body height 162.6 cm John Fernandes MD Work Phone: [facility] [employer] 04-10-2021 00:50-0500 Body mass index (BMI) [Ratio] 40.42 kg/m2 John Fernandes MD Work Phone: [facility] [employer] 04-10-2021 00:50-0500 Body temperature 98.8 [degF] John Fernandes MD Work Phone: [facility] [employer] 04-10-2021 00:50-0500 Body weight 106.82 kg John Fernandes MD Work Phone: [facility] [employer] 04-10-2021 00:50-0500 Diastolic blood pressure 60 mm[Hg] John Fernandes MD Work Phone: [facility] [employer] 04-10-2021 00:50-0500 Heart rate 105 /min John Fernandes MD Work Phone: [facility] [employer] 04-10-2021 00:50-0500 Respiratory rate 20 /min John Fernandes MD Work Phone: [facility] 04-10-2021 00:50-0500 SaO2% (BldA) [Mass fraction] 97 % John Fernandes MD Work Phone: [facility] 04-10-2021 00:50-0500 Systolic blood pressure 111 mm[Hg] John Fernandes MD Work Phone: [facility] Functional Status Date Assessment Result Facility 08-23-2023 Functional Status N/A [facility] 11-05-2022 Functional Status N/A [facility] 10-20-2021 Functional Status N/A [facility] Clinical Notes 07-24-2021 to 08-23-2023 Brigitte Schafer LPCC - 03/06/2023 3:20 PM ESTTelephone Tom - Emeli Penn MA - 02/24/2023 4:29 PM EDTPatient Key Benedict APRN.CNP - 02/24/2023 1:10 PM EDT Note Date & Type Note Facility 08-23-2023 Note The following Patien t Education Materials have been given to the patient: EducationMaterial [facility] 08-23-2023 Hospital Discharge instructions Follow Up Care 08/22/2023 23:46:41 With:Cash BOYD Address: [address] [place] [address]- Business (1) When:08/31/2023 Comments:Appointment has already been scheduledCall for severe abdominal painCall physician for heavy vaginal bleedingCall physician if symptoms worsenReturn for contractions closer, longer, strongerReturn for decreased movementReturn if ruptured membranes or vaginal bleeding [facility] 03-06-2023 Note HNO ID: [id number] Author: Brigitte Schafer LPCC Service: ? Author Type: Therapist Type: Progress Notes Filed: 03/06/2023 3:23 PM Note Text: BEHAVIORAL HEALTH SOCIAL WORK QUICK NOTE Provider Action/FYI No show Patient identified for [facility] from: PCP Reason for referral: [facility] Assessment Behavioral Health Resources: Psychiatry med management [facility] encounter type: Office Visit, Virtual Visit Attempts to Outreach: 2 attempts Referral made: Psychiatry - Internal Psychiatry-Internal referral type: Medication Management Final Disposition: Care established with Patient Discharged?: Yes Patient reported that caregiver was able to meet their needs today?: N/A Pt identified by name and . Patient no showed, no called to her initial assessment. KERRIE Jensen [facility] 03-06-2023 History of Present illness Narrative BEHAVIORAL HEALTH SOCIAL WORK QUICK NOTE Provider Action/FYI No show Patient identified for [facility] from: PCP Reason for referral: [facility] Assessment Behavioral Health Resources: Psychiatry med management [facility] encounter type: Office Visit, Virtual Visit Attempts to Outreach: 2 attempts Referral made: Psychiatry - Internal Psychiatry-Internal referral type: Medication Management Final Disposition: Care established with Patient Discharged?: Yes Patient reported that caregiver was able to meet their needs today?: N/A Pt identified by name and . Patient no showed, no called to her initial assessment. KERRIE Jensen documented in this encounter [facility] 02-24-2023 Miscellaneous Notes ----- Message from Lorna Dobson APRN.ADMINISTRATIVE OFFICE MANAGER sent at 02/24/2023 4:18 PM EDT ----- [...] CBC normal Lorna documented in this encounter [facility] 02-24-2023 Note HNO ID: [id number] Author: Kye Casas APRN.CNP Service: ? Author Type: Nurse Practitioner Type: Progress Notes Filed: 02/24/2023 2:24 PM Note Text: VIRTUAL VISIT PROGRESS NOTE This is a virtual visit using [employer] Video Visit. It required patient-provider interaction for the medical decision making as documented below. I have communicated my name and active licensure. The patient's identity and physical location were verified at the time of this visit. Either the patient or their legal inventory representative has been informed of the risks [...] Follow up in 4 months Key Casas APRN.CNP Patient Instructions Blood work to be completed at [facility] Schedule ultrasound and Fibroscan in office today: [phone] Once all testing completed, I will submit [...] which included preparing to see the patient, [id number] patient care, completing clinical documentation, obtaining and/or reviewing separately obtained history, counseling and educating the patient/family/caregiver, ordering medications, tests, or procedures, and communicating results to the patient/family/caregiver Key Casas APRN.CNP [facility] 02-24-2023 Instructions Key Casas APRN.CNP - 02/24/2023 1:20 PM EDT Blood work to be completed at [facility] Schedule ultrasound and Fibroscan in office today: [phone] Once all testing completed, I will submit prescription to our specialty pharmacy who will work with your insurance company. Once approved through insurance, medication will be mailed to your house (this may take a few weeks); Call office to notify us when you start medication documented in this encounter [facility] 02-24-2023 History of Present illness Narrative VIRTUAL VISIT PROGRESS NOTE This is a virtual visit using [employer] Video Visit. It required patient-provider interaction for the medical decision making as documented below. I have communicated my name and active licensure. The patient's identity and physical location were verified at the time of this visit. Either the patient or their legal inventory representative has been informed of the risks [...] Instructions Blood work to be completed at [facility] Schedule ultrasound and Fibroscan in office today: [phone] Once all testing completed, I will submit [...] which included preparing to see the patient, [id number] patient care, completing clinical documentation, obtaining and/or reviewing separately obtained history, counseling and educating the patient/family/caregiver, ordering medications, tests, or procedures, and communicating results to the patient/family/caregiver Key Casas APRN.ADMINISTRATIVE OFFICE MANAGER documented in this encounter [facility] 02-21-2023 Note HNO ID: [id number] Author: Lien Candelaria LSW Service: ? Author Type: Residence Hall Director Type: Progress Notes Filed: 02/21/2023 9:28 AM [...] MARY Barahona February 21, 2023 9:25 AM [facility] 02-21-2023 History of Present illness [...] 2023 9:25 AM documented in this encounter [facility] 02-20-2023 Miscellaneous Notes Behavioral Health Social Work Progress Note Patient identified for [facility] from: PCP Reason for referral: Resources Behavioral Health Resources: Psychiatry med management [facility] encounter type: Telephone Encounter Attempts to [...] see psychiatry. Patient is scheduled for her [facility] assessment on 03/06 at 1:00pm. KERRIE Jensen February 20, 2023 documented in this encounter [facility] 02-17-2023 Note HNO ID: [id number] Author: Lorna Dobson APRN.ADMINISTRATIVE OFFICE MANAGER Service: ? Author Type: Nurse Practitioner Type: Progress Notes Filed: 02/17/2023 4:15 PM Note Text: This note was created using plistater. 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 Lorna Dobson APRN.CNP [facility] 02-17-2023 Instructions Lorna Dobson APRN.CNP - 02/17/2023 3:52 PM EDT Slowly taper off lexapro - once off, start 25 mg of zoloft Make an appt with psych Make an appt with GI Make appt with derm Get labs done Follow up 1 month after starting zoloft to let me know how it's going - can be virtual documented in this encounter [facility] 02-17-2023 History of Present illness Narrative This [...] which included preparing to see the patient, xkba-ew-wbkz patient care, completing clinical documentation, obtaining and/or reviewing separately obtained history, performing a medically appropriate examination, counseling and educating the patient/family/caregiver, and ordering medications, tests, or procedures. Lorna Dobson APRN.CANDELARIO documented in this encounter [facility] 01-09-2023 Note HNO ID: [id number] Author: Kelsi Freedman APRN.CANDELARIO Service: ? Author Type: Nurse Practitioner Type: Progress Notes Filed: 01/09/2023 4:04 PM Note Text: This note was created using NoteWriter. Subjective Christiana Young is a 27 year old female. 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 Some PPD in past. GI: [...] states he sister buys it from a [facility] pharmacy for cheap and she could qualify [...] YR, QUADRIVALENT (AFLURIA, FLULAVAL, FLUZONE) Kelsi Freedman APRN.[facility] 01-09-2023 History of Present illness Narrative This note was created using NoteWriter. Subjective Christiana Young is a 27 year old female. 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 Some PPD in past. GI: [...] YR, QUADRIVALENT (AFLURIA, FLULAVAL, FLUZONE) Kelsi Freedman APRN.ADMINISTRATIVE OFFICE MANAGER documented in this encounter [facility] 11-05-2022 Evaluation + Plan note Extrac oral from: Title:ED Note Author:Harris Simms DO Date:11/05 Acute URI (J06.9: Acute uppe r respiratory infection, unspecified) Urticaria (L50.9: Urticaria, unspecified) Orders: cetirizine, 10 mg = 1 tab(s), Oral, Daily, X 7 day(s), # 7 tab(s), Refills(s) 0, Pharmacy: [facility] #[id number], 162, cm, 11/05/22 9:56:00 EDT, Height/Length Dosing, 105, kg, 11/05/22 9:56:00 EDT, Weight Dosing famotidine, 40 mg = 1 tab(s), Oral, Once a day (at bedtime), X 7 day(s), # 7 tab(s), Refills(s) 0, Pharmacy: [facility] #[id number], 162, cm, 11/05/22 9:56:00 EDT, Height/Length Dosing, 105, kg, 11/05/22 9:56:00 EDT, Weight Dosing predniSONE, 3, Oral, Daily, X 7 day(s), # 21 tab(s), Refills(s) 0, Pharmacy: [facility] #[id number], 162, cm, 11/05/22 9:56:00 EDT, Height/Length Dosing, 105, kg, 11/05/22 9:56:00 EDT, Weight Dosing Group A Strep by PCR Rapid COVID Antigen ([facility]) Rapid Strep w/rfx U Beta Hcg Qual Future Appointments Appointment Date:11/09/2022 01:00:00 PM Scheduled Provider:Zbigniew La MD Location:[facility] Appointment Type: New Patient - Adult [facility]07-08-2023 Hospital Discharge instructions Follow Up Care 11/05/2022 09:50:08 With:Zbigniew La Address: [address] [place] [phone]- [phone] Business (1) When:Within 3 Day(s) [facility]06-26-2022 History of Present illness Narrative* Gisela [...] 10/23/2021 8:16 PM EDT Pt received from nikolai via transport. VS stable family at bedside. [facility] [employer] Phone: 1(188) 750-123406-26-2022 Hospital Discharge instructions* Instructions* Cisco Stallings MD - 10/24/2021 Bandaids X 48 hours May shower 48 hours Analgesia prescription given if needed No driving while on pain meds No lifting > 10 lbs for next week documented [facility] [employer] Phone: 1(404) 887-502006-22-2022 Hospital Discharge instructions Patient Education 10/20/2021 21:59:57 [...] meet your baby s needs compared to infant formula. Breast milk improves your baby's brain [...] or silent sucking, without causing you pain. 's lips should be extended outward (flanged). Swallowing [...] sounds, smacking lips, cooing, sighing, or squeaking. Pxbz-lj-gqphu movements and sucking on fingers or hands. [...] able to be present during feedings. Your data power consultant can help you find a method [...] recommendations, contact your health careprovider or a data power consultant. Overall health care recommendations while Eat [...] provider before taking any medicines. These include lfbf-kco-fclzkcy andprescription medicines as well as vitamins and herbal supplements. Some medicines that may be harmful to your baby can pass through breast milk. It is possible to become while . If control is desired, ask your healthcare provider about options that will be safe while your baby. Where to find more information: [employer]: www.llli.org Contact a health care [...] fever. Summary offers many health benefits for and mothers. Try to breastfeed your when he or she shows early signs [...] Talk with your health care provider or data power consultant if you have questions or you face problems as you breastfeed. This information is not intended to replace advice given to you by your health care provider. Make sure you discuss any questions you have with your health care provider. Document Released: 04/17/2006 Document Revised: 07/12/2018 Document Reviewed: 05/19/2017 [employer] Patient Education 2019 [employer] Follow Up Care 10/20/2021 21:07:31 With:[facility] Address:Unknown When:10/22/2021 Comments:Appointment has already been scheduled. Keep scheduled appointment for Monday With:Dr. Boyd Address:Unknown When:1 to 2 days Comments:IF SYMPTOMS CONTINUE TOMORROW PLEASE CALL DR. BOYD'S OFFICE.Call Dr if fever>100.5 F, heavy bleedingCall for any problems.Call physician if symptoms worsenLactation Support Group first Monday [facility]06-22-2022 Evaluation + Plan note Diagnostic Tests Pending * Urine Culture 10/20/21 [facility]05-21-2022 Hospital Discharge instructions Patient Education 09/18/2021 [...] one baby. Being 35 or older. Being -[place]. Having kidney disease or diabetes. Having medical [...] get plenty of sleep. General instructions Take wvtv-ely-qjvchih and prescription medicines only as told by [...] 04/14/2001 Document Revised: 12/18/2018 Document Reviewed: 11/21/2016 [employer] Patient Education 2020 [employer]. 09/18/2021 00:02:46 Third Trimester of , Fbpw-bv-Fnsk Third Trimester of The third trimester is from week 28 through week 40 (months 7 through 9). This trimester is when your unborn baby (fetus) is growing very fast. At the end of the ninth month, the unborn baby is about20 inches in length. It weighs about 6 10 pounds. Follow these instructions at home: Medicines Take mizk-kci-rpjnlqo and prescription medicines only as told by [...] 07/12/2010 Document Revised: 08/08/2019 Document Reviewed: 05/23/2017 [employer] Patient Education 2019 [employer]. Follow Up Care 09/17/2021 22:45:27 With:Cash BOYD Address: [address] , [place] [address] [facility] (1) When:2 weeks Comments:Call for any problems.Call physician if symptoms worsenReturn for contractions closer, longer, harderReturn for decreased movementReturn if ruptured membranes or vaginal bleeding [facility]04-29-2022 Hospital Discharge instructions Patient Education 08/27/2021 03:01:30 Third Trimester of , Yjon-ic-Gwly Third Trimester of The third trimester is from week 28 through week 40 (months 7 through 9). This trimester is when your unborn baby (fetus) is growing very fast. At the end of the ninth month, the unborn baby is about20 inches in length. It weighs about 6 10 pounds. Follow these instructions at home: Medicines Take majc-jbp-etcpigx and prescription medicines only as told by [...] 07/12/2010 Document Revised: 08/08/2019 Document Reviewed: 05/23/2017 [employer] Patient Education 2020 [employer]. 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 [...] told by your health care provider. Take cnfw-qya-xhaobua and prescription medicines only as told by [...] way to prevent or manageback pain. Take hhcb-gmq-njyycle and prescription medicines only as told by your health care provider. Keep all follow-up visits as told by your health care provider. This is important. This information is not intended to replace advice given to you by your health care provider. Make sure you discuss any questions you have with your health care provider. Document Released: 07/26/2006 Document Revised: 08/06/2019 Document Reviewed: 10/03/2018 [employer] Patient Education 2020 [employer] Follow Up Care 08/26/2021 22:44:30 With:Cash BOYD Address: [address] , [place] [address] Business (1) When:08/31/2021 Comments:Call Dr. BOYD office in morning Call for any problems.Call for severe abdominal painCall physicianfor heavy vaginal bleedinCall for fever > 100.5 FCall physician if symptoms worsenReturn for decreased movementReturn if ruptured membranes or vaginal [facility]03-26-2022 Evaluation + Plan noteExtracted from: Title:ED Note Author:Alan HOWARD III, Jelly Silveira Date:07/24/21 1. Upper respiratory infecti on (J06.9: Acute upper respiratory infection, unspecified) Orders: Influenza A&B Ag Rapid COVID Antigen ([facility]) [facility]03-26-2022 Hospital Discharge instructions Patient Education 07/24/2021 [...] medicines to help relieve symptoms, such as: Rvpb-sgw-jvygpze cold medicines. Cough suppressants. Coughing is a [...] and other clear broths. General instructions Take ueiz-hzt-nfutfxz and prescription medicines only as told by [...] and water are not available, use hand fur vault attendant. ?Avoid touching your mouth, face, eyes, or [...] 10/11/2001 Document Revised: 04/25/2019 Document Reviewed: 12/01/2017 [employer] Patient Education Properati. Follow Up Care 07/24/2021 00:30:11 With:James Rodriguez Address: [address] [place] [id number] [facility] (1) When:07/27/2021 Comments:Return to the emergency room if your symptoms get worse or any new symptoms. [facility]* Diagnosis COVID-19- Primary documented in this encounter [facility] Phone: evaluation note* Diagnosis Other acute appendicitis- Primary documented in this encounter [employer] Phone: evaluation note* Diagnosis Acute appendicitis, unspecified acute appendicitis type documented in this encounter [employer] Phone: evaluation note* Diagnosis Acute pharyngitis, unspecified etiology- Primary documented in this encounter [employer] Phone: evaluation note* Diagnosis Acute bacterial conjunctivitis of right eye- Primary documented in this encounter [employer] Phone: evaltdexhx note* Diagnosis Urticaria- Primary Urticaria, unspecified documented in [facility] encounter [facility]* Diagnosis Obesity (BMI 30-39.9)- Primary Obesity, [...] single bacterial disease documented in this encounter [facility] note* Diagnosis Anxiety and depression- Primary Dysthymic disorder History of substance abuse (HCC) Other, mixed, or unspecified nondependent drug abuse, unspecified Hepatitis C virus infection without hepatic coma, unspecified chronicity Boils of multiple sites [facility]* Diagnosis Encounter for screening involving social determinants of health (SDoH)- Primary documented in this encounter [facility] note* Diagnosis Hepatitis C virus infection without hepatic coma, unspecified chronicity- Primary History of substance abuse (HCC) Other, mixed, or unspecified nondependent drug abuse, unspecified [facility]* Diagnosis NO SHOW- Primary documented in this encounter [facility] note* Diagnosis Left against medical advice- Primary Surgical or other procedure not carried out because of patient's decision documented in this encounter [facility] [employer] [facility] course Narrative No data available for this section [facility] Discharge instructions* Attachments The following attachments cannot be sent through Care Everywhere. * Coronavirus Disease (COVID-19): General Info ([place]) [facility] [employer] Phone: Hospital Discharge instructions No data available for this section [facility]* Attachments The following attachments cannot be sent through Care Everywhere. * Sore Throat ([place]) [facility] [employer] [facility] Phone: Hospital Discharge instructions* Attachments The following attachments cannot be sent through Care Everywhere. * Conjunctivitis ([place]) [facility] [employer] [facility] Phone: Hospital Discharge instructions* Attachments The following attachments cannot be sent through Care Everywhere. * Urticaria ([place]) [facility] No data available for this section [facility] (narrative)* Diagnostic Procedure Only (Routine) - Pending Review Specialty Diagnoses / Procedures Referred By Sarah t Referred To Contact [facility] Diagnoses Hepatitis C virus infection without hepatic coma, unspecified chronicity Procedures US ABD SPLEEN US ABDOMINAL REAL TIME W/IMAGE LIMITED Key Casas APRN.CNP [address] [place] [address] [facility] [place] [address] Referral ID Status Reason Start Date Expiration Date Visits Requested Visits Authorized [id number] Pending Review Auto-Generat ed Referral 3 03/25/2024 1 1 * Diagnostic Procedure Only (Routine) - Pending Review Specialty Diagnoses / Procedures Referred By Sraah chua Referred To Contact [facility] Diagnoses Hepatitis C virus infection without hepatic coma, unspecified chronicity Procedures US ABD RIGHT UPPER QUADRANT US ABDOMINAL REAL TIME W/IMAGE LIMITED Key Casas APRN.CNP [address] [place] [id number] [facility] [address] Referral ID Status Reason Start Date Expiration Date Visits Requested Visits Authorized [id number] Pending Review Auto-Generat ed Referral 3 03/25/2024 1 1 * Outpatient Procedure (Routine) - Pending Review Specialty Diagnoses / Procedures Referred By Contac t Referred To Contact [facility] Diagnoses Hepatitis C virus infection without hepatic coma, unspecified chronicity Procedures DDI VIBRATION CONTROLLED TRANSIENT ELASTOGRAPHY (VCTE) LIVER ELASTOGRAPHY W/O IMAG W/I&R Key Casas APRN.CANDELARIO [address] [place] [address] [facility] [address] [place] [address] Referral ID Status Reason Start Date Expiration Date Visits Requested Visits Authorized [id number] Pending Review Auto-Generat ed Referral 3 02/25/2024 1 1 [facility] Advance Directives No Advanced Directives Records FoundDocuments on File Type Date Recorded 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 ACP-Advance Directive ACP-Power of Salvage Mend Worker Summary Purpose Family History No Family History Records FoundNo Family History Records FoundNo Family History Records FoundNo Family History Records FoundNo Family History Records Found No data available for this section No Family History Records Found No data available for this section No Family History Records Found Reason for Referral Specialty Diagnoses / Procedures Referred By Contac t Referred To Contact Dermatology Diagnoses Boils of multiple sites Procedures CONSULT TO DERMATOLOGY OFFICE/OUTPATIENT [facility] 60-74 MINUTES Lorna Dobson APRN.ADMINISTRATIVE OFFICE MANAGER [address] [place] [address] Referral ID Status Reason Start Date Expiration Date Visits Requested Visits Authorized [id number] Authorized PCP Requested Referral 3 02/17/2024 1 1 Specialty Diagnoses / Procedures Referred By Contac t Referred To Contact Gastroenterology Diagnoses History of substance abuse (HCC) Hepatitis C virus infection without hepatic coma, unspecified chronicity Procedures CONSULT TO GASTROENTEROLOGY OFFICE/OUTPATIENT [facility] MDM 60-74 MINUTES Lorna Dobson APRN.CANDELARIO [address] [place] [address] Referral ID Status Reason Start Date Expiration Date Visits Requested Visits Authorized [id number] Authorized PCP Requested Referral 3 02/17/2024 1 1 Specialty Diagnoses / Procedures Referred By Contac t Referred To Contact Diagnoses Anxiety and depression History of substance abuse (HCC) Procedures CONSULT TO PSYCHIATRY OFFICE/OUTPATIENT [facility] 60-74 MINUTES Lorna Dobson, ABATTOIR MANAGER.ADMINISTRATIVE OFFICE MANAGER [address] [place] [address] Referral ID Status Reason Start Date Expiration Date Visits Requested Visits Authorized [id number] Pending Review PCP Requested Referral 3 02/17/2024 1 1 Specialty Diagnoses / Procedures Referred By Contac t Referred To Contact Diagnoses Obesity (BMI 30-39.9) History of intravenous drug use in remission Procedures ENDOCRINE MEDICAL WEIGHT MANAGEMENT OFFICE/OUTPATIENT [facility] 60-74 MINUTES Kelsi Freedman APRN.ADMINISTRATIVE OFFICE MANAGER [address] [place] [address] Referral ID Status Reason Start Date Expiration Date Visits Requested Visits Authorized [id number] Authorized PCP Requested Referral 01/09/2023 01/09/2024 1 [...] C Specialty Diagnoses / Procedures Referred By Contac t Referred To Contact Gastroenterology Diagnoses History of substance abuse (HCC) Hepatitis C virus infection without hepatic coma, unspecified chronicity Procedures CONSULT TO GASTROENTEROLOGY OFFICE/OUTPATIENT [facility] 60-74 MINUTES Lorna Dobson, SUSU.ADMINISTRATIVE OFFICE MANAGER [address] [place] [address] Referral ID Status Reason Start Date Expiration Date V isits Requested Visits Authorized [id number] Closed PCP Requested Referral 02/17/2023 02/17/2024 1 [...] and content) DATE CREATED AUTHOR 04/11/2021 [facility] DATE CREATED AUTHOR AUTHOR'S ORGANIZ ATION 10/27/2021 [facility] DATE CREATED AUTHOR AUTHOR'S ORGANIZ ATION 03/07/2023 [facility] DATE CREATED AUTHOR AUTHOR'S ORGANIZ ATION 08/06/2023 [facility] DATE CREATED AUTHOR AUTHOR'S ORGANIZ ATION 08/06/2023 [facility] DATE CREATED AUTHOR AUTHOR'S ORGANIZ ATION 08/26/2023 [facility] DATE CREATED AUTHOR AUTHOR'S ORGANIZ ATION 10/05/2023 [facility] dical Specialists [facility] Care Team (unrecognized sect ion and content) Client Executive Relationship Specialty Start Date End Date Amie Rosas DO [address] [facility] [place] [address] PCP - General Family Medicine 08/23/22 Client Executive Relationship Specialty Start Date End Date Amie Rosas DO [address] [facility] [place] [address] PCP - General Family Medicine 05/02/16 Client Executive Relationship Specialty Start Date End Date Lorna Dobson, ABATTOIR MANAGER.ADMINISTRATIVE OFFICE MANAGER [address] [place] [address] PCP - General 02/17/23 Client Executive Relationship Specialty Start Date End Date Lorna Dobson APRN.ADMINISTRATIVE OFFICE MANAGER [address] [place] [address] PCP - General 02/17/23 Client Executive Relationship Specialty Start Date End Date BronsonTabithaLorna, ABATTOIR MANAGER.ADMINISTRATIVE OFFICE MANAGER [address] [place] [address] PCP General 02/17/23 Client Executive Relationship Specialty Start Date End Date Bronson Lorna, ABATTOIR MANAGER.ADMINISTRATIVE OFFICE MANAGER [address] [place] [address] PCP General 02/17/23 Client Executive Relationship Specialty Start Date End Date Bronson Lorna, ABATTOIR MANAGER.ADMINISTRATIVE OFFICE MANAGER [address] [place] [address] [facility] General 02/17/23 Scheduled Active and Recently Administ ered Medications (unrecognized section and content) Medication Order 10/21/2021 10/22/2021 10/23/2021 0.9 % sodium chloride bolus 1,000 mL (9.46 mL/kg), IntraVENous, at 983.6 mL/hr, Administer over 61 Minutes, ONCE, On 10/23/21 at 1614, For 1 dose 1633 (Patient Transf erred to Other Facility - Provider: Janelle Brewer RN) ketorolac (TORADOL) injection 30 mg (COMPLETED) [...] 2115, Until Discontinued, Antimicrobial Indications: Intra-Abdominal Infection 2355 (New Bag - Provider: Gabrielle Puentes RN) 0046 (Stopped - Provider: Gabrielle Puentes RN)0623 (New Bag - Provider: Gabrielle Puentes, EMELY)0653 (Due: Stopped - Provider: Gabrielle Puentes RN)1354 (New Bag - Provider: Gisela Tolentino RN)1424 (Stopped - Provider: Gisela Tolentino, RN)2000 (Due - Provider: Gabriella Sanchez [facility]) Continuous Medication Order 10/22/2021 10/23/2021 10/24/2021 0.9 % sodium chloride infusion IntraVENous, at 50 mL/hr, CONTINUOUS, Starting on 10/24/21 at 1215 1350 (New Bag - Provider: Gisela Tolentino, EMELY)1823 (Stopped - Provider: Gisela Tolentino, RN) 0.9 % sodium chloride infusion (CANCELED) IntraVENous, at 100 mL/hr, CONTINUOUS, Starting on 10/23/21 at 2115 2354 (New Bag - Provider: Gabrielle Puentes RN) 1830 (Stopped - Provider: Gisela Tolentino, RN) PRN Medication Order 10/22/2021 10/23/2021 10/24/2021 fentaNYL (SUBLIMAZE) injection 50 mcg (CANCELED) 50 mcg, IntraVENous, EVERY 10 MIN PRN, 4 doses, Starting on 10/24/21 at 1154, Until 10/24/21 at 1257, Pain Moderate (4-6), Phase I - Initial therapy for moderate pain., PACU only 1207 (Given - Provid er: Lien Shah, RN)1219 (Given - Provider: Lien Shah RN) [...] hour of each other unless specifically ordered. 2355 (Given - Provider: Gabrielle Puentes, EMELY) 0337 (See Alternative - Provider: Gabrielle Puentes RN)0728 (See Alternative - Provider: Gisela Tolentino RN) morphine (PF) injection 2 mg (CANCELED) [...] hour of each other unless specifically ordered. 2355 (See Alternative - Provider: Gabrielle Puentes RN) 0337 (Given - Provider: Gabrielle Puentes RN)0728 (Given - Provider: Gisela Tolentino, EMELY) ondansetron (ZOFRAN) injection 4 mg (COMPLETED) 4 mg, IntraVENous, ONCE PRN, 1 dose, Starting on 10/24/21 at 1154, Until 10/24/21 at 1205, Nausea, Initial antiemetic therapy., PACU only 1205 (Given - Provid er: Lien Shah RN) ondansetron (ZOFRAN) injection 4 mg 4 mg, IntraVENous, EVERY 6 HOURS PRN, Starting on 10/23/21 at 2048, Until Discontinued, Nausea, Vomiting 2356 (Given - Provider: Gabrielle Puentes RN) oxyCODONE-acetaminophen (PERCOCET) 5-325 MG per tablet 1 [...] Cisco Stallings MD)1830 (Stopped - Provider: Gisela Tolentino, EMELY) No Frequency Medication Order 10/22/2021 10/23/2021 10/24/2021 [...] Eye, ONCE, 1 dose, On Mon08/19/22 at 2154 2213 (Given - Provid er: Gabrielle Espinoza [...] or prosecute any alcohol or drug abuse patient.[facility] Health[facility] the event this information is protected by the Federal Confidentiality of Alcohol and Drug Abuse Patient Records regulations: The Federal rules restrict any use of the information to criminally investigate or prosecute any alcohol or drug abuse patient.[facility] HealthIn the event this information is protected by the Federal Confidentiality of Alcohol and Drug Abuse Patient Records regulations: The Federal rules restrict any use of the information to criminally investigate or prosecute any alcohol or drug abuse patient.[facility] HealthIn the event this information is protected by the Federal Confidentiality of Alcohol and Drug Abuse Patient Records regulations: The Federal rules restrict any use of the information to criminally investigate or prosecute any alcohol or drug abuse patient.[facility] HealthIn the event this information is protected by the Federal Confidentiality of Alcohol and Drug Abuse Patient Records regulations: The Federal rules restrict any use of the information to criminally investigate or prosecute any alcohol or drug abuse patient.[facility] HealthIn the event this information is protected by the Federal Confidentiality of Alcohol and Drug Abuse Patient Records regulations: The Federal rules restrict any use of the information to criminally investigate or prosecute any alcohol or drug abuse patient.[facility] HealthIn the event this information is protected by the Federal Confidentiality of Alcohol and Drug Abuse Patient Records regulations: The Federal rules restrict any use of the information to criminally investigate or prosecute any alcohol or drug abuse patient.[facility] FOR RECORDS PERTAINING TO PATIENTS WHO ARE [...] BE BASED ON THE PRIMARY CLINICAL RECORDS. [employer] [facility]. provides no warranty or guarantee of the accuracy or completeness of information in this document.
[2023-10-06 23:19] VITALS: TEMP 34.9
[2023-10-06 23:20] VITALS: BP 128/82; PULSE 99
[2023-10-06 23:44] LABS: Hematocrit 32.3 % (36.0-48.0); Hemoglobin 9.7 g/dL (12.0-16.0); Mean Corpuscular Hemoglobin 22.2 pg (26.7-34.0); Mean Corpuscular Volume 73.9 fL (81.0-99.0); Platelet Count 165 10^3/uL (150-450); Red Blood Count 4.37 10^6/uL (4.20-5.40); Red Cell Distribution Width 17.2 % (11.0-15.0); White Blood Count 8.9 10^3/uL (4.0-11.0)
[2023-10-07] VITALS (37 sets, daily range): BP systolic 103–165; BP diastolic 58–88; PULSE 73–121; TEMP 31.1–36.9
[2023-10-07 00:03] LABS: Amphetamine Screen Urine NEGATIVE (NEGATIVE); Barbiturates Screen Urine NEGATIVE (NEGATIVE); Benzodiazepines Screen Urine NEGATIVE (NEGATIVE); Buprenorphine Screen Urine NEGATIVE (NEGATIVE); Cannabinoid Screen Urine POSITIVE (NEGATIVE); Cocaine Screen Urine NEGATIVE (NEGATIVE); Methadone Screen Urine NEGATIVE (NEGATIVE); Methamphetamines Screen Urine NEGATIVE (NEGATIVE); Opiate Screen Urine NEGATIVE (NEGATIVE); Oxycodone Screen Urine NEGATIVE (NEGATIVE); Phencyclidine Screen Urine NEGATIVE (NEGATIVE); Tricyclic Antidepressant Urine NEGATIVE (NEGATIVE)
[2023-10-07] MEDS: 0.9 % SODIUM CHLORIDE 1,000 ML 1000 ML IV (01:30)
[2023-10-07] MEDS: OXYTOCIN/0.9 % SODIUM CHLORIDE 10 UNITS/500 ML PLAST..BAG 6 UNIT IV (01:30)
[2023-10-07] MEDS: 0.9 % SODIUM CHLORIDE 1,000 ML 125 ML IV (08:46)
[2023-10-07] MEDS: ROPIVACAINE HCL/PF 400 MG/200 ML PREMIX 8 MG EPIDURAL (11:30)
[2023-10-07] MEDS: FENTANYL CITRATE/PF 100 MCG/2 ML VIAL EPIDURAL (11:31)
[2023-10-07] MEDS: OXYTOCIN/0.9 % SODIUM CHLORIDE 10 UNITS/500 ML PLAST..BAG 48 UNIT IV (14:23)
--- NOTE | 2023-10-07 17:10 | PM.OBPRCVD ---
Procedure Intrapartal events: None Induction method: per pitocin protocol Delivery augmentation: rupture of membranes and pitocin Delivery monitor: external FHT and external uterine Route of delivery: Episiotomy Description: none L&D Laceration Description: none Anesthesia type: Epidural Disposition: floor Delivery date: 10/07/23 Gender: female presentation: vertex Placental delivery description: Spontaneous cord description: 3 Vessels
[2023-10-07] MEDS: OXYTOCIN/0.9 % SODIUM CHLORIDE 20 UNITS/1,000 ML PLAST..BAG 999 UNIT IV (17:28)
[2023-10-08 00:47] VITALS: BP 94/61; PULSE 95
[2023-10-08] MEDS: IBUPROFEN 600 MG TABLET PO ×2 (00:48→16:20)
[2023-10-08 00:49] VITALS: TEMP 30.9; TEMP 36.6
[2023-10-08 06:21] LABS: Basophils Percent Auto 0.5 % (0.2-2.0); Eosinophils Absolute Auto 0.1 10^3/uL (0.0-0.7); Eosinophils Percent Auto 1.2 % (0.9-7.0); Hematocrit 27.1 % (36.0-48.0); Hemoglobin 8.1 g/dL (12.0-16.0); Immature Granulocytes Abs Auto 0.05 10^3/uL (0.00-0.03); Immature Granulocytes Pct Auto 0.6 % (0.0-0.5); Lymphocytes Absolute Auto 1.9 10^3/uL (1.2-3.8); Lymphocytes Percent Auto 22.8 % (20.5-60.0); Mean Corpuscular HGB Conc 29.9 g/dL (29.9-35.2); Mean Corpuscular Hemoglobin 22.3 pg (26.7-34.0); Mean Corpuscular Volume 74.5 fL (81.0-99.0); Mean Platelet Volume 12.4 fL (9.5-13.5); Monocytes Absolute Auto 0.5 10^3/uL (0.3-0.8); Neutrophils Absolute Auto 5.8 10^3/uL (1.4-6.5); Neutrophils Percent Auto 68.9 % (43.0-75.0); Platelet Count 141 10^3/uL (150-450); Red Blood Count 3.64 10^6/uL (4.20-5.40); Red Cell Distribution Width 17.1 % (11.0-15.0); White Blood Count 8.4 10^3/uL (4.0-11.0)
[2023-10-08] MEDS: DOCUSATE SODIUM 100 MG CAPSULE PO (08:18)
[2023-10-08 08:23] VITALS: BP 134/71; PULSE 85
[2023-10-08 08:37] VITALS: TEMP 36.7
--- NOTE | 2023-10-08 10:49 | P.OBPN_ITS ---
OB - PN: Subj Subjective Patient comments: no complaints [place] status: doing well feeding status: breast and bottle feeding Exam Constitutional Vital Signs, click to edit/add: Last Vital Signs Temp 98.1 F 10/08/23 08:37 Pulse 85 10/08/23 08:23 Resp 18 10/08/23 08:37 BP 134/71 10/08/23 08:23 O2 Del Method Room Air 10/08/23 08:38 Documenting provider has reviewed patient's vital signs: yes Common normals: no apparent distress and oriented x3 General appearance: cooperative and comfortable Orientation/consciousness: Yes awake, Yes oriented to person, Yes oriented to place and Yes oriented to time HENMT Common normals: normocephalic Eye Common normals: EOMs intact bilaterally General eye: normal appearance of both eyes Neck & C-Spine Common normals: full ROM Lymph Lymphatic: no lymphadenopathy noted Chest Common normals: inspection of chest normal Respiratory Common normals: normal respiratory effort Effort & inspection: able to speak in complete sentences Cardio Common normals: regular rate and regular rhythm Rate: regular rate Rhythm: regular rhythm GI Common normals: Normal to inspection, nondistended, normoactive bowel sounds present Common normals: no CVA tenderness Back & Pelvis Common normals: no CVA tenderness Extremity Common normals: normal to inspection Neuro Common normals: oriented x3 Sensorium/orientation: awake, alert, oriented to person, oriented to place and oriented to time Psych Common normals: mental status grossly normal, thought process normal, cooperative, affect normal, speech normal, activity/motor behavior normal, denies hallucinations, denies homicidal ideation and denies suicidal ideation Results Labs Labs: Short CBC 10/08/23 Range/Units 06:14 WBC 8.4 (4.0-11.0) 10^3/uL Hgb 8.1 L (12.0-16.0) g/dL Hct 27.1 L (36.0-48.0) % Plt Count 141 L (150-450) 10^3/uL OB - PN: A/P Plan - Vaginal Delivery day: 1 Plan: discharge home Time Spent with Patient Time: Total time spent is greater than 50% in coordination of care (as documented) at patient's floor/unit and/or counseling patient: Total time spent with greater than 50% in coordination of care (as documented) at patient's floor/unit and/or counseling patient: less than 15 minutes
[2023-10-08 17:11] VITALS: BP 145/87; TEMP 36.6; O2SAT 98
[2023-10-08 17:31] VITALS: BP 145/87; PULSE 87
--- NOTE | 2023-10-10 08:58 | SWNOTE1 ---
Pt was discharged over the weekend prior to SW being able to see pt.
== END 2023-10-08 20:22 | disposition home or self-care (01) | DRG 560 ==
PROVIDERS: Admitting Provider Obstetrics & Gynecology; Visit Provider Obstetrics & Gynecology
DX: O99.214 Obesity complicating childbirth (principal); O99.324 Drug use complicating childbirth; E66.01 Morbid (severe) obesity due to excess calories; F12.90 Cannabis use, unspecified, uncomplicated; Z3A.39 39 weeks gestation of pregnancy; Z37.0 Single live birth; F11.11 Opioid abuse, in remission; Z86.19 Personal history of other infectious and parasitic diseases
CPT/HCPCS: 36415; 51702; 59050; 59410; 80307; 85025; 85027; 86850; 86900; 86901; 96365; 96366; 96376; J2795; J3010